=== PATIENT | female | born 1965 | race Caucasian/White ===

== ENCOUNTER 2021-03-04 20:22 | Observation (INO) ==
[2021-03-04] MEDS ORDERED: SODIUM CHLORIDE 0.9% 500 ML IV SCH (21:00)
[2021-03-04 21:32] LABS: Hematocrit (blood only) 38.3 % (37-47); Hemoglobin 13.9 g/dL (12.0-16.0); Mean Corpuscular Hemoglobin 29.1 pg (25-34); Mean Corpuscular Hgb Conc 36.3 g/dL (32-36); Mean Corpuscular Volume 80.3 fL (80-100); Mean Platelet Volume 10.7 fL (7.4-10.4); Platelet Count 173 K/uL (130-400); RDW Standard Deviation 38.8 fL (36.4-46.3); Red Blood Count 4.77 M/uL (4.2-5.4); White Blood Count 14.18 K/uL (4.8-10.8)
[2021-03-04 21:39] LABS: iSTAT Creatinine 1.4 mg/dl (0.6-1.3); iSTAT Hemoglobin 14.3 g/dl (12.0-16.0); iSTAT Ionized Calcium 1.05 mmol/l (1.12-1.32); iSTAT Potassium 2.5 mmol/L (3.3-5.0)
[2021-03-04 21:53] LABS: Albumin Level 3.4 gm/dl (3.4-5.0); BUN Creatinine Ratio 37.7 (10-20); Calcium 9.2 mg/dl (8.5-10.1); Creatinine Clr Calc Pharmacy 39.8 ml/min; Est GFR (African American) 47.8 ml/min; Est GFR (Non-African American) 41.2 ml/min; Magnesium 2.3 mg/dl (1.8-2.4); Potassium 2.5 mmol/L (3.5-5.1)
[2021-03-04] MEDS ORDERED: POTASSIUM CHLORIDE / WTR 10 MEQ/100 ML PLCT IV ONE (22:02)
[2021-03-04 22:07] LABS: Basophils # (auto) 0.06 K/uL (0-0.2); Basophils % (auto) 0.4 %; Echinocytes 1+; Eosinophils # (auto) 0.01 K/uL (0-0.5); Eosinophils % (auto) 0.1 %; Immature Granulocytes # (auto) 0.03 K/uL (0.00-0.02); Immature Granulocytes % (auto) 0.2 %; Lymphocytes # (auto) 4.59 K/uL (1.2-3.4); Lymphocytes % (auto) 32.4 %; Monocytes # (auto) 1.22 K/uL (0.11-0.59); Monocytes % (auto) 8.6 %; Neutrophils # (auto) 8.27 K/uL (1.4-6.5); Neutrophils % (auto) 58.3 %
[2021-03-04 22:10] LABS: Albumin Globulin Ratio 0.9 (0.9-2); Bilirubin,Total 1.1 mg/dl (0.2-1); Thyroid Stimulating Hormone 0.796 uIu/ml (0.300-4.500); Total Protein 7.4 gm/dl (6.4-8.2); Troponin I 0.042 ng/ml (0-0.045)
--- NOTE | 2021-03-04 22:10 | XRay Report ---
XR chest 1V portable CLINICAL HISTORY: weakness TECHNIQUE: Single frontal radiograph of the chest was obtained. Comparison: None available at the time of this dictation. FINDINGS: A right carotid stent is noted. The cardiomediastinal silhouette is normal. There is a radiodensity i n the left upper lung that appears to overlie the tip of the first rib. No evidence of pleural effusi on or pneumothorax. IMPRESSION: Radiodensity in the left upper lung may represent summation artifact from overlying ribs, however att ention on CTA neck, already ordered, is recommended. ACT 112: Negative or not required by law. Electronically signed by: Silverio Campos M.D. 03/04/2021 10:09 PM
[2021-03-04] MEDS ORDERED: OPTIRAY 320 125ml IV ONE (22:34)
--- NOTE | 2021-03-04 22:43 | CT Scan Report ---
CT cervical spine wo con CLINICAL HISTORY: fall TECHNIQUE: Multidetector row helical CT of the cervical spine was performed without administration of intravenous contrast. Coronal and sagittal reformations were obtained. Automated dose lowering techn iques and/or adjustment according to patient size were utilized for this exam. Comparison: None available at the time of this dictation. FINDINGS: No acute fractures or subluxations are identified. The alignment is normal. The vertebral body height s and disk spaces are well maintained. The prevertebral soft tissues are unremarkable. IMPRESSION: No evidence of acute injury. ACT 112: Negative or not required by law. Electronically signed by: Silverio Campos M.D. 03/04/2021 10:38 PM
--- NOTE | 2021-03-04 22:50 | Emergency Department Note ---
Impression & Plan Confusion, Falls, Contusion of left shoulder, Multiple leg contusions, Rhabdomyolysis, Atrial fibrillation with rapid ventricular response, Acute hypokalemia, Acute hyponatremia ED Provider Note Provider: Ted Thornton MD DATE OF SERVICE: 03/04/2021 CHIEF COMPLAINT: Falls, disorientation HISTORY OF PRESENT ILLNESS: Patient is a 55-year-old female history of a left carotid stent, and diabetes and hypertension presenting here with son today reporting over the past approximately 3-4 days his mother is not been acting herself. Evidently starting on Sunday he reports that at times she has been staring sitting on the toilet or going through an empty box in her room for some time. Occasionally had a little slurred speech but none now. Patient's not been reported to be eating well and there is question if she is been taking her medicines. There is been several small falls from bed with unclear if any loss of consciousness occurred. Patient is supposed to be on aspirin and Plavix. Patient denies any significant pain at this time or headache. Patient reports may be a little bit of dizziness. Patient denies numbness or weakness in the extremities. Son is unsure if she is ever had anything happen like this before. REVIEW OF SYSTEMS: A total of 10 review of systems was obtained and negative except as stated above in the HPI. PAST MEDICAL HISTORY: As noted above MEDICATIONS: Reviewed home medications listing but unsure of compliance SOCIAL HISTORY: Lives at home with son PHYSICAL EXAM: GENERAL: alert and oriented in no acute distress on stretcher, occasionally slo w to answer Head: normocephalic and atraumatic EYES: No injection, discharge or icterus. PERRL, EOMI. NECK: Trachea midline. Supple. ENT: Mucous membranes pink and moist. Pharynx without erythema or exudate. LUNGS: Airway patent. No retractions. Breath sounds clear HEART: Regular rate and rhythm. No chest wall tenderness ABDOMEN: Soft and non-tender, without guarding or rebound. BACK: No bilateral flank tenderness. SKIN: Acyanotic, warm, dry EXTREMITIES: Patient without significant swelling of the lower extremities. Soft compartments of the lower calves but with some scattered mild bruising of the bilateral shins and lower legs. There is a bruise approximately 5 cm partially healed over the left upper shoulder but no significant tenderness and good range of motion here. NEUROLOGICAL: No focal deficits. No aphasia. No facial droop or slurred speech but occasionally does not answer questions or is a bit slow to respond. Normal strength and tone in the extremities. Sensation to gross touch normal. Neuro intact without numbness and good strength in the hands and feet. Follows commands. Assisted from wheelchair to stretcher with minimal assist. EK bpm normal sinus rhythm. No PVC or PAC. No acute ST segment elevation or depression with a QTC of 485. Nonspecific T wave changes are noted in aVL, lead I, and laterally EK bpm appears to be in A. fib with RVR without acute ST segment elevation or depression. EK bpm sinus rhythm with a first-degree AV block with occasional PVC. No acute ST segment elevation noted with a QTC of 47. CONTINUOUS CARDIAC MONITORING: was ordered and showed a heart rate of 80s to 100s bpm in normal sinus rhythm to sinus tachycardia to later an episode of heart rate from the 100s to 150s irregularly irregular question A. fib. GCS 15 (intermittently with a bit of mild confusion) Patient's laboratory studies and imaging reviewed. Differential includes Infection, dehydration, metabolic abnormality, hypo/hyperglycemia, electrolyte disturbance, anemia, hypoxia, cardiac sources, intracerebral event, toxicologic, neurologic, as well as other pathologies. IMPRESSION/MEDICAL DECISION MAKING: Patient refused a left shoulder x-ray given the bruising here but not see obvious fracture on the x-ray and she ranges it well and doubt a bony injury with this. Given her nonspecific confusion at times without focality a CT of the head was completed. Patient has some vascular narrowings but no acute occlusions, intracranial bleed, or obvious stroke on the CT. No evidence of fracture of the cervical spine. Benign abdomen and not hypoxic here and I doubt acute intrathoracic or intra-abdominal/pelvic injury at this point. Some scattered bruising on the extremities lower as well as that the right shoulder question some rhabdomyolysis. No gross evidence of compartment syndrome on exam. Blood work with evidence of mild leukocytosis likely reactive and there is lower suspicion for infection. She is afebrile. Does not appear meningitic. Patient does have some hyponatremia, hypokalemia, and CK elevation consistent with rhabdomyolysis. Given some small initial fluid bolus and then some potassium supplementation. Evidence of GERALD from labs from several years ago. Mild transaminitis likely related to her rhabdo. No alcohol on board. UA and UDS pending. Covid negative and TSH within normal limits. Troponin detectable and abnormal question some possible demand component but she not have active chest pain and no evidence of STEMI on EKG. Discussed with the patient and son at bedside. Given the chemistries and signs of left right abnormalities, renal dysfunction, rhabdomyolysis believe further care here at the hospital is in the patient best interest. She will monitor to see if her sensorium clears some as well and if inciting event can be found. Again I doubt the patient is meningitic and she does not appear septic at this time. Discussed with the hospitalist team for further care here as an inpatient. The patient was in agreement with this plan. Patient later noted to be significantly more tachycardic and repeat EKG appears to show A. fib RVR. Patient without chest pain or hypotension. Patient's electrolytes repeated. Given some magnesium medicine and diltiazem. Patient d oes not report any history of A. fib. Will defer anticoagulation at this time to the inpatient team. Patient given 10 mg bolus of diltiazem and heart rate appears improved and seems to be sinus at this point repeat EKG was ordered. This appears to be normal sinus rhythm. Repeat electrolytes noted and LR supplementation ordered with additional oral potassium. Patient again without significant symptoms. Hospitalist aware. DIAGNOSIS: Falls, rhabdomyolysis, hyponatremia, GERALD, hypokalemia, confusion, A. fib RVR DISPOSITION: Hospitalist will evaluate Patient was agreeable with this plan. Critical Care I have personally spent 35 minutes of critical care time in the direct management of this patient. This includes bedside care, interpretation of diagnostic studies, and testing, discussion with consultants, patient, and family members, and other required patient management activities. These 35 minutes is in excess of all separately billable procedures. Past Med/Surg History Social History Smoking Status: Current every day smoker Tobacco Type: Cigarettes Preferred Language: Irish Feels Safe at Home: Yes Allergies Allergies Allergy/AdvReac Type Severity Reaction Status Date / Time NSAIDS (Non-Steroidal AdvReac Intermediate NAUSEA/VOMI Verified 03/04/21 21:28 Anti-Inflamma TING Home Meds Home Medications Medication Instructions Recorded Confirmed aspirin 81 mg chewable tablet 81 mg PO DAILY 03/04/21 03/04/21 atorvastatin 40 mg tablet 40 mg PO DAILY 03/04/21 03/04/21 clopidogrel 75 mg tablet 75 mg PO DAILY 03/04/21 03/04/21 fenofibrate 54 mg tablet 54 mg PO BID 03/04/21 03/04/21 hydrochlorothiazide 25 mg tablet 12.5 mg PO DAILY 03/04/21 03/04/21 hydrocodone 5 mg-acetaminophen 325 1 tab PO Q6H PRN 03/04/21 03/04/21 mg tablet lorazepam 1 mg tablet 1 mg PO TID PRN 03/04/21 03/04/21 losartan 50 mg tablet 50 mg PO DAILY 03/04/21 03/04/21 metformin 1,000 mg tablet 1,000 mg PO BID 03/04/21 03/04/21 metoprolol tartrate 50 mg tablet 50 mg PO BID 03/04/21 03/04/21 venlafaxine 75 mg tablet 75 mg PO DAILY 03/04/21 03/04/21 Results & Data (ED) Vital Signs Vital Signs - 24 hr 03/04/21 20:30 03/04/21 20:53 03/04/21 21:10 Temperature 36.7 C 36.9 C Temperature Source Temporal Artery Scan Oral Pulse Rate 109 H 104 H Pulse Rate [Apical] 97 H Pulse Rate from SpO2 Sensor 106 H Pulse Rhythm Pulse Rhythm [Apical] Regular Pulse Strength [Apical] Normal Respiratory Rate 20 16 27 H Respiratory Effort / Characteristics Non-Labored Spontaneous Non-Labored Respiratory Depth Normal Normal Respiratory Pattern Regular Blood Pressure 205/89 H Blood Pressure [Left Arm] 204/90 H Blood Pressure Mean 127 Blood Pressure Mean [Left Arm] 128 Blood Pressure Position [Left Arm] Lying Pulse Oximetry 98 98 97 Oxygen Delivery Method Room Air Room Air Sepsis Recent Fever Within 48 Hours No Sepsis New/Unexplained Change in Mental Status Yes Sepsis Action Taken by Nursing No Action Required 03/04/21 21:50 03/04/21 21:57 03/04/21 22:20 Temperature Temperature Source Pulse Rate 97 H 98 H 108 H Pulse Rate [Apical] Pulse Rate from SpO2 Sensor 97 H 102 H Pulse Rhythm Regular Pulse Rhythm [Apical] Pulse Strength [Apical] Respiratory Rate 21 16 19 Respiratory Effort / Characteristics Respiratory Depth Respiratory Pattern Blood Pressure Blood Pressure [Left Arm] Blood Pressure Mean Blood Pressure Mean [Left Arm] Blood Pressure Position [Left Arm] Pulse Oximetry 96 97 98 Oxygen Delivery Method Room Air Sepsis Recent Fever Within 48 Hours Sepsis New/Unexplained Change in Mental Status Sepsis Action Taken by Nursing 03/04/21 22:45 03/04/21 23:00 03/04/21 23:30 Temperature Temperature Source Pulse Rate 102 H 101 H Pulse Rate [Apical] 98 H Pulse Rate from SpO2 Sensor 103 H Pulse Rhythm Pulse Rhythm [Apical] Regular Pulse Strength [Apical] Normal Respiratory Rate 17 29 H 29 H Respiratory Effort / Characteristics Non-Labored Respiratory Depth Normal Respiratory Pattern Blood Pressure Blood Pressure [Left Arm] 195/84 H Blood Pressure Mean Blood Pressure Mean [Left Arm] 121 Blood Pressure Position [Left Arm] Lying Pulse Oximetry 100 99 Oxygen Delivery Method Room Air Sepsis Recent Fever Within 48 Hours Sepsis New/Unexplained Change in Mental Status Sepsis Action Taken by Nursing 03/05/21 00:00 03/05/21 00:30 03/05/21 00:41 Temperature Temperature Source Pulse Rate 101 H 144 H 104 H Pulse Rate [Apical] 102 H Pulse Rate from SpO2 Sensor 145 H 103 H Pulse Rhythm Pulse Rhythm [Apical] Pulse Strength [Apical] Respiratory Rate 25 H 19 28 H Respiratory Effort / Characteristics Respiratory Depth Respiratory Pattern Blood Pressure 154/124 H 198/90 H Blood Pressure [Left Arm] 193/124 H Blood Pressure Mean 134 126 Blood Pressure Mean [Left Arm] 147 Blood Pressure Position [Left Arm] Sitting Pulse Oximetry 96 97 97 Oxygen Delivery Method Room Air Sepsis Recent Fever Within 48 Hours Sepsis New/Unexplained Change in Mental Status Sepsis Action Taken by Nursing Laboratory Data Result diagrams: 03/04/21 21:20 03/05/21 00:43 Lab Results 03/04/21 03/04/21 03/04/21 Range/Units 21:18 21:20 21:20 WBC (4.8-10.8) K/uL RBC (4.2-5.4) M/uL Hgb (12.0-16.0) g/dL POC Hgb (12.0-16.0) g/dl Hct (37-47) % POC Hct (37-47) % MCV (80-100) fL MCH (25-34) pg MCHC (32-36) g/dL RDW Std Deviation (36.4-46.3) fL RDW Coeff of Nicholas (11.5-14.5) % Plt Count (130-400) K/uL MPV (7.4-10.4) fL Immature Gran % (Auto) % Neut % (Auto) % Lymph % (Auto) % [place] % (Auto) % Eos % (Auto) % Baso % (Auto) % Neut # (Auto) (1.4-6.5) K/uL Lymph # (Auto) (1.2-3.4) K/uL [place] # (Auto) (0.11-0.59) K/uL Eos # (Auto) (0-0.5) K/uL Baso # (Auto) (0-0.2) K/uL Immature Gran # (Auto) (0.00-0.02) K/uL Echinocytes POC Sodium (135-144) mmol/L Sodium 127 L (136-145) mmol/L POC Potassium (3.3-5.0) mmol/L Potassium 2.5 L* (3.5-5.1) mmol/L POC Chloride (101-112) mmol/L Chloride 91 L (98-107) mmol/L Carbon Dioxide 20 L (21-32) mmol/L POC Total CO2 (24-31) mmol/L Anion Gap 17.0 H (3-11) POC Anion Gap (16-25) mmol/L POC BUN (7-18) mg/dl BUN 53 H (7-18) mg/dl Creatinine 1.41 H (0.6-1.2) mg/dl POC Creatinine (0.6-1.3) mg/dl Est Cr Clr Drug Dosing 39.8 ml/min Est GFR ( Amer) 47.8 ml/min Est GFR (Non-Af Amer) 41.2 ml/min BUN/Creatinine Ratio 37.7 H (10-20) Glucose 141 H (70-99) mg/dl POC Glucose 138 H (70-99) mg/dl POC Glucose (other) (70-99) mg/dl Osmolality (280-300) mOsm/kg Lactate 0.7 (0.4-2.0) mmol/L Calcium 9.2 (8.5-10.1) mg/dl POC Ioniz Calcium Tushar (1.12-1.32) mmol/l Magnesium 2.3 (1.8-2.4) mg/dl Total Bilirubin 1.1 H (0.2-1) mg/dl AST 204 H (15-37) U/L ALT 118 H (12-78) U/L Alkaline Phosphatase 53 (45-117) U/L Total Creatine Kinase 1824 H (26-192) U/L Troponin I 0.042 (0-0.045) ng/ml Total Protein 7.4 (6.4-8.2) gm/dl Albumin 3.4 (3.4-5.0) gm/dl Globulin 4.0 (2.5-4.0) gm/dl Albumin/Globulin Ratio 0.9 (0.9-2) TSH 0.796 (0.300-4.500) uIu/ml Urine Color Urine Appearance (Clear) Urine pH (4.5-7.5) Ur Specific [place] (1.000-1.030) Urine Protein (Negative) Urine Glucose (UA) (Negative) Urine Ketones (Negative) Urine Blood (Negative) Urine Nitrite (Negative) Urine Bilirubin (Negative) Urine Urobilinogen (Negative) Ur Leukocyte Esterase (Negative) Urine WBC (Auto) (0-5) /hpf Urine RBC (Auto) (0-4) /hpf U Hyaline Cast (Auto) (0-5) /lpf U Epithel Cells (Auto) (0-5) /lpf Urine Bacteria (Auto) (Negative) Urine Opiates Screen (Neg) Ur Methadone, Qual (Neg) Urine Barbiturates (Neg) Ur Phencyclidine (PCP) (Neg) U Amphetamin/Meth Scrn (Neg) MDMA (Ecstasy) Screen (Neg) U Benzodiazepines Scrn (Neg) Ur Cocaine Metabolite (Neg) U Marijuana (THC) Screen (Neg) Ethyl Alcohol mg/dL (0-3) mg/dl COVID-19 Eval Order SARS-CoV-2 (PCR) (Negative) 03/04/21 03/04/21 03/04/21 Range/Units 21:20 21:20 21:23 WBC 14.18 H (4.8-10.8) K/uL RBC 4.77 (4.2-5.4) M/uL Hgb 13.9 (12.0-16.0) g/dL POC Hgb (12.0-16.0) g/dl Hct 38.3 (37-47) % POC Hct (37-47) % MCV 80.3 (80-100) fL MCH 29.1 (25-34) pg MCHC 36.3 H (32-36) g/dL RDW Std Deviation 38.8 (36.4-46.3) fL RDW Coeff of Nicholas 13.0 (11.5-14.5) % Plt Count 173 (130-400) K/uL MPV 10.7 H (7.4-10.4) fL Immature Gran % (Auto) 0.2 % Neut % (Auto) 58.3 % Lymph % (Auto) 32.4 % [place] % (Auto) 8.6 % Eos % (Auto) 0.1 % Baso % (Auto) 0.4 % Neut # (Auto) 8.27 H (1.4-6.5) K/uL Lymph # (Auto) 4.59 H (1.2-3.4) K/uL [place] # (Auto) 1.22 H (0.11-0.59) K/uL Eos # (Auto) 0.01 (0-0.5) K/uL Baso # (Auto) 0.06 (0-0.2) K/uL Immature Gran # (Auto) 0.03 H (0.00-0.02) K/uL Echinocytes 1+ POC Sodium (135-144) mmol/L Sodium (136-145) mmol/L POC Potassium (3.3-5.0) mmol/L Potassium (3.5-5.1) mmol/L POC Chloride (101-112) mmol/L Chloride (98-107) mmol/L Carbon Dioxide (21-32) mmol/L POC Total CO2 (24-31) mmol/L Anion Gap (3-11) POC Anion Gap (16-25) mmol/L POC BUN (7-18) mg/dl BUN (7-18) mg/dl Creatinine (0.6-1.2) mg/dl POC Creatinine (0.6-1.3) mg/dl Est Cr Clr Drug Dosing ml/min Est GFR ( Amer) ml/min Est GFR (Non-Af Amer) ml/min BUN/Creatinine Ratio (10-20) Glucose (70-99) mg/dl POC Glucose (70-99) mg/dl POC Glucose (other) (70-99) mg/dl Osmolality 288 (280-300) mOsm/kg Lactate (0.4-2.0) mmol/L Calcium (8.5-10.1) mg/dl POC Ioniz Calcium Tushar (1.12-1.32) mmol/l Magnesium (1.8-2.4) mg/dl Total Bilirubin (0.2-1) mg/dl AST (15-37) U/L ALT (12-78) U/L Alkaline Phosphatase (45-117) U/L Total Creatine Kinase (26-192) U/L Troponin I (0-0.045) ng/ml Total Protein (6.4-8.2) gm/dl Albumin (3.4-5.0) gm/dl Globulin (2.5-4.0) gm/dl Albumin/Globulin Ratio (0.9-2) TSH (0.300-4.500) uIu/ml Urine Color Urine Appearance (Clear) Urine pH (4.5-7.5) Ur Specific [place] (1.000-1.030) Urine Protein (Negative) Urine Glucose (UA) (Negative) Urine Ketones (Negative) Urine Blood (Negative) Urine Nitrite (Negative) Urine Bilirubin (Negative) Urine Urobilinogen (Negative) Ur Leukocyte Esterase (Negative) Urine WBC (Auto) (0-5) /hpf Urine RBC (Auto) (0-4) /hpf U Hyaline Cast (Auto) (0-5) /lpf U Epithel Cells (Auto) (0-5) /lpf Urine Bacteria (Auto) (Negative) Urine Opiates Screen (Neg) Ur Methadone, Qual (Neg) Urine Barbiturates (Neg) Ur Phencyclidine (PCP) (Neg) U Amphetamin/Meth Scrn (Neg) MDMA (Ecstasy) Screen (Neg) U Benzodiazepines Scrn (Neg) Ur Cocaine Metabolite (Neg) U Marijuana (THC) Screen (Neg) Ethyl Alcohol mg/dL < 3.0 (0-3) mg/dl COVID-19 Eval Order SARS-CoV-2 (PCR) (Negative) 03/04/21 03/04/21 03/04/21 Range/Units 21:26 22:52 22:52 WBC (4.8-10.8) K/uL RBC (4.2-5.4) M/uL Hgb (12.0-16.0) g/dL POC Hgb 14.3 (12.0-16.0) g/dl Hct (37-47) % POC Hct 42 (37-47) % MCV (80-100) fL MCH (25-34) pg MCHC (32-36) g/dL RDW Std Deviation (36.4-46.3) fL RDW Coeff of Nicholas (11.5-14.5) % Plt Count (130-400) K/uL MPV (7.4-10.4) fL Immature Gran % (Auto) % Neut % (Auto) % Lymph % (Auto) % [place] % (Auto) % Eos % (Auto) % Baso % (Auto) % Neut # (Auto) (1.4-6.5) K/uL Lymph # (Auto) (1.2-3.4) K/uL [place] # (Auto) (0.11-0.59) K/uL Eos # (Auto) (0-0.5) K/uL Baso # (Auto) (0-0.2) K/uL Immature Gran # (Auto) (0.00-0.02) K/uL Echinocytes POC Sodium 127 L (135-144) mmol/L Sodium (136-145) mmol/L POC Potassium 2.5 L* (3.3-5.0) mmol/L Potassium (3.5-5.1) mmol/L POC Chloride 92 L (101-112) mmol/L Chloride (98-107) mmol/L Carbon Dioxide (21-32) mmol/L POC Total CO2 20 L (24-31) mmol/L Anion Gap (3-11) POC Anion Gap 20.0 (16-25) mmol/L POC BUN 45 H (7-18) mg/dl BUN (7-18) mg/dl Creatinine (0.6-1.2) mg/dl POC Creatinine 1.4 H (0.6-1.3) mg/dl Est Cr Clr Drug Dosing ml/min Est GFR ( Amer) ml/min Est GFR (Non-Af Amer) ml/min BUN/Creatinine Ratio (10-20) Glucose (70-99) mg/dl POC Glucose (70-99) mg/dl POC Glucose (other) 138 H (70-99) mg/dl Osmolality (280-300) mOsm/kg Lactate (0.4-2.0) mmol/L Calcium (8.5-10.1) mg/dl POC Ioniz Calcium Tushar 1.05 L (1.12-1.32) mmol/l Magnesium (1.8-2.4) mg/dl Total Bilirubin (0.2-1) mg/dl AST (15-37) U/L ALT (12-78) U/L Alkaline Phosphatase (45-117) U/L Total Creatine Kinase (26-192) U/L Troponin I (0-0.045) ng/ml Total Protein (6.4-8.2) gm/dl Albumin (3.4-5.0) gm/dl Globulin (2.5-4.0) gm/dl Albumin/Globulin Ratio (0.9-2) TSH (0.300-4.500) uIu/ml Urine Color Urine Appearance (Clear) Urine pH (4.5-7.5) Ur Specific [place] (1.000-1.030) Urine Protein (Negative) Urine Glucose (UA) (Negative) Urine Ketones (Negative) Urine Blood (Negative) Urine Nitrite (Negative) Urine Bilirubin (Negative) Urine Urobilinogen (Negative) Ur Leukocyte Esterase (Negative) Urine WBC (Auto) (0-5) /hpf Urine RBC (Auto) (0-4) /hpf U Hyaline Cast (Auto) (0-5) /lpf U Epithel Cells (Auto) (0-5) /lpf Urine Bacteria (Auto) (Negative) Urine Opiates Screen (Neg) Ur Methadone, Qual (Neg) Urine Barbiturates (Neg) Ur Phencyclidine (PCP) (Neg) U Amphetamin/Meth Scrn (Neg) MDMA (Ecstasy) Screen (Neg) U Benzodiazepines Scrn (Neg) Ur Cocaine Metabolite (Neg) U Marijuana (THC) Screen (Neg) Ethyl Alcohol mg/dL (0-3) mg/dl COVID-19 Eval Order Covid19 at [facility] SARS-CoV-2 (PCR) NEGATIVE (Negative) 03/05/21 03/05/21 03/05/21 Range/Units 00:43 01:15 01:15 WBC (4.8-10.8) K/uL RBC (4.2-5.4) M/uL Hgb (12.0-16.0) g/dL POC Hgb (12.0-16.0) g/dl Hct (37-47) % POC Hct (37-47) % MCV (80-100) fL MCH (25-34) pg MCHC (32-36) g/dL RDW Std Deviation (36.4-46.3) fL RDW Coeff of Nicholas (11.5-14.5) % Plt Count (130-400) K/uL MPV (7.4-10.4) fL Immature Gran % (Auto) % Neut % (Auto) % Lymph % (Auto) % [place] % (Auto) % Eos % (Auto) % Baso % (Auto) % Neut # (Auto) (1.4-6.5) K/uL Lymph # (Auto) (1.2-3.4) K/uL [place] # (Auto) (0.11-0.59) K/uL Eos # (Auto) (0-0.5) K/uL Baso # (Auto) (0-0.2) K/uL Immature Gran # (Auto) (0.00-0.02) K/uL Echinocytes POC Sodium (135-144) mmol/L Sodium 128 L (136-145) mmol/L POC Potassium (3.3-5.0) mmol/L Potassium 2.6 L (3.5-5.1) mmol/L POC Chloride (101-112) mmol/L Chloride 92 L (98-107) mmol/L Carbon Dioxide 24 (21-32) mmol/L POC Total CO2 (24-31) mmol/L Anion Gap 12.0 H (3-11) POC Anion Gap (16-25) mmol/L POC BUN (7-18) mg/dl BUN 49 H (7-18) mg/dl Creatinine 1.36 H (0.6-1.2) mg/dl POC Creatinine (0.6-1.3) mg/dl Est Cr Clr Drug Dosing 41.3 ml/min Est GFR ( Amer) 49.9 ml/min Est GFR (Non-Af Amer) 43.1 ml/min BUN/Creatinine Ratio 35.7 H (10-20) Glucose 113 H (70-99) mg/dl POC Glucose (70-99) mg/dl POC Glucose (other) (70-99) mg/dl Osmolality (280-300) mOsm/kg Lactate (0.4-2.0) mmol/L Calcium 8.5 (8.5-10.1) mg/dl POC Ioniz Calcium Tushar (1.12-1.32) mmol/l Magnesium (1.8-2.4) mg/dl Total Bilirubin (0.2-1) mg/dl AST (15-37) U/L ALT (12-78) U/L Alkaline Phosphatase (45-117) U/L Total Creatine Kinase (26-192) U/L Troponin I (0-0.045) ng/ml Total Protein (6.4-8.2) gm/dl Albumin (3.4-5.0) gm/dl Globulin (2.5-4.0) gm/dl Albumin/Globulin Ratio (0.9-2) TSH (0.300-4.500) uIu/ml Urine Color Yellow Urine Appearance Clear (Clear) Urine pH 5.0 (4.5-7.5) Ur Specific [place] 1.043 H (1.000-1.030) Urine Protein 1+ H (Negative) Urine Glucose (UA) Negative (Negative) Urine Ketones 1+ H (Negative) Urine Blood 2+ H (Negative) Urine Nitrite Negative (Negative) Urine Bilirubin Negative (Negative) Urine Urobilinogen Negative (Negative) Ur Leukocyte Esterase Negative (Negative) Urine WBC (Auto) 1-5 (0-5) /hpf Urine RBC (Auto) 0-4 (0-4) /hpf U Hyaline Cast (Auto) 1-5 (0-5) /lpf U Epithel Cells (Auto) 10-20 H (0-5) /lpf Urine Bacteria (Auto) Negative (Negative) Urine Opiates Screen Neg (Neg) Ur Methadone, Qual Neg (Neg) Urine Barbiturates Neg (Neg) Ur Phencyclidine (PCP) Neg (Neg) U Amphetamin/Meth Scrn Neg (Neg) MDMA (Ecstasy) Screen Neg (Neg) U Benzodiazepines Scrn Neg (Neg) Ur Cocaine Metabolite Neg (Neg) U Marijuana (THC) Screen Neg (Neg) Ethyl Alcohol mg/dL (0-3) mg/dl COVID-19 Eval Order SARS-CoV-2 (PCR) (Negative) Administered Medications Discontinued Medications Diltiazem HCl (Diltiazem Hcl 5 Mg/Ml 5 Ml Vial) 10 mg IV NOW STA Stop: 03/05/21 00:29 Last Admin: 03/05/21 00:42 Dose: 10 mg Documented by: [id number] Cosigned by: [id number] Sodium Chloride (Nss) 500 mls @ 999 mls/hr IV .Q31M INDRA Stop: 03/04/21 21:30 Last Infusion: 03/04/21 23:41 Dose: 0 mls/hr Documented by: [id number] Admin: 03/04/21 22:04 Dose: 999 mls/hr Documented by: [id number] Potassium Chloride (K Johan / Wtr) 10 meq in 100 mls @ 100 mls/hr IV ONE ONE Stop: 03/04/21 23:01 Last Infusion: 03/04/21 23:41 Dose: 0 mls/hr Documented by: [id number] Admin: 03/04/21 22:45 Dose: 100 mls/hr Documented by: [id number] Magnesium Sulfate/Dextrose (Magnesium Sulfate / D5w) 1 gm in 100 mls @ 400 mls/hr IV Q15M INDRA Stop: 03/05/21 00:43 Last Admin: 03/05/21 00:42 Dose: 400 mls/hr Documented by: [id number] Ioversol (Optiray 320 125ml) 117 ml IV ONCE ONE Stop: 03/04/21 22:35 Last Admin: 03/04/21 22:34 Dose: 117 ml Documented by: [id number] Imaging Data Radiologist's Impression: Head CT 03/04/21 20:48 CT angio head w con, CT angio neck with con, CT head/brain wo con CLINICAL HISTORY: disoriented TECHNIQUE: Contiguous axial CT images of the head were acquired from the base of the skull to the vertex without intravenous contrast administration. CT angiography of the head and neck was performed following intravenous administration of iodinated contrast. Automated dose lowering techniques and/or adjustment according to patient size were utilized for this examination. Comparison: None available at the time of this dictation. FINDINGS: CT head: Areas of decreased attenuation are present in the periventricular and subcortical white matter bilaterally consistent with small vessel ischemic disease. Generalized cerebral atrophy with commensurate enlargement of the ventricles, sulci, and cisterns is also present. There is no acute intracranial hemorrhage or evidence of acute territorial infarction. No shift of the midline structures, mass effect, or extra-axial abnormalities are shown. Atherosclerotic calcifications are present in the intracranial segments of the internal carotid arteries. Old lacunar infarct are seen in the left periventricular white matter and internal capsule. CTA Neck: A 3 vessel aortic arch is shown. A left carotid artery stent is seen. Atherosclerotic plaque is present in the aortic arch and at the origin of the great vessels. There is no atherosclerotic plaque at the origins of the vertebr al arteries. The common carotid, external carotid, cervical segments of the internal carotid arteries, and the cervical segments of the vertebral arteries are patent. There is approximately 50% stenosis of the left vertebral artery at C4. The left vertebral artery is dominant. Emphysematous changes are seen in the bilateral lungs. Subcentimeter thyroid nodules are seen which do not require follow-up by ACR criteria. CTA Head: The anterior and posterior cerebral circulations are patent. There is approximately 70% stenosis of the right internal carotid artery petrous segment. The left internal carotid artery demonstrates approximately 50% stenosis at the petrous segment. Atherosclerotic disease is noted. IMPRESSION: 1. 70% right and 50% left stenosis of the internal carotid arteries at the petrous segment. No aneurysm, dissection, or occlusion is seen. 2. Approximately 50% stenosis of the left vertebral artery at C4. Left carotid artery stent is seen. 3. No acute intracranial hemorrhage, evidence of acute territorial infarction, or other acute intracranial disease process. Assessment of stenosis of the internal carotid arteries is based on NASCET criteria. ACT 112: Negative or not required by law. Electronically signed by: Silverio Campos M.D. 03/04/2021 10:52 PM Chest X-Ray 03/04/21 20:49 XR chest 1V portable CLINICAL HISTORY: weakness TECHNIQUE: Single frontal radiograph of the chest was obtained. Comparison: None available at the time of this dictation. FINDINGS: A right carotid stent is noted. The cardiomediastinal silhouette is normal. There is a radiodensity in the left upper lung that appears to overlie the tip of the first rib. No evidence of pleural effusion or pneumothorax. IMPRESSION: Radiodensity in the left upper lung may represent summation artifact from overlying ribs, however attention on CTA neck, already ordered, is recommended. ACT 112: Negative or not required by law. Electronically signed by: Silverio Campos M.D. 03/04/2021 10:09 PM Head CTA 03/04/21 20:49 CT angio head w con, CT angio neck with con, CT head/brain wo con CLINICAL HISTORY: disoriented TECHNIQUE: Contiguous axial CT images of the head were acquired from the base of the skull to the vertex without intravenous contrast administration. CT angiography of the head and neck was performed following intravenous administration of iodinated contrast. Automated dose lowering techniques and/or adjustment according to patient size were utilized for this examination. Comparison: None available at the time of this dictation. FINDINGS: CT head: Areas of decreased attenuation are present in the periventricular and subcortical white matter bilaterally consistent with small vessel ischemic disease. Generalized cerebral atrophy with commensurate enlargement of the ventricles, sulci, and cisterns is also present. There is no acute intracranial hemorrhage or evidence of acute territorial infarction. No shift of the midline structures, mass effect, or extra-axial abnormalities are shown. Atherosclerotic calcifications are present in the intracranial segments of the internal carotid arteries. Old lacunar infarct are seen in the left periventricular white matter and internal capsule. CTA Neck: A 3 vessel aortic arch is shown. A left carotid artery stent is seen. Atherosclerotic plaque is present in the aortic arch and at the origin of the great vessels. There is no atherosclerotic plaque at the origins of the vertebral arteries. The common carotid, external carotid, cervical segments of the internal carotid arteries, and the cervical segments of the vertebral arteries are patent. There is approximately 50% stenosis of the left vertebral artery at C4. The left vertebral artery is dominant. Emphysematous changes are seen in the bilateral lungs. Subcentimeter thyroid nodules are seen which do not require follow-up by ACR criteria. CTA Head: The anterior and posterior cerebral circulations are patent. There is approximately 70% stenosis of the right internal carotid artery petrous segment. The left internal carotid artery demonstrates approximately 50% stenosis at the petrous segment. Atherosclerotic disease is noted. IMPRESSION: 1. 70% right and 50% left stenosis of the internal carotid arteries at the petrous segment. No aneurysm, dissection, or occlusion is seen. 2. Approximately 50% stenosis of the left vertebral artery at C4. Left carotid artery stent is seen. 3. No acute intracranial hemorrhage, evidence of acute territorial infarction, or other acute intracranial disease process. Assessment of stenosis of the internal carotid arteries is based on NASCET criteria. ACT 112: Negative or not required by law. Electronically signed by: Silverio Campos M.D. 03/04/2021 10:52 PM Neck CTA 03/04/21 20:49 CT angio head w con, CT angio neck with con, CT head/brain wo con CLINICAL HISTORY: disoriented TECHNIQUE: Contiguous axial CT images of the head were acquired from the base of the skull to the vertex without intravenous contrast administration. CT angiography of the head and neck was performed following intravenous administration of iodinated contrast. Automated dose lowering techniques and/or adjustment according to patient size were utilized for this examination. Comparison: None available at the time of this dictation. FINDINGS: CT head: Areas of decreased attenuation are present in the periventricular and subcortical white matter bilaterally consistent with small vessel ischemic disease. Generalized cerebral atrophy with commensurate enlargement of the ventricles, sulci, and cisterns is also present. There is no acute intracranial hemorrhage or evidence of acute territorial infarction. No shift of the midline structures, mass effect, or extra-axial abnormalities are shown. Atherosclerotic calcifications are present in the intracranial segments of the internal carotid arteries. Old lacunar infarct are seen in the left periventricular white matter and internal capsule. CTA Neck: A 3 vessel aortic arch is shown. A left carotid artery stent is seen. Atherosclerotic plaque is present in the aortic arch and at the origin of the great vessels. There is no atherosclerotic plaque at the origins of the vertebral arteries. The common carotid, external carotid, cervical segments of the internal carotid arteries, and the cervical segments of the vertebral arteries are patent. There is approximately 50% stenosis of the left vertebral artery at C4. The left vertebral artery is dominant. Emphysematous changes are seen in the bilateral lungs. Subcentimeter thyroid nodules are seen which do not require follow-up by ACR criteria. CTA Head: The anterior and posterior cerebral circulations are patent. There is approximately 70% stenosis of the right internal carotid artery petrous segment. The left internal carotid artery demonstrates approximately 50% stenosis at the petrous segment. Atherosclerotic disease is noted. IMPRESSION: 1. 70% right and 50% left stenosis of the internal carotid arteries at the petrous segment. No aneurysm, dissection, or occlusion is seen. 2. Approximately 50% stenosis of the left vertebral artery at C4. Left carotid artery stent is seen. 3. No acute intracranial hemorrhage, evidence of acute territorial infarction, or other acute intracranial disease process. Assessment of stenosis of the internal carotid arteries is based on NASCET criteria. ACT 112: Negative or not required by law. Electronically signed by: Silverio Campos M.D. 03/04/2021 10:[address] 03/04/21 20:51 CT cervical spine wo con CLINICAL HISTORY: fall TECHNIQUE: Multidetector row helical CT of the cervical spine was performed without administration of intravenous contrast. Coronal and sagittal reformations were obtained. Automated dose lowering techniques and/or adjustment according to patient size were utilized for this exam. Comparison: None available at the time of this dictation. FINDINGS: No acute fractures or subluxations are identified. The alignment is normal. The vertebral body heights and disk spaces are well maintained. The prevertebral soft tissues are unremarkable. IMPRESSION: No evidence of acute injury. ACT 112: Negative or not required by law. Electronically signed by: Silverio Campos M.D. 03/04/2021 10:38 PM Discharge Plan Visit Data Chief Complaint: Altered Mental Status Stated Complaint: DIZZY, ALTERED MENTAL STATUS ED Provider: Ted Thornton Discharge Problem: Confusion, Falls, Contusion of left shoulder, Multiple leg contusions, Rhabdomyolysis, Atrial fibrillation with rapid ventricular response, Acute hypokalemia, Acute hyponatremia Patient Disposition: Being Evaluated by Hospitalist Forms Stand Alone Forms: [facility] [employer] Prescriptions Prescriptions: No Action losartan 50 mg tablet 50 mg PO DAILY RF: 0 atorvastatin 40 mg tablet 40 mg PO DAILY RF: 0 venlafaxine 75 mg tablet 75 mg PO DAILY RF: 0 hydrocodone-acetaminophen 5-325 mg tablet 1 tab PO Q6H PRN (Reason: Pain) RF: 0 clopidogrel 75 mg tablet 75 mg PO DAILY RF: 0 metformin 1,000 mg tablet 1,000 mg PO BID RF: 0 metoprolol tartrate 50 mg tablet 50 mg PO BID RF: 0 aspirin 81 mg tablet,chewable 81 mg PO DAILY RF: 0 hydrochlorothiazide 25 mg tablet 12.5 mg PO DAILY RF: 0 lorazepam 1 mg tablet 1 mg PO TID PRN (Reason: Anxiety) RF: 0 fenofibrate 54 mg tablet 54 mg PO BID RF: 0 Referrals Referrals: Yovanny Menjivar DO [Primary Care Provider] -
--- NOTE | 2021-03-04 22:53 | CT Scan Report ---
CT angio head w con, CT angio neck with con, CT head/brain wo con CLINICAL HISTORY: disoriented TECHNIQUE: Contiguous axial CT images of the head were acquired from the base of the skull to the sammie diana without intravenous contrast administration. CT angiography of the head and neck was performed f ollowing intravenous administration of iodinated contrast. Automated dose lowering techniques and/or adjustment according to patient size were utilized for this examination. Comparison: None available at the time of this dictation. FINDINGS: CT head: Areas of decreased attenuation are present in the periventricular and subcortical white roshan er bilaterally consistent with small vessel ischemic disease. Generalized cerebral atrophy with comme nsurate enlargement of the ventricles, sulci, and cisterns is also present. There is no acute intracr anial hemorrhage or evidence of acute territorial infarction. No shift of the midline structures, mas s effect, or extra-axial abnormalities are shown. Atherosclerotic calcifications are present in the intracranial segments of the internal carotid arteries. Old lacunar infarct are seen in the left michela ventricular white matter and internal capsule. CTA Neck: A 3 vessel aortic arch is shown. A left carotid artery stent is seen. Atherosclerotic plaq ue is present in the aortic arch and at the origin of the great vessels. There is no atherosclerotic plaque at the origins of the vertebral arteries. The common carotid, external carotid, cervical segme nts of the internal carotid arteries, and the cervical segments of the vertebral arteries are patent. There is approximately 50% stenosis of the left vertebral artery at C4. The left vertebral artery i s dominant. Emphysematous changes are seen in the bilateral lungs. Subcentimeter thyroid nodules are seen which do not require follow-up by ACR criteria. CTA Head: The anterior and posterior cerebral circulations are patent. There is approximately 70% st enosis of the right internal carotid artery petrous segment. The left internal carotid artery demonst rates approximately 50% stenosis at the petrous segment. Atherosclerotic disease is noted. IMPRESSION: 1. 70% right and 50% left stenosis of the internal carotid arteries at the petrous segment. No aneur ysm, dissection, or occlusion is seen. 2. Approximately 50% stenosis of the left vertebral artery at C4. Left carotid artery stent is seen. 3. No acute intracranial hemorrhage, evidence of acute territorial infarction, or other acute intrac ranial disease process. Assessment of stenosis of the internal carotid arteries is based on NASCET criteria. ACT 112: Negative or not required by law. Electronically signed by: Silverio Campos M.D. 03/04/2021 10:52 PM
[2021-03-05] MEDS ORDERED: dilTIAZem HCl 5 MG/ML 5 ML VIAL IV STA (00:28)
[2021-03-05] MEDS ORDERED: MAGNESIUM SULFATE / D5W 1 GM/100 ML BAG IV SCH (00:29)
[2021-03-05 01:15] LABS: BUN Creatinine Ratio 35.7 (10-20); Calcium 8.5 mg/dl (8.5-10.1); Creatinine Clr Calc Pharmacy 41.3 ml/min; Est GFR (African American) 49.9 ml/min; Est GFR (Non-African American) 43.1 ml/min; Potassium 2.6 mmol/L (3.5-5.1)
[2021-03-05 01:30] LABS: Appearance Urine Clear (Clear); Bacteria Urine Automated Negative (Negative); Bilirubin Urine Negative (Negative); Blood Urine 2+ (Negative); Color Urine Yellow; Glucose Urine UA Negative (Negative); Ketones Urine 1+ (Negative); Leukocyte Esterase Urine Negative (Negative); Nitrite Urine Negative (Negative); Protein Urine 1+ (Negative); RBC Urine Automated 0-4 /hpf (0-4); Specific Gravity Urine 1.043 (1.000-1.030); Urobilinogen Urine Negative (Negative)
[2021-03-05 01:51] LABS: Amphetamines+Metham, Urine Neg (Neg); Barbiturates, Urine Neg (Neg); Benzodiazepine, Urine Neg (Neg); Cocaine, Urine Neg (Neg); MDMA (Ecstacy), Urine Neg (Neg); Methadone, Urine Neg (Neg); Opiate, Urine Neg (Neg); Phencyclidine, Urine Neg (Neg)
[2021-03-05] MEDS ORDERED: POTASSIUM CHLORIDE CRTAB 20 MEQ TABCR PO STA ×3 (01:53→19:24)
[2021-03-05] MEDS ORDERED: POTASSIUM CHLORIDE / WTR 10 MEQ/100 ML PLCT IV STA (01:59)
[2021-03-05] MEDS ORDERED: LACTATED RINGER'S 1,000 ML IV SCH (02:00)
[2021-03-05] MEDS ORDERED: METOPROLOL TARTRATE 1 MG/ML VIAL IV STA (02:02)
--- NOTE | 2021-03-05 03:52 | History and Physical Report ---
DATE OF ADMISSION: 03/05/2021. CHIEF COMPLAINT: Confusion. HISTORY OF PRESENT ILLNESS: This is a 55-year-old female with past medical history significant for type 2 diabetes, hyperlipidemia, CAD, hypertension, coronary artery stenosis, Sauer's esophagus, GERD, depression, tobacco abuse, anxiety, bipolar disorder. The patient lives at home with her son. Son brought to the hospital because since last Sunday, the patient is confused at home. She is searching the empty bottle. She is sitting on the commode for a long time. She seems to be confused, so he brought the patient to the hospital. Her initial imaging workup looks okay. She is hypokalemic and also found to be hyponatremic. Currently resting comfortably, oriented to name and place, could not tell the date, could tell her date of , seems to have some confusion with right and left sides. Denies any headache. No blurred visions, no earache, no runny nose, no sore throat, no cough, no difficulty swallowing. Appetite is okay. No chest pain, no shortness of breath, no nausea, no vomiting, no abdominal pain, normal bowel and bladder movements. Denies any blood in stool or black stools. As such, her ambulation status is not that great and in the ER she also found to have new AFib. ALLERGIES: NSAIDs. PAST MEDICAL HISTORY: As mentioned above. PAST SURGICAL HISTORY: Left carotid bypass graft, EGD with biopsy, appendectomy, removal of the oophorectomy, total abdominal hysterectomy, endometriosis, left carotid stent placement. MEDICATIONS: The patient is on aspirin 81 mg p.o. daily, atorvastatin 40 mg p.o. daily, Plavix 75 mg p.o. daily, fenofibrate 54 mg p.o. b.i.d., hydrochlorothiazide 12.5 mg p.o. daily, hydrocodone/acetaminophen 1 tablet p.o. q. 6 p.r.n., Ativan 1 mg p.o. t.i.d. p.r.n., losartan 50 mg p.o. daily, metformin 1000 mg p.o. b.i.d., metoprolol tartrate 50 mg p.o. b.i.d., venlafaxine 75 mg p.o. daily. FAMILY HISTORY: Significant for father has arthritis, diabetes, high cholesterol. Mother has stroke, hypertension, high cholesterol, and arthritis. Sister has arthritis. Aunt has breast cancer. SOCIAL HISTORY: , currently lives with her son. Smoked half pack a day for 14 years. No alcohol use. No drug use. REVIEW OF SYSTEMS: As per HPI. Rest of the review of systems is negative. PHYSICAL EXAMINATION: GENERAL: The patient is moderate build, not in acute distress. VITAL SIGNS: Temperature 36.9, pulse 104, respiratory rate 28, blood pressure oxygen 198/90, oxygen 97% on room air. HEENT: Pupils equal, round and reactive to light. Oral mucosa moist. Somewhat dry. NECK: No JVD, no neck masses. CARDIOVASCULAR: S1 and S2 heard. Tachycardia. No murmurs, no gallop. RESPIRATORY SYSTEM: Normal AP diameter. No accessory muscle use. No wheezing, no crackles. ABDOMEN: Soft, bowel sounds present, nontender, nondistended. CENTRAL NERVOUS SYSTEM: Alert and oriented to name and place. Obeys simple commands. Moves extremities. Some confusion with left to right side, coordination of movements normal. Sensation is intact. EXTREMITIES: No edema, no erythema. LABORATORY DATA: WBC 14.1, hemoglobin 13.9, hematocrit 38.3, platelets 173. Sodium 128, potassium 2.6, chloride 92, bicarbonate 24, BUN 49, creatinine 1.3, serum glucose 113, osmolality is 288. Lactate 0.7, calcium 8.5, magnesium 2.3, total bilirubin 1.1, AST 204, ALT 118, alkaline phosphatase 53, total creatine kinase 1824. TSH 0.7. Urinalysis, +1 ketones, +2 blood loss, urine osmolality 519. Urine drug screen negative. Ethyl alcohol less than 3. SARS-CoV-[address] PCR negative. Cervical spine CT. No evidence of acute injury. CT of the neck, 70% right and 50% left stenosis of the internal carotid arteries. No aneurysm, dissection or occlusion is seen. Approximately 50% stenosis of left vertebral artery at C4, left carotid artery stent is seen. CT scan of the head, no acute findings. Chest x-ray, no acute findings. CT of the head, no acute findings. EKG: Initial EKG when she came in was normal sinus rhythm at a rate of 96, possible left atrial enlargement. Later EKG showed AFib. ASSESSMENT AND PLAN: This 55-year-old female presents with altered mental status. 1. Altered mental status, questionable etiology, could be metabolic with hyponatremia. The patient has leukocytosis but no obvious infection. Urinalysis negative. Chest x-ray, no acute findings. CTA of the head and CTA of the head and neck were unremarkable. Because of new onset atrial fibrillation we will rule out stroke with MRI scan. The patient also has history of stroke in the past. As per the [facility], she had right sided . Stroke in 2018 that resolved. She had left hemispheric stroke with residual right sided weakness in 07/2020 and workup showed left carotid artery stenosis and status post left coronary stenting on 08/18/2020. Will follow the MRI scan and consult Neurology in a.m. for further recommendations, and also speech evaluation. PT, OT when stable. 2. New onset atrial fibrillation. Received a dose of diltiazem in the ER. We will continue her home Lopressor and placed on IV heparin and IV Lopressor p.r.n. Will get echocardiogram, serial enzymes and consult Cardiology in the a.m. for further recommendations. 3. History of stroke in the past, on aspirin, Plavix and statin. 4. Hypokalemia, we will replace. Follow the repeat labs. 5. Hyponatremia, could be from dehydration. Getting gentle fluids. Follow the repeat labs. Consult Nephrology in a.m. 6. Mild rhabdomyolysis with CK of 1824, getting fluids. We will monitor repeat Cpk in a.m. Consult Nephrology. 7. Mild elevation of LFTs. We will follow the repeat labs in a.m. If any concern, we will get a liver ultrasound. 8. Hypertension. Continue home medication of hydrochlorothiazide, losartan and metoprolol. Monitor the blood pressure.May need to hold hctz for electrolytes. 9. History of hyperlipidemia: Continue statin and fenofibrate. 10. Depression: Continue venlafaxine. 11. History of diabetes. Hold metformin, placed on insulin sliding scale. 12. History of bipolar, currently on venlafaxine. 13. Deep venous thrombosis prophylaxis: On IV heparin. DISPOSITION: Closely monitor in the tele floor. Level 1 full code. Expect to discharge home and follow up with family doctor. Job ID: [id number] [facility]
[2021-03-05] MEDS ORDERED: SODIUM CHLORIDE 0.9% 1000ML 1,000 ML IV SCH (07:27)
[2021-03-05] MEDS ORDERED: HYDROCODONE/ACETAMOPHEN 5/325MG TAB PO PRN (07:27)
[2021-03-05] MEDS ORDERED: METOPROLOL TARTRATE 1 MG/ML VIAL IV PRN (07:27)
[2021-03-05] MEDS ORDERED: ACETAMINOPHEN 325 MG TAB PO PRN (07:27)
[2021-03-05] MEDS ORDERED: POLYETHYLENE (MIRALAX) 17 GM PACK PO PRN (07:27)
[2021-03-05] MEDS ORDERED: Heparin IV Adult Wt-Based Standard *NO* Bolus Protocol IV SCH (07:27)
[2021-03-05] MEDS ORDERED: NITROGLYCERIN SL 0.4 MG/TAB TAB SL PRN (07:27)
[2021-03-05] MEDS ORDERED: ONDANSETRON INJ 2 MG/ML 2 ML VIAL IV PRN (07:27)
[2021-03-05] MEDS ORDERED: LORazepam 1 MG TAB PO PRN (07:36)
[2021-03-05 07:47] LABS: Hematocrit (blood only) 36.4 % (37-47); Hemoglobin 13.2 g/dL (12.0-16.0); Mean Corpuscular Hemoglobin 29.2 pg (25-34); Mean Corpuscular Hgb Conc 36.3 g/dL (32-36); Mean Corpuscular Volume 80.5 fL (80-100); Mean Platelet Volume 10.4 fL (7.4-10.4); Platelet Count 185 K/uL (130-400); RDW Coefficient of Variation 13.2 % (11.5-14.5); RDW Standard Deviation 39.1 fL (36.4-46.3); Red Blood Count 4.52 M/uL (4.2-5.4); White Blood Count 12.19 K/uL (4.8-10.8)
[2021-03-05 08:11] LABS: BUN Creatinine Ratio 35.9 (10-20); Calcium 8.7 mg/dl (8.5-10.1); Est GFR (African American) 64.5 ml/min; Est GFR (Non-African American) 55.7 ml/min; Magnesium 2.6 mg/dl (1.8-2.4); Potassium 3.2 mmol/L (3.5-5.1); Troponin I 0.045 ng/ml (0-0.045)
[2021-03-05] MEDS ORDERED: HEPARIN 25000 UNIT/500 ML D5W IV ONE (08:17)
[2021-03-05 08:19] LABS: Basophils # (auto) 0.07 K/uL (0-0.2); Basophils % (auto) 0.6 %; Echinocytes 2+; Eosinophils # (auto) 0.11 K/uL (0-0.5); Eosinophils % (auto) 0.9 %; Immature Granulocytes # (auto) 0.03 K/uL (0.00-0.02); Immature Granulocytes % (auto) 0.2 %; Lymphocytes # (auto) 5.09 K/uL (1.2-3.4); Lymphocytes % (auto) 41.8 %; Monocytes # (auto) 1.61 K/uL (0.11-0.59); Monocytes % (auto) 13.2 %; Neutrophils # (auto) 5.28 K/uL (1.4-6.5); Neutrophils % (auto) 43.3 %; Smudge Cells Present
[2021-03-05 08:40] LABS: Estimated Average Glucose 143 mg/dl; Hemoglobin A1C 6.6 % (4.5-5.6)
[2021-03-05] MEDS ORDERED: hydroCHLOROthiazide 25 MG TAB PO SCH (09:00)
[2021-03-05] MEDS: HEPARIN SODIUM/DEXTROSE 25,000 UNITS/500 ML BAG IV SCH (09:08)
[2021-03-05] MEDS: FENOFIBRATE NANOCRYSTALLIZED 48 MG TABLET SCH ×2 (09:16→19:42)
[2021-03-05] MEDS: ATORVASTATIN 40 MG TAB PO SCH (09:17)
[2021-03-05] MEDS: LOSARTAN POTASSIUM 50 MG TAB PO SCH (09:17)
[2021-03-05] MEDS: CLOPIDOGREL BISULFATE 75 MG TAB PO SCH (09:17)
[2021-03-05] MEDS: ASPIRIN 81 MG ECTAB PO SCH (09:17)
[2021-03-05] MEDS: VENLAFAXINE HCL 37.5 MG TAB PO SCH (09:17)
[2021-03-05] MEDS: METOPROLOL TARTRATE 50 MG TAB PO SCH ×2 (09:17→19:45)
[2021-03-05 09:20] LABS: Partial Thromboplastin Time 27.6 Seconds (21.0-31.0); Prothrombin Time 9.8 Seconds (9.0-12.0)
--- NOTE | 2021-03-05 09:58 | Hospitalist Progress Note ---
Date of Service March 05, 2021 Assessment & Plan (1) Confusion: (2) Paroxysmal atrial fibrillation: (3) Electrolyte and fluid disorder: (4) Abnormal urine findings: Plan: This 55-year-old female presents with altered mental status. 1. Altered mental status, - questionable etiology, could be metabolic with hyponatremia. The patient has leukocytosis but no obvious infection. Urinalysis negative. Chest x-ray, no acute findings. CTA of the head and CTA of the head and neck were unremarkable. Because of new onset atrial fibrillation we will rule out stroke with MRI scan.No new / acute infarcts noted. The patient also has history of stroke in the past. As per the EPIC, she had right sided . Stroke in 2018 that resolved. She had left hemispheric stroke with residual right sided weakness in 07/2020 and workup showed left carotid artery stenosis and s/p left coronary stenting on 08/18/2020. Neurology consulted for further recommendations. Speech evaluation. PT, OT when stable. Infectious etiology seems to be less likely. WBC only mildly elevated. Procal obtained 0.3 UA not c/w infection. Blood cultx obtained and pending. Empiric cefriaxone started for now 2. New onset atrial fibrillation. Received a dose of diltiazem in the ER. We will continue her home Lopressor and placed on IV heparin and IV Lopressor p.r.n. Echocardiogram, obtained. Troponin x2 negative, 3rd one only min. elevated Cardiology consulted for further recommendations. - Cont. IV heparin, will likely DC on Eliquis and plavix, and will stop ASA.on DC 3. History of stroke in the past, on aspirin, Plavix and statin. 4. Hypokalemia, replete and monitor 5. Hyponatremia, could be from dehydration. Getting gentle fluids. Follow the repeat labs.Nephrology consulted. Sodium improved. 6. Mild rhabdomyolysis with CK of 1824, getting fluids. We will monitor repeat Cpk. Consult Nephrology. 7. Mild elevation of LFTs. We will follow the repeat labs. If any concern, we will get a liver ultrasound. 8. Hypertension. At home on hydrochlorothiazide, losartan and metoprolol. Monitor the blood pressure. Hold hctz for now. BP elevated, given no acute stroke, will need to control BP. IV hydralazine prn and small dose PO given. 9. History of hyperlipidemia: Continue statin and fenofibrate. 10. Depression: Continue venlafaxine. 11. History of diabetes. Hold metformin, placed on insulin sliding scale. 12. History of bipolar, currently on venlafaxine. DVT prophylaxis: On IV heparin. DISPOSITION: Closely monitor in the tele floor. Code: Full Admission and Anticipated Discharge Date Admission Date: March 05, 2021 Subjective Pt seen in follow up of AMS, hyponatremia, hypokalemia, Afib Currently laying in bed in NAD, however does not answer questions appropriately ROS difficult as she answers and then changes her answer immediately Overall though, no chest pain, shortness of breath, palpitations, abd. pain, headache She did have have some nausea and vomiting earlier this AM which was confirmed with her nurse Review of Systems Review of Systems: All systems reviewed & are unremarkable except as noted in Subjective Physical Exam Physical Exam: GENERAL: The patient is moderate build, not in acute distress. HEENT: NC/AT, EOMI, PERRL NECK: No JVD, no neck masses. CARDIOVASCULAR: S1 and S2 heard. No murmurs, no gallop. RESPIRATORY: Normal AP diameter. No accessory muscle use. No wheezing, no crackles. ABDOMEN: Soft, bowel sounds present, nontender, nondistended. NEURO: Alert and oriented to name and place. No facial asymmetry. Speech slow but fluent. Obeys simple commands. Moves extremities. Confused when answering more complex questions. Sensation seems intact. EXTREMITIES: No edema, no erythema. Results & Data Results & Data ([facility]) Vital Signs (Past 12 Hours) Vital Signs Pulse Pulse Resp BP BP Pulse Ox 03/05/21 05:07 88 175/92 H 94 03/05/21 02:18 84 192/95 H 03/05/21 02:08 97 H 184/107 H 03/05/21 00:41 104 H 28 H 198/90 H 97 03/05/21 00:30 144 H 19 154/124 H 97 03/05/21 00:00 101 H 102 H 25 H 193/124 H 96 03/04/21 23:30 101 H 29 H 03/04/21 23:00 102 H 29 H 99 03/04/21 22:45 98 H 17 195/84 H 100 03/04/21 22:20 108 H 19 98 03/04/21 21:57 98 H 16 97 Laboratory Results 03/05/21 03/05/21 03/05/21 Range/Units 09:45 09:03 08:13 WBC (4.8-10.8) K/uL RBC (4.2-5.4) M/uL Hgb (12.0-16.0) g/dL POC Hgb (12.0-16.0) g/dl Hct (37-47) % POC Hct (37-47) % MCV (80-100) fL MCH (25-34) pg MCHC (32-36) g/dL RDW Std Deviation (36.4-46.3) fL RDW Coeff of Nicholas (11.5-14.5) % Plt Count (130-400) K/uL MPV (7.4-10.4) fL Immature Gran % (Auto) % Neut % (Auto) % Lymph % (Auto) % [place] % (Auto) % Eos % (Auto) % Baso % (Auto) % Neut # (Auto) (1.4-6.5) K/uL Lymph # (Auto) (1.2-3.4) K/uL [place] # (Auto) (0.11-0.59) K/uL Eos # (Auto) (0-0.5) K/uL Baso # (Auto) (0-0.2) K/uL Immature Gran # (Auto) (0.00-0.02) K/uL Smudge Cells Echinocytes PT 9.8 (9.0-12.0) Seconds INR 1.0 (0.9-1.1) APTT 27.6 (21.0-31.0) Seconds PTT Ratio 1.0 POC Sodium (135-144) mmol/L Sodium (136-145) mmol/L POC Potassium (3.3-5.0) mmol/L Potassium (3.5-5.1) mmol/L POC Chloride (101-112) mmol/L Chloride (98-107) mmol/L Carbon Dioxide (21-32) mmol/L POC Total CO2 (24-31) mmol/L Anion Gap (3-11) POC Anion Gap (16-25) mmol/L POC BUN (7-18) mg/dl BUN (7-18) mg/dl Creatinine (0.6-1.2) mg/dl POC Creatinine (0.6-1.3) mg/dl Est Cr Clr Drug Dosing ml/min Est GFR ( Amer) ml/min Est GFR (Non-Af Amer) ml/min BUN/Creatinine Ratio (10-20) Glucose (70-99) mg/dl POC Glucose 117 H (70-99) mg/dl POC Glucose (other) (70-99) mg/dl Estimat Average Glucose mg/dl Hemoglobin A1c (4.5-5.6) % Osmolality (280-300) mOsm/kg Lactate (0.4-2.0) mmol/L Calcium (8.5-10.1) mg/dl POC Ioniz Calcium Tushar (1.12-1.32) mmol/l Magnesium (1.8-2.4) mg/dl Total Bilirubin (0.2-1) mg/dl AST (15-37) U/L ALT (12-78) U/L Alkaline Phosphatase (45-117) U/L Total Creatine Kinase (26-192) U/L Troponin I (0-0.045) ng/ml Total Protein (6.4-8.2) gm/dl Albumin (3.4-5.0) gm/dl Globulin (2.5-4.0) gm/dl Albumin/Globulin Ratio (0.9-2) TSH (0.300-4.500) uIu/ml Urine Color Urine Appearance (Clear) Urine pH (4.5-7.5) Ur Specific [place] (1.000-1.030) Urine Protein (Negative) Urine Glucose (UA) (Negative) Urine Ketones (Negative) Urine Blood (Negative) Urine Nitrite (Negative) Urine Bilirubin (Negative) Urine Urobilinogen (Negative) Ur Leukocyte Esterase (Negative) Urine WBC (Auto) (0-5) /hpf Urine RBC (Auto) (0-4) /hpf U Hyaline Cast (Auto) (0-5) /lpf U Epithel Cells (Auto) (0-5) /lpf Urine Bacteria (Auto) (Negative) Urine Osmolality (500-800) mOsm/kg Ur Random Sodium Pending Urine Opiates Screen (Neg) Ur Methadone, Qual (Neg) Urine Barbiturates (Neg) Ur Phencyclidine (PCP) (Neg) U Amphetamin/Meth Scrn (Neg) MDMA (Ecstasy) Screen (Neg) U Benzodiazepines Scrn (Neg) Ur Cocaine Metabolite (Neg) U Marijuana (THC) Screen (Neg) Ethyl Alcohol mg/dL (0-3) mg/dl COVID-19 Eval Order SARS-CoV-2 (PCR) (Negative) 03/05/21 03/05/21 03/05/21 Range/Units 07:23 07:23 07:23 WBC 12.19 H (4.8-10.8) K/uL RBC 4.52 (4.2-5.4) M/uL Hgb 13.2 (12.0-16.0) g/dL POC Hgb (12.0-16.0) g/dl Hct 36.4 L (37-47) % POC Hct (37-47) % MCV 80.5 (80-100) fL MCH 29.2 (25-34) pg MCHC 36.3 H (32-36) g/dL RDW Std Deviation 39.1 (36.4-46.3) fL RDW Coeff of Nicholas 13.2 (11.5-14.5) % Plt Count 185 (130-400) K/uL MPV 10.4 (7.4-10.4) fL Immature Gran % (Auto) 0.2 % Neut % (Auto) 43.3 % Lymph % (Auto) 41.8 % [place] % (Auto) 13.2 % Eos % (Auto) 0.9 % Baso % (Auto) 0.6 % Neut # (Auto) 5.28 (1.4-6.5) K/uL Lymph # (Auto) 5.09 H (1.2-3.4) K/uL [place] # (Auto) 1.61 H (0.11-0.59) K/uL Eos # (Auto) 0.11 (0-0.5) K/uL Baso # (Auto) 0.07 (0-0.2) K/uL Immature Gran # (Auto) 0.03 H (0.00-0.02) K/uL Smudge Cells Present Echinocytes 2+ PT (9.0-12.0) Seconds INR (0.9-1.1) APTT (21.0-31.0) Seconds PTT Ratio POC Sodium (135-144) mmol/L Sodium 130 L (136-145) mmol/L POC Potassium (3.3-5.0) mmol/L Potassium 3.2 L D (3.5-5.1) mmol/L POC Chloride (101-112) mmol/L Chloride 95 L (98-107) mmol/L Carbon Dioxide 23 (21-32) mmol/L POC Total CO2 (24-31) mmol/L Anion Gap 12.0 H (3-11) POC Anion Gap (16-25) mmol/L POC BUN (7-18) mg/dl BUN 40 H (7-18) mg/dl Creatinine 1.10 (0.6-1.2) mg/dl POC Creatinine (0.6-1.3) mg/dl Est Cr Clr Drug Dosing 51.0 ml/min Est GFR ( Amer) 64.5 ml/min Est GFR (Non-Af Amer) 55.7 ml/min BUN/Creatinine Ratio 35.9 H (10-20) Glucose 103 H (70-99) mg/dl POC Glucose (70-99) mg/dl POC Glucose (other) (70-99) mg/dl Estimat Average Glucose 143 mg/dl Hemoglobin A1c 6.6 H (4.5-5.6) % Osmolality (280-300) mOsm/kg Lactate (0.4-2.0) mmol/L Calcium 8.7 (8.5-10.1) mg/dl POC Ioniz Calcium Tushar (1.12-1.32) mmol/l Magnesium 2.6 H (1.8-2.4) mg/dl Total Bilirubin (0.2-1) mg/dl AST (15-37) U/L ALT (12-78) U/L Alkaline Phosphatase (45-117) U/L Total Creatine Kinase (26-192) U/L Troponin I 0.045 (0-0.045) ng/ml Total Protein (6.4-8.2) gm/dl Albumin (3.4-5.0) gm/dl Globulin (2.5-4.0) gm/dl Albumin/Globulin Ratio (0.9-2) TSH (0.300-4.500) uIu/ml Urine Color Urine Appearance (Clear) Urine pH (4.5-7.5) Ur Specific [place] (1.000-1.030) Urine Protein (Negative) Urine Glucose (UA) (Negative) Urine Ketones (Negative) Urine Blood (Negative) Urine Nitrite (Negative) Urine Bilirubin (Negative) Urine Urobilinogen (Negative) Ur Leukocyte Esterase (Negative) Urine WBC (Auto) (0-5) /hpf Urine RBC (Auto) (0-4) /hpf U Hyaline Cast (Auto) (0-5) /lpf U Epithel Cells (Auto) (0-5) /lpf Urine Bacteria (Auto) (Negative) Urine Osmolality (500-800) mOsm/kg Ur Random Sodium Urine Opiates Screen (Neg) Ur Methadone, Qual (Neg) Urine Barbiturates (Neg) Ur Phencyclidine (PCP) (Neg) U Amphetamin/Meth Scrn (Neg) MDMA (Ecstasy) Screen (Neg) U Benzodiazepines Scrn (Neg) Ur Cocaine Metabolite (Neg) U Marijuana (THC) Screen (Neg) Ethyl Alcohol mg/dL (0-3) mg/dl COVID-19 Eval Order SARS-CoV-2 (PCR) (Negative) 03/05/21 03/05/21 03/05/21 Range/Units 01:15 01:15 01:15 WBC (4.8-10.8) K/uL RBC (4.2-5.4) M/uL Hgb (12.0-16.0) g/dL POC Hgb (12.0-16.0) g/dl Hct (37-47) % POC Hct (37-47) % MCV (80-100) fL MCH (25-34) pg MCHC (32-36) g/dL RDW Std Deviation (36.4-46.3) fL RDW Coeff of Nicholas (11.5-14.5) % Plt Count (130-400) K/uL MPV (7.4-10.4) fL Immature Gran % (Auto) % Neut % (Auto) % Lymph % (Auto) % [place] % (Auto) % Eos % (Auto) % Baso % (Auto) % Neut # (Auto) (1.4-6.5) K/uL Lymph # (Auto) (1.2-3.4) K/uL [place] # (Auto) (0.11-0.59) K/uL Eos # (Auto) (0-0.5) K/uL Baso # (Auto) (0-0.2) K/uL Immature Gran # (Auto) (0.00-0.02) K/uL Smudge Cells Echinocytes PT (9.0-12.0) Seconds INR (0.9-1.1) APTT (21.0-31.0) Seconds PTT Ratio POC Sodium (135-144) mmol/L Sodium (136-145) mmol/L POC Potassium (3.3-5.0) mmol/L Potassium (3.5-5.1) mmol/L POC Chloride (101-112) mmol/L Chloride (98-107) mmol/L Carbon Dioxide (21-32) mmol/L POC Total CO2 (24-31) mmol/L Anion Gap (3-11) POC Anion Gap (16-25) mmol/L POC BUN (7-18) mg/dl BUN (7-18) mg/dl Creatinine (0.6-1.2) mg/dl POC Creatinine (0.6-1.3) mg/dl Est Cr Clr Drug Dosing ml/min Est GFR ( Amer) ml/min Est GFR (Non-Af Amer) ml/min BUN/Creatinine Ratio (10-20) Glucose (70-99) mg/dl POC Glucose (70-99) mg/dl POC Glucose (other) (70-99) mg/dl Estimat Average Glucose mg/dl Hemoglobin A1c (4.5-5.6) % Osmolality (280-300) mOsm/kg Lactate (0.4-2.0) mmol/L Calcium (8.5-10.1) mg/dl POC Ioniz Calcium Tushar (1.12-1.32) mmol/l Magnesium (1.8-2.4) mg/dl Total Bilirubin (0.2-1) mg/dl AST (15-37) U/L ALT (12-78) U/L Alkaline Phosphatase (45-117) U/L Total Creatine Kinase (26-192) U/L Troponin I (0-0.045) ng/ml Total Protein (6.4-8.2) gm/dl Albumin (3.4-5.0) gm/dl Globulin (2.5-4.0) gm/dl Albumin/Globulin Ratio (0.9-2) TSH (0.300-4.500) uIu/ml Urine Color Yellow Urine Appearance Clear (Clear) Urine pH 5.0 (4.5-7.5) Ur Specific [place] 1.043 H (1.000-1.030) Urine Protein 1+ H (Negative) Urine Glucose (UA) Negative (Negative) Urine Ketones 1+ H (Negative) Urine Blood 2+ H (Negative) Urine Nitrite Negative (Negative) Urine Bilirubin Negative (Negative) Urine Urobilinogen Negative (Negative) Ur Leukocyte Esterase Negative (Negative) Urine WBC (Auto) 1-5 (0-5) /hpf Urine RBC (Auto) 0-4 (0-4) /hpf U Hyaline Cast (Auto) 1-5 (0-5) /lpf U Epithel Cells (Auto) 10-20 H (0-5) /lpf Urine Bacteria (Auto) Negative (Negative) Urine Osmolality 519 (500-800) mOsm/kg Ur Random Sodium Urine Opiates Screen Neg (Neg) Ur Methadone, Qual Neg (Neg) Urine Barbiturates Neg (Neg) Ur Phencyclidine (PCP) Neg (Neg) U Amphetamin/Meth Scrn Neg (Neg) MDMA (Ecstasy) Screen Neg (Neg) U Benzodiazepines Scrn Neg (Neg) Ur Cocaine Metabolite Neg (Neg) U Marijuana (THC) Screen Neg (Neg) Ethyl Alcohol mg/dL (0-3) mg/dl COVID-19 Eval Order SARS-CoV-2 (PCR) (Negative) 03/05/21 03/04/21 03/04/21 Range/Units 00:43 22:52 22:52 WBC (4.8-10.8) K/uL RBC (4.2-5.4) M/uL Hgb (12.0-16.0) g/dL POC Hgb (12.0-16.0) g/dl Hct (37-47) % POC Hct (37-47) % MCV (80-100) fL MCH (25-34) pg MCHC (32-36) g/dL RDW Std Deviation (36.4-46.3) fL RDW Coeff of Nicholas (11.5-14.5) % Plt Count (130-400) K/uL MPV (7.4-10.4) fL Immature Gran % (Auto) % Neut % (Auto) % Lymph % (Auto) % [place] % (Auto) % Eos % (Auto) % Baso % (Auto) % Neut # (Auto) (1.4-6.5) K/uL Lymph # (Auto) (1.2-3.4) K/uL [place] # (Auto) (0.11-0.59) K/uL Eos # (Auto) (0-0.5) K/uL Baso # (Auto) (0-0.2) K/uL Immature Gran # (Auto) (0.00-0.02) K/uL Smudge Cells Echinocytes PT (9.0-12.0) Seconds INR (0.9-1.1) APTT (21.0-31.0) Seconds PTT Ratio POC Sodium (135-144) mmol/L Sodium 128 L (136-145) mmol/L POC Potassium (3.3-5.0) mmol/L Potassium 2.6 L (3.5-5.1) mmol/L POC Chloride (101-112) mmol/L Chloride 92 L (98-107) mmol/L Carbon Dioxide 24 (21-32) mmol/L POC Total CO2 (24-31) mmol/L Anion Gap 12.0 H (3-11) POC Anion Gap (16-25) mmol/L POC BUN (7-18) mg/dl BUN 49 H (7-18) mg/dl Creatinine 1.36 H (0.6-1.2) mg/dl POC Creatinine (0.6-1.3) mg/dl Est Cr Clr Drug Dosing 41.3 ml/min Est GFR ( Amer) 49.9 ml/min Est GFR (Non-Af Amer) 43.1 ml/min BUN/Creatinine Ratio 35.7 H (10-20) Glucose 113 H (70-99) mg/dl POC Glucose (70-99) mg/dl POC Glucose (other) (70-99) mg/dl Estimat Average Glucose mg/dl Hemoglobin A1c (4.5-5.6) % Osmolality (280-300) mOsm/kg Lactate (0.4-2.0) mmol/L Calcium 8.5 (8.5-10.1) mg/dl POC Ioniz Calcium Tushar (1.12-1.32) mmol/l Magnesium (1.8-2.4) mg/dl Total Bilirubin (0.2-1) mg/dl AST (15-37) U/L ALT (12-78) U/L Alkaline Phosphatase (45-117) U/L Total Creatine Kinase (26-192) U/L Troponin I (0-0.045) ng/ml Total Protein (6.4-8.2) gm/dl Albumin (3.4-5.0) gm/dl Globulin (2.5-4.0) gm/dl Albumin/Globulin Ratio (0.9-2) TSH (0.300-4.500) uIu/ml Urine Color Urine Appearance (Clear) Urine pH (4.5-7.5) Ur Specific [place] (1.000-1.030) Urine Protein (Negative) Urine Glucose (UA) (Negative) Urine Ketones (Negative) Urine Blood (Negative) Urine Nitrite (Negative) Urine Bilirubin (Negative) Urine Urobilinogen (Negative) Ur Leukocyte Esterase (Negative) Urine WBC (Auto) (0-5) /hpf Urine RBC (Auto) (0-4) /hpf U Hyaline Cast (Auto) (0-5) /lpf U Epithel Cells (Auto) (0-5) /lpf Urine Bacteria (Auto) (Negative) Urine Osmolality (500-800) mOsm/kg Ur Random Sodium Urine Opiates Screen (Neg) Ur Methadone, Qual (Neg) Urine Barbiturates (Neg) Ur Phencyclidine (PCP) (Neg) U Amphetamin/Meth Scrn (Neg) MDMA (Ecstasy) Screen (Neg) U Benzodiazepines Scrn (Neg) Ur Cocaine Metabolite (Neg) U Marijuana (THC) Screen (Neg) Ethyl Alcohol mg/dL (0-3) mg/dl COVID-19 Eval Order Covid19 at [facility] SARS-CoV-2 (PCR) NEGATIVE (Negative) 03/04/21 03/04/21 03/04/21 Range/Units 21:26 21:23 21:20 WBC (4.8-10.8) K/uL RBC (4.2-5.4) M/uL Hgb (12.0-16.0) g/dL POC Hgb 14.3 (12.0-16.0) g/dl Hct (37-47) % POC Hct 42 (37-47) % MCV (80-100) fL MCH (25-34) pg MCHC (32-36) g/dL RDW Std Deviation (36.4-46.3) fL RDW Coeff of Nicholas (11.5-14.5) % Plt Count (130-400) K/uL MPV (7.4-10.4) fL Immature Gran % (Auto) % Neut % (Auto) % Lymph % (Auto) % [place] % (Auto) % Eos % (Auto) % Baso % (Auto) % Neut # (Auto) (1.4-6.5) K/uL Lymph # (Auto) (1.2-3.4) K/uL [place] # (Auto) (0.11-0.59) K/uL Eos # (Auto) (0-0.5) K/uL Baso # (Auto) (0-0.2) K/uL Immature Gran # (Auto) (0.00-0.02) K/uL Smudge Cells Echinocytes PT (9.0-12.0) Seconds INR (0.9-1.1) APTT (21.0-31.0) Seconds PTT Ratio POC Sodium 127 L (135-144) mmol/L Sodium (136-145) mmol/L POC Potassium 2.5 L* (3.3-5.0) mmol/L Potassium (3.5-5.1) mmol/L POC Chloride 92 L (101-112) mmol/L Chloride (98-107) mmol/L Carbon Dioxide (21-32) mmol/L POC Total CO2 20 L (24-31) mmol/L Anion Gap (3-11) POC Anion Gap 20.0 (16-25) mmol/L POC BUN 45 H (7-18) mg/dl BUN (7-18) mg/dl Creatinine (0.6-1.2) mg/dl POC Creatinine 1.4 H (0.6-1.3) mg/dl Est Cr Clr Drug Dosing ml/min Est GFR ( Amer) ml/min Est GFR (Non-Af Amer) ml/min BUN/Creatinine Ratio (10-20) Glucose (70-99) mg/dl POC Glucose (70-99) mg/dl POC Glucose (other) 138 H (70-99) mg/dl Estimat Average Glucose mg/dl Hemoglobin A1c (4.5-5.6) % Osmolality 288 (280-300) mOsm/kg Lactate (0.4-2.0) mmol/L Calcium (8.5-10.1) mg/dl POC Ioniz Calcium Tushar 1.05 L (1.12-1.32) mmol/l Magnesium (1.8-2.4) mg/dl Total Bilirubin (0.2-1) mg/dl AST (15-37) U/L ALT (12-78) U/L Alkaline Phosphatase (45-117) U/L Total Creatine Kinase (26-192) U/L Troponin I (0-0.045) ng/ml Total Protein (6.4-8.2) gm/dl Albumin (3.4-5.0) gm/dl Globulin (2.5-4.0) gm/dl Albumin/Globulin Ratio (0.9-2) TSH (0.300-4.500) uIu/ml Urine Color Urine Appearance (Clear) Urine pH (4.5-7.5) Ur Specific [place] (1.000-1.030) Urine Protein (Negative) Urine Glucose (UA) (Negative) Urine Ketones (Negative) Urine Blood (Negative) Urine Nitrite (Negative) Urine Bilirubin (Negative) Urine Urobilinogen (Negative) Ur Leukocyte Esterase (Negative) Urine WBC (Auto) (0-5) /hpf Urine RBC (Auto) (0-4) /hpf U Hyaline Cast (Auto) (0-5) /lpf U Epithel Cells (Auto) (0-5) /lpf Urine Bacteria (Auto) (Negative) Urine Osmolality (500-800) mOsm/kg Ur Random Sodium Urine Opiates Screen (Neg) Ur Methadone, Qual (Neg) Urine Barbiturates (Neg) Ur Phencyclidine (PCP) (Neg) U Amphetamin/Meth Scrn (Neg) MDMA (Ecstasy) Screen (Neg) U Benzodiazepines Scrn (Neg) Ur Cocaine Metabolite (Neg) U Marijuana (THC) Screen (Neg) Ethyl Alcohol mg/dL < 3.0 (0-3) mg/dl COVID-19 Eval Order SARS-CoV-2 (PCR) (Negative) 03/04/21 03/04/21 03/04/21 Range/Units 21:20 21:20 21:20 WBC 14.18 H (4.8-10.8) K/uL RBC 4.77 (4.2-5.4) M/uL Hgb 13.9 (12.0-16.0) g/dL POC Hgb (12.0-16.0) g/dl Hct 38.3 (37-47) % POC Hct (37-47) % MCV 80.3 (80-100) fL MCH 29.1 (25-34) pg MCHC 36.3 H (32-36) g/dL RDW Std Deviation 38.8 (36.4-46.3) fL RDW Coeff of Nicholas 13.0 (11.5-14.5) % Plt Count 173 (130-400) K/uL MPV 10.7 H (7.4-10.4) fL Immature Gran % (Auto) 0.2 % Neut % (Auto) 58.3 % Lymph % (Auto) 32.4 % [place] % (Auto) 8.6 % Eos % (Auto) 0.1 % Baso % (Auto) 0.4 % Neut # (Auto) 8.27 H (1.4-6.5) K/uL Lymph # (Auto) 4.59 H (1.2-3.4) K/uL [place] # (Auto) 1.22 H (0.11-0.59) K/uL Eos # (Auto) 0.01 (0-0.5) K/uL Baso # (Auto) 0.06 (0-0.2) K/uL Immature Gran # (Auto) 0.03 H (0.00-0.02) K/uL Smudge Cells Echinocytes 1+ PT (9.0-12.0) Seconds INR (0.9-1.1) APTT (21.0-31.0) Seconds PTT Ratio POC Sodium (135-144) mmol/L Sodium 127 L (136-145) mmol/L POC Potassium (3.3-5.0) mmol/L Potassium 2.5 L* (3.5-5.1) mmol/L POC Chloride (101-112) mmol/L Chloride 91 L (98-107) mmol/L Carbon Dioxide 20 L (21-32) mmol/L POC Total CO2 (24-31) mmol/L Anion Gap 17.0 H (3-11) POC Anion Gap (16-25) mmol/L POC BUN (7-18) mg/dl BUN 53 H (7-18) mg/dl Creatinine 1.41 H (0.6-1.2) mg/dl POC Creatinine (0.6-1.3) mg/dl Est Cr Clr Drug Dosing 39.8 ml/min Est GFR ( Amer) 47.8 ml/min Est GFR (Non-Af Amer) 41.2 ml/min BUN/Creatinine Ratio 37.7 H (10-20) Glucose 141 H (70-99) mg/dl POC Glucose (70-99) mg/dl POC Glucose (other) (70-99) mg/dl Estimat Average Glucose mg/dl Hemoglobin A1c (4.5-5.6) % Osmolality (280-300) mOsm/kg Lactate 0.7 (0.4-2.0) mmol/L Calcium 9.2 (8.5-10.1) mg/dl POC Ioniz Calcium Tushar (1.12-1.32) mmol/l Magnesium 2.3 (1.8-2.4) mg/dl Total Bilirubin 1.1 H (0.2-1) mg/dl AST 204 H (15-37) U/L ALT 118 H (12-78) U/L Alkaline Phosphatase 53 (45-117) U/L Total Creatine Kinase 1824 H (26-192) U/L Troponin I 0.042 (0-0.045) ng/ml Total Protein 7.4 (6.4-8.2) gm/dl Albumin 3.4 (3.4-5.0) gm/dl Globulin 4.0 (2.5-4.0) gm/dl Albumin/Globulin Ratio 0.9 (0.9-2) TSH 0.796 (0.300-4.500) uIu/ml Urine Color Urine Appearance (Clear) Urine pH (4.5-7.5) Ur Specific [place] (1.000-1.030) Urine Protein (Negative) Urine Glucose (UA) (Negative) Urine Ketones (Negative) Urine Blood (Negative) Urine Nitrite (Negative) Urine Bilirubin (Negative) Urine Urobilinogen (Negative) Ur Leukocyte Esterase (Negative) Urine WBC (Auto) (0-5) /hpf Urine RBC (Auto) (0-4) /hpf U Hyaline Cast (Auto) (0-5) /lpf U Epithel Cells (Auto) (0-5) /lpf Urine Bacteria (Auto) (Negative) Urine Osmolality (500-800) mOsm/kg Ur Random Sodium Urine Opiates Screen (Neg) Ur Methadone, Qual (Neg) Urine Barbiturates (Neg) Ur Phencyclidine (PCP) (Neg) U Amphetamin/Meth Scrn (Neg) MDMA (Ecstasy) Screen (Neg) U Benzodiazepines Scrn (Neg) Ur Cocaine Metabolite (Neg) U Marijuana (THC) Screen (Neg) Ethyl Alcohol mg/dL (0-3) mg/dl COVID-19 Eval Order SARS-CoV-2 (PCR) (Negative) 03/04/21 Range/Units 21:18 WBC (4.8-10.8) K/uL RBC (4.2-5.4) M/uL Hgb (12.0-16.0) g/dL POC Hgb (12.0-16.0) g/dl Hct (37-47) % POC Hct (37-47) % MCV (80-100) fL MCH (25-34) pg MCHC (32-36) g/dL RDW Std Deviation (36.4-46.3) fL RDW Coeff of Nicholas (11.5-14.5) % Plt Count (130-400) K/uL MPV (7.4-10.4) fL Immature Gran % (Auto) % Neut % (Auto) % Lymph % (Auto) % [place] % (Auto) % Eos % (Auto) % Baso % (Auto) % Neut # (Auto) (1.4-6.5) K/uL Lymph # (Auto) (1.2-3.4) K/uL [place] # (Auto) (0.11-0.59) K/uL Eos # (Auto) (0-0.5) K/uL Baso # (Auto) (0-0.2) K/uL Immature Gran # (Auto) (0.00-0.02) K/uL Sm[place] Cells Echinocytes PT (9.0-12.0) Seconds INR (0.9-1.1) APTT (21.0-31.0) Seconds PTT Ratio POC Sodium (135-144) mmol/L Sodium (136-145) mmol/L POC Potassium (3.3-5.0) mmol/L Potassium (3.5-5.1) mmol/L POC Chloride (101-112) mmol/L Chloride (98-107) mmol/L Carbon Dioxide (21-32) mmol/L POC Total CO2 (24-31) mmol/L Anion Gap (3-11) POC Anion Gap (16-25) mmol/L POC BUN (7-18) mg/dl BUN (7-18) mg/dl Creatinine (0.6-1.2) mg/dl POC Creatinine (0.6-1.3) mg/dl Est Cr Clr Drug Dosing ml/min Est GFR ( Amer) ml/min Est GFR (Non-Af Amer) ml/min BUN/Creatinine Ratio (10-20) Glucose (70-99) mg/dl POC Glucose 138 H (70-99) mg/dl POC Glucose (other) (70-99) mg/dl Estimat Average Glucose mg/dl Hemoglobin A1c (4.5-5.6) % Osmolality (280-300) mOsm/kg Lactate (0.4-2.0) mmol/L Calcium (8.5-10.1) mg/dl POC Ioniz Calcium Tushar (1.12-1.32) mmol/l Magnesium (1.8-2.4) mg/dl Total Bilirubin (0.2-1) mg/dl AST (15-37) U/L ALT (12-78) U/L Alkaline Phosphatase (45-117) U/L Total Creatine Kinase (26-192) U/L Troponin I (0-0.045) ng/ml Total Protein (6.4-8.2) gm/dl Albumin (3.4-5.0) gm/dl Globulin (2.5-4.0) gm/dl Albumin/Globulin Ratio (0.9-2) TSH (0.300-4.500) uIu/ml Urine Color Urine Appearance (Clear) Urine pH (4.5-7.5) Ur Specific [place] (1.000-1.030) Urine Protein (Negative) Urine Glucose (UA) (Negative) Urine Ketones (Negative) Urine Blood (Negative) Urine Nitrite (Negative) Urine Bilirubin (Negative) Urine Urobilinogen (Negative) Ur Leukocyte Esterase (Negative) Urine WBC (Auto) (0-5) /hpf Urine RBC (Auto) (0-4) /hpf U Hyaline Cast (Auto) (0-5) /lpf U Epithel Cells (Auto) (0-5) /lpf Urine Bacteria (Auto) (Negative) Urine Osmolality (500-800) mOsm/kg Ur Random Sodium Urine Opiates Screen (Neg) Ur Methadone, Qual (Neg) Urine Barbiturates (Neg) Ur Phencyclidine (PCP) (Neg) U Amphetamin/Meth Scrn (Neg) MDMA (Ecstasy) Screen (Neg) U Benzodiazepines Scrn (Neg) Ur Cocaine Metabolite (Neg) U Marijuana (THC) Screen (Neg) Ethyl Alcohol mg/dL (0-3) mg/dl COVID-19 Eval Order SARS-CoV-2 (PCR) (Negative) Medications Administered Current Inpatient Medications Acetaminophen (Acetaminophen 325 Mg Tab) 650 mg PO Q4H PRN PRN Reason: Pain or Fever Stop: 04/04/21 07:26 Hydrocodone Bitart/Acetaminophen (Hydrocodone/Acetamophen 5/325mg Tab) 1 tab PO Q6H PRN PRN Reason: Moderate to severe pain Stop: 03/19/21 07:26 Aspirin (Aspirin 81 Mg Ectab) 81 mg PO DAILY FOR[facility] Stop: 04/04/21 08:59 Last Admin: 03/05/21 09:17 Dose: 81 mg Documented by: Atorvastatin Calcium (Atorvastatin 40 Mg Tab) 40 mg PO DAILY [facility] Stop: 04/04/21 08:59 Last Admin: 03/05/21 09:17 Dose: 40 mg Documented by: Clopidogrel Bisulfate (Clopidogrel Bisulfate 75 Mg Tab) 75 mg PO DAILY [facility] Stop: 04/04/21 08:59 Last Admin: 03/05/21 09:17 Dose: 75 mg Documented by: Fenofibrate (Fenofibrate Nanocrystallized 48 Mg Tablet) 48 mg NA BID [facility]; Protocol Stop: 04/04/21 08:59 Last Admin: 03/05/21 09:16 Dose: 48 mg Documented by: Hydrochlorothiazide (Hydrochlorothiazide 25 Mg Tab) 12.5 mg PO DAILY [facility] Stop: 04/04/21 08:59 Last Admin: 03/05/21 09:17 Dose: 12.5 mg Documented by: Sodium Chloride (Nss 1000ml) 1,000 mls @ 80 mls/hr IV .[id number] [facility] Stop: 03/05/21 19:56 Last Admin: 03/05/21 07:48 Dose: 80 mls/hr Documented by: Heparin Sodium/Dextrose (Heparin Sodium/Dextrose) 25,000 units in 500 mls @ 21 mls/hr IV .[id number] [facility]; Protocol Stop: 04/04/21 08:59 Last Admin: 03/05/21 09:08 Dose: 1,050 units/hr, 21 mls/hr Documented by: Insulin Aspart (Insulin Aspart 100 Units/Ml 3 Ml Pen) 0 units SC ACHS [facility] Stop: 04/04/21 07:59 Lorazepam (Lorazepam 1 Mg Tab) 1 mg PO TID PRN PRN Reason: Anxiety Stop: 04/04/21 07:35 Losartan Potassium (Losartan Potassium 50 Mg Tab) 50 mg PO DAILY [facility] Stop: 04/04/21 08:59 Last Admin: 03/05/21 09:17 Dose: 50 mg Documented by: Metoprolol Tartrate (Metoprolol Tartrate 50 Mg Tab) 50 mg PO BID [facility] Stop: 04/04/21 08:59 Last Admin: 03/05/21 09:17 Dose: 50 mg Documented by: Metoprolol Tartrate (Metoprolol Tartrate 1 Mg/Ml Vial) 5 mg IV Q6H PRN PRN Reason: Tachycardia Stop: 04/04/21 07:26 Nitroglycerin (Nitroglycerin Sl 0.4 Mg/Tab Tab) 0.4 mg SL UD PRN PRN Reason: Chest Pain Stop: 04/04/21 07:26 Ondansetron HCl (Ondansetron Inj 2 Mg/Ml 2 Ml Vial) 4 mg IV Q6H PRN PRN Reason: Nausea Stop: 04/04/21 07:26 Polyethylene Glycol (Polyethylene (Miralax) 17 Gm Pack) 17 gm PO DAILY PRN PRN Reason: Constipation Stop: 04/04/21 07:26 Potassium Chloride (Potassium Chloride Crtab 20 Meq Tabcr) 40 meq PO NOW STA Stop: 03/05/21 09:55 Venlafaxine HCl (Venlafaxine Hcl 37.5 Mg Tab) 75 mg PO DAILY [facility] Stop: 04/04/21 08:59 Last Admin: 03/05/21 09:17 Dose: 75 mg Documented by:
--- NOTE | 2021-03-05 11:10 | Electrocardiogram Report ---
Test Reason : Blood Pressure : / mmHG Vent. Rate : 096 BPM Atrial Rate : 096 BPM P-R Int : 186 ms QRS Dur : 098 ms QT Int : 384 ms P-R-T Axes : 064 012 072 degrees QTc Int : 485 ms Normal sinus rhythm Possible Left atrial enlargement Left ventricular hypertrophy Nonspecific ST abnormality Possible Inferior infarct , age undetermined Abnormal ECG Confirmed by Rico Steel ([id number]) on 03/05/2021 11:09:37 AM Referred By: REFERRED SELF Confirmed By:Reese Steel
--- NOTE | 2021-03-05 11:12 | Electrocardiogram Report ---
Test Reason : Blood Pressure : / mmHG Vent. Rate : 147 BPM Atrial Rate : 150 BPM P-R Int : 184 ms QRS Dur : 098 ms QT Int : 276 ms P-R-T Axes : 000 033 206 degrees QTc Int : 431 ms Supraventricular tachycardia Possible Inferior infarct (cited on or before 04-MAR-2021) Nonspecific ST abnormality Abnormal ECG Confirmed by Rico Steel ([id number]) on 03/05/2021 11:11:55 AM Referred By: REFERRED SELF Confirmed By:Reese Steel
--- NOTE | 2021-03-05 11:14 | Electrocardiogram Report ---
Test Reason : Blood Pressure : / mmHG Vent. Rate : 096 BPM Atrial Rate : 096 BPM P-R Int : 216 ms QRS Dur : 098 ms QT Int : 386 ms P-R-T Axes : 064 016 068 degrees QTc Int : 487 ms Sinus rhythm with 1st degree A-V block with occasional Premature ventricular complexes Minimal voltage criteria for LVH, may be normal variant Abnormal ECG When compared with ECG of 05-MAR-2021 00:23, (unconfirmed) Premature ventricular complexes are now Present NE interval has increased Vent. rate has decreased BY 51 BPM Nonspecific T wave abnormality no longer evident in Inferior leads Confirmed by Rico Steel ([id number]) on 03/05/2021 11:13:56 AM Referred By: REFERRED SELF Confirmed By:Reese Steel
--- NOTE | 2021-03-05 11:54 | Communication Note ---
Date of Service: March 05, 2021 Name 55 years old and currently still in the emergency room awaiting transfer to the medical floor. I have been informed about a neurology consult and have reviewed the chart and imaging data that is available to date A full consult will be dictated when she has been officially admitted and further imaging studies specifically an MRI of the brain have been performed Currently she presents with fluctuating confusion for several days occurring in the setting of what appears to be paroxysmal atrial fibrillation, elevated CPK and transaminases, leukocytosis, possible sepsis, hypokalemia, and hyponatremia of mild degree with a sodium running about 127. There is a prior history of a left hemispheric CVA and left carotid stent and CT angiography now shows evidence for 70% stenosis of the right internal carotid artery within the cranial vault and a CT scan of the head shows no new infarctions but in this setting an MRI is clearly indicated acutely with a high risk of embolization from the atrial fibrillation Cardiology has been consulted, an echocardiographic study is pending and again the MRI is pending She is currently at home on aspirin atorvastatin Plavix fenofibrate, hydrochlorothiazide, hydrocodone, lorazepam losartan, Metformin, metoprolol and Effexor for her chronic medical illnesses which include diabetes depression dyslipidemia hypertension and depression and a history of her cerebrovascular disease Examination is described as showing a nonspecific gait disturbance and a mild confusional state but formal neurologic examination has not been done pending further diagnostic imaging studies She is currently on prophylactic heparin for DVT and the aspirin and Plavix are apparently being held I will be checking back later today by computer and will review the imaging studies the echocardiographic study and will make further therapeutic recommendations at that time and will try to see her officially later this afternoon or tomorrow morning Based on the information I have at my disposal at this point I have a high suspicion that this woman has had multiple embolic events due to her atrial fibrillation of paroxysmal type and that her confusional state represents these more than the effects of her mild hyponatremia Mat Love MD
[2021-03-05] MEDS ORDERED: GADOBUTROL 65ML VIAL IV ONE (12:18)
[2021-03-05] MEDS: INSULIN ASPART 100 UNITS/ML 3 ML PEN SC SCH ×4 (12:37→20:20)
--- NOTE | 2021-03-05 12:46 | Magnetic Resonance Report ---
Brain MRI WITH AND WITHOUT CONTRAST HISTORY: Disorientation. Confusion. CVA? TECHNIQUE: Multiplanar multisequence MRI of the brain was performed both before and after the intrave nous administration of contrast. COMPARISON STUDY: Head CT 03/04/2021. FINDINGS: Mild motion artifact. No areas restricted diffusion to suggest acute infarction. The parana anjali sinuses and mastoid air cells are clear. The major vascular flow voids at the skull base are well -maintained. The ventricles and sulci demonstrate mild age-related involutional changes. No mass, hem atoma, or midline shift. Multiple old lacunar infarcts seen within the jenni and bilateral basal gangl ia as well as the periventricular white matter. Patchy periventricular white matter T2 hyperintensity is nonspecific but favors microvascular ischemic change. A demyelinating disease or vasculitis could also have a similar appearance in the appropriate clinical setting. There is an old punctate lacunar infarct within the left cerebellar hemisphere. Punctate foci of susceptibility artifact within the l eft basal ganglia and jenni adjacent to the old infarcts favors mineralization old postinfarct changes . The orbits are unremarkable. Postcontrast sequences show no areas of abnormal enhancement. IMPRESSION: 1. No acute infarct or intracranial hemorrhage identified. 2. Multiple old lacunar infarcts seen within the jenni and bilateral basal ganglia as well as the michela ventricular white matter. 3. Patchy periventricular white matter T2 hyperintensity is nonspecific but favors microvascular isch emic change. A demyelinating disease or vasculitis could also have a similar appearance in the approp riate clinical setting. ACT 112: Negative or not required by law. Electronically signed by: Izaiah Rosario M.D. 03/05/2021 12:45 PM
[2021-03-05] MEDS ORDERED: hydrALAZINE HCL 20 MG/ML VIAL IV PRN (13:31)
[2021-03-05] MEDS ORDERED: hydrALAZINE 10 MG TAB PO STA (13:32)
[2021-03-05] MEDS: cefTRIAXone SODIUM 1,000 MG in DEXTROSE 5% 50 ML IV SCH (14:21)
--- NOTE | 2021-03-05 16:11 | Cardiology Consultation ---
Date of Consultation March 05, 2021 Assessment & Plan (1) Paroxysmal atrial fibrillation: (2) CAD (coronary artery disease): (3) Acute hypokalemia: (4) Confusion: (1) Paroxysmal atrial fibrillation: Although the tachycardia observed overnight may have been SVT, per review of telemetry and EKG, the R-R interval is somewhat irregular, and I think the pattern fits with her having atrial fibrillation. -Per review of her outpatient chart, I believe she is on metoprolol tartrate 50 mg 2 tablets by mouth 2 times per day, and so therefore I will increase her current dose to reflect this outpatient dosing. Continue unfractioned heparin for stroke prophylaxis. Given need for treatment of clopidogrel. Moving forward, future considerations include chronic therapy with an oral anticoagulant such as Eliquis, plus clopidogrel, and discontinuing aspirin. (2) CAD (coronary artery disease): -As noted, patient has a history of previous RCA stent, this perhaps correlates with the small Q waves in the inferior leads. At time of cardiac catheterization in 2010, the RCA stent was patent, there was a chronic occlusion of an obtuse marginal branch of the circumflex, which was treated medically. Her echocardiogram performed today reveals normal wall motion, normal LVEF. Her initial 2 troponin I levels were normal, the third level was very minimally elevated at 0.047 NG per mL, and I do not think this represents an acute coronary syndrome. Continue antiplatelet therapy. Continue metoprolol, atorvastatin. (3) Acute hypokalemia: -Initial potassium was 2.6, this improved to 3.2 on repeat this morning, and she has received additional replacement. We will repeat tomorrow. (4) Confusion: -Patient has a history of cerebrovascular disease, multiple past strokes, and had undergone left carotid stent for high-grade left common carotid artery stenosis in Sep, 2020. Her most recent carotid duplex in October, revealed patent carotid stent with residual 50% right internal carotid artery stenosis. The CT angiogram performed as part of her admission work-up revealed patent carotid stent, and 70% right internal carotid stenosis. At present, continue dual antiplatelet therapy pending further assessment. Ongoing vascular risk factors will need to be addressed. She is apparently an ongoing lifelong smoker. Her most recent LDL cholesterol in Sep, 2020 was 85 mg/dL, will repeat in am. History of Present Illness Attending Physician: Baldemar Lerma MD History of Present Illness Avis Hairston is a 55-year-old female seen in cardiology consultation per the request of Dr. Mendoza for the evaluation of paroxysmal atrial fibrillation. In July, she was admitted to [facility] and diagnosed with what was felt to be an embolic stroke. MRI at that time apparently confirmed left hemispheric stroke. Several punctate lacunar infarcts were also noted on the right side. She was found to have greater than 80% left carotid disease at the origin of the left common carotid artery.She was [place] [facility] [place] and underwent left common carotid artery retrograde stenting. She has been on dual antiplatelet therapy with aspirin and clopidogrel in the meantime. Her most recent outpatient cardiology follow-up visit dates back to August,. A cardiac catheterization performed in Sep, 2010 at the [facility] revealing chronic occlusion of an obtuse marginal branch, the previously placed right coronary artery stent was patent. The patient lives at home with her son. He reportedly brought her to the hospital for several days of progressive confusion. Initially upon presentation to the emergency room overnight last night she was in sinus rhythm, but then reverted to a narrow complex tachycardia. EKG performed 03/05/2021 at 12:23 AM revealed a narrow complex tachycardia 147 bpm, that at some points appears irregular and consistent with atrial fibrillation and at some points appears consistent with supraventricular tachycardia. Per review of telemetry, the episode of tachycardia lasted from 12:12 AM until 12:38 AM with spontaneous conversion to sinus rhythm in the 90s. She is now on a heparin infusion. During my assessment, the patient was in no acute distress. She was confused h owever and unable to provide history other than the fact that she lives with her son. Allergies Allergy/AdvReac Type Severity Reaction Status Date / Time NSAIDS (Non-Steroidal AdvReac Intermediate NAUSEA/VOMI Verified 03/04/21 21:28 Anti-Inflamma TING Home Medications Medication Instructions Recorded Confirmed Type aspirin 81 mg chewable tablet 81 mg PO DAILY 03/04/21 03/04/21 History atorvastatin 40 mg tablet 40 mg PO DAILY 03/04/21 03/04/21 History clopidogrel 75 mg tablet 75 mg PO DAILY 03/04/21 03/04/21 History fenofibrate 54 mg tablet 54 mg PO BID 03/04/21 03/04/21 History hydrochlorothiazide 25 mg tablet 12.5 mg PO DAILY 03/04/21 03/04/21 History hydrocodone 5 mg-acetaminophen 325 1 tab PO Q6H PRN 03/04/21 03/04/21 History mg tablet lorazepam 1 mg tablet 1 mg PO TID PRN 03/04/21 03/04/21 History losartan 50 mg tablet 50 mg PO DAILY 03/04/21 03/04/21 History metformin 1,000 mg tablet 1,000 mg PO BID 03/04/21 03/04/21 History metoprolol tartrate 50 mg tablet 50 mg PO BID 03/04/21 03/04/21 History venlafaxine 75 mg tablet 75 mg PO DAILY 03/04/21 03/04/21 History Patient History Medical History Anxiety and depression CAD (coronary artery disease) Carotid artery disease Diabetes Hyperlipidemia Hypertension Stroke 07/2020 recurrent L hemispheric w/ residual R sided weakness; [facility] Tobacco use Surgical History History of left common carotid artery stent placement Social History Smoking Status: Current every day smoker Tobacco Type: Cigarettes Hx Alcohol Use: No Hx Substance Use: No Preferred Language: [place] Communication Ability: Effective [employer] Driver Required: No Beliefs That Will Affect Care: None marital status: Current Living Situation: Family How many Children do You have: 1 Feels Safe at Home: Yes Safety Concerns: Feels Safe At This Time Assistive Devices: None Review of Systems Review of Systems: Unobtainable due to cognitive status Physical Exam Physical Exam: Temp Pulse Resp BP Pulse Ox 36.9 C 80 20 155/82 H 95 03/05/21 09:00 03/05/21 12:00 03/05/21 12:00 03/05/21 12:00 03/05/21 12:00 Respiratory: normal respiratory effort, lungs clear to auscultation Cardiovascular: RRR, no murmur, no edema Neurologic: Confused, mild right lower extremity weakness cannot be excluded, difficulty with regards to whether not patient is adhering to instructions or able to follow them thus limiting the exam Results & Data ([facility]) Vital Signs (Past 12 Hours) Vital Signs Temp Pulse Resp BP Pulse Ox 03/05/21 12:00 80 20 155/82 H 95 03/05/21 10:24 188/116 H 03/05/21 09:00 36.9 C 90 18 202/86 H 95 03/05/21 05:07 88 175/92 H 94 Diagnostic Findings MRI of the brain reveals multiple old lacunar infarcts within the jenni and bilateral basal ganglia as well as the periventricular white matter. EKG performed 03/05/2021 at 1:47 AM revealed sinus rhythm at 96 bpm with first- degree AV block, 2 PVCs noted, nonspecific T wave flattening, and age- indeterminate inferior infarct cannot be excluded based on Q waves in the inferior leads III and aVF. Compared to the previous tracing, the previously noted tachycardia had resolved.
--- NOTE | 2021-03-05 16:15 | Nephrology Consultation ---
Date of Consultation March 05, 2021 Assessment & Plan (1) Electrolyte and fluid disorder: GERALD from presentation has resolved. She does have improving hyponatremia and hypokalemia in the setting of elevated CK She has euvolemic to hypovolemic normotonic hyponatremia > suspect volume depletion; doubt this sodium value can explain AMS >> her sNa is 130 at my evaluation and she is oriented to self only Had 20 mEQ IVK plus 40 mEq po today; K should further improve off of hctz -hold hctz -agree w/ 1L NS then stop -repeat labs ordered for 1800 > bmp only; ok in am to recheck bmp, CK, transa minases (2) Abnormal urine findings: proteinuria, microhematuria, ketonuria on presentation -reassess later in admission or after d/c; no evidence of infection History of Present Illness Reason for Consultation: GERALD, fluid and electrolyte disorder Requesting Physician: Dr Mendoza Attending Physician: Baldemar Lerma MD History of Present Illness 55-year-old female whom I am asked to evaluate for acute kidney injury and electrolyte and fluid disorders was admitted overnight after presenting with 72 hours of worsening confusion and found to have new onset atrial fibrillation and encephalopathy. Past medical history includes type 2 diabetes, hyperlipidemia, coronary artery disease, tobacco abuse, left hemispheric stroke, left carotid artery stent, anxiety and depression, Sauer's esophagus and GERD. Her baseline creatinine as of spring 2020 was 1.0. Presenting creatinine 1.4, improved to 1.1 today. Presentign sodium 127 > 130 this am. She takes hydrochlorothiazide as an outpatient. She is on a heparin drip and is receiving 1 L of normal saline at 80 mL hourly. She is oriented to self only. She can speak properly but often not on topic. Endorses R shoulder pain. denie sob, denies n/v or hunger; denies abd pain. no edema, no lightheadedness. Allergies Allergy/AdvReac Type Severity Reaction Status Date / Time NSAIDS (Non-Steroidal AdvReac Intermediate NAUSEA/VOMI Verified 03/04/21 21:28 Anti-Inflamma TING Home Medications Medication Instructions Recorded Confirmed Type aspirin 81 mg chewable tablet 81 mg PO DAILY 03/04/21 03/04/21 History atorvastatin 40 mg tablet 40 mg PO DAILY 03/04/21 03/04/21 History clopidogrel 75 mg tablet 75 mg PO DAILY 03/04/21 03/04/21 History fenofibrate 54 mg tablet 54 mg PO BID 03/04/21 03/04/21 History hydrochlorothiazide 25 mg tablet 12.5 mg PO DAILY 03/04/21 03/04/21 History hydrocodone 5 mg-acetaminophen 325 1 tab PO Q6H PRN 03/04/21 03/04/21 History mg tablet lorazepam 1 mg tablet 1 mg PO TID PRN 03/04/21 03/04/21 History losartan 50 mg tablet 50 mg PO DAILY 03/04/21 03/04/21 History metformin 1,000 mg tablet 1,000 mg PO BID 03/04/21 03/04/21 History metoprolol tartrate 50 mg tablet 50 mg PO BID 03/04/21 03/04/21 History venlafaxine 75 mg tablet 75 mg PO DAILY 03/04/21 03/04/21 History Patient History Medical History Anxiety and depression CAD (coronary artery disease) Carotid artery disease Diabetes Hyperlipidemia Hypertension Stroke 07/2020 recurrent L hemispheric w/ residual R sided weakness; [facility] Tobacco use Surgical History History of left common carotid artery stent placement Family History (Updated 03/05/21 @ 17:14 by Vicki Perez MD, PhD) Mother Hypertension Other Stroke Social History Smoking Status: Current every day smoker Tobacco Type: Cigarettes Hx Alcohol Use: No Hx Substance Use: No Preferred Language: Maori Communication Ability: Effective [employer] Trimmer Required: No Beliefs That Will Affect Care: None marital status: Current Living Situation: Family How many Children do You have: 1 Feels Safe at Home: Yes Safety Concerns: Feels Safe At This Time Assistive Devices: None Review of Systems Review of Systems: All systems reviewed & are unremarkable except as noted in HPI & below and Other (limited by mental status) Physical Exam Constitutional: well developed, well nourished, + altered mental status and cooperative; no acute distress Eyes: EOM intact bilaterally ENMT: Ears: no external ear abnormality Nose: no external nose abnormality Mouth: + dry oral mucous membranes Neck: no nuchal rigidity Respiratory: normal respiratory effort Auscultation: + diminished lung sounds and + crackles (bibasilar, fine) Cardiovascular: Rate/Rhythm: + irregularly irregular Extremities: no edema Gastrointestinal (Abdomen): Inspection/Auscultation: normal bowel sounds Percussion/Palpation: abdomen soft; abdomen nontender Musculoskeletal: generalized weakness > needs 2 to sit forward in bed Skin: no rashes, warm and dry Trauma: + contusion (multiple including L shoulder, BL shins) Neurologic: jimenez, fluent speech, no tremor Psychiatric: Orientation: alert, oriented to person and cooperative; + not oriented to place and + not oriented to time Results & Data ([facility]) Vital Signs (Past 12 Hours) Vital Signs Temp Pulse Resp BP Pulse Ox 03/05/21 12:00 80 20 155/82 H 95 03/05/21 10:24 188/116 H 03/05/21 09:00 36.9 C 90 18 202/86 H 95 03/05/21 05:07 88 175/92 H 94 Laboratory Results 03/05/21 07:23 03/05/21 07:23 Admission urinalysis: Specific gravity 1043 pH 5 clear yellow urine 1+ protein 1+ ketones 2+ blood 10-20 epithelial cells, no bacteria, other indices negative Random urine sodium 30; urine osmolality 519 Serum osmolality 288 AST 204 ALT 118 Total CK 1824 TSH within normal limits Tox screen negative Diagnostic Findings MRI brain today No acute infarct or intracranial hemorrhage. Multiple old lacunar infarcts within the jenni and bilateral basal ganglia as well as the periventricular white matter. Patchy periventricular white matter T2 hyperintensity which is nonspecific but favors microvascular ischemic change. Cervical spine CT: Unremarkable Neck CT angio: 70% right and 50% left stenosis of the internal carotid arteries at the petrous segment. No aneurysm dissection or occlusion. Approximately 50% stenosis of left vertebral artery at C4. Left carotid artery stent seen. No acute intracranial hemorrhage, evidence of acute territorial infarction, or other acute intracranial disease process. Chest x-ray Left upper lung radiodensity may be summation artifact from overlying ribs but recommend attention to CTA neck.
[2021-03-05 16:24] LABS: Partial Thromboplastin Ratio 2.9
[2021-03-05 16:32] LABS: Partial Thromboplastin Time 77.2 Seconds (21.0-31.0)
--- NOTE | 2021-03-05 16:51 | Communication Note ---
Date of Service: March 05, 2021 Avis is now up on the floor has been seen by cardiology her echocardiogram has been done and I refer the reader to Dr. Cooney's note for details but he feels that she did have a run of paroxysmal atrial fibrillation is giving some consideration to the future conversion to a novel anticoagulant but at present is recommending only continuation of the Plavix and aspirin and there is nothing on the MRI to suggest a new stroke or series of embolic strokes . 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 Some of this may be the effects of hyponatremia which was done 126 coupled with hypokalemia metabolic and EEG check in the morning and will take a look at it then to see if there is been any clearing of her mental status However we have no evidence for a new stroke only mild nonspecific confusional state with some metabolic abnormalities with underlying leukoencephalopathy. I really doubt this was a seizure or series of nonconvulsive seizures but we need to check this remote possibility with EEG Mat Love,
[2021-03-05 18:25] LABS: BUN Creatinine Ratio 31.7 (10-20); Calcium 8.5 mg/dl (8.5-10.1); Creatinine Clr Calc Pharmacy 55.6 ml/min; Est GFR (African American) 71.6 ml/min; Est GFR (Non-African American) 61.7 ml/min; Potassium 2.9 mmol/L (3.5-5.1)
[2021-03-05] MEDS: POTASSIUM CHLORIDE / WTR 10 MEQ/100 ML PLCT IV SCH ×4 (19:42→23:08)
[2021-03-05 23:47] LABS: Partial Thromboplastin Ratio 2.2
[2021-03-06 00:03] LABS: Partial Thromboplastin Time 58.1 Seconds (21.0-31.0)
[2021-03-06 06:11] LABS: Hematocrit (blood only) 36.9 % (37-47); Mean Corpuscular Hgb Conc 35.2 g/dL (32-36); Mean Corpuscular Volume 82.4 fL (80-100); Mean Platelet Volume 9.9 fL (7.4-10.4); Platelet Count 261 K/uL (130-400); RDW Coefficient of Variation 13.7 % (11.5-14.5); RDW Standard Deviation 41.8 fL (36.4-46.3); Red Blood Count 4.48 M/uL (4.2-5.4); White Blood Count 11.83 K/uL (4.8-10.8)
[2021-03-06 06:52] LABS: Albumin Level 2.8 gm/dl (3.4-5.0); BUN Creatinine Ratio 21.1 (10-20); Calcium 8.7 mg/dl (8.5-10.1); Creatinine Clr Calc Pharmacy 57.2 ml/min; Est GFR (African American) 73.3 ml/min; Est GFR (Non-African American) 63.3 ml/min; Magnesium 2.2 mg/dl (1.8-2.4); Potassium 3.8 mmol/L (3.5-5.1)
[2021-03-06 06:56] LABS: Albumin Globulin Ratio 0.8 (0.9-2); Bilirubin,Total 0.6 mg/dl (0.2-1); Globulin 3.7 gm/dl (2.5-4.0); Phosphorus 1.7 mg/dl (2.5-4.9); Total Protein 6.5 gm/dl (6.4-8.2)
[2021-03-06] MEDS ORDERED: SODIUM PHOSPHATE 3 MMOL/1 ML INFUSION IV STA (07:53)
--- NOTE | 2021-03-06 07:57 | Hospitalist Progress Note ---
Date of Service March 06, 2021 Assessment & Plan (1) Confusion: (2) Paroxysmal atrial fibrillation: (3) Electrolyte and fluid disorder: (4) Abnormal urine findings: Plan: This 55-year-old female presents with altered mental status. 1. Altered mental status, - questionable etiology, could be metabolic with hyponatremia. The patient has leukocytosis but no obvious infection. Urinalysis negative. Chest x-ray, no acute findings. CTA of the head and CTA of the head and neck were unremarkable. Because of new onset atrial fibrillation we will rule out stroke with MRI scan.No new / acute infarcts noted. The patient also has history of stroke in the past. As per the EPIC, she had right sided . Stroke in 2018 that resolved. She had left hemispheric stroke with residual right sided weakness in 07/2020 and workup showed left carotid artery stenosis and s/p left coronary stenting on 08/18/2020. Neurology consulted for further recommendations. Speech evaluation. PT, OT when stable. Infectious etiology seems to be less likely. WBC only mildly elevated. Procal obtained 0.3 UA not c/w infection. Blood cultx obtained and pending. Empiric cefriaxone started for now Per neurology EEG- Normal EEG during wakefulness Recommend psychiatry to evaluate her and try to assess how much of this is depression and how much of this is due to a pre-existing cognitive impairment likely at least some which is due to a vascular encephalopathy/dementia There is no question that there is some superimposed metabolic delirium and a full evaluation of her mental status may have to be delayed a month or so allowing some of the effects of this to clear No neuro diagnostic studies at this time recommended other than the usual work- up for reversible causes of dementia which I do not think we're going to find and I certainly would not start her on any medications for memory impairment such as Aricept or Namenda 2. New onset atrial fibrillation. Received a dose of diltiazem in the ER. We will continue her home Lopressor and placed on IV heparin and IV Lopressor p.r.n. Echocardiogram, obtained. Troponin x2 negative, 3rd one only min. elevated Cardiology consulted for further recommendations. - Cont. IV heparin, will likely DC on Eliquis and plavix, and will stop ASA on DC 3. History of stroke in the past, on aspirin, Plavix and statin. 4. Hypokalemia, replete and monitor 5. Hyponatremia, could be from dehydration. Getting gentle fluids. Follow the repeat labs.Nephrology consulted. Sodium improved. 6. Mild rhabdomyolysis with CK of 1824, getting fluids. Cpk down to 500s. Nephrology following. 7. Mild elevation of LFTs. Now trending down. No RUQ pain. If any concern, we will get a liver ultrasound. 8. Hypertension. At home on hydrochlorothiazide, losartan and metoprolol. Monitor the blood pressure. Hold hctz for now. BP elevated, given no acute stroke, will need to control BP. IV hydralazine prn and small dose PO given. 9. History of hyperlipidemia: Continue statin and fenofibrate. 10. Depression: Continue venlafaxine. 11. History of diabetes. Hold metformin, placed on insulin sliding scale. 12. History of bipolar, currently on venlafaxine. DVT prophylaxis: On IV heparin. DISPOSITION: Closely monitor in the tele floor. Code: Full Admission and Anticipated Discharge Date Admission Date: March 05, 2021 Subjective Pt seen in follow up of AMS, hyponatremia, hypokalemia, Afib Patient is currently in acute distress, she is awake and answering most questions appropriately She tells me that she lives with her son, she is able to tell me her name, she knows she is in the hospital, says [facility] she would say that it is , however then she was able to correct herself and said it was 2020 Says that she is already feeling better Denies any chest pain shortness of breath palpitations headache, abdominal pain nausea vomiting Review of Systems Review of Systems: All systems reviewed & are unremarkable except as noted in Subjective Physical Exam Physical Exam: GENERAL: The patient is moderate build, not in acute distress. HEENT: NC/AT, EOMI, PERRL NECK: No JVD, no neck masses. CARDIOVASCULAR: S1 and S2 heard. No murmurs, no gallop. RESPIRATORY: Normal AP diameter. No accessory muscle use. No wheezing, no crackles. ABDOMEN: Soft, bowel sounds present, nontender, nondistended. NEURO: Alert and oriented to name and place. She does correct herself about a year. No facial asymmetry. Speech slow but fluent. Obeys simple commands. Moves extremities. Sensation seems intact. EXTREMITIES: No edema, no erythema. Results & Data Results & Data ([facility]) Vital Signs (Past 12 Hours) Vital Signs Temp Pulse Resp BP Pulse Ox 03/06/21 04:25 36.8 C 86 17 165/82 H 94 03/05/21 23:28 36.4 C L 76 15 168/85 H 97 Laboratory Results 03/06/21 03/06/21 03/06/21 Range/Units 07:26 05:36 05:36 WBC 11.83 H (4.8-10.8) K/uL RBC 4.48 (4.2-5.4) M/uL Hgb 13.0 (12.0-16.0) g/dL Hct 36.9 L (37-47) % MCV 82.4 (80-100) fL MCH 29.0 (25-34) pg MCHC 35.2 (32-36) g/dL RDW Std Deviation 41.8 (36.4-46.3) fL RDW Coeff of Nicholas 13.7 (11.5-14.5) % Plt Count 261 (130-400) K/uL MPV 9.9 (7.4-10.4) fL Immature Gran % (Auto) % Neut % (Auto) % Lymph % (Auto) % [place] % (Auto) % Eos % (Auto) % Baso % (Auto) % Neut # (Auto) (1.4-6.5) K/uL Lymph # (Auto) (1.2-3.4) K/uL [place] # (Auto) (0.11-0.59) K/uL Eos # (Auto) (0-0.5) K/uL Baso # (Auto) (0-0.2) K/uL Immature Gran # (Auto) (0.00-0.02) K/uL Smudge Cells Echinocytes PT (9.0-12.0) Seconds INR (0.9-1.1) APTT (21.0-31.0) Seconds PTT Ratio Sodium (136-145) mmol/L Potassium (3.5-5.1) mmol/L Chloride (98-107) mmol/L Carbon Dioxide (21-32) mmol/L Anion Gap (3-11) BUN (7-18) mg/dl Creatinine (0.6-1.2) mg/dl Est Cr Clr Drug Dosing ml/min Est GFR ( Amer) ml/min Est GFR (Non-Af Amer) ml/min BUN/Creatinine Ratio (10-20) Glucose (70-99) mg/dl POC Glucose 120 H (70-99) mg/dl Estimat Average Glucose mg/dl Hemoglobin A1c (4.5-5.6) % Calcium (8.5-10.1) mg/dl Phosphorus (2.5-4.9) mg/dl Magnesium (1.8-2.4) mg/dl Total Bilirubin (0.2-1) mg/dl AST (15-37) U/L ALT (12-78) U/L Alkaline Phosphatase (45-117) U/L Ammonia (11-32) umol/L Total Creatine Kinase (26-192) U/L Troponin I (0-0.045) ng/ml Total Protein (6.4-8.2) gm/dl Albumin (3.4-5.0) gm/dl Globulin (2.5-4.0) gm/dl Albumin/Globulin Ratio (0.9-2) LDL Cholesterol Direct mg/dl Vitamin B1 Vitamin B12 (193-986) pg/ml Procalcitonin 0.20 (0-0.5) ng/ml Ur Random Sodium mmol/L 03/06/21 03/06/21 03/05/21 Range/Units 05:36 05:36 23:08 WBC (4.8-10.8) K/uL RBC (4.2-5.4) M/uL Hgb (12.0-16.0) g/dL Hct (37-47) % MCV (80-100) fL MCH (25-34) pg MCHC (32-36) g/dL RDW Std Deviation (36.4-46.3) fL RDW Coeff of Nicholas (11.5-14.5) % Plt Count (130-400) K/uL MPV (7.4-10.4) fL Immature Gran % (Auto) % Neut % (Auto) % Lymph % (Auto) % [place] % (Auto) % Eos % (Auto) % Baso % (Auto) % Neut # (Auto) (1.4-6.5) K/uL Lymph # (Auto) (1.2-3.4) K/uL [place] # (Auto) (0.11-0.59) K/uL Eos # (Auto) (0-0.5) K/uL Baso # (Auto) (0-0.2) K/uL Immature Gran # (Auto) (0.00-0.02) K/uL Smudge Cells Echinocytes PT (9.0-12.0) Seconds INR (0.9-1.1) APTT 58.1 H* (21.0-31.0) Seconds PTT Ratio 2.2 Sodium 130 L (136-145) mmol/L Potassium 3.8 D (3.5-5.1) mmol/L Chloride 98 (98-107) mmol/L Carbon Dioxide 29 (21-32) mmol/L Anion Gap 3.0 (3-11) BUN 21 H (7-18) mg/dl Creatinine 0.99 (0.6-1.2) mg/dl Est Cr Clr Drug Dosing 57.2 ml/min Est GFR ( Amer) 73.3 ml/min Est GFR (Non-Af Amer) 63.3 ml/min BUN/Creatinine Ratio 21.1 H (10-20) Glucose 107 H (70-99) mg/dl POC Glucose (70-99) mg/dl Estimat Average Glucose mg/dl Hemoglobin A1c (4.5-5.6) % Calcium 8.7 (8.5-10.1) mg/dl Phosphorus 1.7 L (2.5-4.9) mg/dl Magnesium 2.2 (1.8-2.4) mg/dl Total Bilirubin 0.6 D (0.2-1) mg/dl AST 133 H (15-37) U/L ALT 86 H (12-78) U/L Alkaline Phosphatase 49 (45-117) U/L Ammonia (11-32) umol/L Total Creatine Kinase 555 H (26-192) U/L Troponin I (0-0.045) ng/ml Total Protein 6.5 (6.4-8.2) gm/dl Albumin 2.8 L (3.4-5.0) gm/dl Globulin 3.7 (2.5-4.0) gm/dl Albumin/Globulin Ratio 0.8 L (0.9-2) LDL Cholesterol Direct 90 mg/dl Vitamin B1 Pending Vitamin B12 (193-986) pg/ml Procalcitonin (0-0.5) ng/ml Ur Random Sodium mmol/L 03/05/21 03/05/21 03/05/21 Range/Units 20:11 17:41 16:41 WBC (4.8-10.8) K/uL RBC (4.2-5.4) M/uL Hgb (12.0-16.0) g/dL Hct (37-47) % MCV (80-100) fL MCH (25-34) pg MCHC (32-36) g/dL RDW Std Deviation (36.4-46.3) fL RDW Coeff of Nicholas (11.5-14.5) % Plt Count (130-400) K/uL MPV (7.4-10.4) fL Immature Gran % (Auto) % Neut % (Auto) % Lymph % (Auto) % [place] % (Auto) % Eos % (Auto) % Baso % (Auto) % Neut # (Auto) (1.4-6.5) K/uL Lymph # (Auto) (1.2-3.4) K/uL [place] # (Auto) (0.11-0.59) K/uL Eos # (Auto) (0-0.5) K/uL Baso # (Auto) (0-0.2) K/uL Immature Gran # (Auto) (0.00-0.02) K/uL Smudge Cells Echinocytes PT (9.0-12.0) Seconds INR (0.9-1.1) APTT (21.0-31.0) Seconds PTT Ratio Sodium 132 L (136-145) mmol/L Potassium 2.9 L (3.5-5.1) mmol/L Chloride 95 L (98-107) mmol/L Carbon Dioxide 27 (21-32) mmol/L Anion Gap 10.0 (3-11) BUN 32 H (7-18) mg/dl Creatinine 1.01 (0.6-1.2) mg/dl Est Cr Clr Drug Dosing 55.6 ml/min Est GFR ( Amer) 71.6 ml/min Est GFR (Non-Af Amer) 61.7 ml/min BUN/Creatinine Ratio 31.7 H (10-20) Glucose 123 H (70-99) mg/dl POC Glucose 120 H 142 H (70-99) mg/dl Estimat Average Glucose mg/dl Hemoglobin A1c (4.5-5.6) % Calcium 8.5 (8.5-10.1) mg/dl Phosphorus (2.5-4.9) mg/dl Magnesium (1.8-2.4) mg/dl Total Bilirubin (0.2-1) mg/dl AST (15-37) U/L ALT (12-78) U/L Alkaline Phosphatase (45-117) U/L Ammonia (11-32) umol/L Total Creatine Kinase (26-192) U/L Troponin I (0-0.045) ng/ml Total Protein (6.4-8.2) gm/dl Albumin (3.4-5.0) gm/dl Globulin (2.5-4.0) gm/dl Albumin/Globulin Ratio (0.9-2) LDL Cholesterol Direct mg/dl Vitamin B1 Vitamin B12 (193-986) pg/ml Procalcitonin (0-0.5) ng/ml Ur Random Sodium mmol/L 03/05/21 03/05/21 03/05/21 Range/Units 15:49 13:10 13:10 WBC (4.8-10.8) K/uL RBC (4.2-5.4) M/uL Hgb (12.0-16.0) g/dL Hct (37-47) % MCV (80-100) fL MCH (25-34) pg MCHC (32-36) g/dL RDW Std Deviation (36.4-46.3) fL RDW Coeff of Nicholas (11.5-14.5) % Plt Count (130-400) K/uL MPV (7.4-10.4) fL Immature Gran % (Auto) % Neut % (Auto) % Lymph % (Auto) % [place] % (Auto) % Eos % (Auto) % Baso % (Auto) % Neut # (Auto) (1.4-6.5) K/uL Lymph # (Auto) (1.2-3.4) K/uL [place] # (Auto) (0.11-0.59) K/uL Eos # (Auto) (0-0.5) K/uL Baso # (Auto) (0-0.2) K/uL Immature Gran # (Auto) (0.00-0.02) K/uL Smudge Cells Echinocytes PT (9.0-12.0) Seconds INR (0.9-1.1) APTT 77.2 H* (21.0-31.0) Seconds PTT Ratio 2.9 Sodium (136-145) mmol/L Potassium (3.5-5.1) mmol/L Chloride (98-107) mmol/L Carbon Dioxide (21-32) mmol/L Anion Gap (3-11) BUN (7-18) mg/dl Creatinine (0.6-1.2) mg/dl Est Cr Clr Drug Dosing ml/min Est GFR ( Amer) ml/min Est GFR (Non-Af Amer) ml/min BUN/Creatinine Ratio (10-20) Glucose (70-99) mg/dl POC Glucose (70-99) mg/dl Estimat Average Glucose mg/dl Hemoglobin A1c (4.5-5.6) % Calcium (8.5-10.1) mg/dl Phosphorus (2.5-4.9) mg/dl Magnesium (1.8-2.4) mg/dl Total Bilirubin (0.2-1) mg/dl AST (15-37) U/L ALT (12-78) U/L Alkaline Phosphatase (45-117) U/L Ammonia (11-32) umol/L Total Creatine Kinase (26-192) U/L Troponin I (0-0.045) ng/ml Total Protein (6.4-8.2) gm/dl Albumin (3.4-5.0) gm/dl Globulin (2.5-4.0) gm/dl Albumin/Globulin Ratio (0.9-2) LDL Cholesterol Direct mg/dl Vitamin B1 Vitamin B12 638 (193-986) pg/ml Procalcitonin 0.31 (0-0.5) ng/ml Ur Random Sodium mmol/L 03/05/21 03/05/21 03/05/21 Range/Units 13:10 13:10 12:35 WBC (4.8-10.8) K/uL RBC (4.2-5.4) M/uL Hgb (12.0-16.0) g/dL Hct (37-47) % MCV (80-100) fL MCH (25-34) pg MCHC (32-36) g/dL RDW Std Deviation (36.4-46.3) fL RDW Coeff of Nicholas (11.5-14.5) % Plt Count (130-400) K/uL MPV (7.4-10.4) fL Immature Gran % (Auto) % Neut % (Auto) % Lymph % (Auto) % [place] % (Auto) % Eos % (Auto) % Baso % (Auto) % Neut # (Auto) (1.4-6.5) K/uL Lymph # (Auto) (1.2-3.4) K/uL [place] # (Auto) (0.11-0.59) K/uL Eos # (Auto) (0-0.5) K/uL Baso # (Auto) (0-0.2) K/uL Immature Gran # (Auto) (0.00-0.02) K/uL Smudge Cells Echinocytes PT (9.0-12.0) Seconds INR (0.9-1.1) APTT (21.0-31.0) Seconds PTT Ratio Sodium (136-145) mmol/L Potassium (3.5-5.1) mmol/L Chloride (98-107) mmol/L Carbon Dioxide (21-32) mmol/L Anion Gap (3-11) BUN (7-18) mg/dl Creatinine (0.6-1.2) mg/dl Est Cr Clr Drug Dosing ml/min Est GFR ( Amer) ml/min Est GFR (Non-Af Amer) ml/min BUN/Creatinine Ratio (10-20) Glucose (70-99) mg/dl POC Glucose 136 H (70-99) mg/dl Estimat Average Glucose mg/dl Hemoglobin A1c (4.5-5.6) % Calcium (8.5-10.1) mg/dl Phosphorus (2.5-4.9) mg/dl Magnesium (1.8-2.4) mg/dl Total Bilirubin (0.2-1) mg/dl AST (15-37) U/L ALT (12-78) U/L Alkaline Phosphatase (45-117) U/L Ammonia 13.9 (11-32) umol/L Total Creatine Kinase (26-192) U/L Troponin I 0.047 H* (0-0.045) ng/ml Total Protein (6.4-8.2) gm/dl Albumin (3.4-5.0) gm/dl Globulin (2.5-4.0) gm/dl Albumin/Globulin Ratio (0.9-2) LDL Cholesterol Direct mg/dl Vitamin B1 Vitamin B12 (193-986) pg/ml Procalcitonin (0-0.5) ng/ml Ur Random Sodium mmol/L 03/05/21 03/05/21 03/05/21 Range/Units 09:45 09:03 08:13 WBC (4.8-10.8) K/uL RBC (4.2-5.4) M/uL Hgb (12.0-16.0) g/dL Hct (37-47) % MCV (80-100) fL MCH (25-34) pg MCHC (32-36) g/dL RDW Std Deviation (36.4-46.3) fL RDW Coeff of Nicholas (11.5-14.5) % Plt Count (130-400) K/uL MPV (7.4-10.4) fL Immature Gran % (Auto) % Neut % (Auto) % Lymph % (Auto) % [place] % (Auto) % Eos % (Auto) % Baso % (Auto) % Neut # (Auto) (1.4-6.5) K/uL Lymph # (Auto) (1.2-3.4) K/uL [place] # (Auto) (0.11-0.59) K/uL Eos # (Auto) (0-0.5) K/uL Baso # (Auto) (0-0.2) K/uL Immature Gran # (Auto) (0.00-0.02) K/uL Smudge Cells Echinocytes PT 9.8 (9.0-12.0) Seconds INR 1.0 (0.9-1.1) APTT 27.6 (21.0-31.0) Seconds PTT Ratio 1.0 Sodium (136-145) mmol/L Potassium (3.5-5.1) mmol/L Chloride (98-107) mmol/L Carbon Dioxide (21-32) mmol/L Anion Gap (3-11) BUN (7-18) mg/dl Creatinine (0.6-1.2) mg/dl Est Cr Clr Drug Dosing ml/min Est GFR ( Amer) ml/min Est GFR (Non-Af Amer) ml/min BUN/Creatinine Ratio (10-20) Glucose (70-99) mg/dl POC Glucose 117 H (70-99) mg/dl Estimat Average Glucose mg/dl Hemoglobin A1c (4.5-5.6) % Calcium (8.5-10.1) mg/dl Phosphorus (2.5-4.9) mg/dl Magnesium (1.8-2.4) mg/dl Total Bilirubin (0.2-1) mg/dl AST (15-37) U/L ALT (12-78) U/L Alkaline Phosphatase (45-117) U/L Ammonia (11-32) umol/L Total Creatine Kinase (26-192) U/L Troponin I (0-0.045) ng/ml Total Protein (6.4-8.2) gm/dl Albumin (3.4-5.0) gm/dl Globulin (2.5-4.0) gm/dl Albumin/Globulin Ratio (0.9-2) LDL Cholesterol Direct mg/dl Vitamin B1 Vitamin B12 (193-986) pg/ml Procalcitonin (0-0.5) ng/ml Ur Random Sodium 30 mmol/L 03/05/21 03/05/21 03/05/21 Range/Units 07:23 07:23 07:23 WBC (4.8-10.8) K/uL RBC (4.2-5.4) M/uL Hgb (12.0-16.0) g/dL Hct (37-47) % MCV (80-100) fL MCH (25-34) pg MCHC (32-36) g/dL RDW Std Deviation (36.4-46.3) fL RDW Coeff of Nicholas (11.5-14.5) % Plt Count (130-400) K/uL MPV (7.4-10.4) fL Immature Gran % (Auto) 0.2 % Neut % (Auto) 43.3 % Lymph % (Auto) 41.8 % [place] % (Auto) 13.2 % Eos % (Auto) 0.9 % Baso % (Auto) 0.6 % Neut # (Auto) 5.28 (1.4-6.5) K/uL Lymph # (Auto) 5.09 H (1.2-3.4) K/uL [place] # (Auto) 1.61 H (0.11-0.59) K/uL Eos # (Auto) 0.11 (0-0.5) K/uL Baso # (Auto) 0.07 (0-0.2) K/uL Immature Gran # (Auto) 0.03 H (0.00-0.02) K/uL Smudge Cells Present Echinocytes 2+ PT (9.0-12.0) Seconds INR (0.9-1.1) APTT (21.0-31.0) Seconds PTT Ratio Sodium 130 L (136-145) mmol/L Potassium 3.2 L D (3.5-5.1) mmol/L Chloride 95 L (98-107) mmol/L Carbon Dioxide 23 (21-32) mmol/L Anion Gap 12.0 H (3-11) BUN 40 H (7-18) mg/dl Creatinine 1.10 (0.6-1.2) mg/dl Est Cr Clr Drug Dosing 51.0 ml/min Est GFR ( Amer) 64.5 ml/min Est GFR (Non-Af Amer) 55.7 ml/min BUN/Creatinine Ratio 35.9 H (10-20) Glucose 103 H (70-99) mg/dl POC Glucose (70-99) mg/dl Estimat Average Glucose 143 mg/dl Hemoglobin A1c 6.6 H (4.5-5.6) % Calcium 8.7 (8.5-10.1) mg/dl Phosphorus (2.5-4.9) mg/dl Magnesium 2.6 H (1.8-2.4) mg/dl Total Bilirubin (0.2-1) mg/dl AST (15-37) U/L ALT (12-78) U/L Alkaline Phosphatase (45-117) U/L Ammonia (11-32) umol/L Total Creatine Kinase (26-192) U/L Troponin I 0.045 (0-0.045) ng/ml Total Protein (6.4-8.2) gm/dl Albumin (3.4-5.0) gm/dl Globulin (2.5-4.0) gm/dl Albumin/Globulin Ratio (0.9-2) LDL Cholesterol Direct mg/dl Vitamin B1 Vitamin B12 (193-986) pg/ml Procalcitonin (0-0.5) ng/ml Ur Random Sodium mmol/L Medications Administered Current Inpatient Medications Acetaminophen (Acetaminophen 325 Mg Tab) 650 mg PO Q4H PRN PRN Reason: Pain or Fever Stop: 04/04/21 07:26 Hydrocodone Bitart/Acetaminophen (Hydrocodone/Acetamophen 5/325mg Tab) 1 tab PO Q6H PRN PRN Reason: Moderate to severe pain Stop: 03/19/21 07:26 Aspirin (Aspirin 81 Mg Ectab) 81 mg PO DAILY INDRA Stop: 04/04/21 08:59 Last Admin: 03/05/21 09:17 Dose: 81 mg Documented by: Atorvastatin Calcium (Atorvastatin 40 Mg Tab) 40 mg PO DAILY INDRA Stop: 04/04/21 08:59 Last Admin: 03/05/21 09:17 Dose: 40 mg Documented by: Clopidogrel Bisulfate (Clopidogrel Bisulfate 75 Mg Tab) 75 mg PO DAILY INDRA Stop: 04/04/21 08:59 Last Admin: 03/05/21 09:17 Dose: 75 mg Documented by: Fenofibrate (Fenofibrate Nanocrystallized 48 Mg Tablet) 48 mg NA BID INDRA; Pr otocol Stop: 04/04/21 08:59 Last Admin: 03/05/21 19:42 Dose: 48 mg Documented by: Hydralazine HCl (Hydralazine Hcl 20 Mg/Ml Vial) 2.5 mg IV Q4H PRN PRN Reason: SBP >165 Stop: 04/04/21 13:30 Hydrochlorothiazide (Hydrochlorothiazide 25 Mg Tab) 12.5 mg PO DAILY INDRA Stop: 04/04/21 08:59 Last Admin: 03/05/21 09:17 Dose: 12.5 mg Documented by: Heparin Sodium/Dextrose (Heparin Sodium/Dextrose) 25,000 units in 500 mls @ 20 mls/hr IV .Q24H INDRA; Protocol Stop: 04/04/21 08:59 Last Titration: 03/06/21 06:50 Dose: 1,000 units/hr, 20 mls/hr Documented by: Ceftriaxone Sodium 1,000 mg/ (Dextrose) 60 mls @ 100 mls/hr IV DAILY [facility]; Protocol Stop: 03/07/21 13:29 Last Infusion: 03/05/21 15:00 Dose: Infused Documented by: Sodium Phosphate 9 mmol/ (Sodium Chloride) 253 mls @ 88 mls/hr IV ONE ONE Stop: 03/06/21 10:52 Insulin Aspart (Insulin Aspart 100 Units/Ml 3 Ml Pen) 0 units SC ACHS [facility] Stop: 04/04/21 07:59 Last Admin: 03/05/21 20:20 Dose: Not Given Documented by: Lorazepam (Lorazepam 1 Mg Tab) 1 mg PO TID PRN PRN Reason: Anxiety Stop: 04/04/21 07:35 Last Admin: 03/05/21 22:24 Dose: 1 mg Documented by: Losartan Potassium (Losartan Potassium 50 Mg Tab) 50 mg PO DAILY [facility] Stop: 04/04/21 08:59 Last Admin: 03/05/21 09:17 Dose: 50 mg Documented by: Metoprolol Tartrate (Metoprolol Tartrate 50 Mg Tab) 50 mg PO BID [facility] Stop: 04/04/21 08:59 Last Admin: 03/05/21 19:45 Dose: 50 mg Documented by: Metoprolol Tartrate (Metoprolol Tartrate 1 Mg/Ml Vial) 5 mg IV Q6H PRN PRN Reason: Tachycardia Stop: 04/04/21 07:26 Nitroglycerin (Nitroglycerin Sl 0.4 Mg/Tab Tab) 0.4 mg SL UD PRN PRN Reason: Chest Pain Stop: 04/04/21 07:26 Ondansetron HCl (Ondansetron Inj 2 Mg/Ml 2 Ml Vial) 4 mg IV Q6H PRN PRN Reason: Nausea Stop: 04/04/21 07:26 Polyethylene Glycol (Polyethylene (Miralax) 17 Gm Pack) 17 gm PO DAILY PRN PRN Reason: Constipation Stop: 04/04/21 07:26 Potassium Phosphate (Pot Phosphate Monobasic W/ Sod Tab) 1 tab PO QID [facility] Stop: 04/05/21 08:59 Venlafaxine HCl (Venlafaxine Hcl 37.5 Mg Tab) 75 mg PO DAILY [facility] Stop: 04/04/21 08:59 Last Admin: 03/05/21 09:17 Dose: 75 mg Documented by:
[2021-03-06] MEDS ORDERED: SODIUM PHOSPHATE 9 MMOL in SODIUM CHLORIDE 0.9% 250 ML IV ONE (08:00)
[2021-03-06] MEDS: cefTRIAXone SODIUM 1,000 MG in DEXTROSE 5% 50 ML IV SCH (08:16)
[2021-03-06] MEDS: CLOPIDOGREL BISULFATE 75 MG TAB PO SCH (08:16)
[2021-03-06] MEDS: FENOFIBRATE NANOCRYSTALLIZED 48 MG TABLET SCH ×2 (08:17→20:36)
[2021-03-06] MEDS: METOPROLOL TARTRATE 50 MG TAB PO SCH ×2 (08:17→20:36)
[2021-03-06] MEDS: ASPIRIN 81 MG ECTAB PO SCH (08:17)
[2021-03-06] MEDS: ATORVASTATIN 40 MG TAB PO SCH (08:17)
[2021-03-06] MEDS: LOSARTAN POTASSIUM 50 MG TAB PO SCH (08:17)
[2021-03-06] MEDS: VENLAFAXINE HCL 37.5 MG TAB PO SCH (08:17)
[2021-03-06] MEDS: INSULIN ASPART 100 UNITS/ML 3 ML PEN SC SCH ×4 (08:18→21:49)
[2021-03-06 08:21] LABS: Partial Thromboplastin Ratio 2.8
[2021-03-06 08:28] LABS: Partial Thromboplastin Time 72.8 Seconds (21.0-31.0)
[2021-03-06] MEDS: POT PHOSPHATE MONOBASIC W/ SOD TAB PO SCH ×4 (08:55→20:37)
[2021-03-06] MEDS: THIAMINE HCL 100 MG TAB PO SCH (08:55)
[2021-03-06] MEDS: FOLIC ACID 1 MG TAB PO SCH (08:55)
[2021-03-06] MEDS: CYANOCOBALAMIN 500 MCG TABLET (VITAMIN B-12) PO SCH (08:56)
[2021-03-06] MEDS: MULTIVITAMIN TAB PO SCH (08:56)
[2021-03-06] MEDS: HEPARIN SODIUM/DEXTROSE 25,000 UNITS/500 ML BAG IV SCH (11:05)
[2021-03-06] MEDS ORDERED: ENALAPRILAT 0.625 MG in SYRINGE 9.5 ML IV PRN (11:12)
[2021-03-06] MEDS ORDERED: SODIUM CHLORIDE 0.45 % 1,000 ML IV SCH (11:15)
--- NOTE | 2021-03-06 11:17 | Nephrology Progress Note ---
Date of Service March 06, 2021 Assessment & Plan (1) Electrolyte and fluid disorder: Plan: GERALD from presentation has resolved. transaminases improving She does have stable hyponatremia and improving hypokalemia in the setting of elevated CK She has hypovolemic normotonic hyponatremia > sodium responded to gentle resuscitation doubt this sodium value can explain AMS >> her sNa is 130 and has been for > 24hr at my evaluation and she is oriented to self only -caution with po/diet given how confused she is -low phos is d/t decreased po intake and is being repleted both IV and on K phos -improving but persistent hypokalemia -hold hctz -will give 1L 1/2 NS then stop -check bmp, mag, phos q12-24 hr (2) Abnormal urine findings: Plan: proteinuria, microhematuria, ketonuria on presentation -reassess later in admission or after d/c; no evidence of infection (3) Hypertension: Plan: recommend cautious IV enalapril prn HTN > so ordered -also on cozaar, metoprololol > continue same -query neuro as to target SBP; I am ok with permissive SBP 150-160s for now Admission and Anticipated Discharge Date Admission Date: March 05, 2021 Subjective denies sob or uncontrolled pain; remains very confused > when asked where we are she states > "[place]? [place]?;" when I ask her what place this is that we are in she cannot tell me. no n/v. EEG done this am/ending Review of Systems Review of Systems: Unobtainable due to cognitive status Physical Exam Constitutional: well developed, well nourished, + altered mental status and cooperative; no acute distress Eyes: EOM intact bilaterally ENMT: Ears: no external ear abnormality Nose: no external nose abnormality Mouth: + dry oral mucous membranes Neck: no nuchal rigidity Respiratory: normal respiratory effort Auscultation: + diminished lung sounds and + crackles (bibasilar, fine) Cardiovascular: Rate/Rhythm: regular rate and regular rhythm Extremities: no edema Gastrointestinal (Abdomen): Inspection/Auscultation: normal bowel sounds Percussion/Palpation: abdomen soft; abdomen nontender Skin: no rashes, warm and dry Trauma: + contusion (multiple including L shoulder, BL shins) Neurologic: ? mild nystagmus vertical Psychiatric: Orientation: alert, oriented to person and cooperative; + not oriented to place and + not oriented to time Results & Data ([facility]) Vital Signs (Past 12 Hours) Vital Signs Temp Pulse Pulse Pulse Resp BP Pulse Ox 03/06/21 08:00 37.0 C 78 86 16 177/90 H 96 03/06/21 07:27 03/06/21 04:25 36.8 C 86 17 165/82 H 94 03/05/21 23:28 36.4 C L 76 15 168/85 H 97 Pulse Ox 03/06/21 08:00 03/06/21 07:27 96 03/06/21 04:25 03/05/21 23:28 Laboratory Results 03/06/21 05:36 03/06/21 05:36 phos 1.7
--- NOTE | 2021-03-06 12:47 | Communication Note ---
Date of Service: March 06, 2021 Avis is 55 years old and was admitted to the hospital yesterday for evaluation of several days of confusion and disorientation, frequent falls and on admission to the ER was found to have modest hyponatremia, hypokalemia, may have had a run of atrial fibrillation, had a mild leukocytosis, elevation of her CPK and transaminases but on imaging studies had no evidence for embolic events involving her brain by MRI, had a 70% intracranial stenosis of the right internal carotid artery 50% stenosis of the left internal carotid artery, modest residual narrowing at the site of her prior left internal carotid artery stent, essentially normal echocardiogram without clear source for emboli and has been seen by nephrology cardiology's recommendations were reviewed by me today All this occurs in the setting of cerebrovascular disease involving small vessels manifested by fairly impressive degree of leukoencephalopathy and some volume loss on MRI, prior left hemisphere TIA CVA treated with stenting of the internal carotid on the left in the past, some subjective memory disturbance on the part of the patient the severity which is hard to assess and the duration of which is difficult, admitted depression since the of her a year ago and increased depression related to the need to invest herself of three greatly love pets within the past 3 weeks, with longstanding diabetes, hypertension, dyslipidemia, known coronary disease and a history of tobacco use but no ethanol consumption Home medications include aspirin atorvastatin Plavix fenofibrate hydrochlorothiazide hydrocodone lorazepam Metformin metoprolol and Effexor Since admission her sodium has come up to 130 her potassium is now normal she still has some elevation of the transaminases her troponin is slightly up and cardiology is following her but at present there does not seem to be evidence for significant myocardial infarction at least according to what I can obtain from review of the chart She has had an EEG which is absolutely normal reveals no evidence for seizure activity slowing or any other significant abnormalities She remains subjectively confused Family history is noncontributory Social history reveals to be living with her son and apparently having had to the best herself of some greatly loved pets within the past several weeks. She tells me that this has increased her depression significantly Review of systems reveals no real fevers sweats chills weight loss weight gain she denies any new issues referable to HEENT but does admit to frequent falls due to vague sense of disequilibrium She denies any chest pain palpitations shortness of breath cough denies any new abdominal complaints and denies any urinary frequency or dysuria Neurologically she admits to memory issues although the duration of this is unclear, depression, inability to care for herself after her , chronic gait disturbance for which she uses a walker and numbness of her feet Exam today reveals blood pressure 154/79 pulse 74 respirations are 18 she is afebrile and has a normal oxygen saturation at 94 on room air She is awake and alert but professes not to know where she is or the date but with time and some cueing she does come up with the fact that she is in the hospital, thinks it is [facility] rather than [facility], comes up with the fact is 2020, thinks it is winter, does not know that today is [place] does not know the Thanksgiving is coming up and has a vague recollection of the events in the past several days but then is able to go into some detail regarding how she needed to give her pets to a another individual and that she feels very sad about this Cranial nerves are intact with normal eye movements facial motility and strength facial sensation speech is a little flat and her overall demeanor suggests a depressed affect I did not test gait but there is no tremor, tics, choreiform activity drift or pronation sign Reflexes are hypoactive in the lower extremities absent at the ankles toes are downgoing no Trevor signs are seen Strength testing appears to be normal and not impressed with any atrophy or fasciculations Sensory examination reveals only minimal loss of temperature and light touch distally and reveals fairly preserved proprioception and vibration Currently we have a woman with self-reported cognitive impairment issues dating back an indeterminate period of time, subjective depression chronic with a recent exacerbation, and a several day history of confusion and increased falls correlating with the presence of hyponatremia hypokalemia and a possible urinary tract infection and possibly paroxysmal atrial fibrillation but without evidence on imaging studies for other than some chronic fairly significant leukoencephalopathic changes and on exam evidence to suggest a significant cognitive impairment syndrome perhaps worsened by superimposed metabolic delirium and accompanied by a very flat affect B12 levels have been unremarkable TSH apparently is going to be ordered At this point I am going to suggest that psychiatry evaluate her and try to assess how much of this is depression and how much of this is due to a pre- existing cognitive impairment likely at least some which is due to a vascular encephalopathy/dementia There is no question that there is some superimposed metabolic delirium and a full evaluation of her mental status may have to be delayed a month or so allowing some of the effects of this to clear I see no reason to do further neuro diagnostic studies at this time other than the usual work-up for reversible causes of dementia which I do not think were going to find and I certainly would not start her on any medications for memory impairment such as Aricept or Namenda I will check back with her tomorrow to see if she may be clearing a little bit as the sodium level equilibrates Mat Love MD
--- NOTE | 2021-03-06 12:51 | Electroencephalogram ---
EEG Procedure Note Date of Service March 06, 2021 Start / End Times Start Time: 951 End Time: 1011 Referring Physician Mat Love MD History Confusion question nonconvulsive seizures Home Medication List Medication Instructions Recorded Confirmed Type aspirin 81 mg chewable tablet 81 mg PO DAILY 03/04/21 03/04/21 History atorvastatin 40 mg tablet 40 mg PO DAILY 03/04/21 03/04/21 History clopidogrel 75 mg tablet 75 mg PO DAILY 03/04/21 03/04/21 History fenofibrate 54 mg tablet 54 mg PO BID 03/04/21 03/04/21 History hydrochlorothiazide 25 mg tablet 12.5 mg PO DAILY 03/04/21 03/04/21 History hydrocodone 5 mg-acetaminophen 325 1 tab PO Q6H PRN 03/04/21 03/04/21 History mg tablet lorazepam 1 mg tablet 1 mg PO TID PRN 03/04/21 03/04/21 History losartan 50 mg tablet 50 mg PO DAILY 03/04/21 03/04/21 History metformin 1,000 mg tablet 1,000 mg PO BID 03/04/21 03/04/21 History metoprolol tartrate 50 mg tablet 50 mg PO BID 03/04/21 03/04/21 History venlafaxine 75 mg tablet 75 mg PO DAILY 03/04/21 03/04/21 History Inpatient Medication List Aspirin (Aspirin 81 Mg Ectab) 81 mg PO DAILY INDRA Stop: 04/04/21 08:59 Last Admin: 03/06/21 08:17 Dose: 81 mg Documented by: [id number] Admin: 03/05/21 09:17 Dose: 81 mg Documented by: [id number] Atorvastatin Calcium (Atorvastatin 40 Mg Tab) 40 mg PO DAILY INDRA Stop: 04/04/21 08:59 Last Admin: 03/06/21 08:17 Dose: 40 mg Documented by: [id number] Admin: 03/05/21 09:17 Dose: 40 mg Documented by: [id number] Clopidogrel Bisulfate (Clopidogrel Bisulfate 75 Mg Tab) 75 mg PO DAILY INDRA Stop: 04/04/21 08:59 Last Admin: 03/06/21 08:16 Dose: 75 mg Documented by: [id number] Admin: 03/05/21 09:17 Dose: 75 mg Documented by: [id number] Cyanocobalamin (Cyanocobalamin 500 Mcg Tablet (Vitamin B-12)) 1,000 mcg PO QAM [facility] Stop: 04/05/21 08:59 Last Admin: 03/06/21 08:56 Dose: 1,000 mcg Documented by: [id number] Fenofibrate (Fenofibrate Nanocrystallized 48 Mg Tablet) 48 mg NA BID [facility]; Protocol Stop: 04/04/21 08:59 Last Admin: 03/06/21 08:17 Dose: 48 mg Documented by: [id number] Admin: 03/05/21 19:42 Dose: 48 mg Documented by: [id number] Admin: 03/05/21 09:16 Dose: 48 mg Documented by: [id number] Folic Acid (Folic Acid 1 Mg Tab) 1 mg PO QAM [facility] Stop: 04/05/21 08:59 Last Admin: 03/06/21 08:55 Dose: 1 mg Documented by: [id number] Hydrochlorothiazide (Hydrochlorothiazide 25 Mg Tab) 12.5 mg PO DAILY [facility] Stop: 04/04/21 08:59 Last Admin: 03/05/21 09:17 Dose: 12.5 mg Documented by: [id number] Heparin Sodium/Dextrose (Heparin Sodium/Dextrose) 25,000 units in 500 mls @ 19 mls/hr IV .Q24H [facility]; Protocol Stop: 04/04/21 08:59 Last Admin: 03/06/21 11:05 Dose: 950 units/hr, 19 mls/hr Documented by: [id number] Cosigned by: [id number] Titration: 03/06/21 11:05 Dose: 950 units/hr, 19 mls/hr Documented by: [id number] Cosigned by: [id number] Titration: 03/06/21 08:56 Dose: 950 units/hr, 19 mls/hr Documented by: [id number] Cosigned by: [id number] Titration: 03/06/21 06:50 Dose: 1,000 units/hr, 20 mls/hr Documented by: [id number] Cosigned by: [id number] Titration: 03/06/21 00:05 Dose: 1,000 units/hr, 20 mls/hr Documented by: [id number] Cosigned by: [id number] Titration: 03/05/21 19:01 Dose: 1,000 units/hr, 20 mls/hr Documented by: [id number] Cosigned by: [id number] Titration: 03/05/21 16:51 Dose: 1,000 units/hr, 20 mls/hr Documented by: [id number] Cosigned by: [id number] Admin: 03/05/21 09:08 Dose: 1,050 units/hr, 21 mls/hr Documented by: [id number] Cosigned by: [id number] Ceftriaxone Sodium 1,000 mg/ (Dextrose) 60 mls @ 100 mls/hr IV DAILY NIDRA; Protocol Stop: 03/07/21 13:29 Last Infusion: 03/06/21 08:52 Dose: 0 mls/hr Documented by: [id number] Admin: 03/06/21 08:16 Dose: 100 mls/hr Documented by: [id number] Infusion: 03/05/21 15:00 Dose: 0 mls/hr Documented by: [id number] Admin: 03/05/21 14:21 Dose: 100 mls/hr Documented by: [id number] Insulin Aspart (Insulin Aspart 100 Units/Ml 3 Ml Pen) 0 units SC ACHS INDRA Stop: 04/04/21 07:59 Last Admin: 03/06/21 12:44 Dose: Not Given Documented by: [id number] Admin: 03/06/21 08:18 Dose: 1 units Documented by: [id number] Cosigned by: [id number] Admin: 03/05/21 20:20 Dose: Not Given Documented by: [id number] Admin: 03/05/21 17:26 Dose: 1 units Documented by: [id number] Cosigned by: [id number] Admin: 03/05/21 14:39 Dose: Not Given Documented by: [id number] Admin: 03/05/21 12:37 Dose: Not Given Documented by: [id number] Lorazepam (Lorazepam 1 Mg Tab) 1 mg PO TID PRN PRN Reason: Anxiety Stop: 04/04/21 07:35 Last Admin: 03/05/21 22:24 Dose: 1 mg Documented by: [id number] Losartan Potassium (Losartan Potassium 50 Mg Tab) 50 mg PO DAILY INDRA Stop: 04/04/21 08:59 Last Admin: 03/06/21 08:17 Dose: 50 mg Documented by: [id number] Admin: 03/05/21 09:17 Dose: 50 mg Documented by: [id number] Metoprolol Tartrate (Metoprolol Tartrate 50 Mg Tab) 50 mg PO BID INDRA Stop: 04/04/21 08:59 Last Admin: 03/06/21 08:17 Dose: 50 mg Documented by: [id number] Admin: 03/05/21 19:45 Dose: 50 mg Documented by: [id number] Admin: 03/05/21 09:17 Dose: 50 mg Documented by: [id number] Multivitamins (Multivitamin Tab) 1 tab PO QAM INDRA Stop: 04/05/21 08:59 Last Admin: 03/06/21 08:56 Dose: 1 tab Documented by: [id number] Potassium Phosphate (Pot Phosphate Monobasic W/ Sod Tab) 1 tab PO QID INDRA Stop: 04/05/21 08:59 Last Admin: 03/06/21 12:44 Dose: 1 tab Documented by: [id number] Admin: 03/06/21 08:55 Dose: 1 tab Documented by: [id number] Thiamine HCl (Thiamine Hcl 100 Mg Tab) 100 mg PO QAM [facility] Stop: 04/05/21 08:59 Last Admin: 03/06/21 08:55 Dose: 100 mg Documented by: [id number] Venlafaxine HCl (Venlafaxine Hcl 37.5 Mg Tab) 75 mg PO DAILY INDRA Stop: 04/04/21 08:59 Last Admin: 03/06/21 08:17 Dose: 75 mg Documented by: [id number] Admin: 03/05/21 09:17 Dose: 75 mg Documented by: [id number] Discontinued Medications Diltiazem HCl (Diltiazem Hcl 5 Mg/Ml 5 Ml Vial) 10 mg IV NOW STA Stop: 03/05/21 00:29 Last Admin: 03/05/21 00:42 Dose: 10 mg Documented by: [id number] Cosigned by: [id number] Gadobutrol (Gadobutrol 65ml Vial) 6.4 ml IV ONCE ONE Stop: 03/05/21 12:19 Last Admin: 03/05/21 12:18 Dose: 6.4 ml Documented by: [id number] Heparin Sodium/Dextrose (Heparin 95047 Unit/500 Ml D5w) Confirm Administered Dose 25,000 units IV .STK-MED ONE Stop: 03/05/21 08:18 Last Admin: 03/05/21 12:37 Dose: Not Given Documented by: [id number] Hydralazine HCl (Hydralazine 10 Mg Tab) 10 mg PO NOW STA Stop: 03/05/21 13:33 Last Admin: 03/05/21 14:39 Dose: 10 mg Documented by: [id number] Sodium Chloride (Nss) 500 mls @ 999 mls/hr IV .Q31M INDRA Stop: 03/04/21 21:30 Last Infusion: 03/04/21 23:41 Dose: 0 mls/hr Documented by: [id number] Admin: 03/04/21 22:04 Dose: 999 mls/hr Documented by: [id number] Potassium Chloride (K Johan / Wtr) 10 meq in 100 mls @ 100 mls/hr IV ONE ONE Stop: 03/04/21 23:01 Last Infusion: 03/04/21 23:41 Dose: 0 mls/hr Documented by: [id number] Admin: 03/04/21 22:45 Dose: 100 mls/hr Documented by: [id number] Magnesium Sulfate/Dextrose (Magnesium Sulfate / D5w) 1 gm in 100 mls @ 400 mls/hr IV Q15M INDRA Stop: 03/05/21 00:43 Last Infusion: 03/05/21 02:05 Dose: 0 mls/hr Documented by: [id number] Admin: 03/05/21 00:42 Dose: 400 mls/hr Documented by: [id number] Lactated Ringer's (Lr) 1,000 mls @ 80 mls/hr IV .[id number] INDRA Stop: 04/04/21 01:59 Last Infusion: 03/05/21 07:48 Dose: 0 mls/hr Documented by: [id number] Admin: 03/05/21 02:03 Dose: 80 mls/hr Documented by: [id number] Potassium Chloride (K Johan / Wtr) 10 meq in 100 mls @ 100 mls/hr IV Q1H STA Stop: 03/05/21 02:58 Last Infusion: 03/05/21 03:13 Dose: 0 mls/hr Documented by: [id number] Admin: 03/05/21 02:09 Dose: 100 mls/hr Documented by: [id number] Sodium Chloride (Nss 1000ml) 1,000 mls @ 80 mls/hr IV .[id number] INDRA Stop: 03/05/21 19:56 Last Infusion: 03/05/21 20:20 Dose: 0 mls/hr Documented by: [id number] Admin: 03/05/21 07:48 Dose: 80 mls/hr Documented by: [id number] Potassium Chloride (K Johan / Wtr) 10 meq in 100 mls @ 100 mls/hr IV Q1H INDRA Stop: 03/05/21 23:59 Last Infusion: 03/06/21 00:15 Dose: 0 mls/hr Documented by: [id number] Admin: 03/05/21 23:08 Dose: 100 mls/hr Documented by: [id number] Infusion: 03/05/21 22:45 Dose: 100 mls/hr Documented by: [id number] Admin: 03/05/21 21:45 Dose: 100 mls/hr Documented by: [id number] Infusion: 03/05/21 21:45 Dose: 100 mls/hr Documented by: [id number] Admin: 03/05/21 20:50 Dose: 100 mls/hr Documented by: [id number] Infusion: 03/05/21 20:42 Dose: 100 mls/hr Documented by: [id number] Admin: 03/05/21 19:42 Dose: 100 mls/hr Documented by: [id number] Sodium Phosphate 9 mmol/ (Sodium Chloride) 253 mls @ 88 mls/hr IV ONE ONE Stop: 03/06/21 10:52 Last Infusion: 03/06/21 11:47 Dose: 0 mls/hr Documented by: [id number] Admin: 03/06/21 08:54 Dose: 88 mls/hr Documented by: [id number] Sodium Chloride (1/2 Nss) 1,000 mls @ 75 mls/hr IV .[id number] [facility] Last Admin: 03/06/21 12:05 Dose: Not Given Documented by: [id number] Ioversol (Optiray 320 125ml) 117 ml IV ONCE ONE Stop: 03/04/21 22:35 Last Admin: 03/04/21 22:34 Dose: 117 ml Documented by: [id number] Metoprolol Tartrate (Metoprolol Tartrate 1 Mg/Ml Vial) 5 mg IV NOW STA Stop: 03/05/21 02:03 Last Admin: 03/05/21 02:08 Dose: 5 mg Documented by: [id number] Potassium Chloride (Potassium Chloride Crtab 20 Meq Tabcr) 40 meq PO NOW STA Stop: 03/05/21 01:54 Last Admin: 03/05/21 02:03 Dose: 40 meq Documented by: [id number] Potassium Chloride (Potassium Chloride Crtab 20 Meq Tabcr) 40 meq PO NOW STA Stop: 03/05/21 09:55 Last Admin: 03/05/21 14:43 Dose: 40 meq Documented by: [id number] Potassium Chloride (Potassium Chloride Crtab 20 Meq Tabcr) 40 meq PO NOW STA Stop: 03/05/21 19:25 Last Admin: 03/05/21 19:42 Dose: 40 meq Documented by: [id number] Description This is a 21 electrode EEG with a single channel dedicated to limited EKG. The electrodes were placed in accordance with the International 10-20 system. This EEG was done as a bedside recording and is of excellent technical quality with fewer no muscle movement artifact. Drowsiness and light sleep were not recorded. Photic stimulation was performed. During wakefulness there is evidence for normal-appearing background rhythm in the alpha range of up to 9 to 10 Hz maximum frequency and 30 V maximum amplitude. This is maximum posterior head regions and bilaterally symmetrical. Modest voltage mid frequency theta activity is seen symmetrically in the central regions. Beta activity seen bifrontally. No potentially epileptogenic activity is noted. Photic stimulation provokes a modest driving response Interpretation Normal EEG during wakefulness Clinical Correlation This is a normal EEG during wakefulness without evidence for focal or generalized encephalopathy without evidence for potentially epileptogenic activity Mat Love MD
[2021-03-06] MEDS: POTASSIUM CHLORIDE 40 MEQ in SODIUM CHLORIDE 0.45 % 1,000 ML IV SCH (13:12)
--- NOTE | 2021-03-06 13:27 | Psychiatric Consultation ---
Date of Consultation March 06, 2021 Impression / Recommendations Impression 55 yo woman with multiple medical conditions including T2DM, HTN, HLD, CAD, GERD, hx stroke, anxiety and depression who was admitted medically for AMS. Psychiatry was consulted for AMS and concern for possible depression. Diagnostically consistent with delirium/acute encephalopathy. VH and altered orientation consistent with this. Etiology currently unclear but certainly has multiple ongoing acute medical conditions that could be responsible including electrolyte abnormalities and new afib. Given elevated AST, ALT, new onset confusion and VH, alcohol withdrawal could be possible with Wernicke-type picture but brain MRI and no known substance use history make this unlikely. Presentation is inconsistent with any major psychiatric disorder and she denies any significant or recent mood symptoms including denial of any current or recent depressive symptoms, no signs of acute psychosis (VH very rare in primary psychiatric disorder but common with delirium), and no signs of acute raymond (report of hx of BPAD but no clear hx of raymond per chart review/pt report/hx medications). Appears her [employer] lorazepam is 1mg TID prn, has only received one dose since admission. Agree with limiting use to avoid perpetuating or worsening delirium so long as she wasn't taking at high doses and consistently prior to admission in which case a taper would be necessary. (1) Delirium: -can c/w Effexor 75 mg qd (also ok to hold in setting of delirium); agree with limiting use of lorazepam as this will worsen delirium - Continue work-up by primary team to treat reversible causes of delirium - Continue with measures to reduce delirium: Minimize/avoid deliriogenic meds including: anticholinergic, opiates, benzodiazepines Maintain hydration, oxygenation, and nutrition Limit use of restraints and catheter Normalize sleep patterns by minimizing nighttime noise, light and interruptions by clustering care, opening blinds during the day Reorient the patient frequently; provide easily visible clock and calendar Encourage ambulation, regular activities, and visitors to maintain cognitive stimulation -Will have psych liason attempt further collateral from family regarding patient's baseline functioning prior to new onset confusion Psych History Identifying Data 55 yo woman with multiple medical conditions including T2DM, HTN, HLD, CAD, GERD, hx stroke, anxiety and depression who was admitted medically for AMS. Psychiatry was consulted for AMS and concern for possible depression. Chief Complaint "We're somewhere mechanical". History of Present Illness Avis is sitting in bed this afternoon. She is oriented to person but doesn't know where she is. When given choice of hospital, school, [facility] or [facility] she believes we are in a car repair shop. She initially states it is July then correctly states it is February and 2020. She cannot recall why she was admitted and speaks tangentially about her children and worries she has about her parents health and about how she helped her brother during childhood. She denies any current pain or physical symptoms but notes she needs help using the bathroom and was struggling to use the bathroom recently. In speaking about her confusion she recalls a similar experience after a prior stroke. She also states she has been seeing "bugs" on the selby "but I know they aren't there". No other symptoms of psychosis, denies AH. In terms of mood she reports feeling "good" and attributes this to "getting out of the house more". States she has experienced depression in the past but that her mood has been well controlled on effexor and that she's taken this for many years with good effect. She denies any current or history of SI. Recalls being psychiatrically hospitalized once before for depression. Past Psychiatric History Previous Psych History: see HPI Allergies Allergy/AdvReac Type Severity Reaction Status Date / Time NSAIDS (Non-Steroidal AdvReac Intermediate NAUSEA/VOMI Verified 03/04/21 21:28 Anti-Inflamma TING Home Medications Medication Instructions Recorded Confirmed Type aspirin 81 mg chewable tablet 81 mg PO DAILY 03/04/21 03/04/21 History atorvastatin 40 mg tablet 40 mg PO DAILY 03/04/21 03/04/21 History clopidogrel 75 mg tablet 75 mg PO DAILY 03/04/21 03/04/21 History fenofibrate 54 mg tablet 54 mg PO BID 03/04/21 03/04/21 History hydrochlorothiazide 25 mg tablet 12.5 mg PO DAILY 03/04/21 03/04/21 History hydrocodone 5 mg-acetaminophen 325 1 tab PO Q6H PRN 03/04/21 03/04/21 History mg tablet lorazepam 1 mg tablet 1 mg PO TID PRN 03/04/21 03/04/21 History losartan 50 mg tablet 50 mg PO DAILY 03/04/21 03/04/21 History metformin 1,000 mg tablet 1,000 mg PO BID 03/04/21 03/04/21 History metoprolol tartrate 50 mg tablet 50 mg PO BID 03/04/21 03/04/21 History venlafaxine 75 mg tablet 75 mg PO DAILY 03/04/21 03/04/21 History Substance Abuse History no known history of substance use, no chart mention of prior alcohol use Personal History Highest Grade Completed: High School Graduate Beliefs That Will Affect Care: None Patient History Medical History Anxiety and depression CAD (coronary artery disease) Carotid artery disease Diabetes Hyperlipidemia Hypertension Stroke 07/2020 recurrent L hemispheric w/ residual R sided weakness; [facility] Tobacco use Surgical History History of left common carotid artery stent placement Family History Mother Hypertension Other Stroke Social History Smoking Status: Current every day smoker Tobacco Type: Cigarettes Hx Alcohol Use: No Hx Substance Use: No Preferred Language: Yakut Communication Ability: Effective [employer] Required: No Beliefs That Will Affect Care: None marital status: Current Living Situation: Family How many Children do You have: 1 Feels Safe at Home: Yes Safety Concerns: Feels Safe At This Time Assistive Devices: Glasses Physical Exam Psychiatric: Orientation: alert, oriented to person and cooperative; + not oriented to place and + not oriented to time Apperance: appropriately dressed and appropriately groomed Eye Contact: good eye contact Motor Behavior: no abnormal motor movements; n tremor Speech: normal rate/rhythm/volume of speech Affect: euthymic affect Mood: no depressed mood, no anxious mood and no irritable mood Thought Process: + looseness of associations Thought Content: reality based without delusions Suicidal Thoughts: denies suicidal thoughts Homicidal Thoughts: denies homicidal thoughts Hallucinations: + visual hallucinations; no auditory hallucinations Cognition: remote memory grossly intact and language grossly intact; + recent memory not intact and + attention not intact Estimated Intelligence: consistent with education level Insight: + limited insight Judgement: + limited judgement Vital Signs (Past 24 Hours): Last Vital Signs Temp 36.7 C 03/06/21 12:00 Pulse 74 03/06/21 12:00 Resp 18 03/06/21 12:00 BP 154/79 H 03/06/21 12:00 Pulse Ox 94 03/06/21 12:00 Review of Systems All systems reviewed & are unremarkable except as noted in HPI & below Results & Data ([facility]) Laboratory Results low Na, elevated AST/ALT (AST almost double ALT), elevated CK, abnml UA Diagnostic Findings normal EEG MRI without any new acute findings, hx prior infarct Medications Administered Aspirin (Aspirin 81 Mg Ectab) 81 mg PO DAILY [facility] Stop: 04/04/21 08:59 Last Admin: 03/06/21 08:17 Dose: 81 mg Documented by: [id number] Admin: 03/05/21 09:17 Dose: 81 mg Documented by: [id number] Atorvastatin Calcium (Atorvastatin 40 Mg Tab) 40 mg PO DAILY [facility] Stop: 04/04/21 08:59 Last Admin: 03/06/21 08:17 Dose: 40 mg Documented by: [id number] Admin: 03/05/21 09:17 Dose: 40 mg Documented by: [id number] Clopidogrel Bisulfate (Clopidogrel Bisulfate 75 Mg Tab) 75 mg PO DAILY [facility] Stop: 04/04/21 08:59 Last Admin: 03/06/21 08:16 Dose: 75 mg Documented by: [id number] Admin: 03/05/21 09:17 Dose: 75 mg Documented by: [id number] Cyanocobalamin (Cyanocobalamin 500 Mcg Tablet (Vitamin B-12)) 1,000 mcg PO QAM [facility] Stop: 04/05/21 08:59 Last Admin: 03/06/21 08:56 Dose: 1,000 mcg Documented by: [id number] Fenofibrate (Fenofibrate Nanocrystallized 48 Mg Tablet) 48 mg NA BID [facility]; Protocol Stop: 04/04/21 08:59 Last Admin: 03/06/21 08:17 Dose: 48 mg Documented by: [id number] Admin: 03/05/21 19:42 Dose: 48 mg Documented by: [id number] Admin: 03/05/21 09:16 Dose: 48 mg Documented by: [id number] Folic Acid (Folic Acid 1 Mg Tab) 1 mg PO QAM [facility] Stop: 04/05/21 08:59 Last Admin: 03/06/21 08:55 Dose: 1 mg Documented by: [id number] Hydrochlorothiazide (Hydrochlorothiazide 25 Mg Tab) 12.5 mg PO DAILY [facility] Stop: 04/04/21 08:59 Last Admin: 03/05/21 09:17 Dose: 12.5 mg Documented by: [id number] Heparin Sodium/Dextrose (Heparin Sodium/Dextrose) 25,000 units in 500 mls @ 19 mls/hr IV .Q24H [facility]; Protocol Stop: 04/04/21 08:59 Last Admin: 03/06/21 11:05 Dose: 950 units/hr, 19 mls/hr Documented by: [id number] Cosigned by: [id number] Titration: 03/06/21 11:05 Dose: 950 units/hr, 19 mls/hr Documented by: [id number] Cosigned by: [id number] Titration: 03/06/21 08:56 Dose: 950 units/hr, 19 mls/hr Documented by: [id number] Cosigned by: [id number] Titration: 03/06/21 06:50 Dose: 1,000 units/hr, 20 mls/hr Documented by: [id number] Cosigned by: [id number] Titration: 03/06/21 00:05 Dose: 1,000 units/hr, 20 mls/hr Documented by: [id number] Cosigned by: [id number] Titration: 03/05/21 19:01 Dose: 1,000 units/hr, 20 mls/hr Documented by: [id number] Cosigned by: [id number] Titration: 03/05/21 16:51 Dose: 1,000 units/hr, 20 mls/hr Documented by: [id number] Cosigned by: [id number] Admin: 03/05/21 09:08 Dose: 1,050 units/hr, 21 mls/hr Documented by: [id number] Cosigned by: [id number] Ceftriaxone Sodium 1,000 mg/ (Dextrose) 60 mls @ 100 mls/hr IV DAILY [facility]; Protocol Stop: 03/07/21 13:29 Last Infusion: 03/06/21 08:52 Dose: 0 mls/hr Documented by: [id number] Admin: 03/06/21 08:16 Dose: 100 mls/hr Documented by: [id number] Infusion: 03/05/21 15:00 Dose: 0 mls/hr Documented by: [id number] Admin: 03/05/21 14:21 Dose: 100 mls/hr Documented by: [id number] Potassium Chloride 40 meq/ (Sodium Chloride) 1,020 mls @ 75 mls/hr IV .[id number] [facility] Stop: 04/05/21 11:29 Last Admin: 03/06/21 13:12 Dose: 75 mls/hr Documented by: [id number] Insulin Aspart (Insulin Aspart 100 Units/Ml 3 Ml Pen) 0 units SC ACHS [facility] Stop: 04/04/21 07:59 Last Admin: 03/06/21 12:44 Dose: Not Given Documented by: [id number] Admin: 03/06/21 08:18 Dose: 1 units Documented by: [id number] Cosigned by: [id number] Admin: 03/05/21 20:20 Dose: Not Given Documented by: [id number] Admin: 03/05/21 17:26 Dose: 1 units Documented by: [id number] Cosigned by: [id number] Admin: 03/05/21 14:39 Dose: Not Given Documented by: [id number] Admin: 03/05/21 12:37 Dose: Not Given Documented by: [id number] Lorazepam (Lorazepam 1 Mg Tab) 1 mg PO TID PRN PRN Reason: Anxiety Stop: 04/04/21 07:35 Last Admin: 03/05/21 22:24 Dose: 1 mg Documented by: [id number] Losartan Potassium (Losartan Potassium 50 Mg Tab) 50 mg PO DAILY [facility] Stop: 04/04/21 08:59 Last Admin: 03/06/21 08:17 Dose: 50 mg Documented by: [id number] Admin: 03/05/21 09:17 Dose: 50 mg Documented by: [id number] Metoprolol Tartrate (Metoprolol Tartrate 50 Mg Tab) 50 mg PO BID [facility] Stop: 04/04/21 08:59 Last Admin: 03/06/21 08:17 Dose: 50 mg Documented by: [id number] Admin: 03/05/21 19:45 Dose: 50 mg Documented by: [id number] Admin: 03/05/21 09:17 Dose: 50 mg Documented by: [id number] Multivitamins (Multivitamin Tab) 1 tab PO QAM [facility] Stop: 04/05/21 08:59 Last Admin: 03/06/21 08:56 Dose: 1 tab Documented by: [id number] Potassium Phosphate (Pot Phosphate Monobasic W/ Sod Tab) 1 tab PO QID [facility] Stop: 04/05/21 08:59 Last Admin: 03/06/21 12:44 Dose: 1 tab Documented by: [id number] Admin: 03/06/21 08:55 Dose: 1 tab Documented by: [id number] Thiamine HCl (Thiamine Hcl 100 Mg Tab) 100 mg PO QAM [facility] Stop: 04/05/21 08:59 Last Admin: 03/06/21 08:55 Dose: 100 mg Documented by: [id number] Venlafaxine HCl (Venlafaxine Hcl 37.5 Mg Tab) 75 mg PO DAILY [facility] Stop: 04/04/21 08:59 Last Admin: 03/06/21 08:17 Dose: 75 mg Documented by: [id number] Admin: 03/05/21 09:17 Dose: 75 mg Documented by: [id number] Coding Level of Care Code 63668 Inpt Consult Level 2 Diagnoses Delirium R41.0 Time Spent (min) 30
[2021-03-06 15:28] LABS: Partial Thromboplastin Ratio 2.7
--- NOTE | 2021-03-06 16:07 | Cardiology Progress Note ---
Date of Service March 06, 2021 Assessment & Plan (1) Paroxysmal atrial fibrillation: (2) CAD (coronary artery disease): (3) Acute hypokalemia: (4) Confusion: Plan: (1) Paroxysmal atrial fibrillation: Although the tachycardia observed overnight may have been SVT, per review of telemetry and EKG, the R-R interval is somewhat irregular, and I think the pattern fits with her having atrial fibrillation. -Per review of her outpatient chart, I believe she is on metoprolol tartrate 50 mg 2 tablets by mouth 2 times per day, and so therefore I will increase her current dose to reflect this outpatient dosing. Continue unfractioned heparin for stroke prophylaxis. Given need for treatment of clopidogrel. Moving forward, future considerations include chronic therapy with an oral anticoagulant such as Eliquis, plus clopidogrel, and discontinuing aspirin. (2) CAD (coronary artery disease): -As noted, patient has a history of previous RCA stent, this perhaps correlates with the small Q waves in the inferior leads. At time of cardiac catheterization in 2010, the RCA stent was patent, there was a chronic occlusion of an obtuse marginal branch of the circumflex, which was treated medically. Her echocardiogram performed today reveals normal wall motion, normal LVEF. Her initial 2 troponin I levels were normal, the third level was very minimally elevated at 0.047 NG per mL, and I do not think this represents an acute coronary syndrome. Continue antiplatelet therapy. Continue metoprolol, atorvastatin. (3) Acute hypokalemia: -Initial potassium was 2.6, improved to 3.8 as of today 03/06/2021. (4) Confusion: -Patient has a history of cerebrovascular disease, multiple past strokes, and had undergone left carotid stent for high-grade left common carotid artery dominic nosis in Sep, 2020. Her most recent carotid duplex in October, revealed patent carotid stent with residual 50% right internal carotid artery stenosis. The CT angiogram performed as part of her admission work-up revealed patent carotid stent, and 70% right internal carotid stenosis. At present, continue dual antiplatelet therapy pending further assessment. Ongoing vascular risk factors will need to be addressed. She is apparently an ongoing lifelong smoker. Her most recent LDL cholesterol in Sep, 2020 was 85 mg/dL, will repeat in am. Mild elevation in transaminases noted, therefore keep her atorvastatin and fenofibrate the same as her outpatient dose for now. Admission and Anticipated Discharge Date Admission Date: March 05, 2021 Subjective Patient seen in follow-up. No acute distress. She remains confused. She is unaware that she is in the hospital. Telemetry reveals sinus rhythm in the 70s, since I had seen her in the emergency room yesterday, she had converted back to sinus rhythm prior to transitioning to the telemetry floor, sometime just before at 1930 on 03/05/2021. She remains on a heparin infusion. Review of Systems Review of Systems: Unobtainable due to cognitive status Physical Exam Physical Exam: Temp Pulse Resp BP Pulse Ox 36.9 C 84 18 154/81 H 97 03/06/21 15:26 03/06/21 15:55 03/06/21 15:26 03/06/21 15:26 03/06/21 15:26 Constitutional: No acute distress, not oriented. Respiratory: normal respiratory effort, lungs clear to auscultation Cardiovascular: RRR, no murmur, no edema Gastrointestinal (Abdomen): normal bowel sounds, soft, nontender, no hepatosplenomegaly Neurologic: Proximal right lower extremity weakness, as per review of prior chart has been chronic. Results & Data ([facility]) Vital Signs (Past 12 Hours) Vital Signs Temp Pulse Pulse Pulse Resp BP Pulse Ox 03/06/21 15:55 84 03/06/21 15:26 36.9 C 74 18 154/81 H 97 03/06/21 12:00 36.7 C 74 18 154/79 H 94 03/06/21 08:00 37.0 C 78 86 16 177/90 H 96 03/06/21 07:27 03/06/21 04:25 36.8 C 86 17 165/82 H 94 Pulse Ox 03/06/21 15:55 03/06/21 15:26 03/06/21 12:00 03/06/21 08:00 03/06/21 07:27 96 03/06/21 04:25 Diagnostic Findings EKG 03/06/2021 reveals sinus rhythm at 73 bpm with first-degree AV block, OH interval 218 ms, mild QT prolongation, QT interval 484 ms.
[2021-03-06 16:21] LABS: Partial Thromboplastin Time 70.9 Seconds (21.0-31.0)
[2021-03-06 23:13] LABS: Partial Thromboplastin Ratio 2.5
[2021-03-06 23:14] LABS: Partial Thromboplastin Time 66.3 Seconds (21.0-31.0)
[2021-03-07] MEDS: POTASSIUM CHLORIDE 40 MEQ in SODIUM CHLORIDE 0.45 % 1,000 ML IV SCH ×2 (02:01→16:24)
[2021-03-07 07:31] LABS: Hematocrit (blood only) 35.2 % (37-47); Mean Corpuscular Hemoglobin 28.6 pg (25-34); Mean Corpuscular Hgb Conc 34.1 g/dL (32-36); Mean Corpuscular Volume 83.8 fL (80-100); Mean Platelet Volume 9.5 fL (7.4-10.4); Platelet Count 339 K/uL (130-400); RDW Standard Deviation 43.3 fL (36.4-46.3)
[2021-03-07 07:49] LABS: Partial Thromboplastin Ratio 2.6
[2021-03-07 08:10] LABS: Partial Thromboplastin Time 67.3 Seconds (21.0-31.0)
[2021-03-07 08:16] LABS: Albumin Globulin Ratio 0.7 (0.9-2); Albumin Level 2.4 gm/dl (3.4-5.0); BUN Creatinine Ratio 12.9 (10-20); Bilirubin,Total 0.5 mg/dl (0.2-1); Calcium 8.2 mg/dl (8.5-10.1); Creatinine Clr Calc Pharmacy 68.2 ml/min; Est GFR (African American) 90.7 ml/min; Est GFR (Non-African American) 78.3 ml/min; Globulin 3.5 gm/dl (2.5-4.0); Magnesium 1.9 mg/dl (1.8-2.4); Potassium 4.6 mmol/L (3.5-5.1); Total Protein 5.9 gm/dl (6.4-8.2)
[2021-03-07] MEDS: INSULIN ASPART 100 UNITS/ML 3 ML PEN SC SCH ×4 (08:22→20:03)
[2021-03-07] MEDS: CLOPIDOGREL BISULFATE 75 MG TAB PO SCH (08:27)
[2021-03-07] MEDS: ATORVASTATIN 40 MG TAB PO SCH (08:27)
[2021-03-07] MEDS: ASPIRIN 81 MG ECTAB PO SCH (08:27)
[2021-03-07] MEDS: CYANOCOBALAMIN 500 MCG TABLET (VITAMIN B-12) PO SCH (08:29)
[2021-03-07] MEDS: FENOFIBRATE NANOCRYSTALLIZED 48 MG TABLET SCH ×2 (08:29→20:05)
[2021-03-07] MEDS: LOSARTAN POTASSIUM 50 MG TAB PO SCH ×2 (08:31→20:05)
[2021-03-07] MEDS: METOPROLOL TARTRATE 50 MG TAB PO SCH ×2 (08:31→20:05)
[2021-03-07] MEDS: FOLIC ACID 1 MG TAB PO SCH (08:31)
[2021-03-07] MEDS: MULTIVITAMIN TAB PO SCH (08:31)
[2021-03-07] MEDS: POT PHOSPHATE MONOBASIC W/ SOD TAB PO SCH ×4 (08:32→20:05)
[2021-03-07] MEDS: THIAMINE HCL 100 MG TAB PO SCH (08:32)
[2021-03-07] MEDS: VENLAFAXINE HCL 37.5 MG TAB PO SCH (08:37)
[2021-03-07] MEDS: cefTRIAXone SODIUM 1,000 MG in DEXTROSE 5% 50 ML IV SCH (08:41)
--- NOTE | 2021-03-07 09:44 | Nephrology Progress Note ---
Date of Service March 07, 2021 Assessment & Plan Admission and Anticipated Discharge Date Admission Date: March 05, 2021 Subjective Assessment & Plan (1) Electrolyte and fluid disorder: Plan: GERALD from presentation has resolved. She does have stable hyponatremia and improving hypokalemia in the setting of elevated CK She has hypovolemic normotonic hyponatremia > sodium responded to gentle resuscitation. everything has resolved. MS back to normal. Can stop iv fluid later today (3) Hypertension: Plan: -also on cozaar, metoprololol > continue same -Dont use HCTZ at discharge or ever again Admission and Anticipated Discharge Date Admission Date: March 05, 2021 Subjective Fully alert and awake. No complaints Review of Systems Review of Systems: Unobtainable due to cognitive status Physical Exam Constitutional: well developed, well nourished, + altered mental status and cooperative; no acute distress Eyes: EOM intact bilaterally ENMT: Ears: no external ear abnormality Nose: no external nose abnormality Mouth: + dry oral mucous membranes Neck: no nuchal rigidity Respiratory: normal respiratory effort Auscultation: + diminished lung sounds and + crackles (bibasilar, fine) Cardiovascular: Rate/Rhythm: regular rate and regular rhythm Extremities: no edema Gastrointestinal (Abdomen): Inspection/Auscultation: normal bowel sounds Percussion/Palpation: abdomen soft; abdomen nontender Skin: no rashes, warm and dry Trauma: + contusion (multiple including L shoulder, BL shins) Neurologic: ? mild nystagmus vertical Psychiatric: Orientation: alert, oriented to person and cooperative; + not oriented to place and + not oriented to time Results & Data ([facility]) Vital Signs (Past 12 Hours) Vital Signs Temp Pulse Pulse Resp BP BP Pulse Ox 03/07/21 09:00 75 03/07/21 03:32 36.7 C 82 16 177/80 H 96 03/07/21 00:00 65 03/06/21 23:18 36.3 C L 69 16 159/83 H 98
--- NOTE | 2021-03-07 11:01 | Electrocardiogram Report ---
Test Reason : Blood Pressure : / mmHG Vent. Rate : 073 BPM Atrial Rate : 073 BPM P-R Int : 218 ms QRS Dur : 094 ms QT Int : 440 ms P-R-T Axes : 061 013 059 degrees QTc Int : 484 ms Sinus rhythm with 1st degree A-V block Prolonged QT Abnormal ECG When compared with ECG of 05-MAR-2021 01:47, Premature ventricular complexes are no longer Present Nonspecific T wave abnormality, improved in Lateral leads Confirmed by Rico Steel ([id number] on 03/07/2021 11:01:26 AM Referred By: REFERRED SELF Confirmed By:Reese Steel
[2021-03-07] MEDS: HEPARIN SODIUM/DEXTROSE 25,000 UNITS/500 ML BAG IV SCH (11:10)
--- NOTE | 2021-03-07 11:38 | Psychiatric Progress Note ---
Date of Service March 07, 2021 Impression / Recommendations Impression 55 yo woman with multiple medical conditions including T2DM, HTN, HLD, CAD, GERD, hx stroke, anxiety and depression who was admitted medically for AMS. Psychiatry was consulted for AMS and concern for possible depression. Diagnostically consistent with delirium/acute encephalopathy, showing significant improvement today. Discussed my recommendation that she tried to avoid using ativan as an outpatient due to risk of triggering or worsening delirium which she was in agreement with. (1) Delirium: -can c/w Effexor 75 mg qd (also ok to hold in setting of delirium); agree with limiting use of lorazepam as this will worsen delirium - Continue work-up by primary team to treat reversible causes of delirium - Continue with measures to reduce delirium: Minimize/avoid deliriogenic meds including: anticholinergic, opiates, benzodiazepines Maintain hydration, oxygenation, and nutrition Limit use of restraints and catheter Normalize sleep patterns by minimizing nighttime noise, light and interruptions by clustering care, opening blinds during the day Reorient the patient frequently; provide easily visible clock and calendar Encourage ambulation, regular activities, and visitors to maintain cognitive stimulation Interval History Identifying Information 55 yo woman with multiple medical conditions including T2DM, HTN, HLD, CAD, GERD, hx stroke, anxiety and depression who was admitted medically for AMS. Psychiatry was consulted for AMS and concern for possible depression. Chief Complaint "I feel a lot better today". Review of Systems Notes Reports stable sleep and good appetite. Subjective Subjective Avis is sitting by the window this morning, is fully oriented, can recall why she came to the hospital and feels like her mental clarity is improving. She reports good mood and denies any depressive symptoms. Discussed her [employer] use of ativan which she reports using only once per day and sometimes she goes up to 3 days in a row without taking any prn doses. She denies any substance use and has not consumed alcohol in many years. Psych liason got some collateral from her son. He did not known how often she uses the ativan. He identified that recent confusion was a significant change from her baseline. Physical Exam Psychiatric Orientation: alert, oriented x 3 and cooperative Apperance: appropriately dressed and appropriately groomed Eye Contact: good eye contact Motor Behavior: no abnormal motor movements; n tremor Speech: normal rate/rhythm/volume of speech Affect: euthymic affect Mood: no depressed mood, no anxious mood and no irritable mood Thought Process: linear/logical thought process Thought Content: reality based without delusions Suicidal Thoughts: denies suicidal thoughts Homicidal Thoughts: denies homicidal thoughts Hallucinations: no auditory hallucinations and no visual hallucinations Cognition: recent memory grossly intact, remote memory grossly intact, attention grossly intact and language grossly intact Estimated Intelligence: consistent with education level Insight: + fair insight Judgement: good judgement Vital Signs (Past 24 Hours) Last Vital Signs Temp 36.7 C 03/07/21 03:32 Pulse 75 03/07/21 09:00 Resp 16 03/07/21 03:32 BP 177/80 H 03/07/21 03:32 Pulse Ox 96 03/07/21 03:32 Results & Data ([facility]) Laboratory Results Laboratory Results - last 24 hr 03/06/21 03/06/21 03/06/21 11:33 14:52 16:12 WBC RBC Hgb Hct MCV MCH MCHC RDW Std Deviation RDW Coeff of Nicholas Plt Count MPV APTT 70.9 H* PTT Ratio 2.7 Sodium Potassium Chloride Carbon Dioxide Anion Gap BUN Creatinine Est Cr Clr Drug Dosing Est GFR ( Amer) Est GFR (Non-Af Amer) BUN/Creatinine Ratio Glucose POC Glucose 116 H 105 H Calcium Magnesium Total Bilirubin AST ALT Alkaline Phosphatase Total Protein Albumin Globulin Albumin/Globulin Ratio 03/06/21 03/06/21 03/07/21 19:29 22:34 07:05 WBC 9.50 RBC 4.20 Hgb 12.0 Hct 35.2 L MCV 83.8 MCH 28.6 MCHC 34.1 RDW Std Deviation 43.3 RDW Coeff of Nicholas 14.0 Plt Count 339 MPV 9.5 APTT 66.3 H* PTT Ratio 2.5 Sodium Potassium Chloride Carbon Dioxide Anion Gap BUN Creatinine Est Cr Clr Drug Dosing Est GFR ( Amer) Est GFR (Non-Af Amer) BUN/Creatinine Ratio Glucose POC Glucose 98 Calcium Magnesium Total Bilirubin AST ALT Alkaline Phosphatase Total Protein Albumin Globulin Albumin/Globulin Ratio 03/07/21 03/07/21 03/07/21 07:05 07:05 07:34 WBC RBC Hgb Hct MCV MCH MCHC RDW Std Deviation RDW Coeff of Nicholas Plt Count MPV APTT 67.3 H* PTT Ratio 2.6 Sodium 134 L Potassium 4.6 D Chloride 102 Carbon Dioxide 25 Anion Gap 7.0 BUN 11 Creatinine 0.83 Est Cr Clr Drug Dosing 68.2 Est GFR ( Amer) 90.7 Est GFR (Non-Af Amer) 78.3 BUN/Creatinine Ratio 12.9 Glucose 99 POC Glucose 112 H Calcium 8.2 L Magnesium 1.9 Total Bilirubin 0.5 AST 81 H ALT 67 Alkaline Phosphatase 44 L Total Protein 5.9 L Albumin 2.4 L Globulin 3.5 Albumin/Globulin Ratio 0.7 L Current Inpatient Medications Current Inpatient Medications: Current Inpatient Medications Acetaminophen (Acetaminophen 325 Mg Tab) 650 mg PO Q4H PRN PRN Reason: Pain or Fever Stop: 04/04/21 07:26 Hydrocodone Bitart/Acetaminophen (Hydrocodone/Acetamophen 5/325mg Tab) 1 tab PO Q6H PRN PRN Reason: Moderate to severe pain Stop: 03/19/21 07:26 Aspirin (Aspirin 81 Mg Ectab) 81 mg PO DAILY [facility] Stop: 04/04/21 08:59 Last Admin: 03/07/21 08:27 Dose: 81 mg Documented by: Atorvastatin Calcium (Atorvastatin 40 Mg Tab) 40 mg PO DAILY [facility] Stop: 04/04/21 08:59 Last Admin: 03/07/21 08:27 Dose: 40 mg Documented by: Clopidogrel Bisulfate (Clopidogrel Bisulfate 75 Mg Tab) 75 mg PO DAILY [facility] Stop: 04/04/21 08:59 Last Admin: 03/07/21 08:27 Dose: 75 mg Documented by: Cyanocobalamin (Cyanocobalamin 500 Mcg Tablet (Vitamin B-12)) 1,000 mcg PO QAM [facility] Stop: 04/05/21 08:59 Last Admin: 03/07/21 08:29 Dose: 1,000 mcg Documented by: Fenofibrate (Fenofibrate Nanocrystallized 48 Mg Tablet) 48 mg NA BID [facility]; Protocol Stop: 04/04/21 08:59 Last Admin: 03/07/21 08:29 Dose: 48 mg Documented by: Folic Acid (Folic Acid 1 Mg Tab) 1 mg PO QAM [facility] Stop: 04/05/21 08:59 Last Admin: 03/07/21 08:31 Dose: 1 mg Documented by: Hydralazine HCl (Hydralazine Hcl 20 Mg/Ml Vial) 2.5 mg IV Q4H PRN PRN Reason: SBP >165 Stop: 04/04/21 13:30 Last Admin: 03/07/21 03:33 Dose: 2.5 mg Documented by: Hydrochlorothiazide (Hydrochlorothiazide 25 Mg Tab) 12.5 mg PO DAILY [facility] Stop: 04/04/21 08:59 Last Admin: 03/05/21 09:17 Dose: 12.5 mg Documented by: Heparin Sodium/Dextrose (Heparin Sodium/Dextrose) 25,000 units in 500 mls @ 17 mls/hr IV .Q24H [facility]; Protocol Stop: 04/04/21 08:59 Last Admin: 03/07/21 11:10 Dose: 850 units/hr, 17 mls/hr Documented by: Ceftriaxone Sodium 1,000 mg/ (Dextrose) 60 mls @ 100 mls/hr IV DAILY [facility]; Protocol Stop: 03/07/21 13:29 Last Infusion: 03/07/21 09:20 Dose: Infused Documented by: Enalaprilat 0.625 mg/ Syringe 10 mls @ 2 mls/min IV Q6H PRN PRN Reason: Hypertension Stop: 04/05/21 11:11 Potassium Chloride 40 meq/ (Sodium Chloride) 1,020 mls @ 75 mls/hr IV .[id number] [facility] Stop: 04/05/21 11:29 Last Admin: 03/07/21 02:01 Dose: 75 mls/hr Documented by: Insulin Aspart (Insulin Aspart 100 Units/Ml 3 Ml Pen) 0 units SC ACHS [facility] Stop: 04/04/21 07:59 Last Admin: 03/07/21 08:22 Dose: Not Given Documented by: Lorazepam (Lorazepam 1 Mg Tab) 1 mg PO TID PRN PRN Reason: Anxiety Stop: 04/04/21 07:35 Last Admin: 03/05/21 22:24 Dose: 1 mg Documented by: Losartan Potassium (Losartan Potassium 50 Mg Tab) 50 mg PO DAILY [facility] Stop: 04/04/21 08:59 Last Admin: 03/07/21 08:31 Dose: 50 mg Documented by: Metoprolol Tartrate (Metoprolol Tartrate 50 Mg Tab) 50 mg PO BID [facility] Stop: 04/04/21 08:59 Last Admin: 03/07/21 08:31 Dose: 50 mg Documented by: Metoprolol Tartrate (Metoprolol Tartrate 1 Mg/Ml Vial) 5 mg IV Q6H PRN PRN Reason: Tachycardia Stop: 04/04/21 07:26 Multivitamins (Multivitamin Tab) 1 tab PO QAM [facility] Stop: 04/05/21 08:59 Last Admin: 03/07/21 08:31 Dose: 1 tab Documented by: Nitroglycerin (Nitroglycerin Sl 0.4 Mg/Tab Tab) 0.4 mg SL UD PRN PRN Reason: Chest Pain Stop: 04/04/21 07:26 Ondansetron HCl (Ondansetron Inj 2 Mg/Ml 2 Ml Vial) 4 mg IV Q6H PRN PRN Reason: Nausea Stop: 04/04/21 07:26 Polyethylene Glycol (Polyethylene (Miralax) 17 Gm Pack) 17 gm PO DAILY PRN PRN Reason: Constipation Stop: 04/04/21 07:26 Potassium Phosphate (Pot Phosphate Monobasic W/ Sod Tab) 1 tab PO QID [facility] Stop: 04/05/21 08:59 Last Admin: 03/07/21 08:32 Dose: 1 tab Documented by: Thiamine HCl (Thiamine Hcl 100 Mg Tab) 100 mg PO QAM [facility] Stop: 04/05/21 08:59 Last Admin: 03/07/21 08:32 Dose: 100 mg Documented by: Venlafaxine HCl (Venlafaxine Hcl 37.5 Mg Tab) 75 mg PO DAILY [facility] Stop: 04/04/21 08:59 Last Admin: 03/07/21 08:37 Dose: 75 mg Documented by:
--- NOTE | 2021-03-07 11:46 | Electrocardiogram Report ---
Test Reason : Blood Pressure : / mmHG Vent. Rate : 082 BPM Atrial Rate : 082 BPM P-R Int : 220 ms QRS Dur : 094 ms QT Int : 398 ms P-R-T Axes : 052 019 057 degrees QTc Int : 464 ms Sinus rhythm with 1st degree A-V block Otherwise normal ECG When compared with ECG of 06-MAR-2021 11:20, (unconfirmed) No significant change was found Confirmed by Rico Steel ([id number]) on 03/07/2021 11:45:53 AM Referred By: REFERRED SELF Confirmed By:Reese Steel
--- NOTE | 2021-03-07 14:41 | Communication Note ---
Date of Service: March 07, 2021 Avis is part of what she considers her baseline 2. Psychiatry has seen her and agrees that she responds improved. She now knows she is in [place] knows the name of the hospital knows about how long she has been here 3 days knows the date the year and recalls a little bit of the confusion that precipitated her admission She has unusual ideation about how her condition was somehow related to her son taking her medications away from her. She corrected me about her past and probably she was sad because they had to stay with another person while she was in the hospital so she seems to be aware of the fact that they had to be cared for in her absence Her serum sodium is back to nearly normal now at 134 from a low of 126 is really hard to know how low it might have been at home. I am suspicious that this was the cause of her delirium as even once his serum sodium is corrected often takes the brain in 48 to 72 hours to get back to its old baseline We have no other explanation other than the hypokalemia She tells me she may have some memory issues at baseline at least she seems to be aware of it and at some point in the future perhaps if her primary care would wish us to be good have her undergo some neuropsych testing. 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 I do not know if she will need rehabilitation services but I would assume physical therapy has been assessing her and if she is back to what everyone considers her baseline and is able to function safely in her home I think she could be discharged Nephrology was concerned about blood pressure parameters and frankly at this point I think systolic pressures around 150 are acceptable. She does have a 70% stenosis of the intracavernous portion of the carotid artery which is nonsurgically approachable and a 50% stenosis on the other side which is probably not hemodynamically significant so I suppose 1 could justify keeping her pressure a little on the higher side Mat Love MD
[2021-03-07 14:44] LABS: Partial Thromboplastin Time 52.4 Seconds (21.0-31.0)
--- NOTE | 2021-03-07 17:34 | Hospitalist Progress Note ---
Date of Service March 07, 2021 Assessment & Plan (1) Confusion: (2) Paroxysmal atrial fibrillation: (3) Electrolyte and fluid disorder: (4) Abnormal urine findings: Plan: This 55-year-old female presents with altered mental status. 1. Altered mental status, - questionable etiology, could be metabolic with hyponatremia. The patient has leukocytosis but no obvious infection. Urinalysis negative. Chest x-ray, no acute findings. CTA of the head and CTA of the head and neck were unremarkable. Because of new onset atrial fibrillation we will rule out stroke with MRI scan.No new / acute infarcts noted. The patient also has history of stroke in the past. As per the EPIC, she had right sided . Stroke in 2018 that resolved. She had left hemispheric stroke with residual right sided weakness in 07/2020 and workup showed left carotid artery stenosis and s/p left coronary stenting on 08/18/2020. Neurology consulted for further recommendations. Speech evaluation. PT, OT when stable. Infectious etiology seems to be less likely. WBC only mildly elevated. Procal obtained 0.3 UA not c/w infection. Blood cultx obtained and pending (No growth in 48 hrs) Empiric cefriaxone, stopped now Per neurology EEG- Normal EEG during wakefulness Recommend psychiatry to evaluate her and try to assess how much of this is depression and how much of this is due to a pre-existing cognitive impairment likely at least some which is due to a vascular encephalopathy/dementia There is no question that there is some superimposed metabolic delirium and a full evaluation of her mental status may have to be delayed a month or so allowing some of the effects of this to clear. No neuro diagnostic studies at this time recommended other than the usual work- up for reversible causes of dementia Psychiatry -symptoms consistent w/delirium/acute encephalopathy -Recommend to be careful with Ativan at home 03/07/2021 - clinically patient is much improved, she is awake alert oriented answering questions appropriately 2. New onset atrial fibrillation. Received a dose of diltiazem in the ER. We will continue her home Lopressor and placed on IV heparin and IV Lopressor p.r.n. Echocardiogram, obtained. Troponin x2 negative, 3rd one only min. elevated Cardiology consulted for further recommendations. - Cont. IV heparin, will DC on Eliquis and plavix, and will stop ASA on DC 3. History of stroke in the past, on aspirin, Plavix and statin. GERALD - resolved w/ IVF 4. Hypokalemia, resolved 5. Hyponatremia, resolved -could be from dehydration.Was on IV fluids. Nephrology consulted. 6. Mild rhabdomyolysis with CK of 1824, getting fluids. Cpk down to 500s. Nephrology following. 7. Mild elevation of LFTs. Now trending down. No RUQ pain. If any concern, recommend liver ultrasound. recommend outpt follow up 8. Hypertension. At home on hydrochlorothiazide, losartan and metoprolol. Monitor the blood pressure. STOP HCTZ on discharge BP elevated on admission, given no acute stroke, will need to control BP. IV hydralazine prn and small dose PO given. Continue metoprolol 50 twice a day, losartan was increased to twice a day, she may need spironolactone to be added as outpatient 9. History of hyperlipidemia: Continue statin and fenofibrate. 10. Depression: Continue venlafaxine. 11. History of diabetes. Hold metformin, placed on insulin sliding scale. 12. History of bipolar, currently on venlafaxine. DVT prophylaxis: On IV heparin. DISPOSITION:IV heparin Code: Full Admission and Anticipated Discharge Date Admission Date: March 05, 2021 Subjective Pt seen in follow up of AMS, hyponatremia, hypokalemia, Afib Patient is currently in no acute distress, resting, she is awake and answering most questions appropriately Today she is much more clear, she can tell me her name, her son's name, where she is and what year it is She can even hold appropriate conversation Tells me she is feeling much better Denies any chest pain shortness of breath palpitations headache, abdominal pain nausea vomiting Review of Systems Review of Systems: All systems reviewed & are unremarkable except as noted in Subjective Physical Exam Physical Exam: GENERAL: The patient is moderate build, not in acute distress. HEENT: NC/AT, EOMI, PERRL NECK: No JVD, no neck masses. CARDIOVASCULAR: S1 and S2 heard. No murmurs, no gallop. RESPIRATORY: Normal AP diameter. No accessory muscle use. No wheezing, no crackles. ABDOMEN: Soft, bowel sounds present, nontender, nondistended. NEURO:Awake alert, oriented, answering questions appropriately. No facial asymmetry. Speech slow but fluent. Obeys simple commands. Moves extremities. Sensation seems intact. EXTREMITIES: No edema, no erythema. Results & Data Results & Data ([facility]) Vital Signs (Past 12 Hours) Vital Signs Temp Pulse Pulse Resp BP Pulse Ox Pulse Ox 03/07/21 16:00 36.7 C 86 18 162/69 H 95 96 03/07/21 15:41 74 03/07/21 12:10 36.5 C 74 20 159/79 H 95 03/07/21 09:00 75 Laboratory Results 03/07/21 03/07/21 03/07/21 Range/Units 16:37 14:04 11:43 WBC (4.8-10.8) K/uL RBC (4.2-5.4) M/uL Hgb (12.0-16.0) g/dL Hct (37-47) % MCV (80-100) fL MCH (25-34) pg MCHC (32-36) g/dL RDW Std Deviation (36.4-46.3) fL RDW Coeff of Nicholas (11.5-14.5) % Plt Count (130-400) K/uL MPV (7.4-10.4) fL APTT 52.4 H* (21.0-31.0) Seconds PTT Ratio 2.0 Sodium (136-145) mmol/L Potassium (3.5-5.1) mmol/L Chloride (98-107) mmol/L Carbon Dioxide (21-32) mmol/L Anion Gap (3-11) BUN (7-18) mg/dl Creatinine (0.6-1.2) mg/dl Est Cr Clr Drug Dosing ml/min Est GFR ( Amer) ml/min Est GFR (Non-Af Amer) ml/min BUN/Creatinine Ratio (10-20) Glucose (70-99) mg/dl POC Glucose 90 132 H (70-99) mg/dl Calcium (8.5-10.1) mg/dl Magnesium (1.8-2.4) mg/dl Total Bilirubin (0.2-1) mg/dl AST (15-37) U/L ALT (12-78) U/L Alkaline Phosphatase (45-117) U/L Total Protein (6.4-8.2) gm/dl Albumin (3.4-5.0) gm/dl Globulin (2.5-4.0) gm/dl Albumin/Globulin Ratio (0.9-2) 03/07/21 03/07/21 03/07/21 Range/Units 07:34 07:05 07:05 WBC (4.8-10.8) K/uL RBC (4.2-5.4) M/uL Hgb (12.0-16.0) g/dL Hct (37-47) % MCV (80-100) fL MCH (25-34) pg MCHC (32-36) g/dL RDW Std Deviation (36.4-46.3) fL RDW Coeff of Nicholas (11.5-14.5) % Plt Count (130-400) K/uL MPV (7.4-10.4) fL APTT 67.3 H* (21.0-31.0) Seconds PTT Ratio 2.6 Sodium 134 L (136-145) mmol/L Potassium 4.6 D (3.5-5.1) mmol/L Chloride 102 (98-107) mmol/L Carbon Dioxide 25 (21-32) mmol/L Anion Gap 7.0 (3-11) BUN 11 (7-18) mg/dl Creatinine 0.83 (0.6-1.2) mg/dl Est Cr Clr Drug Dosing 68.2 ml/min Est GFR ( Amer) 90.7 ml/min Est GFR (Non-Af Amer) 78.3 ml/min BUN/Creatinine Ratio 12.9 (10-20) Glucose 99 (70-99) mg/dl POC Glucose 112 H (70-99) mg/dl Calcium 8.2 L (8.5-10.1) mg/dl Magnesium 1.9 (1.8-2.4) mg/dl Total Bilirubin 0.5 (0.2-1) mg/dl AST 81 H (15-37) U/L ALT 67 (12-78) U/L Alkaline Phosphatase 44 L (45-117) U/L Total Protein 5.9 L (6.4-8.2) gm/dl Albumin 2.4 L (3.4-5.0) gm/dl Globulin 3.5 (2.5-4.0) gm/dl Albumin/Globulin Ratio 0.7 L (0.9-2) 03/07/21 03/06/21 03/06/21 Range/Units 07:05 22:34 19:29 WBC 9.50 (4.8-10.8) K/uL RBC 4.20 (4.2-5.4) M/uL Hgb 12.0 (12.0-16.0) g/dL Hct 35.2 L (37-47) % MCV 83.8 (80-100) fL MCH 28.6 (25-34) pg MCHC 34.1 (32-36) g/dL RDW Std Deviation 43.3 (36.4-46.3) fL RDW Coeff of Nicholas 14.0 (11.5-14.5) % Plt Count 339 (130-400) K/uL MPV 9.5 (7.4-10.4) fL APTT 66.3 H* (21.0-31.0) Seconds PTT Ratio 2.5 Sodium (136-145) mmol/L Potassium (3.5-5.1) mmol/L Chloride (98-107) mmol/L Carbon Dioxide (21-32) mmol/L Anion Gap (3-11) BUN (7-18) mg/dl Creatinine (0.6-1.2) mg/dl Est Cr Clr Drug Dosing ml/min Est GFR ( Amer) ml/min Est GFR (Non-Af Amer) ml/min BUN/Creatinine Ratio (10-20) Glucose (70-99) mg/dl POC Glucose 98 (70-99) mg/dl Calcium (8.5-10.1) mg/dl Magnesium (1.8-2.4) mg/dl Total Bilirubin (0.2-1) mg/dl AST (15-37) U/L ALT (12-78) U/L Alkaline Phosphatase (45-117) U/L Total Protein (6.4-8.2) gm/dl Albumin (3.4-5.0) gm/dl Globulin (2.5-4.0) gm/dl Albumin/Globulin Ratio (0.9-2) Medications Administered Current Inpatient Medications Acetaminophen (Acetaminophen 325 Mg Tab) 650 mg PO Q4H PRN PRN Reason: Pain or Fever Stop: 04/04/21 07:26 Hydrocodone Bitart/Acetaminophen (Hydrocodone/Acetamophen 5/325mg Tab) 1 tab PO Q6H PRN PRN Reason: Moderate to severe pain Stop: 03/19/21 07:26 Aspirin (Aspirin 81 Mg Ectab) 81 mg PO DAILY [facility] Stop: 04/04/21 08:59 Last Admin: 03/07/21 08:27 Dose: 81 mg Documented by: Atorvastatin Calcium (Atorvastatin 40 Mg Tab) 40 mg PO DAILY [facility] Stop: 04/04/21 08:59 Last Admin: 03/07/21 08:27 Dose: 40 mg Documented by: Clopidogrel Bisulfate (Clopidogrel Bisulfate 75 Mg Tab) 75 mg PO DAILY [facility] Stop: 04/04/21 08:59 Last Admin: 03/07/21 08:27 Dose: 75 mg Documented by: Cyanocobalamin (Cyanocobalamin 500 Mcg Tablet (Vitamin B-12)) 1,000 mcg PO QAM [facility] Stop: 04/05/21 08:59 Last Admin: 03/07/21 08:29 Dose: 1,000 mcg Documented by: Fenofibrate (Fenofibrate Nanocrystallized 48 Mg Tablet) 48 mg NA BID [facility]; Protocol Stop: 04/04/21 08:59 Last Admin: 03/07/21 08:29 Dose: 48 mg Documented by: Folic Acid (Folic Acid 1 Mg Tab) 1 mg PO QAM [facility] Stop: 04/05/21 08:59 Last Admin: 03/07/21 08:31 Dose: 1 mg Documented by: Hydralazine HCl (Hydralazine Hcl 20 Mg/Ml Vial) 2.5 mg IV Q4H PRN PRN Reason: SBP >165 Stop: 04/04/21 13:30 Last Admin: 03/07/21 03:33 Dose: 2.5 mg Documented by: Hydrochlorothiazide (Hydrochlorothiazide 25 Mg Tab) 12.5 mg PO DAILY [facility] Stop: 04/04/21 08:59 Last Admin: 03/05/21 09:17 Dose: 12.5 mg Documented by: Heparin Sodium/Dextrose (Heparin Sodium/Dextrose) 25,000 units in 500 mls @ 17 mls/hr IV .Q24H [facility]; Protocol Stop: 04/04/21 08:59 Last Titration: 03/07/21 14:49 Dose: 850 units/hr, 17 mls/hr Documented by: Enalaprilat 0.625 mg/ Syringe 10 mls @ 2 mls/min IV Q6H PRN PRN Reason: Hypertension Stop: 04/05/21 11:11 Insulin Aspart (Insulin Aspart 100 Units/Ml 3 Ml Pen) 0 units SC ACHS [facility] Stop: 04/04/21 07:59 Last Admin: 03/07/21 17:17 Dose: Not Given Documented by: Lorazepam (Lorazepam 1 Mg Tab) 1 mg PO TID PRN PRN Reason: Anxiety Stop: 04/04/21 07:35 Last Admin: 03/05/21 22:24 Dose: 1 mg Documented by: Losartan Potassium (Losartan Potassium 50 Mg Tab) 50 mg PO DAILY [facility] Stop: 04/04/21 08:59 Last Admin: 03/07/21 08:31 Dose: 50 mg Documented by: Metoprolol Tartrate (Metoprolol Tartrate 50 Mg Tab) 50 mg PO BID [facility] Stop: 04/04/21 08:59 Last Admin: 03/07/21 08:31 Dose: 50 mg Documented by: Metoprolol Tartrate (Metoprolol Tartrate 1 Mg/Ml Vial) 5 mg IV Q6H PRN PRN Reason: Tachycardia Stop: 04/04/21 07:26 Multivitamins (Multivitamin Tab) 1 tab PO QAM [facility] Stop: 04/05/21 08:59 Last Admin: 03/07/21 08:31 Dose: 1 tab Documented by: Nitroglycerin (Nitroglycerin Sl 0.4 Mg/Tab Tab) 0.4 mg SL UD PRN PRN Reason: Chest Pain Stop: 04/04/21 07:26 Ondansetron HCl (Ondansetron Inj 2 Mg/Ml 2 Ml Vial) 4 mg IV Q6H PRN PRN Reason: Nausea Stop: 04/04/21 07:26 Polyethylene Glycol (Polyethylene (Miralax) 17 Gm Pack) 17 gm PO DAILY PRN PRN Reason: Constipation Stop: 04/04/21 07:26 Potassium Phosphate (Pot Phosphate Monobasic W/ Sod Tab) 1 tab PO QID [facility] Stop: 04/05/21 08:59 Last Admin: 03/07/21 17:32 Dose: 1 tab Documented by: Thiamine HCl (Thiamine Hcl 100 Mg Tab) 100 mg PO QAM [facility] Stop: 04/05/21 08:59 Last Admin: 03/07/21 08:32 Dose: 100 mg Documented by: Venlafaxine HCl (Venlafaxine Hcl 37.5 Mg Tab) 75 mg PO DAILY [facility] Stop: 04/04/21 08:59 Last Admin: 03/07/21 08:37 Dose: 75 mg Documented by:
--- NOTE | 2021-03-07 19:41 | Cardiology Progress Note ---
Date of Service March 07, 2021 Assessment & Plan (1) Paroxysmal atrial fibrillation: (2) CAD (coronary artery disease): (3) Acute hypokalemia: (4) Confusion: Plan: (1) Paroxysmal atrial fibrillation: She remains in sinus rhythm. Given her past vascular/cerebrovascular history, anticoagulation for stroke prophylaxis is felt to be indicated. Continue unfractioned heparin for stroke prophylaxis. Given need for treatment of clopidogrel. Moving forward, future considerations include chronic therapy with an oral anticoagulant such as Eliquis, plus clopidogrel, and discontinuing aspirin if Eliquis is found to be practical from an affordability standpoint. (2) CAD (coronary artery disease): Continue antiplatelet therapy. Continue metoprolol, atorvastatin. (3) Acute hypokalemia: -Initial potassium was 2.6, improved to 3.8 as of today 03/06/2021. (4) Confusion: -Patient's confusion has resolved. Sodium has normalized. Nephrology input noted and appreciated, avoid thiazide diuretics. (5) HTN: As noted hydrochlorothiazide discontinued. Continue metoprolol tartrate 50 mg twice daily Increase losartan to 50 mg twice daily Future considerations include adding spironolactone depending upon electrolytes including potassium levels moving forward, or adding amlodipine. -DVT prophylaxis, remains fully anticoagulated. Admission and Anticipated Discharge Date Admission Date: March 05, 2021 Subjective Patient without complaints. She is awake and conversant. Her mental status is much improved. She is able to tell me the day of the week, and about her past medical history today which is a drastic improvement. Physical Exam Physical Exam: Temp Pulse Resp BP Pulse Ox 36.7 C 86 18 162/69 H 96 03/07/21 16:00 03/07/21 16:00 03/07/21 16:00 03/07/21 16:00 03/07/21 16:00 Constitutional: WD/WN, vitals as above Respiratory: normal respiratory effort, lungs clear to auscultation Cardiovascular: RRR, no murmur, no edema Gastrointestinal (Abdomen): normal bowel sounds, soft, nontender, no hepatosplenomegaly Results & Data ([facility]) Vital Signs (Past 12 Hours) Vital Signs Temp Pulse Pulse Resp BP Pulse Ox Pulse Ox 03/07/21 16:00 36.7 C 86 18 162/69 H 95 96 11/01/21 15:41 74 03/07/21 12:10 36.5 C 74 20 159/79 H 95 03/07/21 09:00 75 Laboratory Results Cardiac Enzymes 03/07/21 Range/Units 07:05 AST 81 H (15-37) U/L Coagulation 03/06/21 03/07/21 03/07/21 Range/Units 22:34 07:05 14:04 APTT 66.3 H* 67.3 H* 52.4 H* (21.0-31.0) Seconds CBC 03/07/21 Range/Units 07:05 WBC 9.50 (4.8-10.8) K/uL RBC 4.20 (4.2-5.4) M/uL Hgb 12.0 (12.0-16.0) g/dL Hct 35.2 L (37-47) % Plt Count 339 (130-400) K/uL Comprehensive Metabolic Panel 03/07/21 Range/Units 07:05 Sodium 134 L (136-145) mmol/L Potassium 4.6 D (3.5-5.1) mmol/L Chloride 102 (98-107) mmol/L Carbon Dioxide 25 (21-32) mmol/L BUN 11 (7-18) mg/dl Creatinine 0.83 (0.6-1.2) mg/dl Glucose 99 (70-99) mg/dl Calcium 8.2 L (8.5-10.1) mg/dl AST 81 H (15-37) U/L ALT 67 (12-78) U/L Alkaline Phosphatase 44 L (45-117) U/L Total Protein 5.9 L (6.4-8.2) gm/dl Albumin 2.4 L (3.4-5.0) gm/dl Intake and Output 03/07/21 03/07/21 03/07/21 06:59 14:59 22:59 Intake Total 1420.25 / 2638.417 1311.053 / 2398.203 1087.15 / 2398.203 Output Total 750 / 1951 1150 / 1450 300 / 1450 Balance 670.25 / 687.417 161.053 / 948.203 787.15 / 948.203 Intake: IV 1060.25 / 1578.417 311.053 / 2708.973 3067.15 / 1398.203 Heparin Sodium/Dextrose 25,000 99 / 304.167 251.053 / 318.203 67.15 / 318.203 units In 500 ml @ 850 UNITS/HR 17 mls/hr IV .Q24H [facility] Rx#: [id number] Potassium Chloride 40 meq In 961.25 / 961.25 1020 / 1020 Sodium Chloride 0.45 % 1,000 ml @ 75 mls/hr IV .[id number] [facility] Rx #:[id number] [id number] SODIUM 1,000 mg In 60 / 60 Dextrose 5% 50 ml @ 100 mls/hr IV DAILY [facility] Rx#:[id number] Oral 360 / 1060 1000 / 1000 Output: Urine 750 / 1950 1150 / 1450 300 / 1450
[2021-03-08 07:27] LABS: Hematocrit (blood only) 33.6 % (37-47); Hemoglobin 11.9 g/dL (12.0-16.0); Mean Corpuscular Hemoglobin 29.2 pg (25-34); Mean Corpuscular Hgb Conc 35.4 g/dL (32-36); Mean Corpuscular Volume 82.4 fL (80-100); Mean Platelet Volume 9.1 fL (7.4-10.4); Platelet Count 431 K/uL (130-400); RDW Coefficient of Variation 14.3 % (11.5-14.5); RDW Standard Deviation 43.6 fL (36.4-46.3); Red Blood Count 4.08 M/uL (4.2-5.4); White Blood Count 8.46 K/uL (4.8-10.8)
[2021-03-08 07:48] LABS: Partial Thromboplastin Ratio 2.2
[2021-03-08 07:52] LABS: Partial Thromboplastin Time 58.9 Seconds (21.0-31.0)
[2021-03-08] MEDS: INSULIN ASPART 100 UNITS/ML 3 ML PEN SC SCH ×2 (08:19→11:58)
[2021-03-08] MEDS: ATORVASTATIN 40 MG TAB PO SCH (08:22)
[2021-03-08] MEDS: CLOPIDOGREL BISULFATE 75 MG TAB PO SCH (08:22)
[2021-03-08] MEDS: CYANOCOBALAMIN 500 MCG TABLET (VITAMIN B-12) PO SCH (08:22)
[2021-03-08] MEDS: ASPIRIN 81 MG ECTAB PO SCH (08:22)
[2021-03-08] MEDS: FOLIC ACID 1 MG TAB PO SCH (08:23)
[2021-03-08] MEDS: FENOFIBRATE NANOCRYSTALLIZED 48 MG TABLET SCH (08:23)
[2021-03-08 08:24] LABS: Albumin Level 2.5 gm/dl (3.4-5.0); BUN Creatinine Ratio 10.2 (10-20); Calcium 8.8 mg/dl (8.5-10.1); Creatinine Clr Calc Pharmacy 66.1 ml/min; Est GFR (African American) 89.4 ml/min; Est GFR (Non-African American) 77.2 ml/min; Magnesium 1.9 mg/dl (1.8-2.4)
[2021-03-08] MEDS: THIAMINE HCL 100 MG TAB PO SCH (08:24)
[2021-03-08] MEDS: POT PHOSPHATE MONOBASIC W/ SOD TAB PO SCH ×2 (08:24→13:08)
[2021-03-08] MEDS: MULTIVITAMIN TAB PO SCH (08:24)
[2021-03-08] MEDS: VENLAFAXINE HCL 37.5 MG TAB PO SCH (08:25)
[2021-03-08] MEDS: METOPROLOL TARTRATE 50 MG TAB PO SCH (08:28)
[2021-03-08] MEDS: LOSARTAN POTASSIUM 50 MG TAB PO SCH (08:28)
[2021-03-08 08:44] LABS: Albumin Globulin Ratio 0.7 (0.9-2); Globulin 3.7 gm/dl (2.5-4.0); Phosphorus 3.7 mg/dl (2.5-4.9); Total Protein 6.2 gm/dl (6.4-8.2)
[2021-03-08 08:59] LABS: Bilirubin,Total 0.6 mg/dl (0.2-1)
--- NOTE | 2021-03-08 10:06 | Hospitalist Progress Note ---
Date of Service March 08, 2021 Assessment & Plan (1) Confusion: (2) Paroxysmal atrial fibrillation: (3) Electrolyte and fluid disorder: (4) Abnormal urine findings: Plan: This 55-year-old female presents with altered mental status. 1. Altered mental status, - questionable etiology, could be metabolic with hyponatremia. The patient has leukocytosis but no obvious infection. Urinalysis negative. Chest x-ray, no acute findings. CTA of the head and CTA of the head and neck were unremarkable. Because of new onset atrial fibrillation we will rule out stroke with MRI scan.No new / acute infarcts noted. The patient also has history of stroke in the past. As per the EPIC, she had right sided . Stroke in 2018 that resolved. She had left hemispheric stroke with residual right sided weakness in 07/2020 and workup showed left carotid artery stenosis and s/p left coronary stenting on 08/18/2020. Neurology consulted for further recommendations. Speech evaluation. PT, OT when stable. Infectious etiology seems to be less likely. WBC only mildly elevated. Procal obtained 0.3 UA not c/w infection. Blood cultx obtained and pending. (no growth in 48 hrs) Empiric cefriaxone, stopped now Per neurology EEG- Normal EEG during wakefulness Recommend psychiatry to evaluate her and try to assess how much of this is depression and how much of this is due to a pre-existing cognitive impairment likely at least some which is due to a vascular encephalopathy/dementia There is no question that there is some superimposed metabolic delirium and a full evaluation of her mental status may have to be delayed a month or so allowing some of the effects of this to clear No neuro diagnostic studies at this time recommended other than the usual work- up for reversible causes of dementia Psychiatry-symptoms consistent w/delirium/acute encephalopathy -Recommend to be careful with Ativan at home 03/07/2021 - clinically patient is much improved, she is awake alert oriented ans wering questions appropriately 2. New onset atrial fibrillation. Received a dose of diltiazem in the ER. We will continue her home Lopressor and placed on IV heparin and IV Lopressor p.r.n. Echocardiogram, obtained. Troponin x2 negative, 3rd one only min. elevated Cardiology consulted for further recommendations. - Cont. IV heparin, will DC on Eliquis and plavix, and will stop ASA on DC 3. History of stroke in the past, on aspirin, Plavix and statin. GERALD - resolved 4. Hypokalemia, resolved 5. Hyponatremia, resolved -could be from dehydration.received IV fluids. Nephrology consulted. 6. Mild rhabdomyolysis with CK of 1824, getting fluids. Cpk down to 500s. Nephrology following. 7. Mild elevation of LFTs. Now trending down. No RUQ pain. If any concern, recommend liver ultrasound. Recommend outpt follow up 8. Hypertension. At home on hydrochlorothiazide, losartan and metoprolol. Monitor the blood pressure. STOP HCTZ on discharge BP elevated on admission, given no acute stroke, will need to control BP. IV hydralazine prn and small dose PO given. Continue metoprolol 50 twice a day, losartan was increased to twice a day, she may need spironolactone to be added as outpatient 9. History of hyperlipidemia: Continue statin and fenofibrate. 10. Depression: Continue venlafaxine. 11. History of diabetes. Hold metformin, placed on insulin sliding scale. 12. History of bipolar, currently on venlafaxine. DVT prophylaxis: On IV heparin -> switch to Eliquis. DISPOSITION: Plan to DC home. Will set up new PCP. Will DC on Eliquis and Plavix. Code: Full Admission and Anticipated Discharge Date Admission Date: March 05, 2021 Subjective Pt seen in follow up of AMS, hyponatremia, hypokalemia, Afib Patient is currently in no acute distress, she is awake alert and answering most questions appropriately Today she is much more clear, she can tell me her name, her son's name, where she is and what year it is She can even hold appropriate conversation Tells me she is feeling much better Denies any chest pain shortness of breath palpitations headache, abdominal pain nausea vomiting Review of Systems Review of Systems: All systems reviewed & are unremarkable except as noted in Subjective Physical Exam Physical Exam: GENERAL: The patient is moderate build, not in acute distress. HEENT: NC/AT, EOMI, PERRL NECK: No JVD, no neck masses. CARDIOVASCULAR: S1 and S2 heard. No murmurs, no gallop. RESPIRATORY: Normal AP diameter. No accessory muscle use. No wheezing, no crackles. ABDOMEN: Soft, bowel sounds present, nontender, nondistended. NEURO:Alert oriented, answering questions appropriately. No facial asymmetry. Speech slow but fluent. Obeys simple commands. Moves extremities. Sensation seems intact. EXTREMITIES: No edema, no erythema. Results & Data Results & Data ([facility]) Vital Signs (Past 12 Hours) Vital Signs Temp Pulse Pulse Resp BP BP Pulse Ox 03/08/21 09:11 74 03/08/21 07:45 36.4 C L 80 19 170/80 H 92 03/08/21 04:00 37.1 C 77 16 126/74 94 03/08/21 00:00 68 03/07/21 23:00 36.9 C 80 16 160/80 H 95 Laboratory Results 03/08/21 03/08/21 03/08/21 Range/Units 07:27 07:03 07:03 WBC 8.46 (4.8-10.8) K/uL RBC 4.08 L (4.2-5.4) M/uL Hgb 11.9 L (12.0-16.0) g/dL Hct 33.6 L (37-47) % MCV 82.4 (80-100) fL MCH 29.2 (25-34) pg MCHC 35.4 (32-36) g/dL RDW Std Deviation 43.6 (36.4-46.3) fL RDW Coeff of Nicholas 14.3 (11.5-14.5) % Plt Count 431 H (130-400) K/uL MPV 9.1 (7.4-10.4) fL APTT (21.0-31.0) Seconds PTT Ratio Sodium 136 (136-145) mmol/L Potassium 4.0 (3.5-5.1) mmol/L Chloride 105 (98-107) mmol/L Carbon Dioxide 23 (21-32) mmol/L Anion Gap 8.0 (3-11) BUN 9 (7-18) mg/dl Creatinine 0.84 (0.6-1.2) mg/dl Est Cr Clr Drug Dosing 66.1 ml/min Est GFR ( Amer) 89.4 ml/min Est GFR (Non-Af Amer) 77.2 ml/min BUN/Creatinine Ratio 10.2 (10-20) Glucose 113 H (70-99) mg/dl POC Glucose 106 H (70-99) mg/dl Calcium 8.8 (8.5-10.1) mg/dl Phosphorus 3.7 (2.5-4.9) mg/dl Magnesium 1.9 (1.8-2.4) mg/dl Total Bilirubin 0.6 (0.2-1) mg/dl AST 121 H (15-37) U/L ALT 99 H (12-78) U/L Alkaline Phosphatase 53 (45-117) U/L Total Protein 6.2 L (6.4-8.2) gm/dl Albumin 2.5 L (3.4-5.0) gm/dl Globulin 3.7 (2.5-4.0) gm/dl Albumin/Globulin Ratio 0.7 L (0.9-2) 03/08/21 03/07/21 03/07/21 Range/Units 07:03 19:27 16:37 WBC (4.8-10.8) K/uL RBC (4.2-5.4) M/uL Hgb (12.0-16.0) g/dL Hct (37-47) % MCV (80-100) fL MCH (25-34) pg MCHC (32-36) g/dL RDW Std Deviation (36.4-46.3) fL RDW Coeff of Nicholas (11.5-14.5) % Plt Count (130-400) K/uL MPV (7.4-10.4) fL APTT 58.9 H* (21.0-31.0) Seconds PTT Ratio 2.2 Sodium (136-145) mmol/L Potassium (3.5-5.1) mmol/L Chloride (98-107) mmol/L Carbon Dioxide (21-32) mmol/L Anion Gap (3-11) BUN (7-18) mg/dl Creatinine (0.6-1.2) mg/dl Est Cr Clr Drug Dosing ml/min Est GFR ( Amer) ml/min Est GFR (Non-Af Amer) ml/min BUN/Creatinine Ratio (10-20) Glucose (70-99) mg/dl POC Glucose 117 H 90 (70-99) mg/dl Calcium (8.5-10.1) mg/dl Phosphorus (2.5-4.9) mg/dl Magnesium (1.8-2.4) mg/dl Total Bilirubin (0.2-1) mg/dl AST (15-37) U/L ALT (12-78) U/L Alkaline Phosphatase (45-117) U/L Total Protein (6.4-8.2) gm/dl Albumin (3.4-5.0) gm/dl Globulin (2.5-4.0) gm/dl Albumin/Globulin Ratio (0.9-2) 03/07/21 03/07/21 Range/Units 14:04 11:43 WBC (4.8-10.8) K/uL RBC (4.2-5.4) M/uL Hgb (12.0-16.0) g/dL Hct (37-47) % MCV (80-100) fL MCH (25-34) pg MCHC (32-36) g/dL RDW Std Deviation (36.4-46.3) fL RDW Coeff of Nicholas (11.5-14.5) % Plt Count (130-400) K/uL MPV (7.4-10.4) fL APTT 52.4 H* (21.0-31.0) Seconds PTT Ratio 2.0 Sodium (136-145) mmol/L Potassium (3.5-5.1) mmol/L Chloride (98-107) mmol/L Carbon Dioxide (21-32) mmol/L Anion Gap (3-11) BUN (7-18) mg/dl Creatinine (0.6-1.2) mg/dl Est Cr Clr Drug Dosing ml/min Est GFR ( Amer) ml/min Est GFR (Non-Af Amer) ml/min BUN/Creatinine Ratio (10-20) Glucose (70-99) mg/dl POC Glucose 132 H (70-99) mg/dl Calcium (8.5-10.1) mg/dl Phosphorus (2.5-4.9) mg/dl Magnesium (1.8-2.4) mg/dl Total Bilirubin (0.2-1) mg/dl AST (15-37) U/L ALT (12-78) U/L Alkaline Phosphatase (45-117) U/L Total Protein (6.4-8.2) gm/dl Albumin (3.4-5.0) gm/dl Globulin (2.5-4.0) gm/dl Albumin/Globulin Ratio (0.9-2) Medications Administered Current Inpatient Medications Acetaminophen (Acetaminophen 325 Mg Tab) 650 mg PO Q4H PRN PRN Reason: Pain or Fever Stop: 04/04/21 07:26 Hydrocodone Bitart/Acetaminophen (Hydrocodone/Acetamophen 5/325mg Tab) 1 tab PO Q6H PRN PRN Reason: Moderate to severe pain Stop: 03/19/21 07:26 Aspirin (Aspirin 81 Mg Ectab) 81 mg PO DAILY [facility] Stop: 04/04/21 08:59 Last Admin: 03/08/21 08:22 Dose: 81 mg Documented by: Atorvastatin Calcium (Atorvastatin 40 Mg Tab) 40 mg PO DAILY [facility] Stop: 04/04/21 08:59 Last Admin: 03/08/21 08:22 Dose: 40 mg Documented by: Clopidogrel Bisulfate (Clopidogrel Bisulfate 75 Mg Tab) 75 mg PO DAILY [facility] Stop: 04/04/21 08:59 Last Admin: 03/08/21 08:22 Dose: 75 mg Documented by: Cyanocobalamin (Cyanocobalamin 500 Mcg Tablet (Vitamin B-12)) 1,000 mcg PO QAM [facility] Stop: 04/05/21 08:59 Last Admin: 03/08/21 08:22 Dose: 1,000 mcg Documented by: Fenofibrate (Fenofibrate Nanocrystallized 48 Mg Tablet) 48 mg NA BID [facility]; Protocol Stop: 04/04/21 08:59 Last Admin: 03/08/21 08:23 Dose: 48 mg Documented by: Folic Acid (Folic Acid 1 Mg Tab) 1 mg PO QAM [facility] Stop: 04/05/21 08:59 Last Admin: 03/08/21 08:23 Dose: 1 mg Documented by: Hydralazine HCl (Hydralazine Hcl 20 Mg/Ml Vial) 2.5 mg IV Q4H PRN PRN Reason: SBP >165 Stop: 04/04/21 13:30 Last Admin: 03/07/21 03:33 Dose: 2.5 mg Documented by: Heparin Sodium/Dextrose (Heparin Sodium/Dextrose) 25,000 units in 500 mls @ 17 mls/hr IV .Q24H [facility]; Protocol Stop: 04/04/21 08:59 Last Titration: 03/08/21 09:41 Dose: 850 units/hr, 17 mls/hr Documented by: Enalaprilat 0.625 mg/ Syringe 10 mls @ 2 mls/min IV Q6H PRN PRN Reason: Hypertension Stop: 04/05/21 11:11 Insulin Aspart (Insulin Aspart 100 Units/Ml 3 Ml Pen) 0 units SC ACHS [facility] Stop: 04/04/21 07:59 Last Admin: 03/08/21 08:19 Dose: Not Given Documented by: Lorazepam (Lorazepam 1 Mg Tab) 1 mg PO TID PRN PRN Reason: Anxiety Stop: 04/04/21 07:35 Last Admin: 03/05/21 22:24 Dose: 1 mg Documented by: Losartan Potassium (Losartan Potassium 50 Mg Tab) 50 mg PO BID [facility] Stop: 04/06/21 20:59 Last Admin: 03/08/21 08:28 Dose: 50 mg Documented by: Metoprolol Tartrate (Metoprolol Tartrate 50 Mg Tab) 50 mg PO BID [facility] Stop: 04/04/21 08:59 Last Admin: 03/08/21 08:28 Dose: 50 mg Documented by: Metoprolol Tartrate (Metoprolol Tartrate 1 Mg/Ml Vial) 5 mg IV Q6H PRN PRN Reason: Tachycardia Stop: 04/04/21 07:26 Multivitamins (Multivitamin Tab) 1 tab PO QAM [facility] Stop: 04/05/21 08:59 Last Admin: 03/08/21 08:24 Dose: 1 tab Documented by: Nitroglycerin (Nitroglycerin Sl 0.4 Mg/Tab Tab) 0.4 mg SL UD PRN PRN Reason: Chest Pain Stop: 04/04/21 07:26 Ondansetron HCl (Ondansetron Inj 2 Mg/Ml 2 Ml Vial) 4 mg IV Q6H PRN PRN Reason: Nausea Stop: 04/04/21 07:26 Polyethylene Glycol (Polyethylene (Miralax) 17 Gm Pack) 17 gm PO DAILY PRN PRN Reason: Constipation Stop: 04/04/21 07:26 Potassium Phosphate (Pot Phosphate Monobasic W/ Sod Tab) 1 tab PO QID [facility] Stop: 04/05/21 08:59 Last Admin: 03/08/21 08:24 Dose: 1 tab Documented by: Thiamine HCl (Thiamine Hcl 100 Mg Tab) 100 mg PO QAM [facility] Stop: 04/05/21 08:59 Last Admin: 03/08/21 08:24 Dose: 100 mg Documented by: Venlafaxine HCl (Venlafaxine Hcl 37.5 Mg Tab) 75 mg PO DAILY [facility] Stop: 04/04/21 08:59 Last Admin: 03/08/21 08:25 Dose: 75 mg Documented by:
[2021-03-08] MEDS ORDERED: APIXABAN 5 MG TABLET PO SCH (10:15)
--- NOTE | 2021-03-08 11:50 | Discharge Summary ---
Date of Service March 08, 2021 Admission HPI Per Admitting Provider This is a 55-year-old female with past medical history significant for type 2 diabetes, hyperlipidemia, CAD, hypertension, coronary artery stenosis, Sauer's esophagus, GERD, depression, tobacco abuse, anxiety, bipolar disorder. The patient lives at home with her son. Son brought to the hospital because since last Sunday, the patient is confused at home. She is searching the empty bottle. She is sitting on the commode for a long time. She seems to be confused, so he brought the patient to the hospital. Her initial imaging workup looks okay. She is hypokalemic and also found to be hyponatremic. Currently resting comfortably, oriented to name and place, could not tell the date, could tell her date of , seems to have some confusion with right and left sides. Denies any headache. No blurred visions, no earache, no runny nose, no sore throat, no cough, no difficulty swallowing. Appetite is okay. No chest pain, no shortness of breath, no nausea, no vomiting, no abdominal pain, normal bowel and bladder movements. Denies any blood in stool or black stools. As such, her ambulation status is not that great and in the ER she also found to have new AFib. Admission Exam Per Admitting Provider GENERAL: The patient is moderate build, not in acute distress. VITAL SIGNS: Temperature 36.9, pulse 104, respiratory rate 28, blood pressure oxygen 198/90, oxygen 97% on room air. HEENT: Pupils equal, round and reactive to light. Oral mucosa moist. Somewhat dry. NECK: No JVD, no neck masses. CARDIOVASCULAR: S1 and S2 heard. Tachycardia. No murmurs, no gallop. RESPIRATORY SYSTEM: Normal AP diameter. No accessory muscle use. No wheezing, no crackles. ABDOMEN: Soft, bowel sounds present, nontender, nondistended. CENTRAL NERVOUS SYSTEM: Alert and oriented to name and place. Obeys simple commands. Moves extremities. Some confusion with left to right side, coordination of movements normal. Sensation is intact. EXTREMITIES: No edema, no erythema. Principal Diagnosis Altered mental status/ delirium Hyponatremia Hypokalemia Afib w/ RVR Discharge Exam GENERAL: The patient is moderate build, not in acute distress. HEENT: NC/AT, EOMI, PERRL NECK: No JVD, no neck masses. CARDIOVASCULAR: S1 and S2 heard. No murmurs, no gallop. RESPIRATORY: Normal AP diameter. No accessory muscle use. No wheezing, no crackles. ABDOMEN: Soft, bowel sounds present, nontender, nondistended. NEURO:Alert oriented, answering questions appropriately. No facial asymmetry. Speech slow but fluent. Obeys simple commands. Moves extremities. Sensation seems intact. EXTREMITIES: No edema, no erythema. Discharge Data Allergies Allergy/AdvReac Type Severity Reaction Status Date / Time NSAIDS (Non-Steroidal AdvReac Intermediate NAUSEA/VOMI Verified 03/04/21 21:28 Anti-Inflamma TING Consultations 03/04/21 23:42 ED Decision to Admit Stat 03/05/21 08:00 Consult Cardiology Routine Consult Nephrology Routine Consult Neurology Routine 03/06/21 12:10 Consult Psychiatry Routine Ordered Studies 03/04/21 20:48 CT head/brain wo con Stat 03/04/21 20:49 CT angio head w con Stat CT angio neck with con Stat 03/04/21 20:51 CT cervical spine wo con Stat 03/05/21 07:27 MR brain wo/w con Urgent Hospital Course (1) Confusion: (2) Paroxysmal atrial fibrillation: (3) Electrolyte and fluid disorder: (4) Abnormal urine findings: This 55-year-old female presents with altered mental status. 1. Altered mental status, - questionable etiology, could be metabolic with hyponatremia. The patient has leukocytosis but no obvious infection. Urinalysis negative. Chest x-ray, no acute findings. CTA of the head and CTA of the head and neck were unremarkable. Because of new onset atrial fibrillation we will rule out stroke with MRI scan.No new / acute infarcts noted. The patient also has history of stroke in the past. As per the EPIC, she had right sided . Stroke in 2018 that resolved. She had left hemispheric stroke with residual right sided weakness in 07/2020 and workup showed left carotid artery stenosis and s/p left coronary stenting on 08/18/2020. Neurology consulted for further recommendations. Speech evaluation. PT, OT when stable. Infectious etiology seems to be less likely. WBC only mildly elevated. Procal obtained 0.3 UA not c/w infection. Blood cultx obtained and pending. (no growth in 48 hrs) Empiric cefriaxone, stopped now Per neurology EEG- Normal EEG during wakefulness Recommend psychiatry to evaluate her and try to assess how much of this is depression and how much of this is due to a pre-existing cognitive impairment likely at least some which is due to a vascular encephalopathy/dementia There is no question that there is some superimposed metabolic delirium and a full evaluation of her mental status may have to be delayed a month or so allowing some of the effects of this to clear No neuro diagnostic studies at this time recommended other than the usual work- up for reversible causes of dementia Psychiatry-symptoms consistent w/delirium/acute encephalopathy -Recommend to be careful with Ativan at home 03/07/2021 - clinically patient is much improved, she is awake alert oriented answering questions appropriately 2. New onset atrial fibrillation. Received a dose of diltiazem in the ER. We will continue her home Lopressor and placed on IV heparin and IV Lopressor p.r.n. Echocardiogram, obtained. Troponin x2 negative, 3rd one only min. elevated Cardiology consulted for further recommendations. - Cont. IV heparin, will DC on Eliquis and plavix, and will stop ASA on DC 3. History of stroke in the past, on aspirin, Plavix and statin. GERALD - resolved Cr 1.4 on admission, after IVF, Cr <1 4. Hypokalemia, resolved 5. Hyponatremia, resolved -could be from dehydration.received IV fluids. Nephrology consulted. 6. Mild rhabdomyolysis with CK of 1824, getting fluids. Cpk down to 500s. Nephrology following. 7. Mild elevation of LFTs. Now trending down. No RUQ pain. If any concern, recommend liver ultrasound. Recommend outpt follow up 8. Hypertension. At home on hydrochlorothiazide, losartan and metoprolol. Monitor the blood pressure. STOP HCTZ on discharge BP elevated on admission, given no acute stroke, will need to control BP. IV hydralazine prn and small dose PO given. Continue metoprolol 50 twice a day, losartan was increased to twice a day, she may need spironolactone to be added as outpatient 9. History of hyperlipidemia: Continue statin and fenofibrate. 10. Depression: Continue venlafaxine. 11. History of diabetes. Hold metformin, placed on insulin sliding scale. 12. History of bipolar, currently on venlafaxine. DVT prophylaxis: On IV heparin -> switch to Eliquis. DISPOSITION: Plan to DC home. Will set up new PCP. Will DC on Eliquis and Plavix. Code: Full Total Time Total Time Spent Total Time Spent (In Minutes): 45 Discharge Plan Discharge Items Patient Disposition: Home - Self-Care Reason For Visit: AMS Discharge Diagnosis: Altered mental status/ delirium Hyponatremia Hypokalemia Afib w/ RVR Activity: Per Instructions section Non-emergency contact: Primary Care Provider Call non-emergency contact if: you have any medication questions and your symptoms worsen Follow-up/Referrals: Garfield Wyatt MD [Hospitalist] - (Date & Time 03/11/2021 9:00 AM Provider Garfield Wyatt MD Department Family [facility] ) Diet: Regular Addtl Attending Provider Instructions: Follow-up with primary care doctor, the appointment was scheduled for you for March 11, 2021, with a new provider. As discussed, do not take hydrochlorothiazide anymore. Instead, for blood pressure continue taking metoprolol 50 mg twice a day, and increase losartan to 50 mg to twice a day. It is important to monitor your blood pressure. If you are able to, check your blood pressure at home, and discuss this with your primary care doctor. Given your atrial fibrillation, you were started on Eliquis, take it as prescribed, 5 mg twice a day. In addition, take Plavix 75 mg daily, and stop taking aspirin. Addtl Deflector Operator Provider Instructions: Psychiatry: recommend using lorazepam sparingly (ideally only once daily, if even needed, with goal of eventually discontinuing after 2-3 months) given risk of precipitating future episodes of delirium and high risk profile in older adults particularly with a history of prior stroke. Pending Studies at Discharge: No Stand-Alone Forms: [facility], Smoking Cessation Medications and DC Order Prescriptions: New Eliquis 5 mg tablet 5 mg PO BID Qty: 60 RF: 0 losartan 50 mg Tablet 50 mg PO BID Qty: 60 RF: 0 multivitamin with folic acid [Daily-Leeanna (with folic acid)] 400 mcg Tablet 1 tab PO QAM Qty: 30 RF: 0 Continued atorvastatin 40 mg tablet 40 mg PO DAILY RF: 0 venlafaxine 75 mg tablet 75 mg PO DAILY RF: 0 hydrocodone-acetaminophen 5-325 mg tablet 1 tab PO Q6H PRN (Reason: Pain) RF: 0 clopidogrel 75 mg tablet 75 mg PO DAILY RF: 0 metformin 1,000 mg tablet 1,000 mg PO BID RF: 0 metoprolol tartrate 50 mg tablet 50 mg PO BID RF: 0 lorazepam 1 mg tablet 1 mg PO TID PRN (Reason: Anxiety) RF: 0 fenofibrate 54 mg tablet 54 mg PO BID RF: 0 Discontinued losartan 50 mg tablet 50 mg PO DAILY RF: 0 aspirin 81 mg tablet,chewable 81 mg PO DAILY RF: 0 hydrochlorothiazide 25 mg tablet 12.5 mg PO DAILY RF: 0 Discharge Orders: Discharge Order (Routine); Ordered 03/08/21 Ordered By: Baldemar Weinstein/Other Patient Handouts: High Blood Sugar (Hyperglycemia), Hypoglycemia (Low Blood Sugar), Managing Type 2 Diabetes Admission Data Admit Date/Time: 03/05/21 01:56 Attending Provider: Baldemar Lerma Admit Provider: Lucian Mendoza Primary Care Provider: Yovanny Menjivar Other Providers: Lucian Mendoza ; Andrew Avila ; Vicki Perez ; Keiry Mcpherson Erica K. ; Izzy Barr ; Yoanna Mensah ; Daquan Booth
[2021-03-08] MEDS: HEPARIN SODIUM/DEXTROSE 25,000 UNITS/500 ML BAG IV SCH (12:12)
== END 2021-03-08 13:45 | disposition home or self-care (01) | DRG 641 ==
LOC: ED 20:22 → INTOOBSV 03-05 01:56 → EDINP 03-05 01:56 → 2S 03-05 02:40

== ENCOUNTER 2022-06-27 18:34 | Inpatient (IN) ==
[2022-06-27] MEDS ORDERED: SODIUM CHLORIDE 0.9% 1000ML 1,000 ML IV SCH (19:45)
[2022-06-27 19:49] LABS: Basophils # (auto) 0.05 K/uL (0-0.2); Basophils % (auto) 0.6 %; Eosinophils # (auto) 0.03 K/uL (0-0.50); Eosinophils % (auto) 0.4 %; Hematocrit (blood only) 42.5 % (37.0-47.0); Hemoglobin 14.7 g/dl (12.0-16.0); Immature Granulocytes # (auto) 0.03 K/uL (0.01-0.20); Immature Granulocytes % (auto) 0.4 %; Lymphocytes # (auto) 2.09 K/uL (1.2-3.4); Lymphocytes % (auto) 26.5 %; Mean Corpuscular Hemoglobin 28.5 pg (25.0-34.0); Mean Corpuscular Hgb Conc 34.6 g/dL (32.0-36.0); Mean Corpuscular Volume 82.4 fL (80.0-100.0); Mean Platelet Volume 8.9 fL (9.4-12.4); Monocytes # (auto) 0.42 K/uL (0.11-0.59); Monocytes % (auto) 5.3 %; Neutrophils # (auto) 5.28 K/uL (1.40-6.50); Neutrophils % (auto) 66.8 %; Platelet Count 420 K/uL (130-400); RDW Coefficient of Variation 13.4 % (11.5-14.5); RDW Standard Deviation 40.1 fL (36.4-46.3); Red Blood Count 5.16 M/uL (4.20-5.40)
[2022-06-27 19:57] LABS: Albumin Level 4.3 gm/dl (3.4-5.0); Anion Gap 7 (3-11); Bilirubin,Total 0.5 mg/dl (0.2-1.0); Calcium 9.5 mg/dl (8.5-10.1); Carbon Dioxide 34 mmol/L (21-32); Chloride 91 mmol/L (98-107); Potassium 3.2 mmol/L (3.5-5.1); Sodium 132 mmol/L (136-145)
--- NOTE | 2022-06-27 20:01 | XRay Report ---
XR chest 1V portable CLINICAL HISTORY: ams TECHNIQUE: Single frontal radiograph of the chest was obtained. Comparison: Comparison is made to chest radiograph 03/04/2021 FINDINGS: Left carotid stent is noted. Calcified aortic knob is seen. The lungs are clear. No evidence of pleur al effusion or pneumothorax. IMPRESSION: No acute chest disease. ACT 112: Negative or not required by law. Electronically signed by: Silverio Campos M.D. 06/27/2022 8:00 PM
[2022-06-27 20:03] LABS: Alanine Aminotransferase 19 U/L (7-52); Albumin Globulin Ratio 1.3 (0.9-2); Alkaline Phosphatase 83 U/L (34-104); Aspartate Aminotransferase 22 U/L (13-39); BUN Creatinine Ratio 19.6 (10-20); Blood Urea Nitrogen 22 mg/dl (6-23); Est GFR (African American) 62.7 ml/min; Est GFR (Non-African American) 54.1 ml/min; Globulin 3.2 gm/dl (2.5-4.0); Glucose 165 mg/dl (70-99(Fasting)); Total Protein 7.5 gm/dl (6.0-8.3)
[2022-06-27 20:12] LABS: INR 0.9 (0.9-1.1); Prothrombin Time 10.1 Seconds (9.0-12.0)
--- NOTE | 2022-06-27 20:22 | CT Scan Report ---
CT head/brain wo con CLINICAL HISTORY: ams Technique: Contiguous axial CT images of the head were acquired from the base of the skull to the sammie diana without intravenous contrast administration. Images were viewed in brain, subdural and bone [facility] . Automated dose lowering techniques and/or adjustment according to patient size were utilized for this exam. Comparison: Comparison is made to MRI brain 1031 and CTA head 03/04/2021 Findings: Areas of decreased attenuation are present in the periventricular and subcortical white matter bilate rally consistent with small vessel ischemic disease. Generalized cerebral atrophy with commensurate e nlargement of the ventricles, sulci, and cisterns is also present. There is no acute intracranial hem orrhage or evidence of acute territorial infarction. No shift of the midline structures, mass effect, or extra-axial abnormalities are shown. Atherosclerotic calcifications are present in the intracran ial segments of the internal carotid arteries. There is focal encephalomalacia in the left basal gang zeynep, unchanged from prior exam, compatible with old lacunar infarct. Imaged portions of the paranasal sinuses and mastoid air cells are clear. The orbits appear normal. There are no acute fractures of the calvaria or scalp swelling. Impression: No acute intracranial hemorrhage, no evidence of acute territorial infarction or other acute intracra nial disease process. ACT 112: Negative or not required by law. Electronically signed by: Silverio Campos M.D. 06/27/2022 8:21 PM
[2022-06-27] MEDS ORDERED: LABETALOL HCL IV 5 MG/ML 20ML IV STA ×3 (20:38→23:57)
[2022-06-27 20:43] LABS: Magnesium 1.7 mg/dl (1.7-2.4)
[2022-06-27 20:46] LABS: Appearance Urine Cloudy (Clear); Bacteria Urine Automated 1+ (Negative); Bilirubin Urine Negative (Negative); Blood Urine Trace (Negative); Color Urine Yellow; Glucose Urine UA 1+ (Negative); Ketones Urine Trace (Negative); Leukocyte Esterase Urine Trace (Negative); Nitrite Urine Negative (Negative); Protein Urine 3+ (Negative); Specific Gravity Urine 1.018 (1.000-1.030); Urobilinogen Urine Negative (Negative)
[2022-06-27 20:48] LABS: Lipase 117 U/L (11-82)
[2022-06-27 21:03] LABS: RBC Urine Automated 0-4 /hpf (0-4)
[2022-06-27 21:25] LABS: Creatine Kinase 62 U/L (26-192)
[2022-06-27 21:26] LABS: Troponin I High Sensitivity 26.9 pg/ml (0-14)
[2022-06-27 21:26] LABS: Amphetamines+Metham, Urine Neg (Neg); Barbiturates, Urine Neg (Neg); Benzodiazepine, Urine Neg (Neg); Cocaine, Urine Neg (Neg); MDMA (Ecstacy), Urine Neg (Neg); Methadone, Urine Neg (Neg); Opiate, Urine Neg (Neg); Phencyclidine, Urine Neg (Neg)
--- NOTE | 2022-06-27 21:43 | Emergency Department Note ---
Impression & Plan Altered mental status ED Provider Note ED Provider Note NAME: PALOMA SIMS AGE:56 SEX: Female : 1965 ARRIVES VIA: EMS INFORMANT: Son ED PROVIDER(s): Sue Salas DO CHIEF COMPLAINT: Confusion, inability to care for herself HPI: This is a 56-year-old female presents emergency department with son at bedside due to concern for increased confusion and inability to care for herself. Son states she has been getting worse over the course of the last month. She is no longer using the restroom and will urinate and defecate throughout the house. She cannot feed or bathe herself. Son states she had began to decline after the of her and began did not care for herself well then but he feels it is worse recently. He states it had been worse at 1 point prior however she seemed to recover and get back to baseline. He states she is weak and falls a lot, he is not concern for injury. He states she is no longer taking her routine medications. PAST MEDICAL HISTORY:See Below PAST SURGICAL HISTORY:See Below FAMILY HISTORY:See Below SOCIAL HISTORY:See Below HOME MEDICATIONS:See Below ALLERGIES:See Below VITALS:See Below PHYSICAL EXAMINATION: GENERAL: alert, well appearing, well nourished, no distress, non-toxic HEAD: nc/at EYE EXAM: normal conjunctiva, PERRL and EOM's grossly intact OROPHARYNX: no exudate, no erythema, lips, buccal mucosa, and tongue normal and mucous membranes are dry NECK: supple, no nuchal rigidity, no adenopathy, non-tender LUNGS: Clear to auscultation. Normal chest wall mechanics, no w/r/r HEART: no murmurs, S1 normal and S2 normal ABDOMEN: abdomen soft, non-tender, normo-active bowel sounds, no masses, no rebound or guarding. BACK: Back is symmetrical on inspection and there is no deformity, no midline tenderness, no CVA tenderness. SKIN: no rashes, petechiae, orbruising UPPER EXTREMITIES: upper extremities are grossly normal. FROM, nml pulses b/l. LOWER EXTREMITIES: No pitting edema. FROM, nml pulses b/l. NEURO EXAM: Pleasantly confused, cranial nerves II-XII grossly intact, normal speech, no facial droop,nogross weakness of arms, no gross weakness of legs. Gross sensation intact. No ataxia. Vital Signs: reviewed and remarkable Differential Diagnosis: Differential diagnoses includes but is not limited to toxic, metabolic, infectious, traumatic, cardiac, neurologic, hematologic, psychiatric and inflammatory etiologies. MEDICAL DECISION MAKING: This is a 56-year-old female presents emergency department due to 1 months of worsening confusion and inability to care for herself per the son who is the primary historian at bedside. Patient was afebrile and hemodynamically stable. Labs drawn and sent, EKG performed interpreted by me, patient sent for imaging, urine collected, patient monitored on telemetry. Patient was noted to be hypertensive and required several doses of IV blood pressure medication. Patient was given IV fluid rehydration. Patient noted to have mild hypokalemia and mild elevation of her troponin. No other significant lab abnormalities were noted, and imaging reassuring. Case discussed with hospitalist for additional evaluation and management. Unclear etiology of her encephalopathy. Consultation(s): 2205: Discussed with Dr. Mendoza. ER Treatment Provided: See below Diagnostics Interpreted By Me: -ECG: Sinus tachycardia at 120, normal axis, normal QRS and QTc, nonspecific ST/T wave changes -Cardiac Monitoring: An order was placed for continuous cardiac monitoring. The monitor shows a rate of 112 with sinus tachycardia rhythm. -Laboratory studies: As stated above and show below. 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/2020 recurrent L hemispheric w/ residual R sided weakness; [facility] Tobacco use Surgical History History of left common carotid artery stent placement Family History Mother Hypertension Other Stroke Social History Smoking Status: Never smoker Tobacco Type: Cigarettes Second Hand Exposure: No; Do You Dip or Chew Tobacco: No; Tobacco Cessation Education Requested by Patient: No Hx Alcohol Use: No Hx Substance Use: No Preferred Language: Nepalese Communication Ability: Effective Supervisor Quilting Required: No Beliefs That Will Affect Care: None marital status: Current Living Situation: Alone How many Children do You have: 1 Other Information That Helps Us Care for You: No Feels Safe at Home: Yes Safety Concerns: Feels Safe At This Time Assistive Devices: Cane Allergies Allergies Allergy/AdvReac Type Severity Reaction Status Date / Time NSAIDS (Non-Steroidal AdvReac Intermediate NAUSEA/VOMI Verified 06/27/22 21:06 Anti-Inflamma TING Home Meds Home Medications Medication Instructions Recorded Confirmed atorvastatin 40 mg tablet 40 mg PO HS 03/04/21 06/27/22 clopidogrel 75 mg tablet 75 mg PO DAILY 03/04/21 06/27/22 fenofibrate 54 mg tablet 54 mg PO BID 03/04/21 06/27/22 hydrocodone 5 mg-acetaminophen 325 1 tab PO Q6H PRN Pain 03/04/21 06/27/22 mg tablet lorazepam 1 mg tablet 1 mg PO TID PRN Anxiety 03/04/21 06/27/22 metformin 1,000 mg tablet 1,000 mg PO BID 03/04/21 06/27/22 metoprolol tartrate 50 mg tablet 50 mg PO BID 03/04/21 06/27/22 venlafaxine 75 mg tablet 75 mg PO DAILY 03/04/21 06/27/22 aspirin 81 mg tablet,delayed 81 mg PO DAILY 06/27/22 06/27/22 release hydrochlorothiazide 25 mg tablet 12.5 mg PO DAILY 06/27/22 06/27/22 losartan 100 mg tablet 50 mg PO BID 06/27/22 06/27/22 omeprazole 20 mg capsule,delayed 20 mg PO DAILY 06/27/22 06/27/22 release Previous Rx's Medication Instructions Recorded multivitamin with folic acid 400 1 tab PO QAM #30 tabs 03/08/21 mcg tablet (Daily-Leeanna (with folic acid)) Results & Data (ED) Vital Signs Vital Signs - 24 hr 06/27/22 18:48 06/27/22 19:50 06/27/22 20:28 Temperature 36.6 C Temperature Source Temporal Artery Scan Pulse Rate 122 H 113 H Pulse Rate [Right Finger] Pulse Rate from SpO2 Sensor Pulse Rhythm [Right Finger] Pulse Strength [Right Finger] Respiratory Rate 18 Respiratory Effort / Characteristics Non-Labored Spontaneous Respiratory Depth Normal Respiratory Pattern Regular Blood Pressure 208/103 H Blood Pressure [Right Arm] 234/134 H Blood Pressure Mean 138 Blood Pressure Mean [Right Arm] 167 Blood Pressure Position Sitting Pulse Oximetry 99 Oxygen Delivery Method Room Air Sepsis Recent Fever Within 48 Hours No Sepsis New/Unexplained Change in Mental Status N/A Sepsis Action Taken by Nursing No Action Required 06/27/22 19:49 06/27/22 19:50 06/27/22 20:00 Temperature Temperature Source Pulse Rate 108 H 108 H 118 H Pulse Rate [Right Finger] Pulse Rate from SpO2 Sensor 108 H 108 H 114 H Pulse Rhythm [Right Finger] Pulse Strength [Right Finger] Respiratory Rate 22 20 23 Respiratory Effort / Characteristics Respiratory Depth Respiratory Pattern Blood Pressure Blood Pressure [Right Arm] Blood Pressure Mean Blood Pressure Mean [Right Arm] Blood Pressure Position Pulse Oximetry 98 98 99 Oxygen Delivery Method Sepsis Recent Fever Within 48 Hours Sepsis New/Unexplained Change in Mental Status Sepsis Action Taken by Nursing 06/27/22 20:23 06/27/22 20:23 06/27/22 20:25 Temperature Temperature Source Pulse Rate 117 H Pulse Rate [Right Finger] Pulse Rate from SpO2 Sensor Pulse Rhythm [Right Finger] Pulse Strength [Right Finger] Respiratory Rate 20 Respiratory Effort / Characteristics Respiratory Depth Respiratory Pattern Blood Pressure 234/132 H 224/134 H Blood Pressure [Right Arm] Blood Pressure Mean 166 164 Blood Pressure Mean [Right Arm] Blood Pressure Position Pulse Oximetry Oxygen Delivery Method Sepsis Recent Fever Within 48 Hours Sepsis New/Unexplained Change in Mental Status Sepsis Action Taken by Nursing 06/27/22 20:25 06/27/22 20:44 06/27/22 20:49 Temperature Temperature Source Pulse Rate 114 H Pulse Rate [Right Finger] 97 H 90 Pulse Rate from SpO2 Sensor Pulse Rhythm [Right Finger] Regular Pulse Strength [Right Finger] Normal Respiratory Rate 21 18 Respiratory Effort / Characteristics Non-Labored Spontaneous Respiratory Depth Normal Respiratory Pattern Regular Blood Pressure Blood Pressure [Right Arm] 220/167 H 194/118 H Blood Pressure Mean Blood Pressure Mean [Right Arm] 184 143 Blood Pressure Position Pulse Oximetry 96 Oxygen Delivery Method Room Air Sepsis Recent Fever Within 48 Hours Sepsis New/Unexplained Change in Mental Status Sepsis Action Taken by Nursing 06/27/22 21:25 Temperature Temperature Source Pulse Rate Pulse Rate [Right Finger] 92 H Pulse Rate from SpO2 Sensor Pulse Rhythm [Right Finger] Regular Pulse Strength [Right Finger] Normal Respiratory Rate 19 Respiratory Effort / Characteristics Non-Labored Spontaneous Respiratory Depth Normal Respiratory Pattern Regular Blood Pressure Blood Pressure [Right Arm] 201/121 H Blood Pressure Mean Blood Pressure Mean [Right Arm] 147 Blood Pressure Position Pulse Oximetry 95 Oxygen Delivery Method Room Air Sepsis Recent Fever Within 48 Hours Sepsis New/Unexplained Change in Mental Status Sepsis Action Taken by Nursing Laboratory Data 06/27/22 19:20 06/27/22 19:20 Lab Results 06/27/22 06/27/22 06/27/22 Range/Units 19:20 19:20 19:20 WBC 7.90 (4.8-10.8) K/ul RBC 5.16 (4.20-5.40) M/uL Hgb 14.7 (12.0-16.0) g/dl Hct 42.5 (37.0-47.0) % MCV 82.4 (80.0-100.0) fL MCH 28.5 (25.0-34.0) pg MCHC 34.6 (32.0-36.0) g/dL RDW Std Deviation 40.1 (36.4-46.3) fL RDW Coeff of Nicholas 13.4 (11.5-14.5) % Plt Count 420 H (130-400) K/uL MPV 8.9 L (9.4-12.4) fL Immature Gran % (Auto) 0.4 % Neut % (Auto) 66.8 % Lymph % (Auto) 26.5 % [place] % (Auto) 5.3 % Eos % (Auto) 0.4 % Baso % (Auto) 0.6 % Neut # (Auto) 5.28 (1.40-6.50) K/uL Lymph # (Auto) 2.09 (1.2-3.4) K/uL [place] # (Auto) 0.42 (0.11-0.59) K/uL Eos # (Auto) 0.03 (0-0.50) K/uL Baso # (Auto) 0.05 (0-0.2) K/uL Immature Gran # (Auto) 0.03 (0.01-0.20) K/uL PT 10.1 (9.0-12.0) Seconds INR 0.9 (0.9-1.1) Sodium 132 L (136-145) mmol/L Potassium 3.2 L (3.5-5.1) mmol/L Chloride 91 L (98-107) mmol/L Carbon Dioxide 34 H (21-32) mmol/L Anion Gap 7 (3-11) BUN 22 (6-23) mg/dl Creatinine 1.12 (0.6-1.2) mg/dl Est Cr Clr Drug Dosing Not Reportable Est GFR ( Amer) 62.7 ml/min Est GFR (Non-Af Amer) 54.1 ml/min BUN/Creatinine Ratio 19.6 (10-20) Glucose 165 H (70-99(Fasting)) mg/dl Calcium 9.5 (8.5-10.1) mg/dl Magnesium 1.7 (1.7-2.4) mg/dl Total Bilirubin 0.5 (0.2-1.0) mg/dl AST 22 (13-39) U/L ALT 19 (7-52) U/L Alkaline Phosphatase 83 (34-104) U/L Total Creatine Kinase 62 (26-192) U/L Troponin I High Sens 26.9 H (0-14) pg/ml Total Protein 7.5 (6.0-8.3) gm/dl Albumin 4.3 (3.4-5.0) gm/dl Globulin 3.2 (2.5-4.0) gm/dl Albumin/Globulin Ratio 1.3 (0.9-2) Lipase 117 H (11-82) U/L TSH (0.300-4.500) uIu/ml Urine Color Urine Appearance (Clear) Urine pH (4.5-7.5) Ur Specific [place] (1.000-1.030) Urine Protein (Negative) Urine Glucose (UA) (Negative) Urine Ketones (Negative) Urine Blood (Negative) Urine Nitrite (Negative) Urine Bilirubin (Negative) Urine Urobilinogen (Negative) Ur Leukocyte Esterase (Negative) Urine WBC (Auto) (0-5) /hpf Urine RBC (Auto) (0-4) /hpf U Hyaline Cast (Auto) (0-5) /lpf U Epithel Cells (Auto) (0-5) /lpf Urine Bacteria (Auto) (Negative) Ur Renal Epithelial Cell Urine Opiates Screen (Neg) Ur Methadone, Qual (Neg) Urine Barbiturates (Neg) Ur Phencyclidine (PCP) (Neg) U Amphetamin/Meth Scrn (Neg) MDMA (Ecstasy) Screen (Neg) U Benzodiazepines Scrn (Neg) Ur Cocaine Metabolite (Neg) U Marijuana (THC) Screen (Neg) SARS-CoV-2 (PCR) (Negative) Influenza Type A (PCR) (Neg) Influenza Type B (PCR) (Neg) RSV (RT-PCR) (Neg) 06/27/22 06/27/22 06/27/22 Range/Units 19:20 20:20 20:20 WBC (4.8-10.8) K/ul RBC (4.20-5.40) M/uL Hgb (12.0-16.0) g/dl Hct (37.0-47.0) % MCV (80.0-100.0) fL MCH (25.0-34.0) pg MCHC (32.0-36.0) g/dL RDW Std Deviation (36.4-46.3) fL RDW Coeff of Nicholas (11.5-14.5) % Plt Count (130-400) K/uL MPV (9.4-12.4) fL Immature Gran % (Auto) % Neut % (Auto) % Lymph % (Auto) % [place] % (Auto) % Eos % (Auto) % Baso % (Auto) % Neut # (Auto) (1.40-6.50) K/uL Lymph # (Auto) (1.2-3.4) K/uL [place] # (Auto) (0.11-0.59) K/uL Eos # (Auto) (0-0.50) K/uL Baso # (Auto) (0-0.2) K/uL Immature Gran # (Auto) (0.01-0.20) K/uL PT (9.0-12.0) Seconds INR (0.9-1.1) Sodium (136-145) mmol/L Potassium (3.5-5.1) mmol/L Chloride (98-107) mmol/L Carbon Dioxide (21-32) mmol/L Anion Gap (3-11) BUN (6-23) mg/dl Creatinine (0.6-1.2) mg/dl Est Cr Clr Drug Dosing Est GFR ( Amer) ml/min Est GFR (Non-Af Amer) ml/min BUN/Creatinine Ratio (10-20) Glucose (70-99(Fasting)) mg/dl Calcium (8.5-10.1) mg/dl Magnesium (1.7-2.4) mg/dl Total Bilirubin (0.2-1.0) mg/dl AST (13-39) U/L ALT (7-52) U/L Alkaline Phosphatase (34-104) U/L Total Creatine Kinase (26-192) U/L Troponin I High Sens (0-14) pg/ml Total Protein (6.0-8.3) gm/dl Albumin (3.4-5.0) gm/dl Globulin (2.5-4.0) gm/dl Albumin/Globulin Ratio (0.9-2) Lipase (11-82) U/L TSH 1.400 (0.300-4.500) uIu/ml Urine Color Yellow Urine Appearance Cloudy A (Clear) Urine pH 7.0 (4.5-7.5) Ur Specific [place] 1.018 (1.000-1.030) Urine Protein 3+ H (Negative) Urine Glucose (UA) 1+ H (Negative) Urine Ketones Trace H (Negative) Urine Blood Trace H (Negative) Urine Nitrite Negative (Negative) Urine Bilirubin Negative (Negative) Urine Urobilinogen Negative (Negative) Ur Leukocyte Esterase Trace H (Negative) Urine WBC (Auto) 5-10 H (0-5) /hpf Urine RBC (Auto) 0-4 (0-4) /hpf U Hyaline Cast (Auto) 1-5 (0-5) /lpf U Epithel Cells (Auto) 10-20 H (0-5) /lpf Urine Bacteria (Auto) 1+ H (Negative) Ur Renal Epithelial Cell Not Reportable Urine Opiates Screen Neg (Neg) Ur Methadone, Qual Neg (Neg) Urine Barbiturates Neg (Neg) Ur Phencyclidine (PCP) Neg (Neg) U Amphetamin/Meth Scrn Neg (Neg) MDMA (Ecstasy) Screen Neg (Neg) U Benzodiazepines Scrn Neg (Neg) Ur Cocaine Metabolite Neg (Neg) U Marijuana (THC) Screen Neg (Neg) SARS-CoV-2 (PCR) (Negative) Influenza Type A (PCR) (Neg) Influenza Type B (PCR) (Neg) RSV (RT-PCR) (Neg) 06/27/22 Range/Units 22:10 WBC (4.8-10.8) K/ul RBC (4.20-5.40) M/uL Hgb (12.0-16.0) g/dl Hct (37.0-47.0) % MCV (80.0-100.0) fL MCH (25.0-34.0) pg MCHC (32.0-36.0) g/dL RDW Std Deviation (36.4-46.3) fL RDW Coeff of Nicholas (11.5-14.5) % Plt Count (130-400) K/uL MPV (9.4-12.4) fL Immature Gran % (Auto) % Neut % (Auto) % Lymph % (Auto) % [place] % (Auto) % Eos % (Auto) % Baso % (Auto) % Neut # (Auto) (1.40-6.50) K/uL Lymph # (Auto) (1.2-3.4) K/uL [place] # (Auto) (0.11-0.59) K/uL Eos # (Auto) (0-0.50) K/uL Baso # (Auto) (0-0.2) K/uL Immature Gran # (Auto) (0.01-0.20) K/uL PT (9.0-12.0) Seconds INR (0.9-1.1) Sodium (136-145) mmol/L Potassium (3.5-5.1) mmol/L Chloride (98-107) mmol/L Carbon Dioxide (21-32) mmol/L Anion Gap (3-11) BUN (6-23) mg/dl Creatinine (0.6-1.2) mg/dl Est Cr Clr Drug Dosing Est GFR ( Amer) ml/min Est GFR (Non-Af Amer) ml/min BUN/Creatinine Ratio (10-20) Glucose (70-99(Fasting)) mg/dl Calcium (8.5-10.1) mg/dl Magnesium (1.7-2.4) mg/dl Total Bilirubin (0.2-1.0) mg/dl AST (13-39) U/L ALT (7-52) U/L Alkaline Phosphatase (34-104) U/L Total Creatine Kinase (26-192) U/L Troponin I High Sens (0-14) pg/ml Total Protein (6.0-8.3) gm/dl Albumin (3.4-5.0) gm/dl Globulin (2.5-4.0) gm/dl Albumin/Globulin Ratio (0.9-2) Lipase (11-82) U/L TSH (0.300-4.500) uIu/ml Urine Color Urine Appearance (Clear) Urine pH (4.5-7.5) Ur Specific [place] (1.000-1.030) Urine Protein (Negative) Urine Glucose (UA) (Negative) Urine Ketones (Negative) Urine Blood (Negative) Urine Nitrite (Negative) Urine Bilirubin (Negative) Urine Urobilinogen (Negative) Ur Leukocyte Esterase (Negative) Urine WBC (Auto) (0-5) /hpf Urine RBC (Auto) (0-4) /hpf U Hyaline Cast (Auto) (0-5) /lpf U Epithel Cells (Auto) (0-5) /lpf Urine Bacteria (Auto) (Negative) Ur Renal Epithelial Cell Urine Opiates Screen (Neg) Ur Methadone, Qual (Neg) Urine Barbiturates (Neg) Ur Phencyclidine (PCP) (Neg) U Amphetamin/Meth Scrn (Neg) MDMA (Ecstasy) Screen (Neg) U Benzodiazepines Scrn (Neg) Ur Cocaine Metabolite (Neg) U Marijuana (THC) Screen (Neg) SARS-CoV-2 (PCR) NEGATIVE (Negative) Influenza Type A (PCR) Negative (Neg) Influenza Type B (PCR) Negative (Neg) RSV (RT-PCR) Negative (Neg) Administered Medications Aspirin (Aspirin 81 Mg Ectab) 81 mg PO DAILY INDRA Stop: 07/28/22 08:59 Last Admin: 06/28/22 07:32 Dose: 81 mg Documented By: CAILIN Atorvastatin Calcium (Atorvastatin 40 Mg Tab) 40 mg PO HS [facility] Stop: 07/28/22 20:59 Last Admin: 06/28/22 21:33 Dose: 40 mg Documented By: JACOBO Clopidogrel Bisulfate (Clopidogrel Bisulfate 75 Mg Tab) 75 mg PO DAILY [facility] Stop: 07/28/22 08:59 Last Admin: 06/28/22 07:31 Dose: 75 mg Documented By: CAILIN Cyanocobalamin (Cyanocobalamin 1000 Mcg/Ml Vial) 1,000 mcg IM QAM INDRA Stop: 07/28/22 08:59 Last Admin: 06/28/22 09:12 Dose: 1,000 mcg Documented By: CAILIN Fenofibrate (Fenofibrate Nanocrystallized 145 Mg Tablet) 145 mg PO DAILY INDRA Stop: 07/28/22 08:59 Last Admin: 06/28/22 07:33 Dose: 145 mg Documented By: CAILIN Heparin Sodium (Porcine) (Heparin Sod 5,000 Unit/0.5 Ml Vial) 5,000 units SQ Q12 INDRA Stop: 07/28/22 08:59 Last Admin: 06/28/22 21:34 Dose: 5,000 units Documented By: Admin: 06/28/22 07:33 Dose: 5,000 units Documented By: CAILIN Hydrochlorothiazide (Hydrochlorothiazide 25 Mg Tab) 12.5 mg PO DAILY [facility] Stop: 07/28/22 08:59 Last Admin: 06/28/22 07:40 Dose: 12.5 mg Documented By: CAILIN Ceftriaxone Sodium 1,000 mg/ (Dextrose) 50 mls @ 100 mls/hr IV Q24H [facility]; Protocol Stop: 07/08/22 01:59 Last Admin: 06/29/22 02:56 Dose: 100 mls/hr Documented By: Infusion: 06/28/22 02:26 Dose: 0 mls/hr Documented By: Admin: 06/28/22 01:51 Dose: 100 mls/hr Documented By: JACOBO Insulin Aspart (Insulin Aspart Per Unit) 0 units SC ACHS [facility] Stop: 07/28/22 07:29 Last Admin: 06/28/22 21:15 Dose: Not Given Documented By: Admin: 06/28/22 18:07 Dose: Not Given Documented By: Admin: 06/28/22 13:52 Dose: Not Given Documented By: Admin: 06/28/22 09:41 Dose: Not Given Documented By: CAILIN Labetalol HCl (Labetalol Hcl Iv 5 Mg/Ml 20ml) 10 mg IV Q4H PRN PRN Reason: Hypertension Stop: 07/28/22 00:51 Last Admin: 06/28/22 01:06 Dose: 10 mg Documented By: JACOBO Co-signed By: VIJAY Losartan Potassium (Losartan Potassium 50 Mg Tab) 50 mg PO BID [facility] Stop: 07/28/22 00:51 Last Admin: 06/28/22 21:33 Dose: 50 mg Documented By: Admin: 06/28/22 07:39 Dose: 50 mg Documented By: Admin: 06/28/22 01:52 Dose: 50 mg Documented By: JACOBO Metoprolol Tartrate (Metoprolol Tartrate 50 Mg Tab) 50 mg PO BID INDRA Stop: 07/28/22 00:51 Last Admin: 06/28/22 21:33 Dose: 50 mg Documented By: Admin: 06/28/22 07:39 Dose: 50 mg Documented By: Admin: 06/28/22 01:53 Dose: 50 mg Documented By: JACOBO Multivitamins (Multivitamin Tab) 1 tab PO QAM INDRA Stop: 07/28/22 08:59 Last Admin: 06/28/22 07:32 Dose: 1 tab Documented By: CAILIN Pantoprazole Sodium (Pantoprazole 40 Mg Tab) 40 mg PO DAILY INDRA Stop: 07/28/22 08:59 Last Admin: 06/28/22 07:32 Dose: 40 mg Documented By: CAILIN Discontinued Medications Gadobutrol (Gadobutrol 65ml Vial) 4.5 ml IV ONCE ONE Stop: 06/28/22 10:22 Last Admin: 06/28/22 10:21 Dose: 4.5 ml Documented By: JULIANNA Sodium Chloride (Nss 1000ml) 1,000 mls @ 125 mls/hr IV .Q8H [facility] Stop: 07/27/22 19:44 Last Infusion: 06/28/22 01:20 Dose: 0 mls/hr Documented By: Infusion: 06/28/22 01:07 Dose: 0 mls/hr Documented By: Admin: 06/27/22 19:41 Dose: 125 mls/hr Documented By: ERICKSON Sodium Chloride (Nss 1000ml) 1,000 mls @ 80 mls/hr IV .[id number] INDRA Stop: 06/29/22 01:51 Last Admin: 06/28/22 18:11 Dose: 80 mls/hr Documented By: Infusion: 06/28/22 13:53 Dose: 0 mls/hr Documented By: Admin: 06/28/22 01:21 Dose: 80 mls/hr Documented By: JACOBO Ioversol (Optiray 320 500ml) 113 ml IV ONCE ONE Stop: 06/28/22 09:28 Last Admin: 06/28/22 09:32 Dose: 113 ml Documented By: SIDDHARTHA Labetalol HCl (Labetalol Hcl Iv 5 Mg/Ml 20ml) 10 mg IV NOW STA Stop: 06/27/22 20:39 Last Admin: 06/27/22 20:42 Dose: 10 mg Documented By: ERICKSON Co-signed By: TALA Labetalol HCl (Labetalol Hcl Iv 5 Mg/Ml 20ml) 10 mg IV NOW STA Stop: 06/27/22 21:19 Last Admin: 06/27/22 21:22 Dose: 10 mg Documented By: ERICKSON Co-signed By: KRYSTAL Labetalol HCl (Labetalol Hcl Iv 5 Mg/Ml 20ml) 10 mg IV NOW STA Stop: 06/27/22 23:58 Last Admin: 06/28/22 00:04 Dose: 10 mg Documented By: LOUISE Co-signed By: JUD Potassium Chloride (Potassium Chloride Crtab 20 Meq Tabcr) 40 meq PO NOW STA Stop: 06/28/22 01:11 Last Admin: 06/28/22 02:04 Dose: 40 meq Documented By: JACOBO Venlafaxine HCl (Venlafaxine Hcl Xr 75 Mg Capxr) 75 mg PO DAILY INDRA Stop: 07/28/22 08:59 Last Admin: 06/28/22 07:33 Dose: 75 mg Documented By: CAILIN Imaging Data Radiologist's Impression: Chest X-Ray 06/27/22 19:35 XR chest 1V portable CLINICAL HISTORY: ams TECHNIQUE: Single frontal radiograph of the chest was obtained. Comparison: Comparison is made to chest radiograph 03/04/2021 FINDINGS: Left carotid stent is noted. Calcified aortic knob is seen. The lungs are clear. No evidence of pleural effusion or pneumothorax. IMPRESSION: No acute chest disease. ACT 112: Negative or not required by law. Electronically signed by: Silverio Campos M.D. 06/27/2022 8:[address] 06/27/22 19:35 CT head/brain wo con CLINICAL HISTORY: ams Technique: Contiguous axial CT images of the head were acquired from the base of the skull to the vertex without intravenous contrast administration. Images were viewed in brain, subdural and bone windows. Automated dose lowering techniques and/or adjustment according to patient size were utilized for this exam. Comparison: Comparison is made to MRI brain 1031 and CTA head 03/04/2021 Findings: Areas of decreased attenuation are present in the periventricular and subcortical white matter bilaterally consistent with small vessel ischemic disease. Generalized cerebral atrophy with commensurate enlargement of the ventricles, sulci, and cisterns is also present. There is no acute intracranial hemorrhage or evidence of acute territorial infarction. No shift of the midline structures, mass effect, or extra-axial abnormalities are shown. Atherosclerotic calcifications are present in the intracranial segments of the internal carotid arteries. There is focal encephalomalacia in the left basal ganglia, unchanged from prior exam, compatible with old lacunar infarct. Imaged portions of the paranasal sinuses and mastoid air cells are clear. The orbits appear normal. There are no acute fractures of the calvaria or scalp swelling. Impression: No acute intracranial hemorrhage, no evidence of acute territorial infarction or other acute intracranial disease process. ACT 112: Negative or not required by law. Electronically signed by: Silverio Campos M.D. 06/27/2022 8:21 PM Discharge Plan Visit Data Chief Complaint: Illness Stated Complaint: DIFFICULTY WALKING,FELL,NOT TAKING CARE OF HERSELF ED Provider: Sue Salas Discharge Problem: Altered mental status Patient Disposition: Admitted As Inpatient Discharge Instructions Interventions: ED Discharge Assessment Last Done: 06/28/22 00:31
[2022-06-27 23:02] LABS: Influenza A virus by PCR Negative (Neg); Influenza B virus by PCR Negative (Neg); RSV by PCR Negative (Neg); SARS CoV2 RNA(COVID-19) Ceph NEGATIVE (Negative)
--- NOTE | 2022-06-27 23:40 | History and Physical Report ---
DATE OF ADMISSION: 06/27/2022. CHIEF COMPLAINT: Confusion. HISTORY OF PRESENT ILLNESS: A 56-year-old female with past medical history significant for CAD, hypertension, hyperlipidemia, diabetes, history of stroke in 2018 with right-sided weakness, which eventually resolved. Again, she had another left hemispheric stroke with residual weakness in 07/2020, workup noting LCCA stenosis and she was referred to [facility] and is status post LCCA stenting for symptomatic stenosis in 09/2020, on aspirin and Plavix. History of smoking, history of hyperlipidemia, asthma, carotid artery stenosis, GERD, Sauer's esophagus, depression, generalized anxiety, bipolar disorder. Lives at home and was brought in by son because of confusion. As per the son, patient is getting confused last one and a half months and got progressively worse. She is not taking care of herself, falling frequently, not bathing, defecating everywhere. He states that she gets food from the kitchen and forgets to eat, he is cooking and trying to feed her lately. Son is living with her to help her. That is the reason, he brought her to the hospital. The patient is alert and awake, can tell her name, knows that she is in the hospital, but thinks in the [facility], could tell her date of , but could not tell today's date. She states she was brought into the hospital for confusion. Denies any headache. Denies any blurred visions. Denies earache, runny nose or sore throat. No cough, no fevers, no chest pain, no shortness of breath, no nausea, no abdominal pain. No swelling in the legs. Her blood pressure is running high in the ER. As per son, he does not know whether she is taking her medications or not. ALLERGIES: NSAIDs. PAST MEDICAL HISTORY: As mentioned above. PAST SURGICAL HISTORY: Left carotid bypass graft, EGD with biopsy, right wrist, removal of appendix, removal of oophorectomy and total hysterectomy, carotid stent with distal protection. MEDICATIONS: As per the Epic, she is on aspirin 81 mg p.o. daily, atorvastatin 40 mg p.o. at bedtime, Plavix 75 mg p.o. daily, fenofibrate 54 mg b.i.d., hydrochlorothiazide 12.5 mg p.o. daily, hydrocodone/acetaminophen 1 tablet p.o. q.6 p.r.n., lorazepam 1 mg p.o. t.i.d. p.r.n., losartan 50 mg p.o. b.i.d., metformin 1000 mg p.o. b.i.d., metoprolol tartrate 50 mg p.o. b.i.d., multivitamin 1 capsule p.o. daily, omeprazole 20 mg p.o. daily, venlafaxine 75 mg p.o. daily. FAMILY HISTORY: Significant for father has arthritis, diabetes, high cholesterol. Mother has arthritis, high cholesterol, hypertension, stroke. Aunt has breast cancer. Sister has rheumatoid arthritis. SOCIAL HISTORY: She still lives alone, but currently son is living with her. Seems to be smoking half pack a day. Currently, patient is a poor historian. No alcohol use. No drug use as per Epic. REVIEW OF SYSTEMS: As per HPI, but the patient is a poor historian. PHYSICAL EXAMINATION: GENERAL: The patient is alert and oriented to name and place. VITAL SIGNS: Temperature 36.6, pulse 88, respiratory rate 19, blood pressure 206/116, oxygen 99% on room air. HEENT: Pupils equal, round and reactive to light. Oral mucosa moist. NECK: No JVD, no neck masses. CARDIOVASCULAR: S1 and S2 heard. Regular rate and rhythm. No murmur, no gallop. RESPIRATORY SYSTEM: Normal AP diameter. No accessory muscle use. No wheezing, no crackles. ABDOMEN: Soft, bowel sounds are nontender, no distention. CENTRAL NERVOUS SYSTEM: Alert and oriented to name and place. No facial droop. Speech is okay. Obeys simple commands. Moves extremities. EXTREMITIES: No edema, no erythema. LABORATORY DATA: WBC 7.9, hemoglobin 14.7, hematocrit 42.5, platelets 420. PT 10.1, INR 0.9. Sodium 132, potassium 3.2, chloride 91, CO2 of 34, BUN 22, creatinine 1.1, serum glucose 165, calcium 9.5, magnesium 1.7, total bilirubin 0.5, AST 22, ALT 19, alkaline phosphatase 83, total creatine kinase 62. Troponin I high sensitivity 26.9. Lipase 117. TSH is 1.4. Urinalysis; trace leukocyte esterase, +3 protein, +1 glucose, +1 bacteria. Drug screen negative. SARS-CoV-2 test pending. IMAGING: CT of the head, preliminary report: No acute findings. Chest x-ray: Left carotid stent is noted, no acute chest disease. EKG: Sinus tachycardia at a rate of 120, voltage criteria for left ventricular hypertrophy, non-specific ST abnormalities. ASSESSMENT AND PLAN: This is a 56-year-old female who presents with confusion. 1. Confusion, encephalopathy of unclear etiology, could be secondary to uncontrolled hypertension, could be patient's history of stroke, could be developing dementia. We will also check for vitamin B1, B12 levels and folate levels. Because of the LCCA stenosis in the past, we will do a CTA of the head and neck and also MRI scan. Monitor closely in the hospital. Consult neurology in the a.m. Gentle fluids for now. Depending on clinical course, the patient may need placement. 2. Hypertensive urgency. Doubt the patient is taking her home medications. We will restart her home medications. Place her on IV labetalol p.r.n. Closely monitor. If not getting better or improving, consult cardiology. 3. Abnormal electrocardiogram. We will follow serial cardiac enzymes and echocardiogram. 4. History of anxiety and depression and history of bipolar disorder. It seems the patient is on Ativan p.r.n. and venlafaxine, doubt taking any medications. We will consult psychiatry while the patient is in the hospital. 5. History of coronary artery disease. Continue her aspirin, Plavix, statin and beta ady. Follow echocardiogram. 6. History of diabetes. Hold metformin. Place on insulin sliding scale. Follow the blood sugars, follow HbA1c levels. 7. Gastroesophageal reflux disease. Continue omeprazole. 8. History of hyperlipidemia, on statin and fenofibrate. 9. UTI Rocephin. Will follow cultures. 10. Deep venous thrombosis prophylaxis, heparin subcutaneously. DISPOSITION: Closely monitor in the tele floor. For now, level 1 full code as per my discussion with the son. PT/OT prior to discharge. Social service to help with discharge planning. Job ID: [id number] MTDD
[2022-06-28] MEDS ORDERED: GLUCOSE 40% GEL 15 GM TUBE PO PRN (00:52)
[2022-06-28] MEDS ORDERED: CARBOHYDRATES FOR HYPOGLYCEMIA PO PRN (00:52)
[2022-06-28] MEDS ORDERED: GLUCOSE 10 TAB/TUBE PO PRN (00:52)
[2022-06-28] MEDS ORDERED: LABETALOL HCL IV 5 MG/ML 20ML IV PRN (00:52)
[2022-06-28] MEDS ORDERED: DEXTROSE 50% 50 ML SYRINGE IV PRN (00:52)
[2022-06-28] MEDS ORDERED: POLYETHYLENE (MIRALAX) 17 GM PACK PO PRN (00:52)
[2022-06-28] MEDS ORDERED: ACETAMINOPHEN 325 MG TAB PO PRN (00:52)
[2022-06-28] MEDS ORDERED: NITROGLYCERIN SL 0.4 MG/TAB TAB SL PRN (00:52)
[2022-06-28] MEDS ORDERED: GLUCAGON FOR INJ 1 MG VIAL SQ PRN (00:52)
[2022-06-28] MEDS ORDERED: FLUARIX QUADRIVALENT 0.5 ML SYR IM ONE (01:10)
[2022-06-28] MEDS ORDERED: POTASSIUM CHLORIDE CRTAB 20 MEQ TABCR PO STA (01:10)
[2022-06-28] MEDS: SODIUM CHLORIDE 0.9% 1000ML 1,000 ML IV SCH ×2 (01:21→18:11)
[2022-06-28] MEDS: cefTRIAXone SODIUM 1,000 MG in DEXTROSE 5% AD-VAN 50 ML IV SCH (01:51)
[2022-06-28] MEDS: LOSARTAN POTASSIUM 50 MG TAB PO SCH ×3 (01:52→21:33)
[2022-06-28] MEDS: METOPROLOL TARTRATE 50 MG TAB PO SCH ×3 (01:53→21:33)
[2022-06-28 06:06] LABS: Basophils # (auto) 0.09 K/uL (0-0.2); Basophils % (auto) 0.9 %; Eosinophils # (auto) 0.09 K/uL (0-0.50); Eosinophils % (auto) 0.9 %; Hematocrit (blood only) 34.4 % (37.0-47.0); Hemoglobin 12.1 g/dl (12.0-16.0); Immature Granulocytes # (auto) 0.02 K/uL (0.01-0.20); Immature Granulocytes % (auto) 0.2 %; Lymphocytes # (auto) 3.45 K/uL (1.2-3.4); Lymphocytes % (auto) 35.1 %; Mean Corpuscular Hemoglobin 28.6 pg (25.0-34.0); Mean Corpuscular Hgb Conc 35.2 g/dL (32.0-36.0); Mean Corpuscular Volume 81.3 fL (80.0-100.0); Mean Platelet Volume 8.9 fL (9.4-12.4); Monocytes # (auto) 0.99 K/uL (0.11-0.59); Monocytes % (auto) 10.1 %; Neutrophils % (auto) 52.8 %; Platelet Count 360 K/uL (130-400); RDW Coefficient of Variation 13.3 % (11.5-14.5); RDW Standard Deviation 39.4 fL (36.4-46.3); Red Blood Count 4.23 M/uL (4.20-5.40); White Blood Count 9.84 K/ul (4.8-10.8)
[2022-06-28 06:16] LABS: BUN Creatinine Ratio 21.3 (10-20); Calcium 8.6 mg/dl (8.5-10.1); Creatinine Clr Calc Pharmacy 49.4 ml/min; Est GFR (African American) 82.8 ml/min; Est GFR (Non-African American) 71.4 ml/min; Magnesium 1.7 mg/dl (1.7-2.4); Potassium 3.6 mmol/L (3.5-5.1)
[2022-06-28] MEDS: CLOPIDOGREL BISULFATE 75 MG TAB PO SCH (07:31)
[2022-06-28] MEDS: PANTOprazole 40 MG TAB PO SCH (07:32)
[2022-06-28] MEDS: ASPIRIN 81 MG ECTAB PO SCH (07:32)
[2022-06-28] MEDS: MULTIVITAMIN TAB PO SCH (07:32)
[2022-06-28] MEDS: HEPARIN SOD 5,000 UNIT/0.5 ML VIAL SQ SCH ×2 (07:33→21:34)
[2022-06-28] MEDS: FENOFIBRATE NANOCRYSTALLIZED 145 MG TABLET PO SCH (07:33)
[2022-06-28] MEDS: hydroCHLOROthiazide 25 MG TAB PO SCH (07:40)
[2022-06-28 08:38] LABS: Estimated Average Glucose 143 mg/dl; Hemoglobin A1C 6.6 % (4.5-5.6)
[2022-06-28] MEDS ORDERED: VENLAFAXINE HCL XR 75 MG CAPXR PO SCH (09:00)
[2022-06-28] MEDS: CYANOCOBALAMIN 1000 MCG/ML VIAL IM SCH (09:12)
[2022-06-28] MEDS ORDERED: OPTIRAY 320 500ml IV ONE (09:27)
[2022-06-28] MEDS: INSULIN ASPART PER UNIT SC SCH ×4 (09:41→21:15)
--- NOTE | 2022-06-28 10:07 | CT Scan Report ---
CTA ANGIOGRAPHY OF THE HEAD CLINICAL HISTORY: CONFUSION, HX OF CVA, LCCA STENOSIS COMPARISON STUDY: CTA of the head March 04, 2021. Head CT June 27, 2022. TECHNIQUE: Helical axial images of the head were obtained following uneventful intravenous administr ation of 113 cc of Optiray. Sagittal and coronal reconstructions were viewed as well as maximal inten sity projections on an independent 3-D workstation. Automated exposure control was utilized for the study. A dose lowering technique was utilized adhering to the principles of ALARA. CT DOSE: 399.84 mGy.cm FINDINGS: Ventricular system is stable. Basal cisterns are patent. There are no extra axial collectio ns. Several old infarcts are noted. No acute intracranial hemorrhage is identified although sensitivi ty is diminished on this contrast enhanced exam. There is extensive plaque within the bilateral mir nous carotids. There is moderate stenosis of the right cavernous carotid with mild stenosis of the le ft cavernous carotid. No central vessel occlusion is identified. There is no intracranial aneurysm. M oderate stenosis of the right P2 segment is noted. There is mild stenosis of the left P2 segment. IMPRESSION: 1. No central vessel occlusion. No intracranial aneurysm. 2. Extensive plaque within bilateral cavernous carotids with moderate stenosis of the right cavernous carotid and mild stenosis of left cavernous carotid. Moderate stenosis of the right P2 segment. ACT 112: Negative or not required by law. Electronically signed by: Roni Love M.D. 06/28/2022 10:04 AM
--- NOTE | 2022-06-28 10:14 | Electrocardiogram Report ---
Test Reason : Blood Pressure : / mmHG Vent. Rate : 116 BPM Atrial Rate : 116 BPM P-R Int : 164 ms QRS Dur : 086 ms QT Int : 316 ms P-R-T Axes : 080 075 096 degrees QTc Int : 439 ms Sinus tachycardia Right atrial enlargement Voltage criteria for left ventricular hypertrophy Nonspecific ST and T wave abnormality Abnormal ECG When compared with ECG of 07-MAR-2021 06:04, DC interval has decreased ST now depressed in Inferior leads Non-specific change in ST segment in Anterolateral leads Confirmed by Rico Steel ([id number]) on 06/28/2022 10:13:44 AM Referred By: REFERRED SELF Confirmed By:Reese Steel
[2022-06-28] MEDS ORDERED: GADOBUTROL 65ML VIAL IV ONE (10:21)
--- NOTE | 2022-06-28 11:21 | Hospitalist Progress Note ---
Date of Service June 28, 2022 Assessment & Plan (1) Delirium: Plan: Etiologies concerning for but not limited to B12 deficiency, hypertensive urgency that is uncontrolled, CADASIL, early onset dementia, or psychiatric disturbance. 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 CAD is still can present with acute reversible encephalopathy, cognitive impairment, dementia, psychiatric disturbances. This is in line with her current clinical presentation. Neuro was consulted. We will continue antiplatelet therapy, antihypertensive therapy and glucose control. We will continue to reorient as needed and await further recommendations from neurology. Interestingly, son reports that she had an episode 3 to 4 months ago similar to this 1 that resolved spontaneously. (2) Hypertensive urgency: Plan: Hypertensive urgency coming in with blood pressure of 224/134. It is possible she may have some hypertensive encephalopathy, however, blood pressures well controlled today and she is still confused. Continue current medical therapy including HCTZ, losartan twice daily. (3) Paroxysmal atrial fibrillation: Plan: History of paroxysmal atrial fibrillation. She remains in sinus rhythm. Given her history of previous vascular/cerebrovascular events, anticoagulation for stroke prophylaxis was felt to be indicated during hospitalization March 2021. Given the need for treatment with clopidogrel considerations for chronic therapy including oral anticoagulant such as Eliquis plus clopidogrel and discontinuing aspirin if this was feasible from a financial standpoint. She either followed up outside of network or did not followup and is still taking ASA/Plavix (no apixaban) and is still taking HCTZ which was stopped during last hospital stay. She has been in sinus rhythm to this point. If she converts to afib will add apixaban, but for now will request records from [facility] in [place]. (4) Carotid artery disease: Plan: she has a h/o stroke in 2018 with right sided weakness whichEventually resolved. She was admitted July 2020 to [facility] for another left hemispheric stroke with residual right-sided weakness. Work-up revealed left carotid artery stenosis. She underwent L CCA stenting for symptomatic stenosis on July 18, [address] Carreno. She has a history of smoking with CAD hypertension dyslipidemia diabetes. She was reporting trouble writing (right- handed and some weakness of right arm since 2020 stroke. She was continued on dual antiplatelet therapy with aspirin and Plavix and statin therapy. She was counseled regarding smoking cessation. (5) Diabetes: Plan: A1c 6.6 reflects good control. It is likely the patient has been noncompliant with medical therapy given mental status. She takes metformin 1000 p.o. twice daily and is currently on basal bolus insulin as an inpatient. We will continue current care. (6) UTI (urinary tract infection): Plan: Possible UTI, urinary incontinence reported by son and current RN. Continue Rocephin pending culture results and clinical improvement. (7) B12 deficiency: Plan: Cyanocobalamin injections daily for 7 days, cont PO supplemntation after this. (8) Anxiety and depression: Plan: h/o Bipolar depression. Difficult to assess 2/2 delirium. She is reportedly on Ativan, which son reports he has been filling for her. It is questionable whether or not she is taking it, but will cont to monitor for withdrawal on telemetry. Continues on venlafaxine per home regimen, but again, possible noncompliance recently. (9) CAD (coronary artery disease): Plan: chronic, stable. Cont medical management with ASA, plavix, statin, metoprolol (10) Hyperlipidemia: Plan: chronic, stable. Cont current medical therapy. (11) Tobacco use: Plan: reported use in the chart. Smoking cessation advised but currently she is delirious. Will add nicoderm if any concerning signs for withdrawal. (12) Stroke: Plan: History of strokes in the past. No acute stroke seen on MRI this morning. She continues on dual antiplatelet therapy with statin on board. Heparin Full Code Dispo-uncertain at this time. At least 60 minutes of time was spent gathering information from her son by phone, requesting outpatient records, coordinating with psychiatry, examining patient and interpreting test results. Pat Felix DO [facility] Hospitalist Admission and Anticipated Discharge Date Admission Date: June 27, 2022 Subjective 56 yo F who lives with her son presents with confusion, uncertain acuity. She is delirious today, unable to follow instructions She is not oriented even to self Very inattentive and pulling at medical devices Per RN she is incontinent of urine and stool, she did eat some toast this morning She was impulsively jumping up and out of bed and now is doing well with a s itter. Per her son by phone: Up until 1.5 months ago she was Bathing herself, laundry doing dishes 1.5 months ago she stopped doing things for herself/taking care of herself she has always been "like a recluse" son reports she is speaking words but can't remember them prior to this she was oriented and holding conversations without issue, ambulating and doing things for herself without issue. she did have an episode like this 3-4 months ago and she just snapped out of it--son states she was not hospitalized for this he hasn't noticed any fevers, cough or other symptoms. She has been "using the bathroom just anywhere" Sister was helping with meds but "fell off the face of the earth" 4 months ago Mom has been in charge of meds but likely non-compliant; son reports picking up meds for her but not administering them. Patient stopped driving about two years ago. Review of Systems Review of Systems: Cannot determine ROS 2/2 delirium Physical Exam Physical Exam: CONSTITUTIONAL: WNWD, vitals as above, generally well-appearing, NAD EYES:pupils are round and equal bilaterally, normal n, no scleral icterus ENT: external ear and nose normal NECK: trachea midline RESPIRATORY: clear to auscultation bilaterally, no crackles, rales or wheezes, normal respiratory effort CARDIOVASCULAR: regular rate and rhythm, S1 and 2 heard without murmurs, gallops or rubs, no JVD, no peripheral edema CHEST: inspection of chest was normal GASTROINTESTINAL: soft, nontender, ND, no guarding MUSCULOSKELETAL: strength 5/5 throughout, although limited assessment as she is not following instructions. head is normocephalic and atraumatic SKIN: warm and dry NEUROLOGIC: No facial palsy. She is not following instructions and is very inattentive. Speech intact, however, she has unintelligible words in response to questions. CN 2-12 grossly intact, normal cognition, normal speech, no tremor PSYCHIATRIC: alert but uncooperative and disoriented. Results & Data Results & Data ([facility]) Vital Signs (Past 12 Hours) Vital Signs Temp Pulse Pulse Resp BP BP Pulse Ox 06/28/22 08:01 06/28/22 07:59 36.3 C L 85 16 126/67 98 06/28/22 03:45 36.6 C 76 16 105/55 L 95 06/28/22 00:52 06/28/22 01:50 64 158/86 H 06/28/22 01:04 89 06/28/22 00:54 36.7 C 64 15 189/91 H 96 06/28/22 00:09 82 15 184/103 H 97 06/27/22 23:37 88 14 201/116 H 97 Pulse Ox O2 Del Method O2 Del Method 06/28/22 08:01 Room Air 06/28/22 07:59 Room Air 06/28/22 03:45 Room Air 06/28/22 00:52 96 Room Air 06/28/22 01:50 06/28/22 01:04 06/28/22 00:54 Room Air 06/28/22 00:09 Room Air 06/27/22 23:37 Room Air Laboratory Results Short CBC 06/27/22 06/28/22 Range/Units 19:20 05:35 WBC 7.90 9.84 (4.8-10.8) K/ul Hgb 14.7 12.1 (12.0-16.0) g/dl Hct 42.5 34.4 L (37.0-47.0) % Plt Count 420 H 360 (130-400) K/uL BMP 06/27/22 06/28/22 19:20 05:35 Sodium 132 L 132 L Potassium 3.2 L 3.6 Chloride 91 L 97 L Carbon Dioxide 34 H 30 BUN 22 19 Creatinine 1.12 0.89 Glucose 165 H 60 L Calcium 9.5 8.6 Cardiac Enzymes 06/27/22 Range/Units 19:20 Total Creatine Kinase 62 (26-192) U/L Liver Function 06/27/22 Range/Units 19:20 Total Bilirubin 0.5 (0.2-1.0) mg/dl AST 22 (13-39) U/L ALT 19 (7-52) U/L Alkaline Phosphatase 83 (34-104) U/L Albumin 4.3 (3.4-5.0) gm/dl Urine 06/27/22 Range/Units 20:20 Urine Color Yellow Urine Appearance Cloudy A (Clear) Urine pH 7.0 (4.5-7.5) Ur Specific [place] 1.018 (1.000-1.030) Urine Protein 3+ H (Negative) Urine Glucose (UA) 1+ H (Negative) Diagnostic Findings Head CTA 06/28/22 00:52 CTA ANGIOGRAPHY OF THE HEAD CLINICAL HISTORY: CONFUSION, HX OF CVA, LCCA STENOSIS COMPARISON STUDY: CTA of the head March 04, 2021. Head CT June 27, 2022. TECHNIQUE: Helical axial images of the head were obtained following uneventful intravenous administration of 113 cc of Optiray. Sagittal and coronal reconstructions were viewed as well as maximal intensity projections on an independent 3-D workstation. Automated exposure control was utilized for the study. A dose lowering technique was utilized adhering to the principles of ALARA. CT DOSE: 399.84 mGy.cm FINDINGS: Ventricular system is stable. Basal cisterns are patent. There are no extra axial collections. Several old infarcts are noted. No acute intracranial hemorrhage is identified although sensitivity is diminished on this contrast enhanced exam. There is extensive plaque within the bilateral cavernous carotids. There is moderate stenosis of the right cavernous carotid with mild stenosis of the left cavernous carotid. No central vessel occlusion is identified. There is no intracranial aneurysm. Moderate stenosis of the right P2 segment is noted. There is mild stenosis of the left P2 segment. IMPRESSION: 1. No central vessel occlusion. No intracranial aneurysm. 2. Extensive plaque within bilateral cavernous carotids with moderate stenosis of the right cavernous carotid and mild stenosis of left cavernous carotid. Mode rate stenosis of the right P2 segment. ACT 112: Negative or not required by law. Electronically signed by: Roni Love M.D. 06/28/2022 10:04 AM Medications Administered Current Inpatient Medications Acetaminophen (Acetaminophen 325 Mg Tab) 650 mg PO Q4H PRN PRN Reason: Pain or Fever Stop: 07/28/22 00:51 Aspirin (Aspirin 81 Mg Ectab) 81 mg PO DAILY INDRA Stop: 07/28/22 08:59 Last Admin: 06/28/22 07:32 Dose: 81 mg Atorvastatin Calcium (Atorvastatin 40 Mg Tab) 40 mg PO HS INDRA Stop: 07/28/22 20:59 Clopidogrel Bisulfate (Clopidogrel Bisulfate 75 Mg Tab) 75 mg PO DAILY INDRA Stop: 07/28/22 08:59 Last Admin: 06/28/22 07:31 Dose: 75 mg Cyanocobalamin (Cyanocobalamin 1000 Mcg/Ml Vial) 1,000 mcg IM QAM INDRA Stop: 07/28/22 08:59 Last Admin: 06/28/22 09:12 Dose: 1,000 mcg Dextrose (Dextrose 50% 50 Ml Syringe) 25 - 50 ml IV UD PRN; Protocol PRN Reason: Hypoglycemia Protocol Stop: 07/28/22 00:51 Fenofibrate (Fenofibrate Nanocrystallized 145 Mg Tablet) 145 mg PO DAILY INDRA Stop: 07/28/22 08:59 Last Admin: 06/28/22 07:33 Dose: 145 mg Glucagon (Glucagon For Inj 1 Mg Vial) 1 mg SQ UD PRN; Protocol PRN Reason: Hypoglycemia Protocol Stop: 07/28/22 00:51 Glucose (Glucose 10 Tab/Tube) 4 - 8 tab PO UD PRN; Protocol PRN Reason: Hypoglycemia Treatment Stop: 07/28/22 00:51 Glucose (Glucose 40% Gel 15 Gm Tube) 15 - 30 gm PO UD PRN; Protocol PRN Reason: Hypoglycemia Protocol Stop: 07/28/22 00:51 Heparin Sodium (Porcine) (Heparin Sod 5,000 Unit/0.5 Ml Vial) 5,000 units SQ Q12 INDRA Stop: 07/28/22 08:59 Last Admin: 06/28/22 07:33 Dose: 5,000 units Hydrochlorothiazide (Hydrochlorothiazide 25 Mg Tab) 12.5 mg PO DAILY [facility] Stop: 07/28/22 08:59 Last Admin: 06/28/22 07:40 Dose: 12.5 mg Sodium Chloride (Nss 1000ml) 1,000 mls @ 80 mls/hr IV .[id number] [facility] Stop: 06/29/22 01:51 Last Admin: 06/28/22 01:21 Dose: 80 mls/hr Ceftriaxone Sodium 1,000 mg/ (Dextrose) 50 mls @ 100 mls/hr IV Q24H INDRA; Protocol Stop: 07/08/22 01:59 Last Infusion: 06/28/22 02:26 Dose: Infused Insulin Aspart (Insulin Aspart Per Unit) 0 units SC ACHS INDRA Stop: 07/28/22 07:29 Last Admin: 06/28/22 09:41 Dose: Not Given Labetalol HCl (Labetalol Hcl Iv 5 Mg/Ml 20ml) 10 mg IV Q4H PRN PRN Reason: Hypertension Stop: 07/28/22 00:51 Last Admin: 06/28/22 01:06 Dose: 10 mg Losartan Potassium (Losartan Potassium 50 Mg Tab) 50 mg PO BID INDRA Stop: 07/28/22 00:51 Last Admin: 06/28/22 07:39 Dose: 50 mg Metoprolol Tartrate (Metoprolol Tartrate 50 Mg Tab) 50 mg PO BID INDRA Stop: 07/28/22 00:51 Last Admin: 06/28/22 07:39 Dose: 50 mg Miscellaneous (Carbohydrates For Hypoglycemia ) 15 - 30 gm PO UD PRN PRN Reason: Hypoglycemia Protocol Stop: 07/28/22 00:51 Multivitamins (Multivitamin Tab) 1 tab PO QAM INDRA Stop: 07/28/22 08:59 Last Admin: 06/28/22 07:32 Dose: 1 tab Nitroglycerin (Nitroglycerin Sl 0.4 Mg/Tab Tab) 0.4 mg SL Q5M PRN PRN Reason: Chest Pain Stop: 07/28/22 00:51 Pantoprazole Sodium (Pantoprazole 40 Mg Tab) 40 mg PO DAILY INDRA Stop: 07/28/22 08:59 Last Admin: 06/28/22 07:32 Dose: 40 mg Polyethylene Glycol (Polyethylene (Miralax) 17 Gm Pack) 17 gm PO DAILY PRN PRN Reason: Constipation Stop: 07/28/22 00:51 Venlafaxine HCl (Venlafaxine Hcl Xr 75 Mg Capxr) 75 mg PO DAILY INDRA Stop: 07/28/22 08:59 Last Admin: 06/28/22 07:33 Dose: 75 mg (5) Diabetes Diabetes mellitus type: type 2 Diabetes mellitus intermediate school teacher insulin use: without half-way use Diabetes mellitus complication status: without complication Qualified Code(s): E11.9 - Type 2 diabetes mellitus without complications
--- NOTE | 2022-06-28 12:25 | Neurology Consultation ---
Date of Consultation June 28, 2022 Assessment & Plan (1) Vascular dementia: Plan NEUROLOGY CONSULTATION Assessment & Plan: Impression: pt with overall picture likely having underlying Vascular dementia and other multiple factors contributing to her confusion including UTI, dehydration, poor nutrition status, metabolic disorder and worsening psychiatry disorders. Recommendations: -continue ASA and supportive care and routine stroke risk modifications. treat UTI and hydrate and avoid metabolic disorders. will need psychiatry consult for ongoing tx for her psychiatric disorders. -not much to offer from neurology at this point. vascular dementia mainly needs to risk modify future strokes and worsening vascular disease. please call again if new question. Dr. Mat Millan MD [facility] Neurology Chief Complaint: confusion History of Present Illness: pt with increase confusion in setting of psychiatric history with poor medical compliance and currently having UTI and metabolic disorders. pt this morning alert but confused. does communicate well and follows command well. CT head negative. CTA without LVO. mri brain without significant lesion or stroke but does show significant vascular disease. Admission/Initial HPI documentation: A 56-year-old female with past medical history significant for CAD, hypertension, hyperlipidemia, diabetes, history of stroke in 2018 with right-sided weakness, which eventually resolved. Again, she had another left hemispheric stroke with residual weakness in 07/2020, workup noting LCCA stenosis and she was referred to [facility] and is status post LCCA stenting for symptomatic stenosis in 09/2020, on aspirin and Plavix. History of smoking, history of hyperlipidemia, asthma, carotid artery stenosis, GERD, Sauer's esophagus, depression, generalized anxiety, bipolar disorder. Lives at home and was brought in by son because of confusion. As per the son, patient is getting confused last one and a half months and got progressively worse. She is not taking care of herself, falling frequently, not bathing, defecating everywhere. He states that she gets food from the kitchen and forgets to eat, he is cooking and trying to feed her lately. Son is living with her to help her. That is the reason, he brought her to the hospital. The patient is alert and awake, can tell her name, knows that she is in the hospital, but thinks in the [facility], could tell her date of , but could not tell today's date. She states she was brought into the hospital for confusion. Denies any headache. Denies any blurred visions. Denies earache, runny nose or sore throat. No cough, no fevers, no chest pain, no shortness of breath, no nausea, no abdominal pain. No swelling in the legs. Her blood pressure is running high in the ER. As per son, he does not know whether she is taking her medications or not. Past Medical History: See chart Meds: See chart I personally reviewed all of the medications Social & Family History: See chart Review of Systems: Per initial HPI on admission. Physical Exam: GEN: NAD HEENT: Normocephalic Neuro: Mental status:Alert, oriented to person and place. not sure of year or month. does know president "monique". follows command well. No dysarthria or aphasia.No neglect. Fluent speech. No apraxia Cranial Nerves:II-XII intact Motor:Normal bulk and tone,5/5 strength x 4 extremities Coordination:Intact grossly Chart reviewed I have spent more than 50% educating patient about potential diagnosis and neurological evaluation and coordinating care with patient's treatment team. Total time spent (including chart review and coordination of care): 80 min (this includes chart review). History of Present Illness Attending Physician: Pat Felix, Allergies Allergy/AdvReac Type Severity Reaction Status Date / Time NSAIDS (Non-Steroidal AdvReac Intermediate NAUSEA/VOMI Verified 06/27/22 21:06 Anti-Inflamma TING Home Medications Medication Instructions Recorded Confirmed Type atorvastatin 40 mg tablet 40 mg PO HS 03/04/21 06/27/22 History clopidogrel 75 mg tablet 75 mg PO DAILY 03/04/21 06/27/22 History fenofibrate 54 mg tablet 54 mg PO BID 03/04/21 06/27/22 History hydrocodone 5 mg-acetaminophen 325 1 tab PO Q6H PRN Pain 03/04/21 06/27/22 History mg tablet lorazepam 1 mg tablet 1 mg PO TID PRN Anxiety 03/04/21 06/27/22 History metformin 1,000 mg tablet 1,000 mg PO BID 03/04/21 06/27/22 History metoprolol tartrate 50 mg tablet 50 mg PO BID 03/04/21 06/27/22 History venlafaxine 75 mg tablet 75 mg PO DAILY 03/04/21 06/27/22 History multivitamin with folic acid 400 1 tab PO QAM #30 tabs 03/08/21 06/27/22 Rx mcg tablet (Daily-Leeanna (with folic acid)) aspirin 81 mg tablet,delayed 81 mg PO DAILY 06/27/22 06/27/22 History release hydrochlorothiazide 25 mg tablet 12.5 mg PO DAILY 06/27/22 06/27/22 History losartan 100 mg tablet 50 mg PO BID 06/27/22 06/27/22 History omeprazole 20 mg capsule,delayed 20 mg PO DAILY 06/27/22 06/27/22 History release Patient History Medical History Anxiety and depression CAD (coronary artery disease) Carotid artery disease Diabetes Hyperlipidemia Hypertension Stroke 07/2020 recurrent L hemispheric w/ residual R sided weakness; [facility] Tobacco use Surgical History History of left common carotid artery stent placement Family History Mother Hypertension Other Stroke Social History Smoking Status: Never smoker Tobacco Type: Cigarettes Second Hand Exposure: No; Do You Dip or Chew Tobacco: No; Tobacco Cessation Education Requested by Patient: No Hx Alcohol Use: No Hx Substance Use: No Preferred Language: Sami Communication Ability: Effective Order Picker Required: No Beliefs That Will Affect Care: None marital status: Current Living Situation: Alone How many Children do You have: 1 Other Information That Helps Us Care for You: No Feels Safe at Home: Yes Safety Concerns: Feels Safe At This Time Assistive Devices: Glasses Results & Data ([facility]) Vital Signs (Past 12 Hours) Vital Signs Temp Pulse Pulse Resp BP BP Pulse Ox 06/28/22 11:15 36.5 C 72 14 117/62 97 06/28/22 08:01 06/28/22 07:59 36.3 C L 85 16 126/67 98 06/28/22 03:45 36.6 C 76 16 105/55 L 95 06/28/22 00:52 06/28/22 01:50 64 158/86 H 06/28/22 01:04 89 06/28/22 00:54 36.7 C 64 15 189/91 H 96 Pulse Ox O2 Del Method O2 Del Method 06/28/22 11:15 Room Air 06/28/22 08:01 Room Air 06/28/22 07:59 Room Air 06/28/22 03:45 Room Air 06/28/22 00:52 96 Room Air 06/28/22 01:50 06/28/22 01:04 06/28/22 00:54 Room Air
--- NOTE | 2022-06-28 12:50 | CT Scan Report ---
NECK CTA HISTORY: CONFUSION, HX OF CVA, left carotid stenosis TECHNIQUE: Multiaxial CT images of the neck were performed following the intravenous administration o f contrast to evaluate the major cervical vessels. Maximum intensity projection images were also obta ined. All measurements were calculated based on NASCET criteria. A dose lowering technique was utili zed adhering to the principles of ALARA. COMPARISON STUDY: CT neck 03/04/2021. FINDINGS: The aortic arch and proximal great vessels are patent. There is a proximal left common joyce tid artery stent which appears patent. The right common carotid artery is widely patent. Moderate to severe focal stenosis at the takeoff of the left vertebral artery on image 91. This demonstrates appr oximate 75% focal stenosis. There are few additional areas of mild to moderate multifocal stenosis wi thin the proximal to mid left vertebral artery measuring up to 50%. This remains unchanged. Focal are a of 50% stenosis within the mid right vertebral artery on image 204 which has progressed in the inte rval. Approximately 30% focal stenosis at the takeoff of the left internal carotid artery, unchanged. Otherwise, the bilateral cervical internal carotid arteries are patent with no evidence for aneurysm or dissection. Emphysema is noted. IMPRESSION: 1. The proximal left common carotid artery stent is patent. 2. Moderate to severe focal stenosis at the takeoff of the left vertebral artery. 3. Mild to moderate multifocal stenosis within the proximal to mid left vertebral artery, unchanged. 4. Focal area of 50% stenosis within the mid right vertebral artery which has progressed in the inter reyes. 5. Approximately 30% focal stenosis at the takeoff of the left internal carotid artery, unchanged. 6. No significant stenosis within the right carotid arteries. ACT 112: Negative or not required by law. Electronically signed by: Izaiah Rosario M.D. 06/28/2022 12:48 PM
--- NOTE | 2022-06-28 13:08 | Psychiatric Consultation ---
Date of Consultation June 28, 2022 Impression / Recommendations Impression 56 yo old admitted for worsening confusion and loss of independence attending to ADLs. Diagnostically consistent with encephalopathy/delirium likely superimposed on dementia given prominent vascular changes on head MRI. She is having gait issues at home apparently, incontinence and confusion but no evidence for NPH on MRI-will defer to neurology on whether or not this requires further workup. Given prominent behavioral changes, loss of learned motor movements (such as not being able to use the bathroom, not using utensils) and word finding difficulty suspect underlying neurocognitive process. There is no evidence for any primary psychiatric conditions leading to current presentation as no evidence for raymond or psychosis, no evidence for depression and no evidence for catatonia. Given that she has not filled her venlafaxine script in many months will discontinue this as likely to cause side effects and no evidence for current need for this. PDMP shows that she's been filling prescriptions for ativan 1mg TID prn every month, most recently 05/25/2022 and again 06/26/2022 for 90 tabs so recommend monitoring for withdrawal/AWSS as unclear how much she's been using this and if stopped abruptly could certainly add to delirium. Once no concern for withdrawal agree with avoiding it as this can worsen confusion, falls, and delirium. Overall, I spent a total of 60 minutes with this case including review of chart records, review of labwork, review of EKG QTc, review of brain MRI, direct evaluation of the patient at bedside, discontinuing medication, discussion of the patient with the Nurse and with the hospitalist provider, discussion with the psychiatric liason during clinical rounds, review of collateral historian information from the family and documentation in the electronic health record. (1) Delirium: (2) Altered mental status: (3) Stroke: (4) Vascular dementia: Plan -Continue medical workup to rule out and treat any underlying causes contributing to potential delirium, avoid or limit use of deliriogenic medications (benzodiazepines, opioids, anticholinergics) -Continue with delirium prevention measures: raising blinds during the day, closing at night, frequent re-orientation, contact with family/friends, explaining procedures/nursing care measures prior to physical contact, correct any hearing and visual impairments -If presentation persists will likely need placement as no longer able to meet her ADLs without assistance. -Psych Liason will attempt to get further collateral from her son Psych History Identifying Data 55 yo woman with multiple medical conditions including T2DM, HTN, HLD, CAD, GERD, hx stroke, anxiety and depression who was admitted medically for AMS. Psychiatry was consulted for AMS. Chief Complaint "Good". History of Present Illness Avis Espinoza is known to me from her previous hospitalization in March 2021 when she was treated for delirium and I recommended she disocntinue use of Ativan as this can precipitant delirium especially in inidividuals with pre- existing prior brain insults such as from her previous CVAs. Presents with significant confusion. Apparently at home has been increasingly confused and unable to care for herself with incontinence and defecation, cannot feed or bath herself independently, frequently falls, and has not been taking her medications. In meeting with her today she has been responding to the 1-on-1 only with one word responses and is very impulsive. On my assessment she cannot follow one step commands (i.e. look at the TV, point to the door or the window), is very inattentive, is oriented to herself but nothing else. Initially says we are at the "te[facility]". When given multiple choice questions can correctly state we are in a hospital. Seems at one point to attempt to state the city repeating [place]" but seems to have significant word finding and expression difficulty. Does use utensils to eat, rather uses her hands to eat a piece of chicken. Seems confused by rubber turner removed from her juice container, examines this as appears to initially think this is a piece of food. Cannot pay attention long enough to even allow for EOM exam. Not aware her gown slipped but allows us to fix this. Offers no spontaneous conversation but answers some questions. Thinks she is living with her "mom and dad" but later when asked about her son Joshua is able to confirm he's been helping her. Agrees that we can contact him for additional information. PDMP reviewed and notable for recent and ongoing Ativan scripts. Psychiatric ROS notable for historical diagnosis of bipolar disorder but no history of episodes of raymond and no raymond in past on unopposed antidepressant medication and has not filled duloxetine script since January for 90 day supply. Allergies Allergy/AdvReac Type Severity Reaction Status Date / Time NSAIDS (Non-Steroidal AdvReac Intermediate NAUSEA/VOMI Verified 06/27/22 21:06 Anti-Inflamma TING Home Medications Medication Instructions Recorded Confirmed Type atorvastatin 40 mg tablet 40 mg PO HS 03/04/21 06/27/22 History clopidogrel 75 mg tablet 75 mg PO DAILY 03/04/21 06/27/22 History fenofibrate 54 mg tablet 54 mg PO BID 03/04/21 06/27/22 History hydrocodone 5 mg-acetaminophen 325 1 tab PO Q6H PRN Pain 03/04/21 06/27/22 History mg tablet lorazepam 1 mg tablet 1 mg PO TID PRN Anxiety 03/04/21 06/27/22 History metformin 1,000 mg tablet 1,000 mg PO BID 03/04/21 06/27/22 History metoprolol tartrate 50 mg tablet 50 mg PO BID 03/04/21 06/27/22 History venlafaxine 75 mg tablet 75 mg PO DAILY 03/04/21 06/27/22 History multivitamin with folic acid 400 1 tab PO QAM #30 tabs 03/08/21 06/27/22 Rx mcg tablet (Daily-Leeanna (with folic acid)) aspirin 81 mg tablet,delayed 81 mg PO DAILY 06/27/22 06/27/22 History release hydrochlorothiazide 25 mg tablet 12.5 mg PO DAILY 06/27/22 06/27/22 History losartan 100 mg tablet 50 mg PO BID 06/27/22 06/27/22 History omeprazole 20 mg capsule,delayed 20 mg PO DAILY 06/27/22 06/27/22 History release Patient History Medical History Anxiety and depression CAD (coronary artery disease) Carotid artery disease Diabetes Hyperlipidemia Hypertension Stroke 07/2020 recurrent L hemispheric w/ residual R sided weakness; [facility] Tobacco use Surgical History History of left common carotid artery stent placement Family History Mother Hypertension Other Stroke Social History Smoking Status: Never smoker Tobacco Type: Cigarettes Second Hand Exposure: No; Do You Dip or Chew Tobacco: No; Tobacco Cessation Education Requested by Patient: No Hx Alcohol Use: No Hx Substance Use: No Preferred Language: Maltese Communication Ability: Effective Craniologist Required: No Beliefs That Will Affect Care: None marital status: Current Living Situation: Alone How many Children do You have: 1 Other Information That Helps Us Care for You: No Feels Safe at Home: Yes Safety Concerns: Feels Safe At This Time Assistive Devices: Cane Physical Exam Psychiatric: Orientation: alert and oriented to person; + not oriented to place and + not oriented to time Apperance: + disheveled Eye Contact: + fair eye contact Motor Behavior: no abnormal motor movements Speech: + abnormal rate/rhythm/volume of speech (brief ) Affect: + constricted affect Mood: no depressed mood, no anxious mood and no irritable mood Thought Process: + looseness of associations Thought Content: reality based without delusions (very sparse) Suicidal Thoughts: denies suicidal thoughts Homicidal Thoughts: denies homicidal thoughts Hallucinations: no auditory hallucinations and no visual hallucinations Cognition: + recent memory not intact, + attention not intact and + language not intact (word finding difficulty) Insight: + severely impaired insight Judgment: + severely impaired judgement Vital Signs (Past 24 Hours): Last Vital Signs Temp 36.5 C 06/28/22 11:15 Pulse 72 06/28/22 11:15 Resp 14 06/28/22 11:15 BP 117/62 06/28/22 11:15 Pulse Ox 97 06/28/22 11:15 O2 Del Method Room Air 06/28/22 11:15 Review of Systems Unobtainable due to cognitive status Results & Data (PSY) Laboratory Results QTc 439ms on EKG, low Na+, low glucose Medications Administered Aspirin (Aspirin 81 Mg Ectab) 81 mg PO DAILY [facility] Stop: 07/28/22 08:59 Last Admin: 06/28/22 07:32 Dose: 81 mg Documented By: CAILIN Clopidogrel Bisulfate (Clopidogrel Bisulfate 75 Mg Tab) 75 mg PO DAILY [facility] Stop: 07/28/22 08:59 Last Admin: 06/28/22 07:31 Dose: 75 mg Documented By: CAILIN Cyanocobalamin (Cyanocobalamin 1000 Mcg/Ml Vial) 1,000 mcg IM QAM [facility] Stop: 07/28/22 08:59 Last Admin: 06/28/22 09:12 Dose: 1,000 mcg Documented By: CAILIN Fenofibrate (Fenofibrate Nanocrystallized 145 Mg Tablet) 145 mg PO DAILY [facility] Stop: 07/28/22 08:59 Last Admin: 06/28/22 07:33 Dose: 145 mg Documented By: CAILIN Heparin Sodium (Porcine) (Heparin Sod 5,000 Unit/0.5 Ml Vial) 5,000 units SQ Q12 [facility] Stop: 07/28/22 08:59 Last Admin: 06/28/22 07:33 Dose: 5,000 units Documented By: CAILIN Hydrochlorothiazide (Hydrochlorothiazide 25 Mg Tab) 12.5 mg PO DAILY [facility] Stop: 07/28/22 08:59 Last Admin: 06/28/22 07:40 Dose: 12.5 mg Documented By: CAILIN Sodium Chloride (Nss 1000ml) 1,000 mls @ 80 mls/hr IV .[id number] [facility] Stop: 06/29/22 01:51 Last Admin: 06/28/22 01:21 Dose: 80 mls/hr Documented By: JACOBO Ceftriaxone Sodium 1,000 mg/ (Dextrose) 50 mls @ 100 mls/hr IV Q24H [facility]; Protocol Stop: 07/08/22 01:59 Last Infusion: 06/28/22 02:26 Dose: 0 mls/hr Documented By: Admin: 06/28/22 01:51 Dose: 100 mls/hr Documented By: JACOBO Insulin Aspart (Insulin Aspart Per Unit) 0 units SC ACHS [facility] Stop: 07/28/22 07:29 Last Admin: 06/28/22 09:41 Dose: Not Given Documented By: CAILIN Labetalol HCl (Labetalol Hcl Iv 5 Mg/Ml 20ml) 10 mg IV Q4H PRN PRN Reason: Hypertension Stop: 07/28/22 00:51 Last Admin: 06/28/22 01:06 Dose: 10 mg Documented By: JACOBO Co-signed By: VIJAY Losartan Potassium (Losartan Potassium 50 Mg Tab) 50 mg PO BID [facility] Stop: 07/28/22 00:51 Last Admin: 06/28/22 07:39 Dose: 50 mg Documented By: Admin: 06/28/22 01:52 Dose: 50 mg Documented By: JACOBO Metoprolol Tartrate (Metoprolol Tartrate 50 Mg Tab) 50 mg PO BID [facility] Stop: 07/28/22 00:51 Last Admin: 06/28/22 07:39 Dose: 50 mg Documented By: Admin: 06/28/22 01:53 Dose: 50 mg Documented By: JACOBO Multivitamins (Multivitamin Tab) 1 tab PO QAM [facility] Stop: 07/28/22 08:59 Last Admin: 06/28/22 07:32 Dose: 1 tab Documented By: CAILIN Pantoprazole Sodium (Pantoprazole 40 Mg Tab) 40 mg PO DAILY [facility] Stop: 07/28/22 08:59 Last Admin: 06/28/22 07:32 Dose: 40 mg Documented By: CAILIN Coding Level of Care Code INP/OBS CONSULT LVL 4, 60 MIN Diagnoses Delirium R41.0 Altered mental status R41.82 Stroke I63.9 Vascular dementia F01.50 Time Spent (min) 60
--- NOTE | 2022-06-28 13:08 | Magnetic Resonance Report ---
Brain MRI WITH AND WITHOUT CONTRAST HISTORY: CONFUSION TECHNIQUE: Multiplanar multisequence MRI of the brain was performed both before and after the intrave nous administration of contrast. COMPARISON STUDY: Head CT 06/27/2022. Brain MRI 03/05/2021. FINDINGS: No areas of restricted diffusion to suggest acute infarction. The paranasal sinuses and mas toid air cells are clear. The major vascular flow-voids at the skull base are well-maintained. The or bits are unremarkable. Scattered old lacunar infarcts are again noted within the bilateral basal gang zeynep, bilateral thalami, jenni, left cerebellar hemisphere, and left periventricular white matter. Thes e are similar to the prior study. The ventricles and sulci demonstrate mild atrophic changes, unchang ed. There is no mass, hematoma, midline shift. No change in the confluent periventricular white matte r T2 hyperintensity which is greater than expected for age. Postcontrast sequences show no areas of a bnormal enhancement. IMPRESSION: 1. No acute infarct or intracranial hemorrhage. 2. No change in the scattered central lacunar infarcts, atrophic changes, and confluent periventricul ar T2 hyperintensity. 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 ACT 112: Negative or not required by law. Electronically signed by: Izaiah Rosario M.D. 06/28/2022 1:06 PM
[2022-06-28] MEDS: ATORVASTATIN 40 MG TAB PO SCH (21:33)
[2022-06-29] MEDS: cefTRIAXone SODIUM 1,000 MG in DEXTROSE 5% AD-VAN 50 ML IV SCH (02:56)
[2022-06-29] MEDS: FENOFIBRATE NANOCRYSTALLIZED 145 MG TABLET PO SCH (08:04)
[2022-06-29] MEDS: METOPROLOL TARTRATE 50 MG TAB PO SCH ×2 (08:04→21:14)
[2022-06-29] MEDS: LOSARTAN POTASSIUM 50 MG TAB PO SCH ×2 (08:04→21:14)
[2022-06-29] MEDS: HEPARIN SOD 5,000 UNIT/0.5 ML VIAL SQ SCH (08:04)
[2022-06-29] MEDS: MULTIVITAMIN TAB PO SCH (08:04)
[2022-06-29] MEDS: CLOPIDOGREL BISULFATE 75 MG TAB PO SCH (08:04)
[2022-06-29] MEDS: PANTOprazole 40 MG TAB PO SCH (08:04)
[2022-06-29] MEDS: ASPIRIN 81 MG ECTAB PO SCH (08:04)
[2022-06-29] MEDS: CYANOCOBALAMIN 1000 MCG/ML VIAL IM SCH (08:05)
[2022-06-29] MEDS: INSULIN ASPART PER UNIT SC SCH ×2 (08:21→13:42)
--- NOTE | 2022-06-29 12:49 | Hospitalist Progress Note ---
Date of Service June 29, 2022 Assessment & Plan (1) Delirium: Plan: Etiologies concerning for but not limited to B12 deficiency, hypertensive urgency t-now imrpoved, CADASIL, early onset dementia, or psychiatric disturbance. 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 CADASIL can present with acute reversible encephalopathy, cognitive impairment, dementia, and psychiatric disturbances consistent with her current clinical presentation. Neuro was consulted and agrees etiology of confusion is likely multifactorial with underlying vascular dementia. We will continue antiplatelet therapy, antihypertensive therapy and glucose control. We will continue to reorient as needed and await for her to clear. Interestingly, son reports that she had an episode 3 to 4 months ago similar to this 1 that resolved spontaneously. Will transition her off telemetry. To reduce stroke risk further, she should be on apixaban and plavix per cardiology consultation during a previous admission. I requested her outpatient records from Jan 2022 and see that she never got on apixaban, still continuing the DAPT wtih ASA/Plavix instead. She has been in sinus rhythm since admission, but will now be off telemetry. With her h/o PAF, will now switch her to apixaban, cont plavix and stop ASA 81mg. (2) Hypertensive urgency: Plan: Hypertensive urgency coming in with blood pressure of 224/134. It is possible she may have some hypertensive encephalopathy, however, she was still confused even after BP was back in the normal range. Continue current medical therapy including losartan twice daily. HCTZ on hold for now because this caused electrolyte disturbances during the previous admission. May need to restart. Cont monitoring BP closely. (3) Paroxysmal atrial fibrillation: Plan: History of paroxysmal atrial fibrillation. She remains in sinus rhythm. Given her history of previous vascular/cerebrovascular events, anticoagulation for stroke prophylaxis was felt to be indicated during hospitalization March 2021. Records from [facility] in [place] reviewed and she was on DAPT as of Jan 26. Plan as noted above. (4) Carotid artery disease: Plan: she has a h/o stroke in 2018 with right sided weakness which eventually resolved. She was admitted July 2020 to [facility] for another left hemispheric stroke with residual right-sided weakness. Work-up revealed left carotid artery stenosis. She underwent LCCA stenting for symptomatic stenosis on July 18, [address] Carreno. She has a history of smoking with CAD hypertension dyslipidemia diabetes. She was reporting trouble writing (right- handed and some weakness of right arm since 2020 stroke. She was continued on dual antiplatelet therapy with aspirin and Plavix and statin therapy. She was counseled regarding smoking cessation. Will cont on plavix, apixaban and statin per plan above. Will continue to reiterate the importance of smoking cessation. (5) Diabetes: Plan: A1c 6.6 reflects good control. It is likely the patient has been noncompliant with medical therapy given mental status. She takes metformin 1000 p.o. twice daily. Will stop insulin orders and no further fingersticks are needed. (6) UTI (urinary tract infection): Plan: Possible UTI, urinary incontinence reported by son and current RN. Continue Rocephin pending culture results and clinical improvement. (7) B12 deficiency: Plan: Cyanocobalamin injections daily for 7 days, cont PO supplemntation after this. (8) Anxiety and depression: Plan: h/o Bipolar depression. Difficult to assess 2/2 delirium. She is reportedly on Ativan, which son reports he has been filling for her. It is questionable whether or not she is taking it, but will cont to monitor for withdrawal on telemetry. Psychiatry stopped her home venlafaxine prescription as it has not been filled in many months and may cause side effects with no evidence for current need for this. Additionally, Ativan 1 mg p.o. 3 times daily as needed has been filled consistently. We are watching for withdrawal related to this, however it appears this is not the case. Ativan as needed may be used for additional anxiety, tremulousness, or agitation. (9) CAD (coronary artery disease): Plan: chronic, stable. Cont medical management with plavix, statin, metoprolol. ASpirin stopped per plan above. (10) Hyperlipidemia: Plan: chronic, stable. Cont current medical therapy. (11) Tobacco use: Plan: reported use in the chart. Smoking cessation advised but currently she is delirious. Will add nicoderm if any concerning signs for withdrawal. (12) Stroke: Plan: History of strokes in the past. No acute stroke seen on MRI this admission. Cont apixaban, Plavix and statin apixaban Full Code Dispo-uncertain at this time. In her current situation, she will need placement. If her mental status clears, then she may be able to return home with her son. Would plan for SNF. At least 60 minutes of time was spent gathering information from previous records, coordinating with psychiatry, examining patient and interpreting test results. Pat Felix DO [facility] Hospitalist Admission and Anticipated Discharge Date Admission Date: June 27, 2022 Subjective 56 yo F who lives with her son presents with confusion She appears better today and speech is intact. She is still confused although she knows she is at [facility]. She has insight that her son's name is Joshua and confirms that she has felt not herself for the past 6 weeks. She agrees this is not normal for her. She denies any pain. Per NAOMI doran, patient has been impulsive trying to get out of bed and still confused. She is feeding herself today. She appears calm. Conversation Per her son by phone (06/29): Up until 1.5 months ago she was Bathing herself, laundry doing dishes 1.5 months ago she stopped doing things for herself/taking care of herself she has always been "like a recluse" son reports she is speaking words but can't remember them prior to this she was oriented and holding conversations without issue, ambulating and doing things for herself without issue. she did have an episode like this 3-4 months ago and she just snapped out of it--son states she was not hospitalized for this he hasn't noticed any fevers, cough or other symptoms. She has been "using the bathroom just anywhere" Sister was helping with meds but "fell off the face of the earth" 4 months ago Mom has been in charge of meds but likely non-compliant; son reports picking up meds for her but not administering them. Patient stopped driving about two years ago. Review of Systems Review of Systems: Cannot determine ROS 2/2 delirium Physical Exam Physical Exam: CONSTITUTIONAL: WNWD, vitals as above, generally well-appearing, NAD EYES:pupils are round and equal bilaterally, normal conjunctivae, no scleral icterus ENT: external ear and nose normal NECK: trachea midline RESPIRATORY: clear to auscultation bilaterally, no crackles, rales or wheezes, normal respiratory effort CARDIOVASCULAR: regular rate and rhythm, S1 and 2 heard without murmurs, gallops or rubs, no JVD, no peripheral edema CHEST: inspection of chest was normal GASTROINTESTINAL: soft, nontender, ND, no guarding MUSCULOSKELETAL: strength 5/5 throughout, although limited assessment as she is not following instructions. head is normocephalic and atraumatic SKIN: warm and dry NEUROLOGIC: No facial palsy. Better at following instructions and interacting with some meaningful conversation. Still disoriented but knows her son's name and can answer that she is at "[facility] Cannot tell me this is a hospital. Has no insight into what is wrong, but knows that she is not herself today. Speech intact. CN 2-12 grossly intact, normal cognition, normal speech, no tremor PSYCHIATRIC: alert but disoriented. Results & Data Results & Data ([facility]) Vital Signs (Past 12 Hours) Vital Signs Temp Pulse Pulse Resp BP BP Pulse Ox 06/29/22 08:00 70 06/29/22 08:00 06/29/22 07:01 36.6 C 74 18 158/77 H 95 06/29/22 02:56 36.6 C 77 20 134/64 95 06/29/22 00:52 Pulse Ox O2 Del Method O2 Del Method 06/29/22 08:00 06/29/22 08:00 Room Air 06/29/22 07:01 Room Air 06/29/22 02:56 Room Air 06/29/22 00:52 95 Room Air Medications Administered Current Inpatient Medications Acetaminophen (Acetaminophen 325 Mg Tab) 650 mg PO Q4H PRN PRN Reason: Pain or Fever Stop: 07/28/22 00:51 Aspirin (Aspirin 81 Mg Ectab) 81 mg PO DAILY INDRA Stop: 07/28/22 08:59 Last Admin: 06/29/22 08:04 Dose: 81 mg Atorvastatin Calcium (Atorvastatin 40 Mg Tab) 40 mg PO HS INDRA Stop: 07/28/22 20:59 Last Admin: 06/28/22 21:33 Dose: 40 mg Clopidogrel Bisulfate (Clopidogrel Bisulfate 75 Mg Tab) 75 mg PO DAILY INDRA Stop: 07/28/22 08:59 Last Admin: 06/29/22 08:04 Dose: 75 mg Cyanocobalamin (Cyanocobalamin 1000 Mcg/Ml Vial) 1,000 mcg IM QAM INDRA Stop: 07/28/22 08:59 Last Admin: 06/29/22 08:05 Dose: 1,000 mcg Dextrose (Dextrose 50% 50 Ml Syringe) 25 - 50 ml IV UD PRN; Protocol PRN Reason: Hypoglycemia Protocol Stop: 07/28/22 00:51 Fenofibrate (Fenofibrate Nanocrystallized 145 Mg Tablet) 145 mg PO DAILY INDRA Stop: 07/28/22 08:59 Last Admin: 06/29/22 08:04 Dose: 145 mg Glucagon (Glucagon For Inj 1 Mg Vial) 1 mg SQ UD PRN; Protocol PRN Reason: Hypoglycemia Protocol Stop: 07/28/22 00:51 Glucose (Glucose 10 Tab/Tube) 4 - 8 tab PO UD PRN; Protocol PRN Reason: Hypoglycemia Treatment Stop: 07/28/22 00:51 Glucose (Glucose 40% Gel 15 Gm Tube) 15 - 30 gm PO UD PRN; Protocol PRN Reason: Hypoglycemia Protocol Stop: 07/28/22 00:51 Heparin Sodium (Porcine) (Heparin Sod 5,000 Unit/0.5 Ml Vial) 5,000 units SQ Q12 INDRA Stop: 07/28/22 08:59 Last Admin: 06/29/22 08:04 Dose: 5,000 units Hydrochlorothiazide (Hydrochlorothiazide 25 Mg Tab) 12.5 mg PO DAILY INDRA Stop: 07/28/22 08:59 Last Admin: 06/28/22 07:40 Dose: 12.5 mg Ceftriaxone Sodium 1,000 mg/ (Dextrose) 50 mls @ 100 mls/hr IV Q24H [facility]; Protocol Stop: 07/08/22 01:59 Last Infusion: 06/29/22 03:58 Dose: Infused Insulin Aspart (Insulin Aspart Per Unit) 0 units SC ACHS INDRA Stop: 07/28/22 07:29 Last Admin: 06/29/22 08:21 Dose: Not Given Losartan Potassium (Losartan Potassium 50 Mg Tab) 50 mg PO BID INDRA Stop: 07/28/22 00:51 Last Admin: 06/29/22 08:04 Dose: 50 mg Metoprolol Tartrate (Metoprolol Tartrate 50 Mg Tab) 50 mg PO BID INDRA Stop: 07/28/22 00:51 Last Admin: 06/29/22 08:04 Dose: 50 mg Miscellaneous (Carbohydrates For Hypoglycemia ) 15 - 30 gm PO UD PRN PRN Reason: Hypoglycemia Protocol Stop: 07/28/22 00:51 Multivitamins (Multivitamin Tab) 1 tab PO QAM INDRA Stop: 07/28/22 08:59 Last Admin: 06/29/22 08:04 Dose: 1 tab Nitroglycerin (Nitroglycerin Sl 0.4 Mg/Tab Tab) 0.4 mg SL Q5M PRN PRN Reason: Chest Pain Stop: 07/28/22 00:51 Pantoprazole Sodium (Pantoprazole 40 Mg Tab) 40 mg PO DAILY INDRA Stop: 07/28/22 08:59 Last Admin: 06/29/22 08:04 Dose: 40 mg Polyethylene Glycol (Polyethylene (Miralax) 17 Gm Pack) 17 gm PO DAILY PRN PRN Reason: Constipation Stop: 07/28/22 00:51 (5) Diabetes Diabetes mellitus type: type 2 Diabetes mellitus adjunct faculty for medical terminology insulin use: without residential use Diabetes mellitus complication status: without complication Qualified Code(s): E11.9 - Type 2 diabetes mellitus without complications
[2022-06-29] MEDS ORDERED: hydroCHLOROthiazide 25 MG TAB PO STA (16:37)
[2022-06-29] MEDS ORDERED: LABETALOL HCL IV 5 MG/ML 20ML IV STA (16:40)
[2022-06-29] MEDS: ATORVASTATIN 40 MG TAB PO SCH (21:13)
[2022-06-29] MEDS: APIXABAN 5 MG TABLET PO SCH (21:15)
[2022-06-30] MEDS: cefTRIAXone SODIUM 1,000 MG in DEXTROSE 5% AD-VAN 50 ML IV SCH (01:47)
[2022-06-30 07:31] LABS: Hematocrit (blood only) 29.4 % (37.0-47.0); Hemoglobin 10.3 g/dl (12.0-16.0); Mean Corpuscular Hemoglobin 28.8 pg (25.0-34.0); Mean Corpuscular Volume 82.1 fL (80.0-100.0); Mean Platelet Volume 8.9 fL (9.4-12.4); Platelet Count 310 K/uL (130-400); RDW Coefficient of Variation 13.8 % (11.5-14.5); RDW Standard Deviation 41.1 fL (36.4-46.3); Red Blood Count 3.58 M/uL (4.20-5.40); White Blood Count 5.97 K/ul (4.8-10.8)
[2022-06-30 07:38] LABS: BUN Creatinine Ratio 22.6 (10-20); Calcium 8.2 mg/dl (8.5-10.1); Creatinine Clr Calc Pharmacy 51.1 ml/min; Est GFR (African American) 78.5 ml/min; Est GFR (Non-African American) 67.7 ml/min; Magnesium 1.6 mg/dl (1.7-2.4); Phosphorus 4.5 mg/dl (2.5-4.9); Potassium 3.2 mmol/L (3.5-5.1)
[2022-06-30] MEDS: CLOPIDOGREL BISULFATE 75 MG TAB PO SCH (08:03)
[2022-06-30] MEDS: APIXABAN 5 MG TABLET PO SCH ×2 (08:03→20:57)
[2022-06-30] MEDS: LOSARTAN POTASSIUM 50 MG TAB PO SCH ×2 (08:04→20:58)
[2022-06-30] MEDS: METOPROLOL TARTRATE 50 MG TAB PO SCH ×2 (08:04→20:57)
[2022-06-30] MEDS: FENOFIBRATE NANOCRYSTALLIZED 145 MG TABLET PO SCH (08:04)
[2022-06-30] MEDS: MULTIVITAMIN TAB PO SCH (08:05)
[2022-06-30] MEDS: PANTOprazole 40 MG TAB PO SCH (08:05)
[2022-06-30] MEDS: CYANOCOBALAMIN 1000 MCG/ML VIAL IM SCH (09:36)
[2022-06-30] MEDS: POTASSIUM CHLORIDE CRTAB 20 MEQ TABCR PO SCH ×2 (09:42→14:18)
[2022-06-30] MEDS: hydroCHLOROthiazide 25 MG TAB PO SCH (09:43)
[2022-06-30] MEDS: MAGNESIUM SULFATE / D5W 1 GM/100 ML BAG IV SCH ×4 (09:56→16:01)
--- NOTE | 2022-06-30 13:23 | Hospitalist Progress Note ---
Date of Service June 30, 2022 Assessment & Plan (1) Delirium: Plan: Etiologies concerning for but not limited to B12 deficiency, hypertensive urgency t-now imrpoved, CADASIL, early onset dementia, or psychiatric disturbance. 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 CADASIL can present with acute reversible encephalopathy, cognitive impairment, dementia, and psychiatric disturbances consistent with her current clinical presentation. Neuro was consulted and agrees etiology of confusion is likely multifactorial with underlying vascular dementia. We will continue antiplatelet therapy, antihypertensive therapy and glucose control. We will continue to reorient as needed and await for her to clear. Interestingly, son reports that she had an episode 3 to 4 months ago similar to this 1 that resolved spontaneously. Will transition her off telemetry. To reduce stroke risk further, she should be on apixaban and plavix per cardiology consultation during a previous admission. I requested her outpatient records from Jan 2022 and see that she never got on apixaban, still continuing the DAPT wtih ASA/Plavix instead. She has been in sinus rhythm since admission, but will now be off telemetry. With her h/o PAF, will now switch her to apixaban, cont plavix and stop ASA 81mg. 06/30: Improved today. Remains clear and A&O x 2. Improving on her ability to perform ADLs. No gross focal deficits. Cont supportive care. (2) Hypertensive urgency: Plan: Hypertensive urgency coming in with blood pressure of 224/134. It is possible she may have some hypertensive encephalopathy, however, she was still confused even after BP was back in the normal range. Continue current medical therapy including losartan twice daily. HCTZ on hold for now because this caused electrolyte disturbances during the previous admission. May need to restart. Cont monitoring BP closely. 06/30: Elevated above goal. HCTZ restarted, cont to monitor electrolytes closely. (3) Paroxysmal atrial fibrillation: Plan: History of paroxysmal atrial fibrillation. She remains in sinus rhythm. Given her history of previous vascular/cerebrovascular events, anticoagulation for stroke prophylaxis was felt to be indicated during hospitalization March 2021. Records from [facility] in [place] reviewed and she was on DAPT as of Jan 26. Plan as noted above. (4) Carotid artery disease: Plan: she has a h/o stroke in 2018 with right sided weakness which eventually resolved. She was admitted July 2020 to [facility] for another left hemispheric stroke with residual right-sided weakness. Work-up revealed left carotid artery stenosis. She underwent LCCA stenting for symptomatic stenosis on July 18, [address] Carreno. She has a history of smoking with CAD hypertension dyslipidemia diabetes. She was reporting trouble writing (right- handed and some weakness of right arm since 2020 stroke. She was continued on dual antiplatelet therapy with aspirin and Plavix and statin therapy. She was counseled regarding smoking cessation. Will cont on plavix, apixaban and statin per plan above. Will continue to reiterate the importance of smoking cessation. (5) Diabetes: Plan: A1c 6.6 reflects good control. It is likely the patient has been noncompliant with medical therapy given mental status. She takes metformin 1000 p.o. twice daily. Will stop insulin orders and no further fingersticks are needed. (6) UTI (urinary tract infection): Plan: Possible UTI, urinary incontinence reported by son and current RN. Continue Rocephin pending culture results and clinical improvement. (7) B12 deficiency: Plan: Cyanocobalamin injections daily for 7 days, cont PO supplemntation after this. (8) Anxiety and depression: Plan: h/o Bipolar depression. Difficult to assess 2/2 delirium. She is reportedly on Ativan, which son reports he has been filling for her. It is questionable whether or not she is taking it, but will cont to monitor for withdrawal on tel emetry. Psychiatry stopped her home venlafaxine prescription as it has not been filled in many months and may cause side effects with no evidence for current need for this. Additionally, Ativan 1 mg p.o. 3 times daily as needed has been filled consistently. We are watching for withdrawal related to this, however it appears this is not the case. Ativan as needed may be used for additional anxie ty, tremulousness, or agitation. She is not currently requiring this. (9) CAD (coronary artery disease): Plan: chronic, stable. Cont medical management with plavix, statin, metoprolol. ASpirin stopped per plan above. (10) Hyperlipidemia: Plan: chronic, stable. Cont current medical therapy. (11) Tobacco use: Plan: reported use in the chart. Smoking cessation advised but currently she is delirious. Will add nicoderm if any concerning signs for withdrawal. (12) Stroke: Plan: History of strokes in the past. No acute stroke seen on MRI this admission. Cont apixaban, Plavix and statin apixaban Full Code Dispo-uncertain at this time. In her current situation, she will need placement. If her mental status clears, then she may be able to return home with her son. Would plan for SNF. Pat Felix DO [facility] Hospitalist (13) Severe malnutrition: Admission and Anticipated Discharge Date Admission Date: June 27, 2022 Subjective 56 yo F who lives with her son presents with confusion She appears better today and speech is intact. She feels she is better overall She is not delirious today and is able to hold a conversation Still with little insight into her disease process. Conversation Per her son by phone (06/29): Up until 1.5 months ago she was Bathing herself, laundry doing dishes 1.5 months ago she stopped doing things for herself/taking care of herself she has always been "like a recluse" son reports she is speaking words but can't remember them prior to this she was oriented and holding conversations without issue, ambulating and doing things for herself without issue. she did have an episode like this 3-4 months ago and she just snapped out of it--son states she was not hospitalized for this he hasn't noticed any fevers, cough or other symptoms. She has been "using the bathroom just anywhere" Sister was helping with meds but "fell off the face of the earth" 4 months ago Mom has been in charge of meds but likely non-compliant; son reports picking up meds for her but not administering them. Patient stopped driving about two years ago. Review of Systems Review of Systems: ROS is negative except as indicated on subjective above. Physical Exam Physical Exam: CONSTITUTIONAL: WNWD, vitals as above, generally well-appearing, NAD EYES:pupils are round and equal bilaterally, normal conjunctivae, no scleral icterus ENT: external ear and nose normal NECK: trachea midline RESPIRATORY: clear to auscultation bilaterally, no crackles, rales or wheezes, normal respiratory effort CARDIOVASCULAR: regular rate and rhythm, S1 and 2 heard without murmurs, gallops or rubs, no JVD, no peripheral edema CHEST: inspection of chest was normal GASTROINTESTINAL: soft, nontender, ND, no guarding MUSCULOSKELETAL: strength 5/5 throughout, although limited assessment as she is not following instructions. head is normocephalic and atraumatic SKIN: warm and dry NEUROLOGIC: No facial palsy. CN 2-12 grossly intact, normal cognition, normal speech, no tremor PSYCHIATRIC: alert and oriented to person and place but cannot tell me the year. Results & Data Results & Data ([facility]) Vital Signs (Past 12 Hours) Vital Signs Temp Pulse Resp BP Pulse Ox O2 Del Method 06/30/22 07:40 Room Air 06/30/22 07:20 36.6 C 77 16 156/71 H 98 Room Air Laboratory Results Short CBC 06/30/22 Range/Units 06:44 WBC 5.97 (4.8-10.8) K/ul Hgb 10.3 L (12.0-16.0) g/dl Hct 29.4 L (37.0-47.0) % Plt Count 310 (130-400) K/uL BMP 06/30/22 06:44 Sodium 132 L Potassium 3.2 L Chloride 99 Carbon Dioxide 29 BUN 21 Creatinine 0.93 Glucose 97 Calcium 8.2 L Medications Administered Current Inpatient Medications Acetaminophen (Acetaminophen 325 Mg Tab) 650 mg PO Q4H PRN PRN Reason: Pain or Fever Stop: 07/28/22 00:51 Apixaban (Apixaban 5 Mg Tablet) 5 mg PO BID INDRA Stop: 07/29/22 20:59 Last Admin: 06/30/22 08:03 Dose: 5 mg Atorvastatin Calcium (Atorvastatin 40 Mg Tab) 40 mg PO HS INDRA Stop: 07/28/22 20:59 Last Admin: 06/29/22 21:13 Dose: 40 mg Clopidogrel Bisulfate (Clopidogrel Bisulfate 75 Mg Tab) 75 mg PO DAILY INDRA Stop: 07/28/22 08:59 Last Admin: 06/30/22 08:03 Dose: 75 mg Cyanocobalamin (Cyanocobalamin 1000 Mcg/Ml Vial) 1,000 mcg IM QAM INDRA Stop: 07/28/22 08:59 Last Admin: 06/30/22 09:36 Dose: 1,000 mcg Fenofibrate (Fenofibrate Nanocrystallized 145 Mg Tablet) 145 mg PO DAILY INDRA Stop: 07/28/22 08:59 Last Admin: 06/30/22 08:04 Dose: 145 mg Hydrochlorothiazide (Hydrochlorothiazide 25 Mg Tab) 12.5 mg PO DAILY [facility] Stop: 07/28/22 08:59 Last Admin: 06/30/22 09:43 Dose: 12.5 mg Magnesium Sulfate/Dextrose (Magnesium Sulfate / D5w) 1 gm in 100 mls @ 50 mls/hr IV Q2H INDRA Stop: 06/30/22 16:59 Last Admin: 06/30/22 12:01 Dose: 50 mls/hr Lorazepam (Lorazepam 0.5 Mg Tab) 0.5 mg PO Q12H PRN PRN Reason: Anxiety Stop: 07/29/22 12:56 Losartan Potassium (Losartan Potassium 50 Mg Tab) 50 mg PO BID [facility] Stop: 07/28/22 00:51 Last Admin: 06/30/22 08:04 Dose: 50 mg Metoprolol Tartrate (Metoprolol Tartrate 50 Mg Tab) 50 mg PO BID [facility] Stop: 07/28/22 00:51 Last Admin: 06/30/22 08:04 Dose: 50 mg Multivitamins (Multivitamin Tab) 1 tab PO QAM INDRA Stop: 07/28/22 08:59 Last Admin: 06/30/22 08:05 Dose: 1 tab Nitroglycerin (Nitroglycerin Sl 0.4 Mg/Tab Tab) 0.4 mg SL Q5M PRN PRN Reason: Chest Pain Stop: 07/28/22 00:51 Pantoprazole Sodium (Pantoprazole 40 Mg Tab) 40 mg PO DAILY INDRA Stop: 07/28/22 08:59 Last Admin: 06/30/22 08:05 Dose: 40 mg Polyethylene Glycol (Polyethylene (Miralax) 17 Gm Pack) 17 gm PO DAILY PRN PRN Reason: Constipation Stop: 07/28/22 00:51 Potassium Chloride (Potassium Chloride Crtab 20 Meq Tabcr) 40 meq PO Q6H [facility] Stop: 06/30/22 14:31 Last Admin: 06/30/22 09:42 Dose: 40 meq (5) Diabetes Diabetes mellitus complication status: without complication Diabetes mellitus termite exterminator helper insulin use: without penitentiary use Diabetes mellitus type: type 2 Qualified Code(s): E11.9 - Type 2 diabetes mellitus without complications
[2022-06-30] MEDS: ATORVASTATIN 40 MG TAB PO SCH (20:57)
[2022-07-01 07:30] LABS: Hematocrit (blood only) 31.7 % (37.0-47.0); Hemoglobin 10.8 g/dl (12.0-16.0); Mean Corpuscular Hemoglobin 28.9 pg (25.0-34.0); Mean Corpuscular Hgb Conc 34.1 g/dL (32.0-36.0); Mean Corpuscular Volume 84.8 fL (80.0-100.0); Platelet Count 326 K/uL (130-400); RDW Coefficient of Variation 14.2 % (11.5-14.5); RDW Standard Deviation 43.7 fL (36.4-46.3); Red Blood Count 3.74 M/uL (4.20-5.40); White Blood Count 7.68 K/ul (4.8-10.8)
[2022-07-01] MEDS: APIXABAN 5 MG TABLET PO SCH ×2 (08:24→21:41)
[2022-07-01] MEDS: METOPROLOL TARTRATE 50 MG TAB PO SCH ×2 (08:24→21:40)
[2022-07-01] MEDS: LOSARTAN POTASSIUM 50 MG TAB PO SCH ×2 (08:24→21:40)
[2022-07-01 08:25] LABS: BUN Creatinine Ratio 19.6 (10-20); Calcium 8.3 mg/dl (8.5-10.1); Creatinine Clr Calc Pharmacy 44.4 ml/min; Est GFR (African American) 66.3 ml/min; Est GFR (Non-African American) 57.2 ml/min; Magnesium 2.3 mg/dl (1.7-2.4); Potassium 4.3 mmol/L (3.5-5.1)
[2022-07-01] MEDS: hydroCHLOROthiazide 25 MG TAB PO SCH (08:25)
[2022-07-01] MEDS: CLOPIDOGREL BISULFATE 75 MG TAB PO SCH (08:26)
[2022-07-01] MEDS: MULTIVITAMIN TAB PO SCH (08:26)
[2022-07-01] MEDS: PANTOprazole 40 MG TAB PO SCH (08:26)
[2022-07-01] MEDS: FENOFIBRATE NANOCRYSTALLIZED 145 MG TABLET PO SCH (08:27)
[2022-07-01] MEDS: CYANOCOBALAMIN 1000 MCG/ML VIAL IM SCH (08:31)
--- NOTE | 2022-07-01 10:36 | Hospitalist Progress Note ---
Date of Service July 01, 2022 Assessment & Plan (1) Delirium: Plan: Etiologies concerning for but not limited to B12 deficiency, hypertensive urgency t-now imrpoved, CADASIL, early onset dementia, or psychiatric disturbance. 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 CADASIL can present with acute reversible encephalopathy, cognitive impairment, dementia, and psychiatric disturbances consistent with her current clinical presentation. Neuro was consulted and agrees etiology of confusion is likely multifactorial with underlying vascular dementia. We will continue antiplatelet therapy, antihypertensive therapy and glucose control. We will continue to reorient as needed and await for her to clear. Interestingly, son reports that she had an episode 3 to 4 months ago similar to this 1 that resolved spontaneously. Will transition her off telemetry. To reduce stroke risk further, she should be on apixaban and plavix per cardiology consultation during a previous admission. I requested her outpatient records from Jan 2022 and see that she never got on apixaban, still continuing the DAPT wtih ASA/Plavix instead. She has been in sinus rhythm since admission, but will now be off telemetry. With her h/o PAF, will now switch her to apixaban, cont plavix and stop ASA 81mg. 06/30: Improved today. Remains clear and A&O x 2. Improving on her ability to perform ADLs. No gross focal deficits. Cont supportive care. 07/01: Clear, speech intact. A&O x 2, reports the year is 2008. She is ringing to use the restroom now instead of going in the bed (2) Vascular dementia: (3) Hypertensive urgency: Plan: Hypertensive urgency coming in with blood pressure of 224/134. It is possible she may have some hypertensive encephalopathy, however, she was still confused even after BP was back in the normal range. Continue current medical therapy including losartan twice daily. HCTZ on hold for now because this caused electrolyte disturbances during the previous admission. May need to restart. Cont monitoring BP closely. 06/30: Elevated above goal. HCTZ restarted, cont to monitor electrolytes closely. 07/01: Improved on the HCTZ, electrolytes reviewed and BMP WNL. Renal function looks good. (4) Paroxysmal atrial fibrillation: Plan: History of paroxysmal atrial fibrillation. She remains in sinus rhythm. Given her history of previous vascular/cerebrovascular events, anticoagulation for stroke prophylaxis was felt to be indicated during hospitalization March 2021. Records from [facility] in [place] reviewed and she was on DAPT as of Jan 26. Plan as noted above. (5) Carotid artery disease: Plan: she has a h/o stroke in 2018 with right sided weakness which eventually resolved. She was admitted July 2020 to [facility] for another left hemispheric stroke with residual right-sided weakness. Work-up revealed left carotid artery stenosis. She underwent LCCA stenting for symptomatic stenosis on July 18, [address] Carreno. She has a history of smoking with CAD hypertension dyslipidemia diabetes. She was reporting trouble writing (right- handed and some weakness of right arm since 2020 stroke. She was continued on dual antiplatelet therapy with aspirin and Plavix and statin therapy. She was counseled regarding smoking cessation. Will cont on plavix, apixaban and statin per plan above. Will continue to reiterate the importance of smoking cessation. (6) Diabetes: Plan: A1c 6.6 reflects good control. It is likely the patient has been noncompliant with medical therapy given mental status. She takes metformin 1000 p.o. twice daily. Will stop insulin orders and no further fingersticks are needed. (7) UTI (urinary tract infection): Plan: Possible UTI, urinary incontinence reported by son and current RN. Continue Rocephin pending culture results and clinical improvement. (8) B12 deficiency: Plan: Cyanocobalamin injections daily for 7 days, cont PO supplemntation after this. (9) Anxiety and depression: Plan: h/o Bipolar depression. She appears stable for the past 2-3 days. No needs for Ativan which is ordered PRN. No evidence of withdrawal. Psychiatry stopped her home venlafaxine prescription as it has not been filled in many months and may cause side effects with no evidence for current need for this. Cont supportive care. (10) CAD (coronary artery disease): Plan: chronic, stable. Cont medical management with plavix, statin, metoprolol. ASpirin stopped per plan above. (11) Hyperlipidemia: Plan: chronic, stable. Cont current medical therapy. (12) Tobacco use: Plan: reported use in the chart. Smoking cessation advised but currently she is delirious. Will add nicoderm if any concerning signs for withdrawal. (13) Stroke: Plan: History of strokes in the past. No acute stroke seen on MRI this admission. Cont apixaban, Plavix and statin apixaban Full Code Dispo-uncertain at this time. Pending PT/OT recommendations. I called son by phone and reviewed the findings including brain MRI, B12 deficiecny and urine culture results and reviewed how she was progressing clinically. I spent approximately 60 minutes reviewing labs, meds, evaluating patient and coordinating with family members. Will order PT/OT for help with appropriate disposition now that she is consistently cooperative. Pat Felix DO [facility] Hospitalist (14) Severe malnutrition: Admission and Anticipated Discharge Date Admission Date: June 27, 2022 Subjective 56 yo F who lives with her son presents with confusion She appears better today and speech is intact. She feels she is better overall She is not delirious today and is able to hold a conversation Still with little insight into her disease process, cannot remember events prior to admission She is calm and cooperative. She is tolerating PO Nurses had her in the shower to detangle her hair today and were unable to do it. I updated son on her progress by phone. Conversation Per her son by phone (06/29): Up until 1.5 months ago she was Bathing herself, laundry doing dishes 1.5 months ago she stopped doing things for herself/taking care of herself she has always been "like a recluse" son reports she is speaking words but can't remember them prior to this she was oriented and holding conversations without issue, ambulating and doing things for herself without issue. she did have an episode like this 3-4 months ago and she just snapped out of it--son states she was not hospitalized for this he hasn't noticed any fevers, cough or other symptoms. She has been "using the bathroom just anywhere" Sister was helping with meds but "fell off the face of the earth" 4 months ago Mom has been in charge of meds but likely non-compliant; son reports picking up meds for her but not administering them. Patient stopped driving about two years ago. Review of Systems Review of Systems: ROS is negative except as indicated on subjective above. Physical Exam Physical Exam: CONSTITUTIONAL: WNWD, vitals as above, generally well-appearing, NAD EYES:pupils are round and equal bilaterally, normal conjunctivae, no scleral icterus ENT: external ear and nose normal NECK: trachea midline RESPIRATORY: clear to auscultation bilaterally, no crackles, rales or wheezes, normal respiratory effort CARDIOVASCULAR: regular rate and rhythm, S1 and 2 heard without murmurs, gallops or rubs, no JVD, no peripheral edema CHEST: inspection of chest was normal GASTROINTESTINAL: soft, nontender, ND, no guarding MUSCULOSKELETAL: strength 5/5 throughout, although limited assessment as she is not following instructions. head is normocephalic and atraumatic SKIN: warm and dry NEUROLOGIC: No facial palsy. CN 2-12 grossly intact, normal cognition, normal speech, no tremor PSYCHIATRIC: alert and oriented to person and place but cannot tell me the year. Results & Data Results & Data ([facility] [place]) Vital Signs (Past 12 Hours) Vital Signs Temp Pulse Resp BP Pulse Ox O2 Del Method 07/01/22 07:31 36.6 C 68 14 146/73 H 98 Room Air 06/30/22 22:39 36.9 C 70 16 153/84 H 96 Room Air Laboratory Results Short CBC 07/01/22 Range/Units 06:49 WBC 7.68 (4.8-10.8) K/ul Hgb 10.8 L (12.0-16.0) g/dl Hct 31.7 L (37.0-47.0) % Plt Count 326 (130-400) K/uL BMP 07/01/22 06:53 Sodium 133 L Potassium 4.3 D Chloride 100 Carbon Dioxide 31 BUN 21 Creatinine 1.07 Glucose 96 Calcium 8.3 L Medications Administered Current Inpatient Medications Acetaminophen (Acetaminophen 325 Mg Tab) 650 mg PO Q4H PRN PRN Reason: Pain or Fever Stop: 07/28/22 00:51 Apixaban (Apixaban 5 Mg Tablet) 5 mg PO BID INDRA Stop: 07/29/22 20:59 Last Admin: 07/01/22 08:24 Dose: 5 mg Atorvastatin Calcium (Atorvastatin 40 Mg Tab) 40 mg PO HS INDRA Stop: 07/28/22 20:59 Last Admin: 06/30/22 20:57 Dose: 40 mg Clopidogrel Bisulfate (Clopidogrel Bisulfate 75 Mg Tab) 75 mg PO DAILY INDRA Stop: 07/28/22 08:59 Last Admin: 07/01/22 08:26 Dose: 75 mg Cyanocobalamin (Cyanocobalamin 1000 Mcg/Ml Vial) 1,000 mcg IM QAM [facility] Stop: 07/28/22 08:59 Last Admin: 07/01/22 08:31 Dose: 1,000 mcg Fenofibrate (Fenofibrate Nanocrystallized 145 Mg Tablet) 145 mg PO DAILY INDRA Stop: 07/28/22 08:59 Last Admin: 07/01/22 08:27 Dose: 145 mg Hydrochlorothiazide (Hydrochlorothiazide 25 Mg Tab) 12.5 mg PO DAILY INDRA Stop: 07/28/22 08:59 Last Admin: 07/01/22 08:25 Dose: 12.5 mg Lorazepam (Lorazepam 0.5 Mg Tab) 0.5 mg PO Q12H PRN PRN Reason: Anxiety Stop: 07/29/22 12:56 Losartan Potassium (Losartan Potassium 50 Mg Tab) 50 mg PO BID [facility] Stop: 07/28/22 00:51 Last Admin: 07/01/22 08:24 Dose: 50 mg Metoprolol Tartrate (Metoprolol Tartrate 50 Mg Tab) 50 mg PO BID INDRA Stop: 07/28/22 00:51 Last Admin: 07/01/22 08:24 Dose: 50 mg Multivitamins (Multivitamin Tab) 1 tab PO QAM [facility] Stop: 07/28/22 08:59 Last Admin: 07/01/22 08:26 Dose: 1 tab Nitroglycerin (Nitroglycerin Sl 0.4 Mg/Tab Tab) 0.4 mg SL Q5M PRN PRN Reason: Chest Pain Stop: 07/28/22 00:51 Pantoprazole Sodium (Pantoprazole 40 Mg Tab) 40 mg PO DAILY [facility] Stop: 07/28/22 08:59 Last Admin: 07/01/22 08:26 Dose: 40 mg Polyethylene Glycol (Polyethylene (Miralax) 17 Gm Pack) 17 gm PO DAILY PRN PRN Reason: Constipation Stop: 07/28/22 00:51 (6) Diabetes Diabetes mellitus complication status: without complication Diabetes mellitus senior living insulin use: without senior living use Diabetes mellitus type: type 2 Qualified Code(s): E11.9 - Type 2 diabetes mellitus without complications
[2022-07-01] MEDS: ATORVASTATIN 40 MG TAB PO SCH (21:41)
[2022-07-02] MEDS: METOPROLOL TARTRATE 50 MG TAB PO SCH ×2 (08:07→20:06)
[2022-07-02] MEDS: LOSARTAN POTASSIUM 50 MG TAB PO SCH ×2 (08:07→20:06)
[2022-07-02] MEDS: APIXABAN 5 MG TABLET PO SCH ×2 (08:08→20:06)
[2022-07-02] MEDS: FENOFIBRATE NANOCRYSTALLIZED 145 MG TABLET PO SCH (08:08)
[2022-07-02] MEDS: PANTOprazole 40 MG TAB PO SCH (08:09)
[2022-07-02] MEDS: MULTIVITAMIN TAB PO SCH (08:09)
[2022-07-02] MEDS: CLOPIDOGREL BISULFATE 75 MG TAB PO SCH (08:09)
[2022-07-02] MEDS: hydroCHLOROthiazide 25 MG TAB PO SCH (08:10)
[2022-07-02] MEDS: CYANOCOBALAMIN 1000 MCG/ML VIAL IM SCH (08:12)
--- NOTE | 2022-07-02 12:04 | Hospitalist Progress Note ---
Date of Service July 02, 2022 Assessment & Plan (1) Delirium: Plan: Etiologies concerning for but not limited to B12 deficiency, hypertensive urgency t-now imrpoved, CADASIL, early onset dementia, or psychiatric disturbance. 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 CADASIL can present with acute reversible encephalopathy, cognitive impairment, dementia, and psychiatric disturbances consistent with her current clinical presentation. Neuro was consulted and agrees etiology of confusion is likely multifactorial with underlying vascular dementia. We will continue antiplatelet therapy, antihypertensive therapy and glucose control. We will continue to reorient as needed and await for her to clear. Interestingly, son reports that she had an episode 3 to 4 months ago similar to this 1 that resolved spontaneously. Will transition her off telemetry. To reduce stroke risk further, she should be on apixaban and plavix per cardiology consultation during a previous admission. I requested her outpatient records from Jan 2022 and see that she never got on apixaban, still continuing the DAPT wtih ASA/Plavix instead. She has been in sinus rhythm since admission, but will now be off telemetry. With her h/o PAF, will now switch her to apixaban, cont plavix and stop ASA 81mg. 06/30: Improved today. Remains clear and A&O x 2. Improving on her ability to perform ADLs. No gross focal deficits. Cont supportive care. 07/01: Clear, speech intact. A&O x 2, reports the year is 2008. She is ringing to use the restroom now instead of going in the bed 07/02: she is about the same today with no regression. Some incontinence while sleeping, but otherwise communicating well. (2) Vascular dementia: (3) Severe malnutrition: (4) Hypertensive urgency: Plan: Hypertensive urgency coming in with blood pressure of 224/134. It is possible she may have some hypertensive encephalopathy, however, she was still confused even after BP was back in the normal range. Continue current medical therapy including losartan twice daily. HCTZ on hold for now because this caused electrolyte disturbances during the previous admission. May need to restart. Cont monitoring BP closely. 06/30: Elevated above goal. HCTZ restarted, cont to monitor electrolytes closely. 07/01: Improved on the HCTZ, electrolytes reviewed and BMP WNL. Renal function looks good. (5) Paroxysmal atrial fibrillation: Plan: History of paroxysmal atrial fibrillation. She remains in sinus rhythm. Given her history of previous vascular/cerebrovascular events, anticoagulation for stroke prophylaxis was felt to be indicated during hospitalization March 2021. Records from [facility] in [place] reviewed and she was on DAPT as of Jan 26. Plan as noted above. (6) Carotid artery disease: Plan: she has a h/o stroke in 2018 with right sided weakness which eventually resolved. She was admitted July 2020 to [facility] for another left hemispheric stroke with residual right-sided weakness. Work-up revealed left carotid artery stenosis. She underwent LCCA stenting for symptomatic stenosis on July 18, [address] Carreno. She has a history of smoking with CAD hypertension dyslipidemia diabetes. She was reporting trouble writing (right- handed and some weakness of right arm since 2020 stroke. She was continued on dual antiplatelet therapy with aspirin and Plavix and statin therapy. She was counseled regarding smoking cessation. Will cont on plavix, apixaban and statin per plan above. Will continue to reiterate the importance of smoking cessation. (7) Diabetes: Plan: A1c 6.6 reflects good control. It is likely the patient has been noncompliant with medical therapy given mental status. She takes metformin 1000 p.o. twice daily. Will stop insulin orders and no further fingersticks are needed. (8) UTI (urinary tract infection): Plan: Possible UTI, urinary incontinence reported by son and current RN. Continue Rocephin pending culture results and clinical improvement. (9) B12 deficiency: Plan: Cyanocobalamin injections daily for 7 days, cont PO supplemntation after this. (10) Anxiety and depression: Plan: h/o Bipolar depression. She appears stable for the past 2-3 days. No needs for Ativan which is ordered PRN. No evidence of withdrawal. Psychiatry stopped her home venlafaxine prescription as it has not been filled in many months and may cause side effects with no evidence for current need for this. Cont supportive care. (11) CAD (coronary artery disease): Plan: chronic, stable. Cont medical management with plavix, statin, metoprolol. ASpirin stopped per plan above. (12) Hyperlipidemia: Plan: chronic, stable. Cont current medical therapy. (13) Tobacco use: Plan: reported use in the chart. Smoking cessation advised but currently she is delirious. Will add nicoderm if any concerning signs for withdrawal. (14) Stroke: Plan: History of strokes in the past. No acute stroke seen on MRI this admission. Cont apixaban, Plavix and statin apixaban Full Code Dispo-uncertain at this time. Pending PT/OT recommendations. I called son by phone and reviewed the findings including brain MRI, B12 deficiecny and urine culture results and reviewed how she was progressing clinically. I spent approximately 60 minutes reviewing labs, meds, evaluating patient and coordinating with family members. Will order PT/OT for help with appropriate disposition now that she is consistently cooperative. Pat Felix DO [facility] Hospitalist Admission and Anticipated Discharge Date Admission Date: June 27, 2022 Subjective 56 yo F who lives with her son presents with confusion She appears better today and speech is intact. She feels she is better overall She is not delirious today and is able to hold a conversation Still with little insight into her disease process, cannot remember events prior to admission She is calm and cooperative. She is tolerating PO Nurses had her in the shower to detangle her hair today and were unable to do it. I updated son on her progress by phone. Conversation Per her son by phone (06/29): Up until 1.5 months ago she was Bathing herself, laundry doing dishes 1.5 months ago she stopped doing things for herself/taking care of herself she has always been "like a recluse" son reports she is speaking words but can't remember them prior to this she was oriented and holding conversations without issue, ambulating and doing things for herself without issue. she did have an episode like this 3-4 months ago and she just snapped out of it--son states she was not hospitalized for this he hasn't noticed any fevers, cough or other symptoms. She has been "using the bathroom just anywhere" Sister was helping with meds but "fell off the face of the earth" 4 months ago Mom has been in charge of meds but likely non-compliant; son reports picking up meds for her but not administering them. Patient stopped driving about two years ago. Review of Systems Review of Systems: ROS is negative except as indicated on subjective above. Physical Exam Physical Exam: CONSTITUTIONAL: WNWD, vitals as above, generally well-appearing, NAD EYES:pupils are round and equal bilaterally, normal conjunctivae, no scleral icterus ENT: external ear and nose normal NECK: trachea midline RESPIRATORY: clear to auscultation bilaterally, no crackles, rales or wheezes, normal respiratory effort CARDIOVASCULAR: regular rate and rhythm, S1 and 2 heard without murmurs, gallops or rubs, no JVD, no peripheral edema CHEST: inspection of chest was normal GASTROINTESTINAL: soft, nontender, ND, no guarding MUSCULOSKELETAL: strength 5/5 throughout, although limited assessment as she is not following instructions. head is normocephalic and atraumatic SKIN: warm and dry NEUROLOGIC: No facial palsy. CN 2-12 grossly intact, normal cognition, normal speech, no tremor PSYCHIATRIC: alert and oriented to person and place but cannot tell me the year. Results & Data Results & Data ([facility]) Vital Signs (Past 12 Hours) Vital Signs Temp Pulse Resp BP Pulse Ox O2 Del Method 07/02/22 07:30 36.6 C 71 16 155/71 H 99 Room Air Medications Administered Current Inpatient Medications Acetaminophen (Acetaminophen 325 Mg Tab) 650 mg PO Q4H PRN PRN Reason: Pain or Fever Stop: 07/28/22 00:51 Apixaban (Apixaban 5 Mg Tablet) 5 mg PO BID [facility] Stop: 07/29/22 20:59 Last Admin: 07/02/22 08:08 Dose: 5 mg Atorvastatin Calcium (Atorvastatin 40 Mg Tab) 40 mg PO HS INDRA Stop: 07/28/22 20:59 Last Admin: 07/01/22 21:41 Dose: 40 mg Clopidogrel Bisulfate (Clopidogrel Bisulfate 75 Mg Tab) 75 mg PO DAILY IN[facility] Stop: 07/28/22 08:59 Last Admin: 07/02/22 08:09 Dose: 75 mg Cyanocobalamin (Cyanocobalamin 1000 Mcg/Ml Vial) 1,000 mcg IM QAM [facility] Stop: 07/04/22 10:00 Last Admin: 07/02/22 08:12 Dose: 1,000 mcg Cyanocobalamin (Cyanocobalamin (B-12) 500 Mcg Tablet) 1,000 mcg PO QAM [facility] Stop: 08/04/22 08:59 Fenofibrate (Fenofibrate Nanocrystallized 145 Mg Tablet) 145 mg PO DAILY [facility] Stop: 07/28/22 08:59 Last Admin: 07/02/22 08:08 Dose: 145 mg Hydrochlorothiazide (Hydrochlorothiazide 25 Mg Tab) 12.5 mg PO DAILY IN[facility] Stop: 07/28/22 08:59 Last Admin: 07/02/22 08:10 Dose: 12.5 mg Lorazepam (Lorazepam 0.5 Mg Tab) 0.5 mg PO Q12H PRN PRN Reason: Anxiety Stop: 07/29/22 12:56 Losartan Potassium (Losartan Potassium 50 Mg Tab) 50 mg PO BID [facility] Stop: 07/28/22 00:51 Last Admin: 07/02/22 08:07 Dose: 50 mg Metoprolol Tartrate (Metoprolol Tartrate 50 Mg Tab) 50 mg PO BID [facility] Stop: 07/28/22 00:51 Last Admin: 07/02/22 08:07 Dose: 50 mg Multivitamins (Multivitamin Tab) 1 tab PO QAM [facility] Stop: 07/28/22 08:59 Last Admin: 07/02/22 08:09 Dose: 1 tab Nitroglycerin (Nitroglycerin Sl 0.4 Mg/Tab Tab) 0.4 mg SL Q5M PRN PRN Reason: Chest Pain Stop: 07/28/22 00:51 Pantoprazole Sodium (Pantoprazole 40 Mg Tab) 40 mg PO DAILY [facility] Stop: 07/28/22 08:59 Last Admin: 07/02/22 08:09 Dose: 40 mg Polyethylene Glycol (Polyethylene (Miralax) 17 Gm Pack) 17 gm PO DAILY PRN PRN Reason: Constipation Stop: 07/28/22 00:51 (7) Diabetes Diabetes mellitus complication status: without complication Diabetes mellitus correction insulin use: without extermination supervisor use Diabetes mellitus type: type 2 Qualified Code(s): E11.9 - Type 2 diabetes mellitus without complications
[2022-07-02] MEDS: LORazepam 0.5 MG TAB PO PRN (20:06)
[2022-07-02] MEDS: ATORVASTATIN 40 MG TAB PO SCH (20:06)
[2022-07-03] MEDS: CYANOCOBALAMIN 1000 MCG/ML VIAL IM SCH (08:11)
[2022-07-03] MEDS: CLOPIDOGREL BISULFATE 75 MG TAB PO SCH (08:11)
[2022-07-03] MEDS: MULTIVITAMIN TAB PO SCH (08:12)
[2022-07-03] MEDS: LOSARTAN POTASSIUM 50 MG TAB PO SCH ×2 (08:12→19:54)
[2022-07-03] MEDS: PANTOprazole 40 MG TAB PO SCH (08:12)
[2022-07-03] MEDS: FENOFIBRATE NANOCRYSTALLIZED 145 MG TABLET PO SCH (08:12)
[2022-07-03] MEDS: APIXABAN 5 MG TABLET PO SCH ×2 (08:12→19:55)
[2022-07-03] MEDS: METOPROLOL TARTRATE 50 MG TAB PO SCH ×2 (08:12→19:55)
[2022-07-03] MEDS: hydroCHLOROthiazide 25 MG TAB PO SCH (08:12)
--- NOTE | 2022-07-03 15:37 | Hospitalist Progress Note ---
Date of Service July 03, 2022 Assessment & Plan (1) Delirium: Plan: Etiologies concerning for but not limited to B12 deficiency, hypertensive urgency t-now imrpoved, CADASIL, early onset dementia, or psychiatric disturbance. 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 CADASIL can present with acute reversible encephalopathy, cognitive impairment, dementia, and psychiatric disturbances consistent with her current clinical presentation. Neuro was consulted and agrees etiology of confusion is likely multifactorial with underlying vascular dementia. We will continue antiplatelet therapy, antihypertensive therapy and glucose control. We will continue to reorient as needed and await for her to clear. Interestingly, son reports that she had an episode 3 to 4 months ago similar to this 1 that resolved spontaneously. Will transition her off telemetry. To reduce stroke risk further, she should be on apixaban and plavix per cardiology consultation during a previous admission. I requested her outpatient records from Jan 2022 and see that she never got on apixaban, still continuing the DAPT wtih ASA/Plavix instead. She has been in sinus rhythm since admission, but will now be off telemetry. With her h/o PAF, will now switch her to apixaban, cont plavix and stop ASA 81mg. 06/30: Improved today. Remains clear and A&O x 2. Improving on her ability to perform ADLs. No gross focal deficits. Cont supportive care. 07/01: Clear, speech intact. A&O x 2, reports the year is 2008. She is ringing to use the restroom now instead of going in the bed 07/02: she is about the same today with no regression. Some incontinence while sleeping, but otherwise communicating well. 07/03: mental status is stable, A&O x 2 but this afternoon she is a Little more confused. Redirection provided by RN. (2) Vascular dementia: (3) Severe malnutrition: (4) Hypertensive urgency: Plan: Hypertensive urgency coming in with blood pressure of 224/134. It is possible she may have some hypertensive encephalopathy, however, she was still confused even after BP was back in the normal range. Continue current medical therapy including losartan twice daily. HCTZ on hold for now because this caused electrolyte disturbances during the previous admission. May need to restart. Cont monitoring BP closely. 06/30: Elevated above goal. HCTZ restarted, cont to monitor electrolytes closely. 07/01: Improved on the HCTZ, electrolytes reviewed and BMP WNL. Renal function looks good. 07/03: Acceptable B for now, around 146 systolic today. If still >140 systolic in am may consider adding nifedipine. (5) Paroxysmal atrial fibrillation: Plan: History of paroxysmal atrial fibrillation. She remains in sinus rhythm. Given her history of previous vascular/cerebrovascular events, anticoagulation for stroke prophylaxis was felt to be indicated during hospitalization March 2021. Records from [facility] in [place] reviewed and she was on DAPT as of Jan 26. Cont with apixaban and Plavix. There are no bleeding events. CBC in am. (6) Carotid artery disease: Plan: she has a h/o stroke in 2017 with right sided weakness which eventually resolved. She was admitted July 2020 to [facility] for another left hemispheric stroke with residual right-sided weakness. Work-up revealed left carotid artery stenosis. She underwent LCCA stenting for symptomatic stenosis on July 18, [address] Carreno. She has a history of smoking with CAD hypertension dyslipidemia diabetes. She was reporting trouble writing (right- handed and some weakness of right arm since 2020 stroke. She was continued on dual antiplatelet therapy with aspirin and Plavix and statin therapy. She was counseled regarding smoking cessation. Will cont on plavix, apixaban and statin per plan above. Will continue to reiterate the importance of smoking cessation. (7) Diabetes: Plan: A1c 6.6 reflects good control. It is likely the patient has been noncompliant with medical therapy given mental status. She takes metformin 1000 p.o. twice daily. Will stop insulin orders and no further fingersticks are needed. (8) UTI (urinary tract infection): Plan: UTI ruled out. Abx stopped (9) B12 deficiency: Plan: Cyanocobalamin injections daily for 7 days, cont PO supplemntation after this. (10) Anxiety and depression: Plan: h/o Bipolar depression. She appears stable for the past 2-3 days. No needs for Ativan which is ordered PRN. No evidence of withdrawal. Psychiatry stopped her home venlafaxine prescription as it has not been filled in many months and may cause side effects with no evidence for current need for this. Cont supportive care. (11) CAD (coronary artery disease): Plan: chronic, stable. Cont medical management with plavix, statin, metoprolol. ASpirin stopped per plan above. (12) Hyperlipidemia: Plan: chronic, stable. Cont current medical therapy. (13) Tobacco use: Plan: reported use in the chart. Smoking cessation advised but currently she is delirious. Will add nicoderm if any concerning signs for withdrawal. (14) Stroke: Plan: History of strokes in the past. No acute stroke seen on MRI this admission. Cont apixaban, Plavix and statin apixaban Full Code Dispo-uncertain at this time. Pending PT/OT recommendations. I called son by phone and reviewed the findings including brain MRI, B12 deficiecny and urine culture results and reviewed how she was progressing clinically. I spent approximately 60 minutes reviewing labs, meds, evaluating patient and coordinating with family members. Will order PT/OT for help with appropriate disposition now that she is consistently cooperative. [facility] and [facility]tic[facility]ated Discharge Date Admission Date: June 27, 2022 Subjective 56 yo F who lives with her son presents with confusion she is about the same orientation and abilities today OT recommends SNF. She has to be redirected multiple times by nursing staff this afternoon. Review of Systems Review of Systems: ROS is negative except as indicated on subjective above. Physical Exam Physical Exam: CONSTITUTIONAL: WNWD, vitals as above, generally well-appearing, NAD EYES:pupils are round and equal bilaterally, normal conjunctivae, no scleral icterus ENT: external ear and nose normal NECK: trachea midline RESPIRATORY: clear to auscultation bilaterally, no crackles, rales or wheezes, normal respiratory effort CARDIOVASCULAR: regular rate and rhythm, S1 and 2 heard without murmurs, gallops or rubs, no JVD, no peripheral edema CHEST: inspection of chest was normal GASTROINTESTINAL: soft, nontender, ND, no guarding MUSCULOSKELETAL: strength 5/5 throughout, although limited assessment as she is not following instructions. head is normocephalic and atraumatic SKIN: warm and dry NEUROLOGIC: No facial palsy. CN 2-12 grossly intact, normal cognition, normal speech, no tremor PSYCHIATRIC: alert and oriented to person and place but cannot tell me the year. Results & Data Results & Data ([facility]) Vital Signs (Past 12 Hours) Vital Signs Temp Pulse Pulse Resp BP Pulse Ox O2 Del Method 02/27/23 15:21 36.4 C L 72 16 154/72 H 98 Room Air 07/03/22 08:10 36.6 C 73 17 146/80 H 98 Room Air Medications Administered Current Inpatient Medications Acetaminophen (Acetaminophen 325 Mg Tab) 650 mg PO Q4H PRN PRN Reason: Pain or Fever Stop: 07/28/22 00:51 Apixaban (Apixaban 5 Mg Tablet) 5 mg PO BID INDRA Stop: 07/29/22 20:59 Last Admin: 07/03/22 08:12 Dose: 5 mg Atorvastatin Calcium (Atorvastatin 40 Mg Tab) 40 mg PO HS INDRA Stop: 07/28/22 20:59 Last Admin: 07/02/22 20:06 Dose: 40 mg Clopidogrel Bisulfate (Clopidogrel Bisulfate 75 Mg Tab) 75 mg PO DAILY INDRA Stop: 07/28/22 08:59 Last Admin: 07/03/22 08:11 Dose: 75 mg Cyanocobalamin (Cyanocobalamin 1000 Mcg/Ml Vial) 1,000 mcg IM QAM INDRA Stop: 07/04/22 10:00 Last Admin: 07/03/22 08:11 Dose: 1,000 mcg Cyanocobalamin (Cyanocobalamin (B-12) 500 Mcg Tablet) 1,000 mcg PO QAM INDRA Stop: 08/04/22 08:59 Fenofibrate (Fenofibrate Nanocrystallized 145 Mg Tablet) 145 mg PO DAILY INDRA Stop: 07/28/22 08:59 Last Admin: 07/03/22 08:12 Dose: 145 mg Hydrochlorothiazide (Hydrochlorothiazide 25 Mg Tab) 12.5 mg PO DAILY INDRA Stop: 07/28/22 08:59 Last Admin: 07/03/22 08:12 Dose: 12.5 mg Lorazepam (Lorazepam 0.5 Mg Tab) 0.5 mg PO Q12H PRN PRN Reason: Anxiety Stop: 07/29/22 12:56 Last Admin: 07/02/22 20:06 Dose: 0.5 mg Losartan Potassium (Losartan Potassium 50 Mg Tab) 50 mg PO BID INDRA Stop: 07/28/22 00:51 Last Admin: 07/03/22 08:12 Dose: 50 mg Metoprolol Tartrate (Metoprolol Tartrate 50 Mg Tab) 50 mg PO BID INDRA Stop: 07/28/22 00:51 Last Admin: 02/27/23 08:12 Dose: 50 mg Multivitamins (Multivitamin Tab) 1 tab PO QAM INDRA Stop: 07/28/22 08:59 Last Admin: 07/03/22 08:12 Dose: 1 tab Nitroglycerin (Nitroglycerin Sl 0.4 Mg/Tab Tab) 0.4 mg SL Q5M PRN PRN Reason: Chest Pain Stop: 07/28/22 00:51 Pantoprazole Sodium (Pantoprazole 40 Mg Tab) 40 mg PO DAILY INDRA Stop: 07/28/22 08:59 Last Admin: 07/03/22 08:12 Dose: 40 mg Polyethylene Glycol (Polyethylene (Miralax) 17 Gm Pack) 17 gm PO DAILY PRN PRN Reason: Constipation Stop: 07/28/22 00:51 (7) Diabetes Diabetes mellitus complication status: without complication Diabetes mellitus manager long term care insulin use: without manager long term care use Diabetes mellitus type: type 2 Qualified Code(s): E11.9 - Type 2 diabetes mellitus without complications
[2022-07-03] MEDS: ATORVASTATIN 40 MG TAB PO SCH (19:55)
[2022-07-03] MEDS: LORazepam 0.5 MG TAB PO PRN (19:55)
[2022-07-04 07:19] LABS: Hematocrit (blood only) 36.3 % (37.0-47.0); Hemoglobin 12.5 g/dl (12.0-16.0); Mean Corpuscular Hemoglobin 28.7 pg (25.0-34.0); Mean Corpuscular Hgb Conc 34.4 g/dL (32.0-36.0); Mean Corpuscular Volume 83.4 fL (80.0-100.0); Mean Platelet Volume 9.2 fL (9.4-12.4); Platelet Count 407 K/uL (130-400); RDW Coefficient of Variation 14.5 % (11.5-14.5); RDW Standard Deviation 43.8 fL (36.4-46.3); Red Blood Count 4.35 M/uL (4.20-5.40); White Blood Count 7.78 K/ul (4.8-10.8)
[2022-07-04 07:40] LABS: BUN Creatinine Ratio 32.1 (10-20); Calcium 9.2 mg/dl (8.5-10.1); Creatinine Clr Calc Pharmacy 33.7 ml/min; Est GFR (African American) 51.9 ml/min; Est GFR (Non-African American) 44.8 ml/min; Magnesium 1.8 mg/dl (1.7-2.4); Phosphorus 4.3 mg/dl (2.5-4.9); Potassium 4.1 mmol/L (3.5-5.1)
[2022-07-04] MEDS: hydroCHLOROthiazide 25 MG TAB PO SCH (08:22)
[2022-07-04] MEDS: PANTOprazole 40 MG TAB PO SCH (08:22)
[2022-07-04] MEDS: LOSARTAN POTASSIUM 50 MG TAB PO SCH ×2 (08:23→20:29)
[2022-07-04] MEDS: FENOFIBRATE NANOCRYSTALLIZED 145 MG TABLET PO SCH (08:23)
[2022-07-04] MEDS: APIXABAN 5 MG TABLET PO SCH ×2 (08:23→20:29)
[2022-07-04] MEDS: CYANOCOBALAMIN 1000 MCG/ML VIAL IM SCH (08:23)
[2022-07-04] MEDS: MULTIVITAMIN TAB PO SCH (08:23)
[2022-07-04] MEDS: METOPROLOL TARTRATE 50 MG TAB PO SCH ×2 (08:23→20:30)
[2022-07-04] MEDS: CLOPIDOGREL BISULFATE 75 MG TAB PO SCH (08:23)
--- NOTE | 2022-07-04 14:44 | Hospitalist Progress Note ---
Date of Service July 04, 2022 Assessment & Plan (1) Delirium: Plan: Etiologies concerning for but not limited to B12 deficiency, hypertensive urgency t-now imrpoved, CADASIL, early onset dementia, or psychiatric disturbance. 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 CADASIL can present with acute reversible encephalopathy, cognitive impairment, dementia, and psychiatric disturbances consistent with her current clinical presentation. Neuro was consulted and agrees etiology of confusion is likely multifactorial with underlying vascular dementia. We will continue antiplatelet therapy, antihypertensive therapy and glucose control. We will continue to reorient as needed and await for her to clear. Interestingly, son reports that she had an episode 3 to 4 months ago similar to this 1 that resolved spontaneously. Will transition her off telemetry. To reduce stroke risk further, she should be on apixaban and plavix per cardiology consultation during a previous admission. I requested her outpatient records from Jan 2022 and see that she never got on apixaban, still continuing the DAPT wtih ASA/Plavix instead. She has been in sinus rhythm since admission, but will now be off telemetry. With her h/o PAF, will now switch her to apixaban, cont plavix and stop ASA 81mg. 06/30: Improved today. Remains clear and A&O x 2. Improving on her ability to perform ADLs. No gross focal deficits. Cont supportive care. 07/01: Clear, speech intact. A&O x 2, reports the year is 2008. She is ringing to use the restroom now instead of going in the bed 07/02: she is about the same today with no regression. Some incontinence while sleeping, but otherwise communicating well. 07/03: mental status is stable, A&O x 2 but this afternoon she is a Little more confused. Redirection provided by RN. (2) Vascular dementia: (3) Severe malnutrition: (4) Hypertensive urgency: Plan: Hypertensive urgency coming in with blood pressure of 224/134. It is possible she may have some hypertensive encephalopathy, however, she was still confused even after BP was back in the normal range. Continue current medical therapy including losartan twice daily. HCTZ on hold for now because this caused electrolyte disturbances during the previous admission. May need to restart. Cont monitoring BP closely. 06/30: Elevated above goal. HCTZ restarted, cont to monitor electrolytes closely. 07/01: Improved on the HCTZ, electrolytes reviewed and BMP WNL. Renal function looks good. 07/03: Acceptable B for now, around 146 systolic today. If still >140 systolic in am may consider adding nifedipine. 07/04: BP at goal, no changes. (5) Paroxysmal atrial fibrillation: Plan: History of paroxysmal atrial fibrillation. She remains in sinus rhythm. Given her history of previous vascular/cerebrovascular events, anticoagulation for stroke prophylaxis was felt to be indicated during hospitalization March 2021. Records from [facility] in [place] reviewed and she was on DAPT as of Jan 26. Cont with apixaban and Plavix. There are no bleeding events. (6) Carotid artery disease: Plan: she has a h/o stroke in 2017 with right sided weakness which eventually resolved. She was admitted July 2020 to [facility] for another left hemispheric stroke with residual right-sided weakness. Work-up revealed left carotid artery stenosis. She underwent LCCA stenting for symptomatic stenosis on July 18, [address] Carreno. She has a history of smoking with CAD hypertension dyslipidemia diabetes. She was reporting trouble writing (right- handed and some weakness of right arm since 2020 stroke. She was continued on dual antiplatelet therapy with aspirin and Plavix and statin therapy. She was counseled regarding smoking cessation. Will cont on plavix, apixaban and statin per plan above. Will continue to reiterate the importance of smoking cessation. (7) Diabetes: Plan: A1c 6.6 reflects good control. It is likely the patient has been noncompliant with medical therapy given mental status. She takes metformin 1000 p.o. twice daily. Will stop insulin orders and no further fingersticks are needed. (8) UTI (urinary tract infection): Plan: UTI ruled out. Abx stopped (9) B12 deficiency: Plan: Cyanocobalamin injections daily for 7 days, cont PO supplemntation after this. (10) Anxiety and depression: Plan: h/o Bipolar depression. She appears stable for the past 2-3 days. No needs for Ativan which is ordered PRN. No evidence of withdrawal. Psychiatry stopped her home venlafaxine prescription as it has not been filled in many months and may cause side effects with no evidence for current need for this. Cont supportive care. (11) CAD (coronary artery disease): Plan: chronic, stable. Cont medical management with plavix, statin, metoprolol. ASpirin stopped per plan above. (12) Hyperlipidemia: Plan: chronic, stable. Cont current medical therapy. (13) Tobacco use: Plan: reported use in the chart. Smoking cessation advised but currently she is delirious. Will add nicoderm if any concerning signs for withdrawal. (14) Stroke: Plan: History of strokes in the past. No acute stroke seen on MRI this admission. Cont apixaban, Plavix and statin apixaban Full Code Dispo-Pending placement at SNF DO Joselyn Power Hospitalist Admission and Anticipated Discharge Date Admission Date: June 27, 2022 Subjective 56 yo F who lives with her son presents with confusion she is about the same orientation and abilities today OT recommends SNF. She has to be redirected multiple times by nursing staff this afternoon. She is up and walking in the hallways, taking cues. Required Ativan overnight to help her sleep. Review of Systems Review of Systems: ROS is negative except as indicated on subjective above. Physical Exam Physical Exam: CONSTITUTIONAL: WNWD, vitals as above, generally well-appearing, NAD EYES: ENT: external ear and nose normal NECK: trachea midline RESPIRATORY: CARDIOVASCULAR: CHEST: GASTROINTESTINAL: MUSCULOSKELETAL: strength 5/5 throughout, up and walking the hallways, head is normocephalic and atraumatic SKIN: warm and dry NEUROLOGIC: No facial palsy. CN 2-12 grossly intact, normal cognition, normal speech, no tremor PSYCHIATRIC: alert and oriented to person and place but cannot tell me the year. Results & Data Results & Data ([facility]) Vital Signs (Past 12 Hours) Vital Signs Temp Pulse Resp BP Pulse Ox O2 Del Method 07/04/22 14:22 36.6 C 79 16 126/67 98 Room Air 07/04/22 07:35 36.4 C L 74 16 152/80 H 100 Room Air Laboratory Results Short CBC 07/04/22 Range/Units 06:21 WBC 7.78 (4.8-10.8) K/ul Hgb 12.5 (12.0-16.0) g/dl Hct 36.3 L (37.0-47.0) % Plt Count 407 H (130-400) K/uL BMP 07/04/22 06:21 Sodium 134 L Potassium 4.1 Chloride 98 Carbon Dioxide 32 BUN 42 H Creatinine 1.31 H Glucose 99 Calcium 9.2 Medications Administered Current Inpatient Medications Acetaminophen (Acetaminophen 325 Mg Tab) 650 mg PO Q4H PRN PRN Reason: Pain or Fever Stop: 07/28/22 00:51 Apixaban (Apixaban 5 Mg Tablet) 5 mg PO BID INDRA Stop: 07/29/22 20:59 Last Admin: 07/04/22 08:23 Dose: 5 mg Atorvastatin Calcium (Atorvastatin 40 Mg Tab) 40 mg PO HS INDRA Stop: 07/28/22 20:59 Last Admin: 07/03/22 19:55 Dose: 40 mg Clopidogrel Bisulfate (Clopidogrel Bisulfate 75 Mg Tab) 75 mg PO DAILY INDRA Stop: 07/28/22 08:59 Last Admin: 07/04/22 08:23 Dose: 75 mg Cyanocobalamin (Cyanocobalamin (B-12) 500 Mcg Tablet) 1,000 mcg PO QAM INDRA Stop: 08/04/22 08:59 Fenofibrate (Fenofibrate Nanocrystallized 145 Mg Tablet) 145 mg PO DAILY INDRA Stop: 07/28/22 08:59 Last Admin: 07/04/22 08:23 Dose: 145 mg Hydrochlorothiazide (Hydrochlorothiazide 25 Mg Tab) 12.5 mg PO DAILY INDRA Stop: 07/28/22 08:59 Last Admin: 07/04/22 08:22 Dose: 12.5 mg Lorazepam (Lorazepam 0.5 Mg Tab) 0.5 mg PO Q12H PRN PRN Reason: Anxiety Stop: 07/29/22 12:56 Last Admin: 07/03/22 19:55 Dose: 0.5 mg Losartan Potassium (Losartan Potassium 50 Mg Tab) 50 mg PO BID INDRA Stop: 07/28/22 00:51 Last Admin: 07/04/22 08:23 Dose: 50 mg Metoprolol Tartrate (Metoprolol Tartrate 50 Mg Tab) 50 mg PO BID INDRA Stop: 07/28/22 00:51 Last Admin: 07/04/22 08:23 Dose: 50 mg Multivitamins (Multivitamin Tab) 1 tab PO QAM INDRA Stop: 07/28/22 08:59 Last Admin: 07/04/22 08:23 Dose: 1 tab Nitroglycerin (Nitroglycerin Sl 0.4 Mg/Tab Tab) 0.4 mg SL Q5M PRN PRN Reason: Chest Pain Stop: 07/28/22 00:51 Pantoprazole Sodium (Pantoprazole 40 Mg Tab) 40 mg PO DAILY INDRA Stop: 07/28/22 08:59 Last Admin: 07/04/22 08:22 Dose: 40 mg Polyethylene Glycol (Polyethylene (Miralax) 17 Gm Pack) 17 gm PO DAILY PRN PRN Reason: Constipation Stop: 07/28/22 00:51 (7) Diabetes Diabetes mellitus complication status: without complication Diabetes mellitus retirement insulin use: without retirement use Diabetes mellitus type: type 2 Qualified Code(s): E11.9 - Type 2 diabetes mellitus without complications
[2022-07-04] MEDS: LORazepam 0.5 MG TAB PO PRN (19:26)
[2022-07-04] MEDS: ATORVASTATIN 40 MG TAB PO SCH (20:29)
[2022-07-05] MEDS: hydroCHLOROthiazide 25 MG TAB PO SCH (08:33)
[2022-07-05] MEDS: CLOPIDOGREL BISULFATE 75 MG TAB PO SCH (08:33)
[2022-07-05] MEDS: LOSARTAN POTASSIUM 50 MG TAB PO SCH ×2 (08:33→19:43)
[2022-07-05] MEDS: CYANOCOBALAMIN (B-12) 500 MCG TABLET PO SCH (08:34)
[2022-07-05] MEDS: METOPROLOL TARTRATE 50 MG TAB PO SCH ×2 (08:34→19:43)
[2022-07-05] MEDS: MULTIVITAMIN TAB PO SCH (08:34)
[2022-07-05] MEDS: APIXABAN 5 MG TABLET PO SCH ×2 (08:34→19:43)
[2022-07-05] MEDS: PANTOprazole 40 MG TAB PO SCH (08:34)
[2022-07-05] MEDS: FENOFIBRATE NANOCRYSTALLIZED 145 MG TABLET PO SCH (08:34)
--- NOTE | 2022-07-05 13:21 | Hospitalist Progress Note ---
Date of Service July 05, 2022 Assessment & Plan (1) Delirium: Plan: Etiologies concerning for but not limited to B12 deficiency, hypertensive urgency t-now imrpoved, CADASIL, early onset dementia, or psychiatric disturbance. 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 CADASIL can present with acute reversible encephalopathy, cognitive impairment, dementia, and psychiatric disturbances consistent with her current clinical presentation. Neuro was consulted and agre es etiology of confusion is likely multifactorial with underlying vascular dementia. We will continue antiplatelet therapy, antihypertensive therapy and glucose control. We will continue to reorient as needed and await for her to clear. Interestingly, son reports that she had an episode 3 to 4 months ago similar to this 1 that resolved spontaneously. Will transition her off telemetry. To re duce stroke risk further, she should be on apixaban and plavix per cardiology consultation during a previous admission. I requested her outpatient records from Jan 2022 and see that she never got on apixaban, still continuing the DAPT wtih ASA/Plavix instead. She has been in sinus rhythm since admission, but will now be off telemetry. With her h/o PAF, will now switch her to apixaban, cont plavix and stop ASA 81mg. 06/30: Improved today. Remains clear and A&O x 2. Improving on her ability to perform ADLs. No gross focal deficits. Cont supportive care. 07/01: Clear, speech intact. A&O x 2, reports the year is 2008. She is ringing to use the restroom now instead of going in the bed 07/02: she is about the same today with no regression. Some incontinence while sleeping, but otherwise communicating well. 07/03: mental status is stable, A&O x 2 but this afternoon she is a Little more confused. Redirection provided by RN. 07/05: mental status stable. No episodes of delirium, awaiting SNF placement. She is good wt this plan. (2) Vascular dementia: (3) Severe malnutrition: (4) Hypertensive urgency: Plan: Hypertensive urgency coming in with blood pressure of 224/134. It is possible she may have some hypertensive encephalopathy, however, she was still confused even after BP was back in the normal range. Continue current medical therapy including losartan twice daily. HCTZ on hold for now because this caused electrolyte disturbances during the previous admission. May need to restart. Cont monitoring BP closely. 06/30: Elevated above goal. HCTZ restarted, cont to monitor electrolytes closely. 07/01: Improved on the HCTZ, electrolytes reviewed and BMP WNL. Renal function looks good. 07/03: Acceptable B for now, around 146 systolic today. If still >140 systolic in am may consider adding nifedipine. 07/04: BP at goal, no changes. 07/05: BP consistently in the 150s-160s. Will add a small dose of nifedipine at this time for goal BP<140/90 (5) Paroxysmal atrial fibrillation: Plan: History of paroxysmal atrial fibrillation. She remains in sinus rhythm. Given her history of previous vascular/cerebrovascular events, anticoagulation for stroke prophylaxis was felt to be indicated during hospitalization March 2021. Records from [facility] in [place] reviewed and she was on DAPT as of Jan 26. Cont with apixaban and Plavix. There are no bleeding events. (6) Carotid artery disease: Plan: she has a h/o stroke in 2017 with right sided weakness which eventually resolved. She was admitted July 2020 to [facility] for another left hemispheric stroke with residual right-sided weakness. Work-up revealed left carotid artery stenosis. She underwent LCCA stenting for symptomatic stenosis on July 18, [address] Carreno. She has a history of smoking with CAD hypertension dyslipidemia diabetes. She was reporting trouble writing (right- handed and some weakness of right arm since 2020 stroke. She was continued on dual antiplatelet therapy with aspirin and Plavix and statin therapy. She was counseled regarding smoking cessation. Will cont on plavix, apixaban and statin per plan above. Will continue to reiterate the importance of smoking cessation. (7) Diabetes: Plan: A1c 6.6 reflects good control. It is likely the patient has been noncompliant with medical therapy given mental status. She takes metformin 1000 p.o. twice daily. Will stop insulin orders and no further fingersticks are needed. (8) UTI (urinary tract infection): Plan: UTI ruled out. Abx stopped (9) B12 deficiency: Plan: Cyanocobalamin injections daily for 7 days, cont PO supplemntation after this. (10) Anxiety and depression: Plan: h/o Bipolar depression. She appears stable for the past 2-3 days. No needs for Ativan which is ordered PRN. No evidence of withdrawal. Psychiatry stopped her home venlafaxine prescription as it has not been filled in many months and may cause side effects with no evidence for current need for this. Cont supportive care. (11) CAD (coronary artery disease): Plan: chronic, stable. Cont medical management with plavix, statin, metoprolol. ASpirin stopped per plan above. (12) Hyperlipidemia: Plan: chronic, stable. Cont current medical therapy. (13) Tobacco use: Plan: reported use in the chart. Smoking cessation advised but currently she is delirious. Will add nicoderm if any concerning signs for withdrawal. (14) Stroke: Plan: History of strokes in the past. No acute stroke seen on MRI this admission. Cont apixaban, Plavix and statin apixaban Full Code Dispo-Pending placement at [facility] DO Joselyn Power Hospitalist Admission and Anticipated Discharge Date Admission Date: June 27, 2022 Subjective 56 yo F who lives with her son presents with confusion she states she is about the same She is feeding herself It appears she slept overnight She has not been needing significantly high doses of Ativan. Review of Systems Review of Systems: ROS is negative except as indicated on subjective above. Physical Exam Physical Exam: CONSTITUTIONAL: WNWD, vitals as above, generally well-appearing, NAD EYES:pupils are round and equal bilaterally, normal conjunctivae, no scleral icterus ENT: external ear and nose normal NECK: trachea midline RESPIRATORY: clear to auscultation bilaterally, no crackles, rales or wheezes, normal respiratory effort CARDIOVASCULAR: regular rate and rhythm, S1 and 2 heard without murmurs, gallops or rubs, no JVD, no peripheral edema CHEST: inspection of chest was normal GASTROINTESTINAL: soft, nontender, ND, no guarding MUSCULOSKELETAL: strength 5/5 throughout, head is normocephalic and atraumatic SKIN: warm and dry NEUROLOGIC: No facial palsy. CN 2-12 grossly intact, normal cognition, normal speech, no tremor PSYCHIATRIC: alert and oriented to person and place Results & Data Results & Data ([facility]) Vital Signs (Past 12 Hours) Vital Signs Temp Pulse Resp BP Pulse Ox O2 Del Method 07/05/22 07:15 36.7 C 75 18 155/79 H 98 Room Air Medications Administered Current Inpatient Medications Acetaminophen (Acetaminophen 325 Mg Tab) 650 mg PO Q4H PRN PRN Reason: Pain or Fever Stop: 07/28/22 00:51 Apixaban (Apixaban 5 Mg Tablet) 5 mg PO BID INDRA Stop: 07/29/22 20:59 Last Admin: 07/05/22 08:34 Dose: 5 mg Atorvastatin Calcium (Atorvastatin 40 Mg Tab) 40 mg PO HS INDRA Stop: 07/28/22 20:59 Last Admin: 07/04/22 20:29 Dose: 40 mg Clopidogrel Bisulfate (Clopidogrel Bisulfate 75 Mg Tab) 75 mg PO DAILY INDRA Stop: 07/28/22 08:59 Last Admin: 07/05/22 08:33 Dose: 75 mg Cyanocobalamin (Cyanocobalamin (B-12) 500 Mcg Tablet) 1,000 mcg PO QAM INDRA Stop: 08/04/22 08:59 Last Admin: 07/05/22 08:34 Dose: 1,000 mcg Fenofibrate (Fenofibrate Nanocrystallized 145 Mg Tablet) 145 mg PO DAILY INDRA Stop: 07/28/22 08:59 Last Admin: 07/05/22 08:34 Dose: 145 mg Hydrochlorothiazide (Hydrochlorothiazide 25 Mg Tab) 12.5 mg PO DAILY INDRA Stop: 07/28/22 08:59 Last Admin: 07/05/22 08:33 Dose: 12.5 mg Lorazepam (Lorazepam 0.5 Mg Tab) 0.5 mg PO Q12H PRN PRN Reason: Anxiety Stop: 07/29/22 12:56 Last Admin: 07/04/22 19:26 Dose: 0.5 mg Losartan Potassium (Losartan Potassium 50 Mg Tab) 50 mg PO BID INDRA Stop: 07/28/22 00:51 Last Admin: 07/05/22 08:33 Dose: 50 mg Metoprolol Tartrate (Metoprolol Tartrate 50 Mg Tab) 50 mg PO BID INDRA Stop: 07/28/22 00:51 Last Admin: 07/05/22 08:34 Dose: 50 mg Multivitamins (Multivitamin Tab) 1 tab PO QAM INDRA Stop: 07/28/22 08:59 Last Admin: 07/05/22 08:34 Dose: 1 tab Nitroglycerin (Nitroglycerin Sl 0.4 Mg/Tab Tab) 0.4 mg SL Q5M PRN PRN Reason: Chest Pain Stop: 07/28/22 00:51 Pantoprazole Sodium (Pantoprazole 40 Mg Tab) 40 mg PO DAILY INDRA Stop: 07/28/22 08:59 Last Admin: 07/05/22 08:34 Dose: 40 mg Polyethylene Glycol (Polyethylene (Miralax) 17 Gm Pack) 17 gm PO DAILY PRN PRN Reason: Constipation Stop: 07/28/22 00:51 (7) Diabetes Diabetes mellitus complication status: without complication Diabetes mellitus keno terminal operator insulin use: without senior care use Diabetes mellitus type: type 2 Qualified Code(s): E11.9 - Type 2 diabetes mellitus without complications
[2022-07-05] MEDS ORDERED: NIFEdipine EXTENDED REL 30 MG TABCR PO STA (13:24)
[2022-07-05] MEDS: LORazepam 0.5 MG TAB PO PRN (19:41)
[2022-07-05] MEDS: ATORVASTATIN 40 MG TAB PO SCH (19:44)
[2022-07-06] MEDS: hydroCHLOROthiazide 25 MG TAB PO SCH (08:28)
[2022-07-06] MEDS: CYANOCOBALAMIN (B-12) 500 MCG TABLET PO SCH (08:28)
[2022-07-06] MEDS: CLOPIDOGREL BISULFATE 75 MG TAB PO SCH (08:28)
[2022-07-06] MEDS: PANTOprazole 40 MG TAB PO SCH (08:29)
[2022-07-06] MEDS: NIFEdipine EXTENDED REL 30 MG TABCR PO SCH (08:29)
[2022-07-06] MEDS: FENOFIBRATE NANOCRYSTALLIZED 145 MG TABLET PO SCH (08:29)
[2022-07-06] MEDS: MULTIVITAMIN TAB PO SCH (08:29)
[2022-07-06] MEDS: APIXABAN 5 MG TABLET PO SCH ×2 (08:29→19:46)
[2022-07-06] MEDS: METOPROLOL TARTRATE 50 MG TAB PO SCH ×2 (08:29→19:47)
[2022-07-06] MEDS: LOSARTAN POTASSIUM 50 MG TAB PO SCH ×2 (08:29→19:47)
[2022-07-06 09:31] LABS: BUN Creatinine Ratio 38.6 (10-20); Creatinine Clr Calc Pharmacy 38.7 ml/min; Est GFR (African American) 61.4 ml/min; Potassium 3.9 mmol/L (3.5-5.1)
--- NOTE | 2022-07-06 15:20 | Hospitalist Progress Note ---
Date of Service July 06, 2022 Assessment & Plan (1) Delirium: Plan: Etiologies concerning for but not limited to B12 deficiency, hypertensive urgency t-now imrpoved, CADASIL, early onset dementia, or psychiatric disturbance. 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 CADASIL can present with acute reversible encephalopathy, cognitive impairment, dementia, and psychiatric disturbances consistent with her current clinical presentation. Neuro was consulted and agre es etiology of confusion is likely multifactorial with underlying vascular dementia. We will continue antiplatelet therapy, antihypertensive therapy and glucose control. We will continue to reorient as needed and await for her to clear. Interestingly, son reports that she had an episode 3 to 4 months ago similar to this 1 that resolved spontaneously. Will transition her off telemetry. To re duce stroke risk further, she should be on apixaban and plavix per cardiology consultation during a previous admission. I requested her outpatient records from Jan 2022 and see that she never got on apixaban, still continuing the DAPT wtih ASA/Plavix instead. She has been in sinus rhythm since admission, but will now be off telemetry. With her h/o PAF, will now switch her to apixaban, cont plavix and stop ASA 81mg. 06/30: Improved today. Remains clear and A&O x 2. Improving on her ability to perform ADLs. No gross focal deficits. Cont supportive care. 07/01: Clear, speech intact. A&O x 2, reports the year is 2008. She is ringing to use the restroom now instead of going in the bed 07/02: she is about the same today with no regression. Some incontinence while sleeping, but otherwise communicating well. 07/03: mental status is stable, A&O x 2 but this afternoon she is a Little more confused. Redirection provided by RN. 07/05: mental status stable. No episodes of delirium, awaiting SNF placement. She is good wt this plan. (2) Vascular dementia: Plan: plan as above. (3) Severe malnutrition: Plan: tolerating PO, monitor for intake and weight gain. (4) Hypertensive urgency: Plan: Hypertensive urgency coming in with blood pressure of 224/134. It is possible she may have some hypertensive encephalopathy, however, she was still confused even after BP was back in the normal range. Continue current medical therapy including losartan twice daily. HCTZ on hold for now because this caused electrolyte disturbances during the previous admission. May need to restart. Cont monitoring BP closely. 06/30: Elevated above goal. HCTZ restarted, cont to monitor electrolytes closely. 07/01: Improved on the HCTZ, electrolytes reviewed and BMP WNL. Renal function looks good. 07/03: Acceptable B for now, around 146 systolic today. If still >140 systolic in am may consider adding nifedipine. 07/04: BP at goal, no changes. 07/05: BP consistently in the 150s-160s. Will add a small dose of nifedipine at this time for goal BP<140/90 07/06: BP at goal on nifedipine. Cont current therapy regimen. (5) Paroxysmal atrial fibrillation: Plan: History of paroxysmal atrial fibrillation. She remains in sinus rhythm. Given her history of previous vascular/cerebrovascular events, anticoagulation for stroke prophylaxis was felt to be indicated during hospitalization March 2021. Records from [facility] in [place] reviewed and she was on DAPT as of Jan 26. Cont with apixaban and Plavix. There are no bleeding events. (6) Carotid artery disease: Plan: she has a h/o stroke in 2018 with right sided weakness which eventually resolved. She was admitted July 2020 to [facility] for another left hemispheric stroke with residual right-sided weakness. Work-up revealed left carotid artery stenosis. She underwent LCCA stenting for symptomatic stenosis on July 18, [address] Carreno. She has a history of smoking with CAD hypertension dyslipidemia diabetes. She was reporting trouble writing (right- handed and some weakness of right arm since 2020 stroke. She was continued on dual antiplatelet therapy with aspirin and Plavix and statin therapy. She was counseled regarding smoking cessation. Will cont on plavix, apixaban and statin per plan above. Will continue to reiterate the importance of smoking cessation. (7) Diabetes: Plan: A1c 6.6 reflects good control. It is likely the patient has been noncompliant with medical therapy given mental status. She takes metformin 1000 p.o. twice daily. Will stop insulin orders and no further fingersticks are needed. (8) UTI (urinary tract infection): Plan: UTI ruled out. Abx stopped (9) B12 deficiency: Plan: Cyanocobalamin injections daily for 7 days, cont PO supplemntation after this. (10) Anxiety and depression: Plan: h/o Bipolar depression. She appears stable for the past 2-3 days. No needs for Ativan which is ordered PRN. No evidence of withdrawal. Psychiatry stopped her home venlafaxine prescription as it has not been filled in many months and may cause side effects with no evidence for current need for this. Cont supportive care. (11) CAD (coronary artery disease): Plan: chronic, stable. Cont medical management with plavix, statin, metoprolol. pirin stopped per plan above. (12) Hyperlipidemia: Plan: chronic, stable. Cont current medical therapy. (13) Tobacco use: Plan: reported use in the chart. Smoking cessation advised but currently she is delirious. Will add nicoderm if any concerning signs for withdrawal. (14) Stroke: Plan: History of strokes in the past. No acute stroke seen on MRI this admission. Cont apixaban, Plavix and statin apixaban Full Code Dispo-Pending placement at [facility] DO Joselyn Power Hospitalist Admission and Anticipated Discharge Date Admission Date: June 27, 2022 Subjective 56 yo F who lives with her son presents with confusion she states she is about the same She is feeding herself She is doing well overall with no issues. Understands that she is going to rehab on Sunday Review of Systems Review of Systems: ROS is negative except as indicated on subjective above. Physical Exam Physical Exam: CONSTITUTIONAL: WNWD, vitals as above, generally well-appearing, NAD EYES:pupils are round and equal bilaterally, normal conjunctivae, no scleral icterus ENT: external ear and nose normal NECK: trachea midline RESPIRATORY: clear to auscultation bilaterally, no crackles, rales or wheezes, normal respiratory effort CARDIOVASCULAR: regular rate and rhythm, S1 and 2 heard without murmurs, gallops or rubs, no JVD, no peripheral edema CHEST: inspection of chest was normal GASTROINTESTINAL: soft, nontender, ND, no guarding MUSCULOSKELETAL: strength 5/5 throughout, head is normocephalic and atraumatic SKIN: warm and dry NEUROLOGIC: No facial palsy. CN 2-12 grossly intact, normal cognition, normal speech, no tremor PSYCHIATRIC: alert and oriented to person and place Results & Data Results & Data ([facility]) Vital Signs (Past 12 Hours) Vital Signs Temp Pulse Resp BP Pulse Ox O2 Del Method 07/06/22 08:33 36.8 C 78 16 107/57 L 96 Room Air Laboratory Results [facility] 07/06/22 08:25 Sodium 134 L Potassium 3.9 Chloride 99 Carbon Dioxide 29 BUN 44 H Creatinine 1.14 Glucose 98 Calcium 9.0 Medications Administered Current Inpatient Medications Acetaminophen (Acetaminophen 325 Mg Tab) 650 mg PO Q4H PRN PRN Reason: Pain or Fever Stop: 07/28/22 00:51 Apixaban (Apixaban 5 Mg Tablet) 5 mg PO BID INDRA Stop: 07/29/22 20:59 Last Admin: 07/06/22 08:29 Dose: 5 mg Atorvastatin Calcium (Atorvastatin 40 Mg Tab) 40 mg PO HS INDRA Stop: 07/28/22 20:59 Last Admin: 07/05/22 19:44 Dose: 40 mg Clopidogrel Bisulfate (Clopidogrel Bisulfate 75 Mg Tab) 75 mg PO DAILY INDRA Stop: 07/28/22 08:59 Last Admin: 07/06/22 08:28 Dose: 75 mg Cyanocobalamin (Cyanocobalamin (B-12) 500 Mcg Tablet) 1,000 mcg PO QAM INDRA Stop: 08/04/22 08:59 Last Admin: 07/06/22 08:28 Dose: 1,000 mcg Fenofibrate (Fenofibrate Nanocrystallized 145 Mg Tablet) 145 mg PO DAILY INDRA Stop: 07/28/22 08:59 Last Admin: 07/06/22 08:29 Dose: 145 mg Hydrochlorothiazide (Hydrochlorothiazide 25 Mg Tab) 12.5 mg PO DAILY INDRA Stop: 07/28/22 08:59 Last Admin: 07/06/22 08:28 Dose: 12.5 mg Lorazepam (Lorazepam 0.5 Mg Tab) 0.5 mg PO Q12H PRN PRN Reason: Anxiety Stop: 07/29/22 12:56 Last Admin: 07/05/22 19:41 Dose: 0.5 mg Losartan Potassium (Losartan Potassium 50 Mg Tab) 50 mg PO BID INDRA Stop: 07/28/22 00:51 Last Admin: 07/06/22 08:29 Dose: 50 mg Metoprolol Tartrate (Metoprolol Tartrate 50 Mg Tab) 50 mg PO BID INDRA Stop: 03/24/23 00:51 Last Admin: 07/06/22 08:29 Dose: 50 mg Multivitamins (Multivitamin Tab) 1 tab PO QAM [facility] Stop: 07/28/22 08:59 Last Admin: 07/06/22 08:29 Dose: 1 tab Nifedipine (Nifedipine Extended Rel 30 Mg Tabcr) 30 mg PO QAM [facility] Stop: 08/05/22 08:59 Last Admin: 07/06/22 08:29 Dose: 30 mg Nitroglycerin (Nitroglycerin Sl 0.4 Mg/Tab Tab) 0.4 mg SL Q5M PRN PRN Reason: Chest Pain Stop: 07/28/22 00:51 Pantoprazole Sodium (Pantoprazole 40 Mg Tab) 40 mg PO DAILY [facility] Stop: 07/28/22 08:59 Last Admin: 07/06/22 08:29 Dose: 40 mg Polyethylene Glycol (Polyethylene (Miralax) 17 Gm Pack) 17 gm PO DAILY PRN PRN Reason: Constipation Stop: 07/28/22 00:51 (7) Diabetes Diabetes mellitus complication status: without complication Diabetes mellitus manager long term care insulin use: without manager long term care use Diabetes mellitus type: type 2 Qualified Code(s): E11.9 - Type 2 diabetes mellitus without complications
[2022-07-06] MEDS: ATORVASTATIN 40 MG TAB PO SCH (19:46)
[2022-07-06] MEDS: LORazepam 0.5 MG TAB PO PRN (19:46)
[2022-07-07 07:32] LABS: Hematocrit (blood only) 33.2 % (37.0-47.0); Hemoglobin 11.1 g/dl (12.0-16.0); Mean Corpuscular Hemoglobin 28.8 pg (25.0-34.0); Mean Corpuscular Hgb Conc 33.4 g/dL (32.0-36.0); Mean Corpuscular Volume 86.2 fL (80.0-100.0); Platelet Count 408 K/uL (130-400); RDW Coefficient of Variation 15.2 % (11.5-14.5); RDW Standard Deviation 47.3 fL (36.4-46.3); Red Blood Count 3.85 M/uL (4.20-5.40); White Blood Count 7.15 K/ul (4.8-10.8)
[2022-07-07] MEDS: APIXABAN 5 MG TABLET PO SCH ×2 (08:22→19:50)
[2022-07-07] MEDS: FENOFIBRATE NANOCRYSTALLIZED 145 MG TABLET PO SCH (08:22)
[2022-07-07] MEDS: CLOPIDOGREL BISULFATE 75 MG TAB PO SCH (08:22)
[2022-07-07] MEDS: CYANOCOBALAMIN (B-12) 500 MCG TABLET PO SCH (08:22)
[2022-07-07] MEDS: hydroCHLOROthiazide 25 MG TAB PO SCH (08:23)
[2022-07-07] MEDS: LOSARTAN POTASSIUM 50 MG TAB PO SCH ×2 (08:23→19:49)
[2022-07-07] MEDS: METOPROLOL TARTRATE 50 MG TAB PO SCH ×2 (08:24→19:49)
[2022-07-07] MEDS: MULTIVITAMIN TAB PO SCH (08:24)
[2022-07-07] MEDS: PANTOprazole 40 MG TAB PO SCH (08:24)
[2022-07-07] MEDS: NIFEdipine EXTENDED REL 30 MG TABCR PO SCH (08:24)
--- NOTE | 2022-07-07 15:55 | Hospitalist Progress Note ---
Date of Service July 07, 2022 Assessment & Plan (1) Delirium: Plan: Etiologies concerning for but not limited to B12 deficiency, hypertensive urgency t-now improved, CADASIL, early onset dementia, or psychiatric disturbance. 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 CADASIL can present with acute reversible encephalopathy, cognitive impairment, dementia, and psychiatric disturbances consistent with her current clinical presentation. Neuro was consulted and agre es etiology of confusion is likely multifactorial with underlying vascular dementia. Continued antiplatelet therapy, antihypertensive therapy and glucose control. We will continue to reorient as needed and await for her to clear. Interestingly, son reports that she had an episode 3 to 4 months ago similar to this 1 that resolved spontaneously. Will transition her off telemetry. To reduce stroke risk further, she should be on apixaban and plavix per cardiology consultation during a previous admission. I requested her outpatient records from Jan 2022 and see that she never got on apixaban, still continuing the DAPT wtih ASA/Plavix instead. She has been in sinus rhythm since admission, but will now be off telemetry. With her h/o PAF, will now switch her to apixaban, cont plavix and stop ASA 81mg. 06/30: Improved today. Remains clear and A&O x 2. Improving on her ability to perform ADLs. No gross focal deficits. Cont supportive care. 07/01: Clear, speech intact. A&O x 2, reports the year is 2008. She is ringing to use the restroom now instead of going in the bed 07/02: she is about the same today with no regression. Some incontinence while sleeping, but otherwise communicating well. 07/03: mental status is stable, A&O x 2 but this afternoon she is a Little more confused. Redirection provided by RN. 07/05: mental status stable. No episodes of delirium, awaiting SNF placement. She is good with this plan. 07/06: mental status is stable. No episodes of delirium. Comfortable and awaiting SNF placement, planning for Sunday (2) Vascular dementia: Plan: plan as above. (3) Severe malnutrition: Plan: tolerating PO, monitor for intake and weight gain (4) Hypertensive urgency: Plan: Hypertensive urgency coming in with blood pressure of 224/134. It is possible she may have some hypertensive encephalopathy, however, she was still confused even after BP was back in the normal range. Continue current medical therapy including losartan twice daily. HCTZ on hold for now because this caused electrolyte disturbances during the previous admission. May need to restart. Cont monitoring BP closely. 06/30: Elevated above goal. HCTZ restarted, cont to monitor electrolytes closely. 07/01: Improved on the HCTZ, electrolytes reviewed and BMP WNL. Renal function looks good. 07/03: Acceptable B for now, around 146 systolic today. If still >140 systolic in am may consider adding nifedipine. 07/04: BP at goal, no changes. 07/05: BP consistently in the 150s-160s. Will add a small dose of nifedipine at this time for goal BP<140/90 07/06: BP at goal on nifedipine. Cont current therapy regimen. (5) Paroxysmal atrial fibrillation: Plan: History of paroxysmal atrial fibrillation. She remains in sinus rhythm. Given her history of previous vascular/cerebrovascular events, anticoagulation for stroke prophylaxis was felt to be indicated during hospitalization March 2021. Records from [facility] in [place] reviewed and she was on DAPT as of Jan 26. Cont with apixaban and Plavix. There are no bleeding events. (6) Carotid artery disease: Plan: she has a h/o stroke in 2018 with right sided weakness which eventually resolved. She was admitted July 2020 to [facility] for another left hemispheric stroke with residual right-sided weakness. Work-up revealed left carotid artery stenosis. She underwent LCCA stenting for symptomatic stenosis on July 18, [address] Carreno. She has a history of smoking with CAD hypertension dyslipidemia diabetes. She was reporting trouble writing (right- handed and some weakness of right arm since 2020 stroke. She was continued on dual antiplatelet therapy with aspirin and Plavix and statin therapy. She was counseled regarding smoking cessation. Will cont on plavix, apixaban and statin per plan above. Will continue to reiterate the importance of smoking cessation. (7) Diabetes: Plan: A1c 6.6 reflects good control. It is likely the patient has been noncompliant with medical therapy given mental status. She takes metformin 1000 p.o. twice daily. Will stop insulin orders and no further fingersticks are needed. (8) UTI (urinary tract infection): Plan: UTI ruled out. Abx stopped (9) B12 deficiency: Plan: Cyanocobalamin injections daily for 7 days, cont PO supplementation after this. (10) Anxiety and depression: Plan: h/o Bipolar depression. She appears stable for the past 2-3 days. No needs for Ativan which is ordered PRN. No evidence of withdrawal. Psychiatry stopped her home venlafaxine prescription as it has not been filled in many months and may cause side effects with no evidence for current need for this. Cont supportive care. (11) CAD (coronary artery disease): Plan: chronic, stable. Cont medical management with plavix, statin, metoprolol. Aspirin stopped per plan above. (12) Hyperlipidemia: Plan: chronic, stable. Cont current medical therapy. (13) Tobacco use: Plan: reported use in the chart. Smoking cessation advised (14) Stroke: Plan: History of strokes in the past. No acute stroke seen on MRI this admission. Cont apixaban, Plavix and statin apixaban Full Code Dispo-Pending placement at SNF likely on Sunday. Son unable to visit today but will be in over the weekend. A total of 35 minutes were spent with greater than 50% of that time face to face with the patient, personally reviewing all current laboratories, imaging studies, past medication reconciliation, outpatient chart review, and discussion with specialists to collaborate care for the patient with attending and utilization of translation services. Please see attending documentation for corrections and/or additions. Admission and Anticipated Discharge Date Admission Date: June 27, 2022 Supervising Physician Co-Signing Physician Notes Patient is seen and examined at bedside. Sitting in chair during my encounter. Mental status back to baseline. Offers no new complaints. Waiting for rehab placement. Denies any chest pain, shortness of breath, dizziness, nausea, abdominal pain. On exam patient is very thin, frail, no apparent distress, normocephalic atraumatic, EOMI, normal breath sounds, clear to auscultation, S1- S2, no murmur, no pedal edema, abdomen soft, nontender, normal bowel sounds, alert, awake, oriented, grossly no focal deficits. Patient is admitted for management of delirium in setting of underlying vascular dementia. Mental status is back to baseline. Continue Plavix, apixaban. Waiting for placement. Plan to discharge to SNF when accepted. I personally reviewed the record. Patient is interviewed and examined at bedside. Patient's care is coordinated with Patricia Adame PA-C. Please refer to the documentation above for details of patient's presentation and for discussion of other issues. Subjective Seem in follow up in 351-2 for confusion and is now back to mentation baseline. States she is feeling about the same today if not better. Slept well and is feeding herself without issue. No new pain. No fever, chills, lightheadedness, chest pain or shortness of breath, nausea, vomiting, abdominal pain, dysuria, diarrhea or constipation. Understands the plans for to go to rehab on Sunday. Review of Systems Review of Systems: At least ten systems reviewed and negative except as noted in the HPI. Physical Exam Physical Exam: Gen: WD/WN, NAD, sitting up in bed, alert, pleasantly confused but answers yes/no questions without issue HEENT: Normocephalic, atraumatic, conjunctivae moist, sclerae anicteric, mucous membranes moist Lung: Clear to Auscultation bilaterally, no wheezes/rales/rhonchi Heart: Regular rate, regular rhythm, no murmurs, rubs, or gallops Abdomen: Soft, NT, ND +BS x 4 Extremities: no edema Skin: Warm, no rash Results & Data Results & Data ([facility]) Vital Signs (Past 12 Hours) Vital Signs Temp Pulse Resp BP Pulse Ox O2 Del Method 07/07/22 14:17 36.7 C 79 16 129/64 96 Room Air 07/07/22 07:07 36.6 C 78 16 138/68 97 Room Air Laboratory Results Short CBC 07/07/22 Range/Units 07:08 WBC 7.15 (4.8-10.8) K/ul Hgb 11.1 L (12.0-16.0) g/dl Hct 33.2 L (37.0-47.0) % Plt Count 408 H (130-400) K/uL Diagnostic Findings Chest X-Ray 06/27/22 19:35 XR chest 1V portable CLINICAL HISTORY: ams TECHNIQUE: Single frontal radiograph of the chest was obtained. Comparison: Comparison is made to chest radiograph 03/04/2021 FINDINGS: Left carotid stent is noted. Calcified aortic knob is seen. The lungs are clear. No evidence of pleural effusion or pneumothorax. IMPRESSION: No acute chest disease. ACT 112: Negative or not required by law. Electronically signed by: Silverio Campos M.D. 06/27/2022 8:[address] 06/27/22 19:35 CT head/brain wo con CLINICAL HISTORY: ams Technique: Contiguous axial CT images of the head were acquired from the base of the skull to the vertex without intravenous contrast administration. Images were viewed in brain, subdural and bone windows. Automated dose lowering techniques and/or adjustment according to patient size were utilized for this exam. Comparison: Comparison is made to MRI brain 1031 and CTA head 03/04/2021 Findings: Areas of decreased attenuation are present in the periventricular and subcortical white matter bilaterally consistent with small vessel ischemic disease. Generalized cerebral atrophy with commensurate enlargement of the ventricles, sulci, and cisterns is also present. There is no acute intracranial hemorrhage or evidence of acute territorial infarction. No shift of the midline structures, mass effect, or extra-axial abnormalities are shown. Atherosclerotic calcifications are present in the intracranial segments of the internal carotid arteries. There is focal encephalomalacia in the left basal ganglia, unchanged from prior exam, compatible with old lacunar infarct. Imaged portions of the paranasal sinuses and mastoid air cells are clear. The orbits appear normal. There are no acute fractures of the calvaria or scalp swelling. Impression: No acute intracranial hemorrhage, no evidence of acute territorial infarction or other acute intracranial disease process. ACT 112: Negative or not required by law. Electronically signed by: Silverio Campos M.D. 06/27/2022 8:21 PM Brain MRI 06/28/22 00:52 Brain MRI WITH AND WITHOUT CONTRAST HISTORY: CONFUSION TECHNIQUE: Multiplanar multisequence MRI of the brain was performed both before and after the intravenous administration of contrast. COMPARISON STUDY: Head CT 06/27/2022. Brain MRI 03/05/2021. FINDINGS: No areas of restricted diffusion to suggest acute infarction. The paranasal sinuses and mastoid air cells are clear. The major vascular flow-voids at the skull base are well-maintained. The orbits are unremarkable. Scattered old lacunar infarcts are again noted within the bilateral basal ganglia, bilateral thalami, jenni, left cerebellar hemisphere, and left periventricular white matter. These are similar to the prior study. The ventricles and sulci demonstrate mild atrophic changes, unchanged. There is no mass, hematoma, midline shift. No change in the confluent periventricular white matter T2 hyperintensity which is greater than expected for age. Postcontrast sequences show no areas of abnormal enhancement. IMPRESSION: 1. No acute infarct or intracranial hemorrhage. 2. No change in the scattered central lacunar infarcts, atrophic changes, and confluent periventricular T2 hyperintensity. 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 ACT 112: Negative or not required by law. Electronically signed by: Izaiah Rosario M.D. 06/28/2022 1:06 PM Head CTA 06/28/22 00:52 CTA ANGIOGRAPHY OF THE HEAD CLINICAL HISTORY: CONFUSION, HX OF CVA, LCCA STENOSIS COMPARISON STUDY: CTA of the head March 04, 2021. Head CT June 27, 2022. TECHNIQUE: Helical axial images of the head were obtained following uneventful intravenous administration of 113 cc of Optiray. Sagittal and coronal reconstructions were viewed as well as maximal intensity projections on an independent 3-D workstation. Automated exposure control was utilized for the study. A dose lowering technique was utilized adhering to the principles of ALARA. CT DOSE: 399.84 mGy.cm FINDINGS: Ventricular system is stable. Basal cisterns are patent. There are no extra axial collections. Several old infarcts are noted. No acute intracranial hemorrhage is identified although sensitivity is diminished on this contrast enhanced exam. There is extensive plaque within the bilateral cavernous carotids. There is moderate stenosis of the right cavernous carotid with mild stenosis of the left cavernous carotid. No central vessel occlusion is identified. There is no intracranial aneurysm. Moderate stenosis of the right P2 segment is noted. There is mild stenosis of the left P2 segment. IMPRESSION: 1. No central vessel occlusion. No intracranial aneurysm. 2. Extensive plaque within bilateral cavernous carotids with moderate stenosis of the right cavernous carotid and mild stenosis of left cavernous carotid. Moderate stenosis of the right P2 segment. ACT 112: Negative or not required by law. Electronically signed by: Roni Love M.D. 06/28/2022 10:04 AM Neck CTA 06/28/22 00:52 NECK CTA HISTORY: CONFUSION, HX OF CVA, left carotid stenosis TECHNIQUE: Multiaxial CT images of the neck were performed following the intravenous administration of contrast to evaluate the major cervical vessels. Maximum intensity projection images were also obtained. All measurements were calculated based on NASCET criteria. A dose lowering technique was utilized adhering to the principles of ALARA. COMPARISON STUDY: CT neck 03/04/2021. FINDINGS: The aortic arch and proximal great vessels are patent. There is a proximal left common carotid artery stent which appears patent. The right common carotid artery is widely patent. Moderate to severe focal stenosis at the takeoff of the left vertebral artery on image 91. This demonstrates approximate 75% focal stenosis. There are few additional areas of mild to moderate multifocal stenosis within the proximal to mid left vertebral artery measuring up to 50%. This remains unchanged. Focal area of 50% stenosis within the mid right vertebral artery on image 204 which has progressed in the interval. Approximately 30% focal stenosis at the takeoff of the left internal carotid artery, unchanged. Otherwise, the bilateral cervical internal carotid arteries are patent with no evidence for aneurysm or dissection. Emphysema is noted. IMPRESSION: 1. The proximal left common carotid artery stent is patent. 2. Moderate to severe focal stenosis at the takeoff of the left vertebral artery. 3. Mild to moderate multifocal stenosis within the proximal to mid left vertebral artery, unchanged. 4. Focal area of 50% stenosis within the mid right vertebral artery which has progressed in the interval. 5. Approximately 30% focal stenosis at the takeoff of the left internal carotid artery, unchanged. 6. No significant stenosis within the right carotid arteries. ACT 112: Negative or not required by law. Electronically signed by: Izaiah Rosario M.D. 06/28/2022 12:48 PM (7) Diabetes Diabetes mellitus complication status: without complication Diabetes mellitus prison insulin use: without prison use Diabetes mellitus type: type 2 Qualified Code(s): E11.9 - Type 2 diabetes mellitus without complications
[2022-07-07] MEDS: ATORVASTATIN 40 MG TAB PO SCH (19:49)
[2022-07-08] MEDS: LORazepam 0.5 MG TAB PO PRN ×2 (00:54→19:59)
[2022-07-08 08:41] LABS: Potassium 3.9 mmol/L (3.5-5.1)
[2022-07-08 08:46] LABS: BUN Creatinine Ratio 30.6 (10-20); Creatinine Clr Calc Pharmacy 36.5 ml/min; Est GFR (African American) 57.1 ml/min; Est GFR (Non-African American) 49.3 ml/min
[2022-07-08] MEDS: NIFEdipine EXTENDED REL 30 MG TABCR PO SCH (08:58)
[2022-07-08] MEDS: MULTIVITAMIN TAB PO SCH (08:58)
[2022-07-08] MEDS: hydroCHLOROthiazide 25 MG TAB PO SCH (08:58)
[2022-07-08] MEDS: FENOFIBRATE NANOCRYSTALLIZED 145 MG TABLET PO SCH (08:58)
[2022-07-08] MEDS: PANTOprazole 40 MG TAB PO SCH (08:58)
[2022-07-08] MEDS: LOSARTAN POTASSIUM 50 MG TAB PO SCH ×2 (08:59→20:00)
[2022-07-08] MEDS: CYANOCOBALAMIN (B-12) 500 MCG TABLET PO SCH (08:59)
[2022-07-08] MEDS: APIXABAN 5 MG TABLET PO SCH ×2 (08:59→20:00)
[2022-07-08] MEDS: CLOPIDOGREL BISULFATE 75 MG TAB PO SCH (08:59)
[2022-07-08] MEDS: METOPROLOL TARTRATE 50 MG TAB PO SCH ×2 (08:59→20:01)
--- NOTE | 2022-07-08 15:29 | Hospitalist Progress Note ---
Date of Service July 08, 2022 Assessment & Plan (1) Delirium: Plan: Etiologies concerning for but not limited to B12 deficiency, hypertensive urgency ----now improved, CADASIL, early onset dementia, or psychiatric disturbance. 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 CADASIL can present with acute reversible encephalopathy, cognitive impairment, dementia, and psychiatric disturbances consistent with her current clinical presentation. Neuro was consulted and ag karine etiology of confusion is likely multifactorial with underlying vascular dementia. Of note, son reports that she had an episode 3 to 4 months ago similar to this 1 that resolved spontaneously. Continued antiplatelet therapy, antihypertensive therapy and glucose control. We will continue to reorient as needed and await for her to clear. To reduce stroke risk further, she should be on apixaban and plavix per cardiology consultation during a previous admission. Per prior attending - I requested her outpatient records from Jan 2022 and see that she never got on apixaban, still continuing the DAPT with ASA/Plavix instead. With her h/o PAF, switched to apixaban, cont plavix and stop ASA 81mg. Pt currently alert, orented x 1, pleasantly confused. maintain delirium precaution. freq reorientation. (2) Vascular dementia: Plan: plan as above. (3) Severe malnutrition: Plan: tolerating PO, monitor for intake and weight gain (4) Hypertensive urgency: Plan: Admitting blood pressure of 224/134. It is possible she may have some hypertensive encephalopathy, however, she was still confused even after BP was back in the normal range. Currently on Hctz 12.5, losartan 50 bid, metoprolol 50 mg bid, nifedipine 30 mg daily. BP fairly under control, monitor renal fxn lytes in AM. (5) Paroxysmal atrial fibrillation: Plan: History of paroxysmal atrial fibrillation. She remains in sinus rhythm. On apixaban and plavix (see above). (6) Carotid artery disease: Plan: she has a h/o stroke in 2018 with right sided weakness which eventually resolved. She was admitted July 2020 to [facility] for another left hemispheric stroke with residual right-sided weakness. Work-up revealed left carotid artery stenosis. She underwent LCCA stenting for symptomatic stenosis on July 18, [address] Carreno. She has a history of smoking with CAD hypertension dyslipidemia diabetes. She was reporting trouble writing (right- handed and some weakness of right arm since 2020 stroke. She was continued on dual antiplatelet therapy with aspirin and Plavix and statin therapy. She was counseled regarding smoking cessation. Will cont on plavix, apixaban and statin per plan above. Will continue to reiterate the importance of smoking cessation. (7) Diabetes: Plan: A1c 6.6 reflects good control. It is likely the patient has been noncompliant with medical therapy given mental status. She takes metformin 1000 p.o. twice daily. Insulin orders stopped and no further fingersticks are needed. (8) UTI (urinary tract infection): Plan: UTI ruled out. Abx stopped (9) B12 deficiency: Plan: Cyanocobalamin injections daily for 7 days, cont PO supplementation after this. (10) Anxiety and depression: Plan: h/o Bipolar depression. She appears stable for the past 2-3 days. No needs for Ativan which is ordered PRN. No evidence of withdrawal. Psychiatry stopped her home venlafaxine prescription as it has not been filled in many months and may cause side effects with no evidence for current need for this. Cont supportive care. (11) CAD (coronary artery disease): Plan: chronic, stable. Cont medical management with plavix, statin, metoprolol. Aspirin stopped per plan above. (12) Hyperlipidemia: Plan: chronic, stable. Cont current medical therapy. (13) Tobacco use: Plan: reported use in the chart. Smoking cessation advised (14) Stroke: Plan: History of strokes in the past. No acute stroke seen on MRI this admission. Cont apixaban, Plavix and statin apixaban Full Code Dispo-Pending placement at SNF likely on Sunday. Admission and Anticipated Discharge Date Admission Date: June 27, 2022 Subjective Patient seen and examined at bedside as a follow-up of delirium, severe malnutrition, hypertensive urgency. Patient was sitting up in bed, watching television, on room air, NAD, reports no new acute event overnight, is oriented to place only, reports " not getting food" to eat but appears that she has been eating ok, reports moving bowels okay, denies any chest pain or sore throat or cough. Physical Exam Physical Exam: GENERAL: Alert and awake. NAD, on RA. Pleasantly confused. HEENT: No pallor, no icterus. Pupils equal, round and reactive to light. Oral mucosa moist. NECK: No JVD, no neck masses. HEART: S1 and S2 heard. Regular rate and rhythm. No murmur, no gallop. RESPIRATORY SYSTEM: Normal AP diameter. No accessory muscle use. No wheezing, no crackles. ABDOMEN: Soft, bowel sounds present, nontender, no distention. CENTRAL NERVOUS SYSTEM: No facial droop. Speech is clear. Obeys simple commands. Moves extremities. EXTREMITIES: No edema, no erythema seen. Results & Data Results & Data ([facility]) Vital Signs (Past 12 Hours) Vital Signs Temp Pulse Resp BP Pulse Ox Pulse Ox O2 Del Method 07/08/22 14:51 36.6 C 78 16 143/64 H 97 Room Air 07/08/22 08:55 100 07/08/22 08:54 81 144/76 H 07/08/22 07:12 36.4 C L 78 16 134/66 98 Room Air O2 Del Method 07/08/22 14:51 07/08/22 08:55 Room Air 07/08/22 08:54 07/08/22 07:12 (7) Diabetes Diabetes mellitus type: type 2 Diabetes mellitus longterm insulin use: without longterm use Diabetes mellitus complication status: without complication Qualified Code(s): E11.9 - Type 2 diabetes mellitus without complications
[2022-07-08] MEDS: ATORVASTATIN 40 MG TAB PO SCH (20:01)
[2022-07-09 06:40] LABS: BUN Creatinine Ratio 26.4 (10-20); Calcium 9.2 mg/dl (8.5-10.1); Creatinine Clr Calc Pharmacy 34.2 ml/min; Est GFR (African American) 52.9 ml/min; Est GFR (Non-African American) 45.6 ml/min; Potassium 4.2 mmol/L (3.5-5.1)
[2022-07-09] MEDS: APIXABAN 5 MG TABLET PO SCH ×2 (09:05→20:22)
[2022-07-09] MEDS: METOPROLOL TARTRATE 50 MG TAB PO SCH ×2 (09:06→20:22)
[2022-07-09] MEDS: hydroCHLOROthiazide 25 MG TAB PO SCH (09:06)
[2022-07-09] MEDS: FENOFIBRATE NANOCRYSTALLIZED 145 MG TABLET PO SCH (09:06)
[2022-07-09] MEDS: LOSARTAN POTASSIUM 50 MG TAB PO SCH ×2 (09:06→20:22)
[2022-07-09] MEDS: PANTOprazole 40 MG TAB PO SCH (09:07)
[2022-07-09] MEDS: MULTIVITAMIN TAB PO SCH (09:07)
[2022-07-09] MEDS: CYANOCOBALAMIN (B-12) 500 MCG TABLET PO SCH (09:07)
[2022-07-09] MEDS: NIFEdipine EXTENDED REL 30 MG TABCR PO SCH (09:07)
[2022-07-09] MEDS: CLOPIDOGREL BISULFATE 75 MG TAB PO SCH (09:07)
[2022-07-09] MEDS ORDERED: SODIUM CHLORIDE 0.9% 500 ML IV SCH (10:00)
--- NOTE | 2022-07-09 16:53 | Hospitalist Progress Note ---
Date of Service July 09, 2022 Assessment & Plan (1) Delirium: Plan: Etiologies concerning for but not limited to B12 deficiency, hypertensive urgency ----now improved, CADASIL, early onset dementia, or psychiatric disturbance. 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 CADASIL can present with acute reversible encephalopathy, cognitive impairment, dementia, and psychiatric disturbances consistent with her current clinical presentation. Neuro was consulted and ag karine etiology of confusion is likely multifactorial with underlying vascular dementia. Of note, son reports that she had an episode 3 to 4 months ago similar to this 1 that resolved spontaneously. Continued antiplatelet therapy, antihypertensive therapy and glucose control. We will continue to reorient as needed and await for her to clear. To reduce stroke risk further, she should be on apixaban and plavix per cardiology consultation during a previous admission. Per prior attending - I requested her outpatient records from Jan 2022 and see that she never got on apixaban, still continuing the DAPT with ASA/Plavix instead. With her h/o PAF, switched to apixaban, cont plavix and stop ASA 81mg. Pt currently alert, orented x 1, pleasantly confused. maintain delirium precaution. freq reorientation. (2) Vascular dementia: Plan: plan as above. (3) Severe malnutrition: Plan: tolerating PO, monitor for intake and weight gain (4) Hypertensive urgency: Plan: Admitting blood pressure of 224/134. It is possible she may have some hypertensive encephalopathy, however, she was still confused even after BP was back in the normal range. Currently on Hctz 12.5, losartan 50 bid, metoprolol 50 mg bid, nifedipine 30 mg daily. BP fairly under control, monitor renal fxn lytes in AM. (5) Paroxysmal atrial fibrillation: Plan: History of paroxysmal atrial fibrillation. She remains in sinus rhythm. On apixaban and plavix (see above). (6) Carotid artery disease: Plan: she has a h/o stroke in 2018 with right sided weakness which eventually resolved. She was admitted July 2020 to [facility] for another left hemispheric stroke with residual right-sided weakness. Work-up revealed left carotid artery stenosis. She underwent LCCA stenting for symptomatic stenosis on July 18, [address] Carreno. She has a history of smoking with CAD hypertension dyslipidemia diabetes. She was reporting trouble writing (right- handed and some weakness of right arm since 2020 stroke. She was continued on dual antiplatelet therapy with aspirin and Plavix and statin therapy. She was counseled regarding smoking cessation. Will cont on plavix, apixaban and statin per plan above. Will continue to reiterate the importance of smoking cessation. (7) Diabetes: Plan: A1c 6.6 reflects good control. It is likely the patient has been noncompliant with medical therapy given mental status. She takes metformin 1000 p.o. twice daily. Insulin orders stopped and no further fingersticks are needed. (8) UTI (urinary tract infection): Plan: UTI ruled out. Abx stopped (9) B12 deficiency: Plan: Cyanocobalamin injections daily for 7 days, cont PO supplementation after this. (10) Anxiety and depression: Plan: h/o Bipolar depression. She appears stable for the past 2-3 days. No needs for Ativan which is ordered PRN. No evidence of withdrawal. Psychiatry stopped her home venlafaxine prescription as it has not been filled in many months and may cause side effects with no evidence for current need for this. Cont supportive care. (11) CAD (coronary artery disease): Plan: chronic, stable. Cont medical management with plavix, statin, metoprolol. Aspirin stopped per plan above. (12) Hyperlipidemia: Plan: chronic, stable. Cont current medical therapy. (13) Tobacco use: Plan: reported use in the chart. Smoking cessation advised (14) Stroke: Plan: History of strokes in the past. No acute stroke seen on MRI this admission. Cont apixaban, Plavix and statin apixaban Full Code Dispo-Pending placement at SNF likely on Sunday. Admission and Anticipated Discharge Date Admission Date: June 27, 2022 Subjective Patient seen and examined at bedside as a follow-up of delirium, severe malnutrition, hypertensive urgency. Patient was sitting up in bed, on room air, NAD, reports no new acute event overnight, is oriented to place only, RN at bedside who reports pt has been eating ok and moving bowels ok, no new events overnight. Pt states she hasn't eaten in the morning. Denies any chest pain or sore throat or cough. Physical Exam Physical Exam: GENERAL: Alert and awake. NAD, on RA. Pleasantly confused. HEENT: No pallor, no icterus. Pupils equal, round and reactive to light. Oral mucosa moist. NECK: No JVD, no neck masses. HEART: S1 and S2 heard. Regular rate and rhythm. No murmur, no gallop. RESPIRATORY SYSTEM: Normal AP diameter. No accessory muscle use. No wheezing, no crackles. ABDOMEN: Soft, bowel sounds present, nontender, no distention. CENTRAL NERVOUS SYSTEM: No facial droop. Speech is clear. Obeys simple commands. Moves extremities. EXTREMITIES: No edema, no erythema seen. Results & Data Results & Data ([facility]) Vital Signs (Past 12 Hours) Vital Signs Temp Pulse Pulse Resp BP Pulse Ox O2 Del Method 07/09/22 15:18 36.6 C 74 16 132/69 100 Room Air 07/09/22 09:04 84 126/67 07/09/22 07:38 36.8 C 78 16 135/70 99 Room Air (7) Diabetes Diabetes mellitus type: type 2 Diabetes mellitus half-way insulin use: without meterman use Diabetes mellitus complication status: without complication Qualified Code(s): E11.9 - Type 2 diabetes mellitus without complications
[2022-07-09] MEDS: ATORVASTATIN 40 MG TAB PO SCH (20:22)
[2022-07-09] MEDS: LORazepam 0.5 MG TAB PO PRN (22:32)
[2022-07-10 06:26] LABS: Hematocrit (blood only) 32.4 % (37.0-47.0); Hemoglobin 11.1 g/dl (12.0-16.0); Mean Corpuscular Hemoglobin 29.3 pg (25.0-34.0); Mean Corpuscular Hgb Conc 34.3 g/dL (32.0-36.0); Mean Corpuscular Volume 85.5 fL (80.0-100.0); Mean Platelet Volume 9.3 fL (9.4-12.4); Platelet Count 407 K/uL (130-400); RDW Coefficient of Variation 15.1 % (11.5-14.5); RDW Standard Deviation 46.8 fL (36.4-46.3); Red Blood Count 3.79 M/uL (4.20-5.40); White Blood Count 6.81 K/ul (4.8-10.8)
[2022-07-10 07:59] LABS: Calcium 10.6 mg/dl (8.5-10.1); Potassium 3.9 mmol/L (3.5-5.1)
[2022-07-10 08:05] LABS: Creatinine Clr Calc Pharmacy 70.1 ml/min; Est GFR (African American) 114.6 ml/min; Est GFR (Non-African American) 98.9 ml/min
[2022-07-10] MEDS: APIXABAN 5 MG TABLET PO SCH ×2 (08:52→20:26)
[2022-07-10] MEDS: LOSARTAN POTASSIUM 50 MG TAB PO SCH ×2 (08:52→20:25)
[2022-07-10] MEDS: METOPROLOL TARTRATE 50 MG TAB PO SCH ×2 (08:52→20:26)
[2022-07-10] MEDS: CYANOCOBALAMIN (B-12) 500 MCG TABLET PO SCH (08:53)
[2022-07-10] MEDS: PANTOprazole 40 MG TAB PO SCH (08:53)
[2022-07-10] MEDS: NIFEdipine EXTENDED REL 30 MG TABCR PO SCH (08:53)
[2022-07-10] MEDS: hydroCHLOROthiazide 25 MG TAB PO SCH (08:53)
[2022-07-10] MEDS: FENOFIBRATE NANOCRYSTALLIZED 145 MG TABLET PO SCH (08:54)
[2022-07-10] MEDS: CLOPIDOGREL BISULFATE 75 MG TAB PO SCH (08:54)
[2022-07-10] MEDS: MULTIVITAMIN TAB PO SCH (08:57)
--- NOTE | 2022-07-10 17:06 | Hospitalist Progress Note ---
Date of Service July 10, 2022 Assessment & Plan (1) Delirium: Plan: Etiologies concerning for but not limited to B12 deficiency, hypertensive urgency ----now improved, CADASIL, early onset dementia, or psychiatric disturbance. 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 CADASIL can present with acute reversible encephalopathy, cognitive impairment, dementia, and psychiatric disturbances consistent with her current clinical presentation. Neuro was consulted and ag karine etiology of confusion is likely multifactorial with underlying vascular dementia. Of note, son reports that she had an episode 3 to 4 months ago similar to this 1 that resolved spontaneously. Continued antiplatelet therapy, antihypertensive therapy and glucose control. We will continue to reorient as needed and await for her to clear. To reduce stroke risk further, she should be on apixaban and plavix per cardiology consultation during a previous admission. Per prior attending - I requested her outpatient records from Jan 2022 and see that she never got on apixaban, still continuing the DAPT with ASA/Plavix instead. With her h/o PAF, switched to apixaban, cont plavix and stop ASA 81mg. Pt currently alert, orented x 1, pleasantly confused. maintain delirium precaution. freq reorientation. (2) Vascular dementia: Plan: plan as above. (3) Severe malnutrition: Plan: tolerating PO, monitor for intake and weight gain (4) Hypertensive urgency: Plan: Admitting blood pressure of 224/134. It is possible she may have some hypertensive encephalopathy, however, she was still confused even after BP was back in the normal range. Currently on Hctz 12.5, losartan 50 bid, metoprolol 50 mg bid, nifedipine 30 mg daily. BP fairly under control, monitor renal fxn lytes in AM. (5) Paroxysmal atrial fibrillation: Plan: History of paroxysmal atrial fibrillation. She remains in sinus rhythm. On apixaban and plavix (see above). (6) Carotid artery disease: Plan: she has a h/o stroke in 2018 with right sided weakness which eventually resolved. She was admitted July 2020 to [facility] for another left hemispheric stroke with residual right-sided weakness. Work-up revealed left carotid artery stenosis. She underwent LCCA stenting for symptomatic stenosis on July 18, [address] Carreno. She has a history of smoking with CAD hypertension dyslipidemia diabetes. She was reporting trouble writing (right- handed and some weakness of right arm since 2020 stroke. She was continued on dual antiplatelet therapy with aspirin and Plavix and statin therapy. She was counseled regarding smoking cessation. Will cont on plavix, apixaban and statin per plan above. Will continue to reiterate the importance of smoking cessation. (7) Diabetes: Plan: A1c 6.6 reflects good control. It is likely the patient has been noncompliant with medical therapy given mental status. She takes metformin 1000 p.o. twice daily. Insulin orders stopped and no further fingersticks are needed. (8) UTI (urinary tract infection): Plan: UTI ruled out. Abx stopped (9) B12 deficiency: Plan: Cyanocobalamin injections daily for 7 days, cont PO supplementation after this. (10) Anxiety and depression: Plan: h/o Bipolar depression. She appears stable for the past 2-3 days. No needs for Ativan which is ordered PRN. No evidence of withdrawal. Psychiatry stopped her home venlafaxine prescription as it has not been filled in many months and may cause side effects with no evidence for current need for this. Cont supportive care. (11) CAD (coronary artery disease): Plan: chronic, stable. Cont medical management with plavix, statin, metoprolol. Aspirin stopped per plan above. (12) Hyperlipidemia: Plan: chronic, stable. Cont current medical therapy. (13) Tobacco use: Plan: reported use in the chart. Smoking cessation advised (14) Stroke: Plan: History of strokes in the past. No acute stroke seen on MRI this admission. Cont apixaban, Plavix and statin apixaban Full Code Dispo-pt/ot to adelaida maki to assist w/ dc plan Admission and Anticipated Discharge Date Admission Date: June 27, 2022 Subjective Patient seen and examined at bedside as a follow-up of delirium, severe malnutrition, hypertensive urgency. Patient was sitting up in bed, on room air, NAD, reports no new acute event overnight, is oriented to place only, pt reports eating ok and moving bowels ok. Denies any chest pain or sore throat or cough. Physical Exam Physical Exam: GENERAL: Alert and awake. NAD, on RA. Pleasantly confused. HEENT: No pallor, no icterus. Pupils equal, round and reactive to light. Oral mucosa moist. NECK: No JVD, no neck masses. HEART: S1 and S2 heard. Regular rate and rhythm. No murmur, no gallop. RESPIRATORY SYSTEM: Normal AP diameter. No accessory muscle use. No wheezing, no crackles. ABDOMEN: Soft, bowel sounds present, nontender, no distention. CENTRAL NERVOUS SYSTEM: No facial droop. Speech is clear. Obeys simple commands. Moves extremities. EXTREMITIES: No edema, no erythema seen. Results & Data Results & Data ([facility]) Vital Signs (Past 12 Hours) Vital Signs Temp Pulse Pulse Resp BP Pulse Ox O2 Del Method 07/10/22 14:25 36.5 C 72 16 124/63 100 Room Air 07/10/22 14:31 36.6 C 74 16 148/68 H 100 Room Air 07/10/22 08:49 76 134/68 07/10/22 07:28 36.7 C 71 16 148/77 H 99 Room Air (7) Diabetes Diabetes mellitus type: type 2 Diabetes mellitus ferry terminal agent insulin use: without ferry terminal agent use Diabetes mellitus complication status: without complication Qualified Code(s): E11.9 - Type 2 diabetes mellitus without complications
[2022-07-10] MEDS: ATORVASTATIN 40 MG TAB PO SCH (20:26)
[2022-07-10] MEDS: LORazepam 0.5 MG TAB PO PRN (21:18)
[2022-07-11] MEDS: APIXABAN 5 MG TABLET PO SCH (08:41)
[2022-07-11] MEDS: MULTIVITAMIN TAB PO SCH (08:41)
[2022-07-11] MEDS: LOSARTAN POTASSIUM 50 MG TAB PO SCH (08:41)
[2022-07-11] MEDS: METOPROLOL TARTRATE 50 MG TAB PO SCH (08:41)
[2022-07-11] MEDS: CLOPIDOGREL BISULFATE 75 MG TAB PO SCH (08:42)
[2022-07-11] MEDS: FENOFIBRATE NANOCRYSTALLIZED 145 MG TABLET PO SCH (08:42)
[2022-07-11] MEDS: PANTOprazole 40 MG TAB PO SCH (08:42)
[2022-07-11] MEDS: CYANOCOBALAMIN (B-12) 500 MCG TABLET PO SCH (08:42)
[2022-07-11] MEDS: hydroCHLOROthiazide 25 MG TAB PO SCH (08:42)
[2022-07-11] MEDS: NIFEdipine EXTENDED REL 30 MG TABCR PO SCH (08:43)
--- NOTE | 2022-07-11 12:19 | Discharge Summary ---
Date of Service July 11, 2022 Admission HPI Per Admitting Provider CHIEF COMPLAINT: Confusion. HISTORY OF PRESENT ILLNESS: A 56-year-old female with past medical history significant for CAD, hypertension, hyperlipidemia, diabetes, history of stroke in 2018 with right-sided weakness, which eventually resolved. Again, she had another left hemispheric stroke with residual weakness in 07/2020, workup noting LCCA stenosis and she was referred to [facility] and is status post LCCA stenting for symptomatic stenosis in 09/2020, on aspirin and Plavix. History of smoking, history of hyperlipidemia, asthma, carotid artery stenosis, GERD, Sauer's esophagus, depression, generalized anxiety, bipolar disorder. Lives at home and was brought in by son because of confusion. As per the son, patient is getting confused last one and a half months and got progressively worse. She is not taking care of herself, falling frequently, not bathing, defecating everywhere. He states that she gets food from the kitchen and forgets to eat, he is cooking and trying to feed her lately. Son is living with her to help her. That is the reason, he brought her to the hospital. The patient is alert and awake, can tell her name, knows that she is in the hospital, but thinks in the [facility], could tell her date of , but could not tell today's date. She states she was brought into the hospital for confusion. Denies any headache. Denies any blurred visions. Denies earache, runny nose or sore throat. No cough, no fevers, no chest pain, no shortness of breath, no nausea, no abdominal pain. No swelling in the legs. Her blood pressure is running high in the ER. As per son, he does not know whether she is taking her medications or not. ALLERGIES: NSAIDs. PAST MEDICAL HISTORY: As mentioned above. PAST SURGICAL HISTORY: Left carotid bypass graft, EGD with biopsy, right wrist, removal of appendix, removal of oophorectomy and total hysterectomy, carotid stent with distal protection. MEDICATIONS: As per the Epic, she is on aspirin 81 mg p.o. daily, atorvastatin 40 mg p.o. at bedtime, Plavix 75 mg p.o. daily, fenofibrate 54 mg b.i.d., hydrochlorothiazide 12.5 mg p.o. daily, hydrocodone/acetaminophen 1 tablet p.o. q.6 p.r.n., lorazepam 1 mg p.o. t.i.d. p.r.n., losartan 50 mg p.o. b.i.d., metformin 1000 mg p.o. b.i.d., metoprolol tartrate 50 mg p.o. b.i.d., multivitamin 1 capsule p.o. daily, omeprazole 20 mg p.o. daily, venlafaxine 75 mg p.o. daily. FAMILY HISTORY: Significant for father has arthritis, diabetes, high cholesterol. Mother has arthritis, high cholesterol, hypertension, stroke. Aunt has breast cancer. Sister has rheumatoid arthritis. SOCIAL HISTORY: She still lives alone, but currently son is living with her. Seems to be smoking half pack a day. Currently, patient is a poor historian. No alcohol use. No drug use as per Epic. REVIEW OF SYSTEMS: As per HPI, but the patient is a poor historian. Admission Exam Per Admitting Provider GENERAL: The patient is alert and oriented to name and place. VITAL SIGNS: Temperature 36.6, pulse 88, respiratory rate 19, blood pressure 206/116, oxygen 99% on room air. HEENT: Pupils equal, round and reactive to light. Oral mucosa moist. NECK: No JVD, no neck masses. CARDIOVASCULAR: S1 and S2 heard. Regular rate and rhythm. No murmur, no gallop. RESPIRATORY SYSTEM: Normal AP diameter. No accessory muscle use. No wheezing, no crackles. ABDOMEN: Soft, bowel sounds are nontender, no distention. CENTRAL NERVOUS SYSTEM: Alert and oriented to name and place. No facial droop. Speech is okay. Obeys simple commands. Moves extremities. EXTREMITIES: No edema, no erythema. Principal Diagnosis Delirium Vascular dementia Hypertensive urgency Paroxysmal A-fib Discharge Exam GENERAL: Alert and awake. NAD, on RA. Pleasantly confused. HEENT: No pallor, no icterus. Pupils equal, round and reactive to light. Oral mucosa moist. NECK: No JVD, no neck masses. HEART: S1 and S2 heard. Regular rate and rhythm. No murmur, no gallop. RESPIRATORY SYSTEM: Normal AP diameter. No accessory muscle use. No wheezing, no crackles. ABDOMEN: Soft, bowel sounds present, nontender, no distention. CENTRAL NERVOUS SYSTEM: No facial droop. Speech is clear. Obeys simple commands. Moves extremities. EXTREMITIES: No edema, no erythema seen. Discharge Data Allergies Allergy/AdvReac Type Severity Reaction Status Date / Time NSAIDS (Non-Steroidal AdvReac Intermediate NAUSEA/VOMI Verified 06/27/22 21:06 Anti-Inflamma TING Consultations 06/27/22 22:06 ED Decision to Admit Stat 06/28/22 08:00 Consult Neurology Routine 06/28/22 09:00 Consult Psychiatry Routine Ordered Studies 06/27/22 19:35 CT head/brain wo con Stat 06/28/22 00:52 CTA head w con [CT angio head w con] Urgent CTA neck with con [CT angio neck with con] Urgent MRI Brain [MR brain wo/w con] Urgent Hospital Course (1) Delirium: Etiologies concerning for but not limited to B12 deficiency, hypertensive urgency ----now improved, CADASIL, early onset dementia, or psychiatric disturbance. 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 CADASIL can present with acute reversible encephalopathy, cognitive impairment, dementia, and psychiatric disturbances consistent with her current clinical presentation. Neuro was consulted and agrees etiology of confusion is likely multifactorial with underlying vascular dementia. Of note, son reports that she had an episode 3 to 4 months ago similar to this 1 that resolved spontaneously. Continued antiplatelet therapy, antihypertensive therapy and glucose control. We will continue to reorient as needed and await for her to clear. To reduce stroke risk further, she should be on apixaban and plavix per cardiology consultation during a previous admission. Per prior attending - I requested her outpatient records from Jan 2022 and see that she never got on apixaban, still continuing the DAPT with ASA/Plavix instead. With her h/o PAF, switched to apixaban, cont plavix and stop ASA 81mg. Pt currently alert, orented x 2, pleasantly confused. Pt to continue w/ plavix and eliquis on discharge. Aspirin and venlafaxine stopped. (2) Vascular dementia: plan as above. (3) Severe malnutrition: tolerating PO, monitor for intake and weight gain (4) Hypertensive urgency: Admitting blood pressure of 224/134. It is possible she may have some hypertensive encephalopathy, however, she was still confused even after BP was back in the normal range. Currently on Hctz 12.5, losartan 50 bid, metoprolol 50 mg bid, nifedipine 30 mg daily. BP fairly under control, to follow up w/ PCP for ongoing management. (5) Paroxysmal atrial fibrillation: History of paroxysmal atrial fibrillation. She remains in sinus rhythm. On apixaban and plavix (see above). (6) Carotid artery disease: she has a h/o stroke in 2018 with right sided weakness which eventually re solved. She was admitted July 2020 to [facility] for another left hemispheric stroke with residual right-sided weakness. Work-up revealed left carotid artery stenosis. She underwent LCCA stenting for symptomatic stenosis on July 18, [address] Carreno. She has a history of smoking with CAD hypertension dyslipidemia diabetes. She was reporting trouble writing (right- handed and some weakness of right arm since 2020 stroke. She was continued on dual antiplatelet therapy with aspirin and Plavix and statin therapy. She was counseled regarding smoking cessation. Will cont on plavix, apixaban and statin per plan above. Will continue to reiterate the importance of smoking cessation. (7) Diabetes: A1c 6.6 reflects good control. She takes metformin 1000 p.o. twice daily. (8) UTI (urinary tract infection): UTI ruled out. Abx stopped (9) B12 deficiency: On vitamin B12 supplement. (10) Anxiety and depression: h/o Bipolar depression. She appears stable for the past 2-3 days. No needs for Ativan which is ordered PRN. No evidence of withdrawal. Psychiatry stopped her home venlafaxine prescription as it has not been filled in many months and may cause side effects with no evidence for current need for this. Cont supportive care. (11) CAD (coronary artery disease): chronic, stable. Cont medical management with plavix, statin, metoprolol. Aspirin stopped per plan above. (12) Hyperlipidemia: chronic, stable. Cont current medical therapy. (13) Tobacco use: reported use in the chart. Smoking cessation advised (14) Stroke: History of strokes in the past. No acute stroke seen on MRI this admission. Cont apixaban, Plavix and statin Plan Patient is being discharged to home with family support with following instruction at the point of discharge: Follow-up with your primary care physician within a week time and likely you will need labs CBC/CMP/magnesium/phosphorus. Because of your history of paroxysmal A-fib, you were recommended Eliquis and Plavix by cardiology in the past. While in this hospital admission, your aspirin has been stopped. Eliquis has been added. You will continue with your Plavix as prior. Since your blood pressure were on the higher side, your blood pressure medication has been adjusted. Advise to measure your blood pressure twice a day and maintain a log to take to your primary care physician so that your blood pressure medication can be readjusted (if needed) at your next visit with your PCP. Take your medications as prescribed. Your aspirin and venlafaxine has been stopped. Please make sure that you are able to get your medications today by calling your pharmacy before you leave the hospital so that your treatment continuity is not broken. Home Health Attestation I certify that this patient is under my care and that I, or a physicians pastoral assistant working with me, had a face to-face encounter that meets the home health [id number] encounter requirements with this patient. The encounter with the patient was in whole, or in part, for the following medical condition, which is the primary reason for home health care (list medical condition): I certify that, based on my findings, the following services are medically necessary home health services: My clinical findings support the need for the above services because: Further, I certify that my clinical findings support that this patient is homebound (i.e. absences from home require considerable and taxing effort and are for medical reasons or yazidism services or infrequently or of short duration when for other reasons) because: Certification for Home Health Services: Based on the above findings, I certify that this patient is confined to the home and needs intermittent senior care care, physical therapy and/or speech therapy or continues to need occupational therapy. The patient is under my care, and I have initiated the establishment of the plan of care. This patient will be followed by a physician who will periodically review the plan of care. Total Time Total Time Spent Total Time Spent (In Minutes): 45 Discharge Plan Discharge Items Patient Disposition: Home - Home Health Services Reason For Visit: CONFUSION Discharge Diagnosis: Delirium Vascular dementia Hypertensive urgency Paroxysmal A-fib Activity: Resume your previous activity Non-emergency contact: Primary Care Provider Call non-emergency contact if: you have any medication questions Follow-up/Referrals: Yovanny Menjivar DO [Primary Care Provider] - Diet: Heart Healthy Diet Texture: Easy to Chew Addtl Attending Provider Instructions: Follow-up with your primary care physician within a week time and likely you will need labs CBC/CMP/magnesium/phosphorus. Because of your history of paroxysmal A-fib, you were recommended Eliquis and Plavix by cardiology in the past. While in this hospital admission, your aspirin has been stopped. Eliquis has been added. You will continue with your Plavix as prior. Since your blood pressure were on the higher side, your blood pressure medication has been adjusted. Advise to measure your blood pressure twice a day and maintain a log to take to your primary care physician so that your blood pressure medication can be readjusted (if needed) at your next visit with your PCP. Take your medications as prescribed. Your aspirin and venlafaxine has been stopped. Please make sure that you are able to get your medications today by calling your pharmacy before you leave the hospital so that your treatment continuity is not broken. Pending Studies at Discharge: No Stand-Alone Forms: My [facility] RiskIQ, Smoking Cessation Medications and DC Order Prescriptions: New Eliquis 5 mg Tablet 5 mg PO BID Qty: 60 0RF nifedipine [Procardia XL] 30 mg Tablet Extended Release 24hr 30 mg PO QAM Qty: 30 0RF cyanocobalamin (vitamin B-12) 100 mcg tablet 100 mcg PO DAILY Qty: 30 0RF Continued atorvastatin 40 mg tablet 40 mg PO HS hydrocodone-acetaminophen 5-325 mg tablet 1 tab PO Q6H PRN (Reason: Pain) clopidogrel 75 mg tablet 75 mg PO DAILY metformin 1,000 mg tablet 1,000 mg PO BID Rx Instructions: LAST FILLED 01/04/22 FOR 90 DAY SUPPLY. metoprolol tartrate 50 mg tablet 50 mg PO BID lorazepam 1 mg tablet 1 mg PO TID PRN (Reason: Anxiety) fenofibrate 54 mg tablet 54 mg PO BID multivitamin with folic acid [Daily-Leeanna (with folic acid)] 400 mcg Tablet 1 tab PO QAM Qty: 30 0RF omeprazole 20 mg capsule,delayed release(DR/EC) 20 mg PO DAILY hydrochlorothiazide 25 mg tablet 12.5 mg PO DAILY losartan 100 mg Tablet 50 mg PO BID Rx Instructions: LAST FILLED 02/17/22 FOR 90 DAY SUPPLY. Discontinued venlafaxine 75 mg tablet 75 mg PO DAILY Rx Instructions: LAST FILLED 01/16/22 FOR 90 DAY SUPPLY. aspirin 81 mg tablet,delayed release (DR/EC) 81 mg PO DAILY Discharge Orders: Discharge Order (Routine); Ordered 07/11/22 Ordered By: Gisella Weinstein/Other Patient Handouts: High Blood Sugar (Hyperglycemia), Hypoglycemia (Low Blood Sugar), Managing Type 2 Diabetes Admission Data Admit Date/Time: 06/27/22 22:39 Attending Provider: Gisella Morin Admit Provider: Lucian Mendoza Primary Care Provider: Yovanny Menjivar Other Providers: [place] ; Lucian Mendoza ; Mu Salgado ; Jaxson Connelly ; Lexi Hardy ; Kelli Yee ; Keiry Hong ; Mat Love ; Keiry Mcpherson ; Andrea Aguiar ; Lissette Freeman ; Faizan Katz ; Marybel Ahn ; Destiny Anderson ; Mat Millan ; Tommie Huynh ; Shalini Ball ; Izzy Barr ; Justin Begum ; Pat Felix ; Patricia dAame ; [facility]
== END 2022-07-11 15:15 | disposition home health service (06) | DRG 70 ==
LOC: ED 18:34 → SUATTDRO 22:39 → 2S 22:39 → 3W 06-29 18:31